=== PATIENT | female | born 1945 | race Caucasian/White ===

== ENCOUNTER 2016-07-26 22:07 | Inpatient (IN) | payer MEDICARE, MEDICAID ==
[~2016-07-26] VITALS: Ht 160 cm; Wt 45.1 kg
[2016-07-26 22:14] VITALS: BP 136/80; TEMP 98.2; O2SAT 99
[2016-07-26 23:18] VITALS: BP_SYST 130; PULSE 84; RESP 14; TEMP 98.1; O2SAT 98
[2016-07-26 23:52] LABS: AUTOMATED NEUTROPHIL # 4.2 TH/MM3 (1.8-7.7); BASOPHIL # 0.1 TH/MM3 (0-0.2); BASOPHIL % 0.9 % (0.0-2.0); EOSINOPHIL # 0.2 TH/MM3 (0-0.4); EOSINOPHIL % 3.4 % (0.0-4.0); HEMATOCRIT 29.7 % (35.0-46.0); HEMO FLAGS DIFF FINAL; LYMPH % 23.5 % (9.0-44.0); LYMPHOCYTE # 1.6 TH/MM3 (1.0-4.8); MEAN CELL VOLUME 89.9 FL (80.0-100.0); MEAN CORPUSCULAR HEMOGLOBIN 31.2 PG (27.0-34.0); MEAN CORPUSCULAR HGB CONC 34.7 % (32.0-36.0); MONO % 11.3 % (0.0-8.0); NEUT % 60.9 % (16.0-70.0); PLATELET COUNT 244 TH/MM3 (150-450); RED CELL DISTRIBUTION WIDTH 14.1 % (11.6-17.2)
--- NOTE | 2016-07-26 23:55 | RADRPT ---
EXAM DATE/TIME: 07/26/2016 23:45 [place] COMPARISON: No previous studies available for comparison. INDICATIONS : Altered mental status. RADIATION DOSE: 34.73 CTDIvol (mGy) MEDICAL HISTORY : None SURGICAL HISTORY : None. ENCOUNTER: Initial ACUITY: 1 day PAIN SCALE: Non-responsive LOCATION: cranial TECHNIQUE: Multiple contiguous axial images were obtained of the head. Using automated exposure control and adj ustment of the mA and/or kV according to patient size, radiation dose was kept as low as reasonably a chievable to obtain optimal diagnostic quality images. FINDINGS: CEREBRUM: The ventricles and cortical sulci are widened. No evidence of midline shift, mass lesion, hemorrhage or acute infarction. No extra-axial fluid collections are seen. POSTERIOR FOSSA: The cerebellum and brainstem are intact. The 4th ventricle is midline. The cerebellopontine angle i s unremarkable. EXTRACRANIAL: The visualized portion of the orbits is intact. SKULL: The calvaria is intact. No evidence of skull fracture. CONCLUSION: 1. No acute intracranial abnormality. 2. Atrophy. Roddy Huerta MD on July 26, 2016 at 23:53 Board Certified Radiologist. This report was verified electronically.
[2016-07-27 00:25] LABS: ANION GAP 7 MEQ/L (5-15); AST (GOT) 7 U/L (15-37); BICARBONATE 31.6 MEQ/L (21.0-32.0); BLOOD UREA NITROGEN 20 MG/DL (7-18); CHLORIDE 97 MEQ/L (98-107); GLOMERULAR FILTRATION RATE 107 ML/MIN (>89); POTASSIUM 3.7 MEQ/L (3.5-5.1); SODIUM (NA) 136 MEQ/L (136-145)
[2016-07-27 00:28] LABS: ALKALINE PHOSPHATASE 91 U/L (45-117); ALT (GPT) 14 U/L (10-53); TOTAL BILIRUBIN ADULT 0.2 MG/DL (0.2-1.0)
--- NOTE | 2016-07-27 00:34 | PD ---
HPI Chief Complaint: Psychiatric Symptoms Time Seen by Provider: 23:22 Travel History International Travel<30 days: No Contact w/Intl Traveler<30days: No Traveled to known affect area: No History of Present Illness HPI 71-year-old female was sent from rehabilitation for increasing agitation, confusion and hallucinations. She was Becerra acted by the physician at the rehabilitation center. As per the Becerra act paper work the physician said she was unfit for the current rehabilitation facility. Patient does have an ankle bracelet on. She has been hallucinating since she's been here and delusional. Speech is gibberish and does not make sense. Vital signs are otherwise stable. PFSH Past Medical History Narrative Medical List of her past medical history is reviewed from the nursing note. Medical History: Unable to Obtain Past Surgical History Surgical History: Unable to Obtain Social History Alcohol Use: No Tobacco Use: No Substance Use: No Allergies-Medications (Allergen,Severity, Reaction): Coded Allergies: No Known Allergies (Unverified , 07/26/16) Comments List of her allergies reviewed. Reported Meds & Prescriptions Reported Meds & Active Scripts Active Reported Haloperidol 5 Mg Tab 5 Mg PO TID Prevnar 13 Inj (Pneumoccal 13-Valent Conj Vacc) 0.5 Ml Inj 0.5 Ml IM .ONCE Olanzapine 5 Mg Tab 5 Mg PO TID Acetaminophen 325 Mg Tab 650 Mg PO Q4H PRN Metformin (Metformin HCl) 500 Mg Tab 500 Mg PO DAILY With a meal Aspirin 81 Mg Chew 81 Mg CHEW EVERY OTHER DAY Valproic Acid 250 Mg Cap 500 Mg PO TID Thiamine (Thiamine HCl) 100 Mg Tab 100 Mg PO DAILY A Thru Z Select Vitamin W/Minerals (Multiple Vitamins W/ Minerals) 1 Tab 1 Tab PO DAILY Folate (Folic Acid) 1 Mg Tab 1 Mg PO DAILY Glucagon Emergency Inj Kit (Glucagon (Rdna) Inj Kit) 1 Mg Kit 1 Mg IM ONCE PRN Milk of Magnesia Liq (Magnesium Hydroxide) 400 Mg/5 Ml Susp 30 Ml PO DAILY PRN Maalox Advanced Maximum Strength Liq (Sihqlmop-Xismafdis-Kwnrxssyvrk Liq) 400- 400-40 Mg/5 Ml Susp 30 Ml PO Q4HR PRN Take between meals or as directed. Shake well. Maximum 60 ml/24 hrs. Senna-Plus (Sennosides-Docusate Sodium) 8.6-50 Mg Tab 2 Tab PO HS Docusate Sodium 100 Mg Cap 100 Mg PO HS PRN Bismatrol Liq (Bismuth Subsalicylate) 262 Mg/15 Ml Susp 15 Ml PO Q4HR PRN Do not exceed 8 doses (240 mL or 16 tbsp) in 24 hours. Memantine 10 Mg Tab 10 Mg PO BID Hydroxyzine Pamoate 50 Mg Cap 50 Mg PO HS Benadryl Allergy Children Liq (Diphenhydramine HCl) 12.5 Mg/5 Ml Liq 12.5 Mg PO TID PRN Diphenhydramine (Diphenhydramine HCl) 25 Mg Cap 50 Mg PO Q12H PRN Losartan-Hydrochlorothiazide 50-12.5 Mg Tab 1 Tab PO DAILY Narrative Medication List of her medications were reviewed from the paperwork that came from rehabilitation. Review of Systems Except as stated in HPI: all other systems reviewed are Neg Physical Exam Narrative GENERAL: Awake, disheveled SKIN: Warm and dry. Seborrhea HEAD: Atraumatic. Normocephalic. EYES: Pupils equal and round. No scleral icterus. No injection or drainage. ENT: No nasal bleeding or discharge. Mucous membranes pink and moist. NECK: Trachea midline. No JVD. CARDIOVASCULAR: Regular rate and rhythm. No murmur appreciated. RESPIRATORY: No accessory muscle use. Clear to auscultation. Breath sounds equal bilaterally. GASTROINTESTINAL: Abdomen soft, non-tender, nondistended. Hepatic and splenic margins not palpable. MUSCULOSKELETAL: No obvious deformities. No clubbing. No cyanosis. No edema. NEUROLOGICAL: Awake and confused, delusional. No obvious cranial nerve deficits. Motor grossly within normal limits. Patient is not making sense when she is speaking. PSYCHIATRIC: Appropriate mood and affect; insight and judgment normal. Data Data Last Documented VS Vital Signs Date Time Temp Pulse Resp B/P Pulse Ox O2 Delivery O2 Flow Rate FiO2 07/27/16 06:00 69 18 125/67 97 07/26/16 23:18 98.1 Orders Complete Blood Count With Diff (07/26/16 23:22) Comprehensive Metabolic Panel (07/26/16 23:22) Urinalysis - C+S If Indicated (07/26/16 23:22) Drug Screen, Random Urine (07/26/16 23:22) Psych Screen (07/26/16 23:22) Ct Brain W/O Iv Contrast(Rout) (07/26/16 ) Valproic Acid (Depakene) (07/26/16 23:38) Haloperidol Inj (Haldol Inj) (07/27/16 03:00) Diet Diabetic (07/27/16 Breakfast) Admit Order (Ed Use Only) (07/27/16 ) Labs Laboratory Tests Test 07/26/16 07/27/16 23:38 02:20 White Blood Count 7.0 TH/MM3 Red Blood Count 3.30 MIL/MM3 Hemoglobin 10.3 GM/DL Hematocrit 29.7 % Mean Corpuscular Volume 89.9 FL Mean Corpuscular Hemoglobin 31.2 PG Mean Corpuscular Hemoglobin 34.7 % Concent Red Cell Distribution Width 14.1 % Platelet Count 244 TH/MM3 Mean Platelet Volume 7.8 FL Neutrophils (%) (Auto) 60.9 % Lymphocytes (%) (Auto) 23.5 % Monocytes (%) (Auto) 11.3 % Eosinophils (%) (Auto) 3.4 % Basophils (%) (Auto) 0.9 % Neutrophils # (Auto) 4.2 TH/MM3 Lymphocytes # (Auto) 1.6 TH/MM3 Monocytes # (Auto) 0.8 TH/MM3 Eosinophils # (Auto) 0.2 TH/MM3 Basophils # (Auto) 0.1 TH/MM3 CBC Comment DIFF FINAL Differential Comment Sodium Level 136 MEQ/L Potassium Level 3.7 MEQ/L Chloride Level 97 MEQ/L Carbon Dioxide Level 31.6 MEQ/L Anion Gap 7 MEQ/L Blood Urea Nitrogen 20 MG/DL Creatinine 0.56 MG/DL Estimat Glomerular Filtration 107 ML/MIN Rate Random Glucose 108 MG/DL Calcium Level 9.0 MG/DL Total Bilirubin 0.2 MG/DL Aspartate Amino Transf 7 U/L (AST/SGOT) Alanine Aminotransferase 14 U/L (ALT/SGPT) Alkaline Phosphatase 91 U/L Total Protein 6.9 GM/DL Albumin 3.1 GM/DL Valproic Acid (Depakene) Level 45 MCG/ML Urine Color YELLOW Urine Turbidity CLEAR Urine pH 7.0 Urine Specific [place] 1.017 Urine Protein NEG mg/dL Urine Glucose (UA) NEG mg/dL Urine Ketones NEG mg/dL Urine Occult Blood NEG Urine Nitrite NEG Urine Bilirubin NEG Urine Urobilinogen LESS THAN 2.0 MG/DL Urine Leukocyte Esterase NEG Urine RBC 1 /hpf Urine WBC 3 /hpf Urine Mucus FEW /lpf Microscopic Urinalysis Comment CULT NOT INDICATED Urine Opiates Screen NEG Urine Barbiturates Screen NEG Urine Amphetamines Screen NEG Urine Benzodiazepines Screen NEG Urine Cocaine Screen NEG Urine Cannabinoids Screen NEG MDM Medical Decision Making Medical Screen Exam Complete: Yes Emergency Medical Condition: Yes Medical Record Reviewed: Yes Differential Diagnosis Dementia, CVA, psychosis Narrative Course 12:33 AM patient is medically cleared at this point based on the CAT scan and the blood test results. She would require psych screen. Procedures EKG Prior to Arrival: No Diagnosis Primary Impression: Delusional disorder Additional Impressions: Visual hallucinations Psychosis Qualified Code: F29 - Psychosis, unspecified psychosis type Bladimir Fall MD Jul 27, 2016 00:33
[2016-07-27 02:39] LABS: BLOOD, URINE NEG (NEG); COMMENT (UR) CULT NOT INDICATED; CULTURE IF INDICATED CULT NOT INDICATED; GLUCOSE,URINE NEG (NEG); KETONE, URINE NEG (NEG); MUCUS URINE FEW /lpf (OCC); NITRITE,URINE NEG (NEG); URINE COLOR YELLOW (YELLW/STRAW)
[2016-07-27 02:43] LABS: AMPHETAMINE, URINE NEG (NEG); BARBITURATES, URINE NEG (NEG); COCAINE, URINE NEG (NEG)
[2016-07-27] MEDS ORDERED: HALOPERIDOL LACTATE 5 MG/ML AMP IM ONE (03:00)
[2016-07-27] MEDS ORDERED: SENN1TAB PO (04:33)
[2016-07-27] MEDS ORDERED: NOVOLOGP2 SQ (04:33)
[2016-07-27] MEDS ORDERED: HYDR50CA PO (04:33)
[2016-07-27] MEDS ORDERED: MAALSUS18 PO (04:33)
[2016-07-27] MEDS ORDERED: DOCU100C PO (04:33)
[2016-07-27] MEDS ORDERED: MILKSUS PO (04:33)
[2016-07-27] MEDS ORDERED: HALO5TAB PO (04:33)
[2016-07-27] MEDS ORDERED: VALP250C PO (04:33)
[2016-07-27] MEDS ORDERED: OLAN5TAB PO (04:33)
[2016-07-27] MEDS ORDERED: BENA12.5 PO (04:33)
[2016-07-27] MEDS ORDERED: LOSA50TA2 PO (04:33)
[2016-07-27] MEDS ORDERED: FOLI1TAB4 PO (04:33)
[2016-07-27] MEDS ORDERED: A THTAB2 PO (04:33)
[2016-07-27] MEDS ORDERED: ACET325T PO (04:33)
[2016-07-27] MEDS ORDERED: BISMS PO (04:33)
[2016-07-27] MEDS ORDERED: THIA100T PO (04:33)
[2016-07-27] MEDS ORDERED: METF500T PO (04:33)
[2016-07-27] MEDS ORDERED: PNEU13P IM (04:33)
[2016-07-27] MEDS ORDERED: MEMA1TAB2 PO (04:33)
[2016-07-27] MEDS ORDERED: GLUC1KIT IM (04:33)
[2016-07-27] MEDS ORDERED: DIPH25CA PO (04:33)
[2016-07-27] MEDS ORDERED: ASPI81CH CHEW (04:33)
[2016-07-27 05:00] VITALS: RESP 20
[2016-07-27 06:00] VITALS: BP 125/67; PULSE 69; RESP 18; O2SAT 97
[2016-07-27] MEDS ORDERED: GLUCAGON 1 MG/ML VIAL OTHER PRN (08:15)
[2016-07-27] MEDS ORDERED: ALUMINUM/MAGNESIUM/SIMETH 30 ML CUP PO PRN (08:15)
[2016-07-27] MEDS ORDERED: MAGNESIUM HYDROXIDE SUSP 30 ML CUP PO PRN (08:15)
[2016-07-27] MEDS ORDERED: DEXTROSE 50% IN WATER 50 ML VIAL(D50) IV PUSH PRN (08:15)
[2016-07-27] MEDS ORDERED: BENZTROPINE MESYLATE 2 MG/2 ML VIAL IM PRN (08:15)
[2016-07-27] MEDS ORDERED: BENZTROPINE MESYLATE 1 MG TAB PO PRN (08:15)
--- NOTE | 2016-07-27 08:53 | MH ---
cc: ZHANG LARA MD DATE OF ADMISSION 07/26/2016 ADMITTING DIAGNOSIS 1. Dementia with behavioral disturbance 2. History of alcohol use disorder per records GAF on admission is 20 presently DATE OF 1945 CHIEF COMPLAINT Admitted under Becerra Act for aggression. HISTORY OF PRESENT ILLNESS Ms. Waggoner is a 71 year-old female with a documented history of alcoholism and dementia who presents in transfer from [facility] under a Becerra Act alleging that the patient continues to decompensate and is increasingly aggressive and physically assaultive towards staff. Reviewing the electronic medical record, it appears this is the patient's first visit from [facility]. The patient seen and examined. The case discussed with nurse in the psychiatric emergency room. History is largely obtained from documentation accompanying the patient from her facility, as well as from collateral obtained by the nursing staff as the patient is quite confused and minimally cooperative with examination. The patient herself resists repositioning and is fairly irritable. She will not follow simple or complex commands. She is oriented to person only. She keeps her eyes closed for much of the evaluation. Reviewing the documentation from her facility, I note a history and physical examination from 03/30 from [facility] where the patient was apparently hospitalized under an ex parte from [facility]. Collateral obtained from nursing staff and patient's family indicates that the patient has a history of alcoholism and was admitted briefly to a crisis unit in [place] in February of this year where she fell and suffered a traumatic brain injury. She was subsequently hospitalized, apparently at [facility], where she continued to have episodes of behavioral disturbance. She was subsequently transferred to [facility] where she was hospitalized for two to three months before being discharged to [facility]. The patient's behavior has reportedly been unmanageable at [facility] and they are unable to accept her back per nursing staff. PAST PSYCHIATRIC HISTORY, FAMILY, CHEMICAL DEPENDENCY AND SOCIAL HISTORY Unobtainable from the patient as she is uncooperative and likely cognitively impaired. I do note that this history was obtained, to some degree, during her admission at [facility]. The patient is reported to have a history of depression and dementia. She was previously treated with Ativan, Zoloft and Haldol as needed. The patient is reported to have a history of alcohol abuse. PAST MEDICAL HISTORY Per documentation from patient's facility, the patient has a history of: 1. Essential hypertension 2. Diabetes mellitus 3. Constipation 4. Unspecified gastritis 5. Unspecified pain 6. Heartburn 7. Pruritus 8. Psychiatric diagnoses of manic episode, undifferentiated somatoform disorder, anxiety disorder and alcohol abuse. REVIEW OF SYSTEMS Unable to obtain from patient because of her current mental state. MEDICATIONS The medication list from facility reviewed. Psychotropics include: 1. Zyprexa 2. Hydroxyzine 3. Memantine 4. Haldol as needed PHYSICAL EXAM A physical examination was completed in the emergency room by the ER staff and the patient was medically cleared. On my examination today, the patient appears to be in no acute physical distress. She has some mild cogwheeling in the arm, but otherwise no abnormal motor movements are noted. She is minimally cooperative with examination. Labs and vital signs reviewed. I note, mild normocytic anemia on patient's CBC with a hemoglobin of 10.3. CMP is remarkable for decreased albumin at 3.1. Urinalysis is bland. Toxicology is negative and Valproic level is somewhat low at 45. MENTAL STATUS EXAM The patient is in hospital gown. She is somewhat disheveled. She appears to be dosing, but can be aroused with loud verbal or physical stimuli. She is alert only to person. Limited mental status testing as the patient is fairly uncooperative with examination. Motoric abnormalities as noted above. Speech is minimal, but is within normal limits for rate, tone and volume. Language and fund of knowledge are difficult to assess given limited sample. Mood, thought process, and thought content are likewise difficult to assess for the same reason. Affect is restricted and dysphoric. The patient is unreliable to contract for safety in her present state and I fear her insight and judgment are poor. ASSESSMENT AND PLAN 1. Dementia with behavior disturbance (F02.81), likely secondary to a history of alcoholism (F10.20) and traumatic brain injury (Z87.820). This is a 71 year-old female with psychiatric history as detailed above who presents under a Becerra Act from her psychologist at her facility alleging aggression and agitation there. The patient apparently has been struggling since she suffered a traumatic brain injury over the summer. She also has a history of alcoholism. The patient's facility is reportedly unable to manage her in her present state. The patient requires psychiatric admission at this time for safety, observation and stabilization. I will admit the patient to the inpatient psychiatric unit. Initiate a petition for involuntary psychiatric hospitalization. I will consult for a second. I will request a health care surrogate and guardian advocate. I will consult a hospitalist for management of patient's chronic medical issues and in the meantime resume her medications except for her insulin the dose of which is inappropriately documented in her medication reconciliation record from facility. I will instead place her on a diabetic diet with sliding scale until the patient can be evaluated by the hospitalist and we can clarify her insulin dosing. I will continue her Zyprexa, Memantine and hydroxyzine. I will continue her Valproic, although we might consider titrating this medication. I will provide her with Ativan as needed for agitation. PT consult and fall precautions. Counseling to see the patient. Disposition planning. Estimated length of stay is 10-13 days. Zhang GUSMAN /8:18 AM /8:32 AM MTDEvin
[2016-07-27] MEDS: MEMANTINE HCL 10 MG TAB PO SCH ×2 (09:00→20:37)
[2016-07-27] MEDS: OLANZapine 5 MG TAB PO SCH ×3 (09:00→17:38)
[2016-07-27] MEDS: metFORMIN HCL 500 MG TAB PO SCH (09:00)
[2016-07-27] MEDS: MULTIVITAMINS/MINERALS THERAPEUTIC TAB PO SCH (09:00)
[2016-07-27] MEDS: HYDROCHLOROTHIAZIDE 12.5 MG CAP PO SCH (09:00)
[2016-07-27] MEDS: THIAMINE HCL 100 MG TAB PO SCH (09:00)
[2016-07-27] MEDS: LOSARTAN 50 MG TAB PO SCH (09:00)
[2016-07-27] MEDS: VALPROIC ACID 250 MG CAP PO SCH ×3 (09:00→17:38)
[2016-07-27] MEDS: FOLIC ACID 1 MG TAB PO SCH (09:00)
[2016-07-27] MEDS: ASPIRIN 81 MG CHEW TAB CHEW SCH (09:00)
[2016-07-27] MEDS: NICOTINE 21 MG/24 HR PATCH T-DERMAL SCH (09:00)
[2016-07-27 10:52] VITALS: BP 110/53; PULSE 76
[2016-07-27] MEDS: INSULIN ASPART SUPPLEMENTAL SCALE SQ SCH ×3 (11:00→20:51)
[2016-07-27 12:00] VITALS: BP 137/79; PULSE 80; RESP 16; TEMP 97.6; O2SAT 98
[2016-07-27] MEDS: LORazepam 0.5 MG TAB PO PRN ×2 (12:00→23:37)
--- NOTE | 2016-07-27 12:18 | PD.CONS ---
Provisional Diagnosis Admission Date Jul 27, 2016 at 08:09 History of Present Illness Service Psychiatry Consult Requested By Primary Care Physician Unknown HPI Patient is a 71-year-old white female comes the ED under Becerra act, was seen screened in the initial H&P dictated by Dr. major. Dr. White dictation reviewed and agreed with. Patient seen on unit in dayroom with floor staff, she is a calm pleasant diffusely disorganized confused in all [address] major signed first opinion petition supporting Becerra act. I agree. Patient meets criteria for involuntary psychiatric hospitalization under the Becerra act. Thus I'll cosign second opinion petition supporting Becerra act Review of Systems Other Difficult to ascertain due to patient's cognitive disability Past Family Social History Coded Allergies: No Known Allergies (Unverified , 07/26/16) Reported Medications Haloperidol 5 Mg Tab5 Mg PO TID Ref 0 07/27/16 Pneumococcal 13-Valent Vaccine Inj (Prevnar 13 Inj)0.5 Ml Inj0.5 Ml IM .ONCE # 1 VIAL Ref 0 07/27/16 Olanzapine 5 Mg Tab5 Mg PO TID #60 TAB Ref 0 07/27/16 Acetaminophen 325 Mg [id number] Mg PO Q4H PRN (PAIN) 07/27/16 Metformin 500 Mg Tus048 Mg PO DAILY #30 TAB Ref 0 With a meal 07/27/16 Aspirin 81 Mg Chew81 Mg CHEW EVERY OTHER DAY Ref 0 07/27/16 Valproic Acid 250 Mg Mfu911 Mg PO TID #90 CAP Ref 0 07/27/16 Thiamine 100 Mg [id number] Mg PO DAILY Ref 0 07/27/16 Multiple Vitamins W/ Minerals (A Thru Z Select Vitamin W/Minerals)1 Tab1 Tab PO DAILY Ref 0 07/27/16 Folic Acid (Folate)1 Mg Tab1 Mg PO DAILY Ref 0 07/27/16 Glucagon (Rdna) Inj Kit (Glucagon Emergency Inj Kit)1 Mg Kit1 Mg IM ONCE PRN ( Blood Sugar Management) #1 KIT Ref 0 07/27/16 Magnesium Hydroxide Liq (Milk of Magnesia Liq)400 Mg/5 Ml Susp30 Ml PO DAILY PRN (INDIGESTION OR UPSET STOMACH) #1 BOTTLE Ref 0 07/27/16 Aeufrabw-Dajqnnoxs-Lapdcxpgeey Liq (Maalox Advanced Maximum Strength Liq)400-400 -40 Mg/5 Ml Susp30 Ml PO Q4HR PRN (INDIGESTION) Ref 0 Take between meals or as directed. Shake well. Maximum 60 ml/24 hrs. 07/27/16 Sennosides-Docusate Sodium (Senna-Plus)8.6-50 Mg Tab2 Tab PO HS Ref 0 07/27/16 Docusate Sodium 100 Mg [id number] Mg PO HS PRN (CONSTIPATION) #60 CAP Ref 0 07/27/16 Bismuth Subsalicylate Liq (Bismatrol Liq)262 Mg/15 Ml Susp15 Ml PO Q4HR PRN ( INDIGESTION OR UPSET STOMACH) #1 BOTTLE Ref 0 Do not exceed 8 doses (240 mL or 16 tbsp) in 24 hours. 07/27/16 Memantine 10 Mg Tab10 Mg PO BID Ref 0 07/27/16 Hydroxyzine Pamoate 50 Mg Cap50 Mg PO HS Ref 0 07/27/16 Diphenhydramine Liq (Benadryl Allergy Children Liq)12.5 Mg/5 Ml Liq12.5 Mg PO TID PRN (ALLERGIES) Ref 0 07/27/16 Diphenhydramine 25 Mg Cap50 Mg PO Q12H PRN (ITCHING) Ref 0 07/27/16 Losartan-Hydrochlorothiazide 50-12.5 Mg Tab1 Tab PO DAILY #30 TAB Ref 0 07/27/16 Discontinued Reported Medications Insulin Aspart Inj (Novolog Inj)1,000 Unit/10 Ml Yait001 Units SQ QID #10 ML Ref 0 07/27/16 Current Medications Medications (Trade) Dose Ordered Sig/Ksenia Route Start Time Stop Time Status Last Admin (Folate) 1 mg DAILY PO 07/27/16 09:00 (Vistaril) 50 mg HS PO 07/27/16 21:00 (Namenda) 10 mg BID PO 07/27/16 09:00 (Glucophage) 500 mg DAILY PO 07/27/16 09:00 (Theragran M Tab) 1 tab DAILY PO 07/27/16 09:00 (ZyPREXA) 5 mg TID PO 07/27/16 09:00 (Rupa-Colace) 2 tab HS PO 07/27/16 21:00 (Vitamin B1) 100 mg DAILY PO 07/27/16 09:00 (Depakene) 500 mg TID PO 07/27/16 09:00 (Cozaar) 50 mg DAILY PO 07/27/16 09:00 (Ativan) 0.5 mg Q12H PRN PO 07/27/16 08:15 (Ativan Inj) 0.5 mg Q12H PRN IM 07/27/16 08:15 (Benadryl) 50 mg HS PRN PO 07/27/16 08:15 (Tylenol) 650 mg Q4H PRN PO 07/27/16 08:15 (Milk Of Magnesia Liq) 30 ml DAILY PRN PO 07/27/16 08:15 (Mag-Al Plus Susp Liq) 30 ml Q6H PRN PO 07/27/16 08:15 (Habitrol 21 Mg Patch.24 Hr) 1 patch DAILY T-DERMAL 07/27/16 09:00 (Cogentin) 1 mg Q12H PRN PO 07/27/16 08:15 (Cogentin Inj) 1 mg Q12H PRN IM 07/27/16 08:15 (D50w (Vial) Inj) 25 ml UNSCH PRN IV PUSH 07/27/16 08:15 (Glucagon Inj) 1 mg UNSCH PRN OTHER 07/27/16 08:15 Miscellaneous Information 1 DAILY TD 07/28/16 09:00 (Microzide) 12.5 mg DAILY PO 07/27/16 09:00 Physical Exam Vital Signs Vital Signs Date Time Temp Pulse Resp B/P Pulse Ox O2 Delivery O2 Flow Rate FiO2 07/27/16 10:52 76 110/53 Room Air 07/27/16 06:00 18 97 07/26/16 23:18 98.1 Mental Status Examination Alert diffusely disorganized and confused white female appears stated age sitting calmly in dayroom she is calm pleasant with me Appearance Somewhat disheveled Speech: Hesitant, Stuttering, Circumstantial, Tangential Orientation: Person (vaguely) Memory: Impaired (describe) Thought Process: Linear Thought Content: Other (markedly disorganized) Language [place] Fund of Knowledge Poor Hallucination Type: None Attention and Concentration: Other (poor) Suicidal Ideation: No Previous Suicide Attempts: No Homicidal Ideation: No Previous Homicide Attempts: No Insight: Poor Judgement: Poor Affect: Other (decreased range and intensity) Mood: Other (restricted) Motor Activity: Normal gait Assessment & Plan Problem List: (1) UNSPECIFIED DEMENTIA WITH BEHAVIORAL DISTURBANCE ICD Code: F03.91 Assessment & Plan Estimated LOS: days patient demented confused disorganized, present time. Patient does meet criteria for involuntary psychiatric hospitalization the first opinion has been done by I have done second opinion supporting petition. Patient does meet criteria for involuntary psychiatric hospitalization. has also requested health care surrogate and guardian advocate I agree with that also. We will attempt to call patient's see edilberto at my treatment team on 07/30 Discharge Planning To be determined Request HC Surrog/Guard Advoc?: Yes Roddy Henson MD Jul 27, 2016 12:18
--- NOTE | 2016-07-27 13:15 | PD.CONS ---
[facility] Requested By Dr. Cortez Reason for Consult Medical management of condition Primary Care Physician Unknown Diagnoses: History of Present Illness This is a 71-year-old female patient with past medical history which includes traumatic brain injury status post fall February, EtOH abuse, hypertension, diabetes mellitus, gastritis. Patient is currently alert and oriented to person only therefore information gathered from patient as well as prior charting. Patient is currently in inpatient psychiatric center with been consulted for assistance with medical management of condition. Patient reports feeling well offers no complaints at this time. Patient denies chest pain shortness of breath nausea vomiting diarrhea constipation fevers or chills. Review of Systems ROS Limitations: Poor Historian Other All systems reviewed and negative unreliable due to patient's mental status Past Family Social History Allergies: Coded Allergies: No Known Allergies (Unverified , 07/26/16) Past Medical History traumatic brain injury status post fall February, EtOH abuse, hypertension, diabetes mellitus, gastritis Past Surgical History Patient answers yes that she has had prior surgeries but is unable to tell us what prior surgeries information unreliable due to patient's mental status Reported Medications Haloperidol 5 Mg Tab 5 Mg PO TID Prevnar 13 Inj (Pneumoccal 13-Valent Conj Vacc) 0.5 Ml Inj 0.5 Ml IM .ONCE Olanzapine 5 Mg Tab 5 Mg PO TID Acetaminophen 325 Mg Tab 650 Mg PO Q4H PRN Metformin (Metformin HCl) 500 Mg Tab 500 Mg PO DAILY With a meal Aspirin 81 Mg Chew 81 Mg CHEW EVERY OTHER DAY Valproic Acid 250 Mg Cap 500 Mg PO TID Thiamine (Thiamine HCl) 100 Mg Tab 100 Mg PO DAILY A Thru Z Select Vitamin W/Minerals (Multiple Vitamins W/ Minerals) 1 Tab 1 Tab PO DAILY Folate (Folic Acid) 1 Mg Tab 1 Mg PO DAILY Glucagon Emergency Inj Kit (Glucagon (Rdna) Inj Kit) 1 Mg Kit 1 Mg IM ONCE PRN Milk of Magnesia Liq (Magnesium Hydroxide) 400 Mg/5 Ml Susp 30 Ml PO DAILY PRN Maalox Advanced Maximum Strength Liq (Lwiqpont-Nniltjudh-Vtspafndkwn Liq) 400- 400-40 Mg/5 Ml Susp 30 Ml PO Q4HR PRN Take between meals or as directed. Shake well. Maximum 60 ml/24 hrs. Senna-Plus (Sennosides-Docusate Sodium) 8.6-50 Mg Tab 2 Tab PO HS Docusate Sodium 100 Mg Cap 100 Mg PO HS PRN Bismatrol Liq (Bismuth Subsalicylate) 262 Mg/15 Ml Susp 15 Ml PO Q4HR PRN Do not exceed 8 doses (240 mL or 16 tbsp) in 24 hours. Memantine 10 Mg Tab 10 Mg PO BID Hydroxyzine Pamoate 50 Mg Cap 50 Mg PO HS Benadryl Allergy Children Liq (Diphenhydramine HCl) 12.5 Mg/5 Ml Liq 12.5 Mg PO TID PRN Diphenhydramine (Diphenhydramine HCl) 25 Mg Cap 50 Mg PO Q12H PRN Losartan-Hydrochlorothiazide 50-12.5 Mg Tab 1 Tab PO DAILY Active Ordered Medications Current Medications Medications (Trade) Dose Ordered Sig/Ksenia Route Start Time Stop Time Status Last Admin (Folate) 1 mg DAILY PO 07/27/16 09:00 07/27/16 09:00 (Vistaril) 50 mg HS PO 07/27/16 21:00 (Namenda) 10 mg BID PO 07/27/16 09:00 07/27/16 09:00 (Glucophage) 500 mg DAILY PO 07/27/16 09:00 07/27/16 09:00 (Theragran M Tab) 1 tab DAILY PO 07/27/16 09:00 (ZyPREXA) 5 mg TID PO 07/27/16 09:00 07/27/16 09:00 (Rupa-Colace) 2 tab HS PO 07/27/16 21:00 (Vitamin B1) 100 mg DAILY PO 07/27/16 09:00 (Depakene) 500 mg TID PO 07/27/16 09:00 (Cozaar) 50 mg DAILY PO 07/27/16 09:00 07/27/16 09:00 (Ativan) 0.5 mg Q12H PRN PO 07/27/16 08:15 07/27/16 12:00 (Ativan Inj) 0.5 mg Q12H PRN IM 07/27/16 08:15 (Benadryl) 50 mg HS PRN PO 07/27/16 08:15 (Tylenol) 650 mg Q4H PRN PO 07/27/16 08:15 (Milk Of Magnesia Liq) 30 ml DAILY PRN PO 12/2/16 08:15 (Mag-Al Plus Susp Liq) 30 ml Q6H PRN PO 07/27/16 08:15 (Habitrol 21 Mg Patch.24 Hr) 1 patch DAILY T-DERMAL 07/27/16 09:00 (Cogentin) 1 mg Q12H PRN PO 07/27/16 08:15 (Cogentin Inj) 1 mg Q12H PRN IM 07/27/16 08:15 (D50w (Vial) Inj) 25 ml UNSCH PRN IV PUSH 07/27/16 08:15 (Glucagon Inj) 1 mg UNSCH PRN OTHER 07/27/16 08:15 Miscellaneous Information 1 DAILY TD 07/28/16 09:00 (Microzide) 12.5 mg DAILY PO 07/27/16 09:00 07/27/16 09:00 Family History asked regarding family history patient is unable to provide information due to mental status Social History Patient denies tobacco use EtOH use or illicit drug use information unreliable due to patient's mental status Physical Exam Vital Signs Vital Signs Date Time Temp Pulse Resp B/P Pulse Ox O2 Delivery O2 Flow Rate FiO2 07/27/16 12:00 97.6 80 16 137/79 98 07/27/16 10:52 76 110/53 Room Air 07/27/16 06:00 69 18 125/67 97 07/27/16 05:00 20 07/26/16 23:23 86 14 07/26/16 23:18 98.1 84 14 130/ 98 Physical Exam GENERAL: This is a 71-year-old female patient appears older than stated age confused and alert and oriented to person only well-nourished, well-developed patient, in no apparent distress. HEAD: Atraumatic. Normocephalic. No temporal or scalp tenderness. EYES: Extraocular motions intact. No scleral icterus. No injection or drainage. ENT: Nose without bleeding, purulent drainage or septal hematoma. Throat without erythema, tonsillar hypertrophy or exudate. Uvula midline. Airway patent. NECK: Trachea midline. No JVD or lymphadenopathy. Supple, nontender, no meningeal signs. CARDIOVASCULAR: Regular rate and rhythm without murmurs, gallops, or rubs. RESPIRATORY: Clear to auscultation. Breath sounds equal bilaterally. No wheezes , rales, or rhonchi. GASTROINTESTINAL: Abdomen soft, non-tender, nondistended. No hepato-splenomegaly , or palpable masses. No guarding. MUSCULOSKELETAL: Extremities without clubbing, cyanosis, or edema. No joint tenderness, effusion, or edema noted. No calf tenderness. Negative Homans sign bilaterally. NEUROLOGICAL: Awake and alert. Alert and oriented to person only Motor and sensory grossly within normal limits. 4-5 out of 5 muscle strength in all muscle groups. Normal speech. Laboratory Laboratory Tests Test 07/26/16 07/27/16 23:38 02:20 White Blood Count 7.0 Red Blood Count 3.30 Hemoglobin 10.3 Hematocrit 29.7 Mean Corpuscular Volume 89.9 Mean Corpuscular Hemoglobin 31.2 Mean Corpuscular Hemoglobin 34.7 Concent Red Cell Distribution Width 14.1 Platelet Count 244 Mean Platelet Volume 7.8 Neutrophils (%) (Auto) 60.9 Lymphocytes (%) (Auto) 23.5 Monocytes (%) (Auto) 11.3 Eosinophils (%) (Auto) 3.4 Basophils (%) (Auto) 0.9 Neutrophils # (Auto) 4.2 Lymphocytes # (Auto) 1.6 Monocytes # (Auto) 0.8 Eosinophils # (Auto) 0.2 Basophils # (Auto) 0.1 CBC Comment DIFF FINAL Differential Comment Sodium Level 136 Potassium Level 3.7 Chloride Level 97 Carbon Dioxide Level 31.6 Anion Gap 7 Blood Urea Nitrogen 20 Creatinine 0.56 Estimat Glomerular Filtration 107 Rate Random Glucose 108 Calcium Level 9.0 Total Bilirubin 0.2 Aspartate Amino Transf 7 (AST/SGOT) Alanine Aminotransferase 14 (ALT/SGPT) Alkaline Phosphatase 91 Total Protein 6.9 Albumin 3.1 Valproic Acid (Depakene) Level 45 Urine Color YELLOW Urine Turbidity CLEAR Urine pH 7.0 Urine Specific Bud 1.017 Urine Protein NEG Urine Glucose (UA) NEG Urine Ketones NEG Urine Occult Blood NEG Urine Nitrite NEG Urine Bilirubin NEG Urine Urobilinogen LESS THAN 2.0 Urine Leukocyte Esterase NEG Urine RBC 1 Urine WBC 3 Urine Mucus FEW Microscopic Urinalysis Comment CULT NOT INDICATED Urine Opiates Screen NEG Urine Barbiturates Screen NEG Urine Amphetamines Screen NEG Urine Benzodiazepines Screen NEG Urine Cocaine Screen NEG Urine Cannabinoids Screen NEG Result Diagram: 07/26/16 2338 07/26/16 2338 Imaging Last Impressions Head CT 07/26/16 0000 Signed Impressions: Service Date/Time: July 23:45 - CONCLUSION: 1. No acute intracranial abnormality. 2. Atrophy. Roddy Huerta MD Assessment and Plan Assessment and Plan Is an 89-year-old female patient alert to person only currently [facility] we've been consulted for assistance with medical management of condition. 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 Dementia with behavior disturbance-management per primary team Hypertension - continue Cozaar 50 mg daily and hydrochlorothiazide daily - continue to monitor and adjust as needed Diabetes mellitus - Continue metformin 500 mg daily - Accu-Cheks before meals at bedtime with Sliding scale insulin coverage - Diabetic diet DVT prophylaxis patient is ambulatory Thank you for the consultation and for allowing us to participate in the care of this patient Written by Magaly Cannon, acting as scribe for Dr. Gutiérrez on 07/27/16 at 13 :14. The documentation accurately reflects the work performed [id number] by me on 07/27/16 at 13:14. Magaly Cannon Jul 27, 2016 13:15 Misha Gutiérrez DO Jul 27, 2016 23:26
[2016-07-27] MEDS: LORazepam 2 MG/ML VIAL IM PRN (15:45)
[2016-07-27 18:00] VITALS: BP 136/64; PULSE 92; RESP 16; TEMP 98.5; O2SAT 95
[2016-07-27] MEDS: DOCUSATE SODIUM 50 MG/SENNA 8.6 MG TAB PO SCH (20:37)
[2016-07-28] MEDS: diphenhydrAMINE HCL 50 MG CAP PO PRN (01:52)
[2016-07-28 05:46] VITALS: BP 128/72; PULSE 80; RESP 16; TEMP 98.7; O2SAT 97
[2016-07-28] MEDS: INSULIN ASPART SUPPLEMENTAL SCALE SQ SCH (06:06)
--- NOTE | 2016-07-28 07:50 | HHI.PR ---
Blank section for building Patient appears medically stable. Will DC accuchecks and SSI coverage. Will sign off if patient's condition changes or if further assistance is needed please reconsult. (Magaly Cannon) Magaly Cannon Jul 28, 2016 07:50 Misha Gutiérrez DO Jul 29, 2016 00:02
[2016-07-28 08:02] LABS: ANION GAP 8 MEQ/L (5-15); BLOOD UREA NITROGEN 11 MG/DL (7-18); CHLORIDE 97 MEQ/L (98-107); GLOMERULAR FILTRATION RATE 138 ML/MIN (>89); POTASSIUM 3.5 MEQ/L (3.5-5.1); SODIUM (NA) 134 MEQ/L (136-145)
[2016-07-28 08:04] LABS: HDL CHOLESTEROL 63.6 MG/DL (40.0-60.0); LDL CHOLESTEROL 146 MG/DL (0-99)
[2016-07-28] MEDS: THIAMINE HCL 100 MG TAB PO SCH (08:13)
[2016-07-28] MEDS: LOSARTAN 50 MG TAB PO SCH (08:13)
[2016-07-28] MEDS: MULTIVITAMINS/MINERALS THERAPEUTIC TAB PO SCH (08:14)
[2016-07-28] MEDS: MEMANTINE HCL 10 MG TAB PO SCH ×2 (08:14→21:54)
[2016-07-28] MEDS: FOLIC ACID 1 MG TAB PO SCH (08:14)
[2016-07-28] MEDS: HYDROCHLOROTHIAZIDE 12.5 MG CAP PO SCH (08:14)
[2016-07-28] MEDS: metFORMIN HCL 500 MG TAB PO SCH (08:14)
[2016-07-28] MEDS: OLANZapine 5 MG TAB PO SCH ×3 (08:14→18:00)
[2016-07-28] MEDS: VALPROIC ACID 250 MG CAP PO SCH ×3 (08:14→18:00)
[2016-07-28] MEDS: REMOVE OLD NICODERM (NICOTINE) PATCH TD SCH (08:15)
[2016-07-28] MEDS: NICOTINE 21 MG/24 HR PATCH T-DERMAL SCH (08:15)
[2016-07-28 12:56] LABS: HEMOGLOBIN A1a 0.7 %; HEMOGLOBIN A1b 1.4 %; HEMOGLOBIN LA1C 1.8 %; HEMOGLOBIN P3 3.5 %
--- NOTE | 2016-07-28 15:18 | HHI.PYPN ---
Subjective Remarks Pt seen and discussed with staff. Pt has been agitated with care and verbally aggressive. She is compliant with mediations without obvious side effects. No SI /HI Review of Systems Psychiatric: COMPLAINS OF: Confusion, Agitation Objective Alert: Yes [place]: Person Mood: Other (irritable) Affect: Restricted (irritable) Memory Intact: Comment (poor) Hallucinations: Other (does not appear to be responding to internal stimuli) Delusions: No Delusion Type: Other (none) Suicidal: Ideation (none) Homicidal: Ideation (none) Insight/Judgement poor Labs Test 07/28/16 06:47 Sodium Level 134 MEQ/L Potassium Level 3.5 MEQ/L Chloride Level 97 MEQ/L Carbon Dioxide Level 29.0 MEQ/L Anion Gap 8 MEQ/L Blood Urea Nitrogen 11 MG/DL Creatinine 0.45 MG/DL Estimat Glomerular Filtration 138 ML/MIN Rate Random Glucose 91 MG/DL Hemoglobin A1c 5.2 % Calcium Level 9.5 MG/DL Triglycerides Level 84 MG/DL Cholesterol Level 226 MG/DL LDL Cholesterol 146 MG/DL HDL Cholesterol 63.6 MG/DL Cholesterol/HDL Ratio 3.55 RATIO Vitals/IOs Vital Signs Date Time Temp Pulse Resp B/P Pulse Ox O2 Delivery O2 Flow Rate FiO2 07/28/16 05:46 98.7 80 16 128/72 97 07/27/16 10:52 Room Air Intake and Output 07/27/16 07/27/16 07/28/16 08:00 16:00 00:00 Intake Total 480 ml 720 ml Balance 480 ml 720 ml Assessment & Plan Problem List: (1) UNSPECIFIED DEMENTIA WITH BEHAVIORAL DISTURBANCE ICD Code: F03.91 Assessment & Plan Continue current tx plan. Estimated LOS: days Request HC Surrog/Guard Advoc?: Yes Yadira Martino MD Jul 28, 2016 15:18
[2016-07-28 20:00] VITALS: BP 129/81; PULSE 78; RESP 16; TEMP 98.3; O2SAT 99
[2016-07-28] MEDS: DOCUSATE SODIUM 50 MG/SENNA 8.6 MG TAB PO SCH (21:54)
[2016-07-29 06:00] VITALS: BP_SYST 115; BP_SYST 132; BP_DIAS 52; BP_DIAS 73; PULSE 68; PULSE 89; RESP 15; TEMP 97.1; TEMP 98.2; O2SAT 97; O2SAT 99
[2016-07-29] MEDS: MULTIVITAMINS/MINERALS THERAPEUTIC TAB PO SCH (09:00)
[2016-07-29] MEDS: REMOVE OLD NICODERM (NICOTINE) PATCH TD SCH (09:00)
[2016-07-29] MEDS: NICOTINE 21 MG/24 HR PATCH T-DERMAL SCH (09:00)
[2016-07-29] MEDS: FOLIC ACID 1 MG TAB PO SCH (09:59)
[2016-07-29] MEDS: LOSARTAN 50 MG TAB PO SCH (10:00)
[2016-07-29] MEDS: metFORMIN HCL 500 MG TAB PO SCH (10:00)
[2016-07-29] MEDS: HYDROCHLOROTHIAZIDE 12.5 MG CAP PO SCH (10:00)
[2016-07-29] MEDS: MEMANTINE HCL 10 MG TAB PO SCH ×2 (10:00→20:20)
[2016-07-29] MEDS: ASPIRIN 81 MG CHEW TAB CHEW SCH (10:00)
[2016-07-29] MEDS: VALPROIC ACID 250 MG CAP PO SCH ×3 (10:02→17:43)
[2016-07-29] MEDS: THIAMINE HCL 100 MG TAB PO SCH (10:03)
[2016-07-29] MEDS: OLANZapine 5 MG TAB PO SCH ×3 (10:03→17:43)
--- NOTE | 2016-07-29 11:46 | HHI.PYPN ---
Subjective Remarks Pt seen and discussed with staff. Staff report that pt had improved sleep last night and has been more cooperative with care. She took medications without incident. No SI/HI Review of Systems Psychiatric: COMPLAINS OF: Confusion, Agitation Objective Alert: Yes [place]: Person Mood: Calm Affect: Restricted Memory Intact: Comment (poor) Hallucinations: Other (does not appear to be responding to internal stimuli) Delusions: No Delusion Type: Other (none) Suicidal: Ideation (none) Homicidal: Ideation (none) Insight/Judgement poor Vitals/IOs Vital Signs Date Time Temp Pulse Resp B/P Pulse Ox O2 Delivery O2 Flow Rate FiO2 07/29/16 06:00 97.1 89 15 132/73 97 07/27/16 10:52 Room Air Intake and Output 07/28/16 07/28/16 07/28/16 07:59 15:59 23:59 Intake Total 600 ml Balance 600 ml Assessment & Plan Problem List: (1) UNSPECIFIED DEMENTIA WITH BEHAVIORAL DISTURBANCE ICD Code: F03.91 Assessment & Plan Continue current tx plan. Estimated LOS: days Request HC Surrog/Guard Advoc?: Yes Yadira Martino MD Jul 29, 2016 11:46
[2016-07-29] MEDS: LORazepam 0.5 MG TAB PO PRN (16:13)
[2016-07-29 20:18] VITALS: BP 138/78; PULSE 96; RESP 18; O2SAT 99
[2016-07-29] MEDS: diphenhydrAMINE HCL 50 MG CAP PO PRN (20:20)
[2016-07-29] MEDS: DOCUSATE SODIUM 50 MG/SENNA 8.6 MG TAB PO SCH (20:20)
[2016-07-30 05:17] VITALS: BP 141/65; PULSE 84; RESP 18; TEMP 97; O2SAT 97
[2016-07-30] MEDS: NICOTINE 21 MG/24 HR PATCH T-DERMAL SCH (09:00)
[2016-07-30] MEDS: LOSARTAN 50 MG TAB PO SCH (09:00)
[2016-07-30] MEDS: REMOVE OLD NICODERM (NICOTINE) PATCH TD SCH (09:00)
[2016-07-30] MEDS: THIAMINE HCL 100 MG TAB PO SCH (09:59)
[2016-07-30] MEDS: metFORMIN HCL 500 MG TAB PO SCH (10:00)
[2016-07-30] MEDS: HYDROCHLOROTHIAZIDE 12.5 MG CAP PO SCH (10:00)
[2016-07-30] MEDS: DOCUSATE SODIUM 50 MG/SENNA 8.6 MG TAB PO SCH (10:00)
[2016-07-30] MEDS: MULTIVITAMINS/MINERALS THERAPEUTIC TAB PO SCH (10:01)
[2016-07-30] MEDS: VALPROIC ACID 250 MG CAP PO SCH ×2 (10:01→13:00)
[2016-07-30] MEDS: OLANZapine 5 MG TAB PO SCH ×3 (10:01→17:30)
[2016-07-30] MEDS: MEMANTINE HCL 10 MG TAB PO SCH ×2 (10:01→20:50)
[2016-07-30] MEDS: FOLIC ACID 1 MG TAB PO SCH (10:02)
--- NOTE | 2016-07-30 13:34 | HHI.PYPN ---
Subjective Remarks Patient discussed with treatment team and patient's . He gave further history of patient's chronic alcohol abuse and subsequent recent traumatic brain injury. Patient continues quite confused though able to be redirected and is compliant with medications. Patient is difficult blood level on 07/26 was 45 on total daily dose of 1500 mg Depakote. Will adjust Depakote dose to 500 mg a.m. 1250 mg at bedtime check Depakote level in 3 days reluctance have neurology consult related to the combination of long time alcohol abuse and try to brain injury Review of Systems Other No significant change since 07/27 Objective Alert: Yes [place]: Person Mood: Calm Affect: Restricted Memory Intact: Comment (poor) Hallucinations: Other (does not appear to be responding to internal stimuli) Delusions: No Delusion Type: Other (none) Suicidal: Ideation (none) Homicidal: Ideation (none) Insight/Judgement Very poor Vitals/IOs Vital Signs Date Time Temp Pulse Resp B/P Pulse Ox O2 Delivery O2 Flow Rate FiO2 07/30/16 05:17 97.0 84 18 141/65 97 07/27/16 10:52 Room Air Intake and Output 07/29/16 07/29/16 07/29/16 07:59 15:59 23:59 Intake Total 720 ml 600 ml Balance 720 ml 600 ml Assessment & Plan Problem List: (1) UNSPECIFIED DEMENTIA WITH BEHAVIORAL DISTURBANCE ICD Code: F03.91 Assessment & Plan Estimated LOS: days she continues confused and demented, though compliant medications, able to be redirected. See medication changes above and also referral/consultation to neurology Discharge Planning To be determined Request HC Surrog/Guard Advoc?: Yes Roddy Henson MD Jul 30, 2016 13:34
[2016-07-30] MEDS: LORazepam 2 MG/ML VIAL IM PRN (18:08)
[2016-07-30 19:17] VITALS: BP 135/76; PULSE 80; RESP 18; TEMP 97.6
[2016-07-30] MEDS: DIVALPROEX SODIUM E.R. 250 MG TAB PO SCH (20:50)
[2016-07-31 05:55] VITALS: BP 163/69; PULSE 85; RESP 18; TEMP 97.4; O2SAT 100
[2016-07-31] MEDS: REMOVE OLD NICODERM (NICOTINE) PATCH TD SCH (09:00)
[2016-07-31] MEDS: NICOTINE 21 MG/24 HR PATCH T-DERMAL SCH (09:00)
[2016-07-31] MEDS: MULTIVITAMINS/MINERALS THERAPEUTIC TAB PO SCH (09:00)
[2016-07-31] MEDS: OLANZapine 5 MG TAB PO SCH (09:00)
--- NOTE | 2016-07-31 09:35 | HHI.PYPN ---
Subjective Remarks Patient seen in day room with nurse Myriam, chart review, appears patient show some increased irritability towards late afternoon early evening yesterday did throw some medication at staff. This morning patient calm less likely confused will change olanzapine from 5 mg 3 times a day to 10 mg noon and 6 PM Review of Systems Other No change since 07/27 Objective Alert: Yes [place]: Person Mood: Calm Affect: Restricted Memory Intact: Comment (poor) Hallucinations: Other (does not appear to be responding to internal stimuli) Delusions: No Delusion Type: Other (none) Suicidal: Ideation (none) Homicidal: Ideation (none) Insight/Judgement Poor Vitals/IOs Vital Signs Date Time Temp Pulse Resp B/P Pulse Ox O2 Delivery O2 Flow Rate FiO2 07/31/16 05:55 97.4 85 18 163/69 100 07/27/16 10:52 Room Air Intake and Output 07/30/16 07/30/16 07/30/16 07:59 15:59 23:59 Intake Total 240 ml 480 ml 120 ml Balance 240 ml 480 ml 120 ml Assessment & Plan Problem List: (1) UNSPECIFIED DEMENTIA WITH BEHAVIORAL DISTURBANCE ICD Code: F03.91 Assessment & Plan Estimated LOS: days patient continues demented and confused, with some "sundowning" behaviors noted will adjust olanzapine accordingly Discharge Planning To be determined Request HC Surrog/Guard Advoc?: Yes Roddy Henson MD Jul 31, 2016 09:35
--- NOTE | 2016-07-31 09:58 | MB ---
cc: MASOUD BONNER M.D. DATE OF CONSULTATION: 07/31/2016 HISTORY OF PRESENT ILLNESS The patient is a 71-year-old seen in neurological consultation. She was admitted on 07/27/2016 with a history of behavioral problems at the nursing facility and history of dementia. The available data indicates that after she had a traumatic brain injury in February of this year she developed worsening of behavior and no longer could be managed at the nursing facility. She has a history of alcoholism. IMAGING A CT brain was negative for acute process. LABORATORY CBC shows WBC 7.0, hemoglobin 10.3, platelets 244. Sodium 134, potassium 3.5. Essentially normal electrolytes. LDL 146. NEUROLOGICAL EXAMINATION The neurologic exam showed the patient to be asleep, agitated and combative when I awoke her. She started with some foul language as she was upset and apparently she did not sleep well at night. She seems to move all four extremities. The nursing staff reports that she has been walking and her speech is sometimes salad-like, but she is conversant. She has been combative here in the hospital. Reflexes were diminished throughout, plantar response probably flexor. I briefly looked at the pupils which appeared to be about the same size. ASSESSMENT 1. Dementia with agitated and psychotic behavior. 2. Reported closed head injury in February 2016 with apparent aggravation or worsening of her encephalopathic state. PLAN/RECOMMENDATIONS For completeness I will see if we can run an MRI brain on her to be sure there is no other underlying abnormalities such as a small stroke, small subdural, etc. Will try to obtain an EEG. She is on Depakote for the behavior situation and she is on Zyprexa, vitamins, thiamine and memantine. There is a history of alcohol abuse, unclear as to the last alcohol ingestion. I will follow her with you. Thank you for asking us to assist in her care. Masoud Bonner MD OFC/BT /7:52 AM /9:47 AM
[2016-07-31] MEDS: THIAMINE HCL 100 MG TAB PO SCH (10:13)
[2016-07-31] MEDS: ASPIRIN 81 MG CHEW TAB CHEW SCH (10:13)
[2016-07-31] MEDS: FOLIC ACID 1 MG TAB PO SCH (10:13)
[2016-07-31] MEDS: metFORMIN HCL 500 MG TAB PO SCH (10:13)
[2016-07-31] MEDS: HYDROCHLOROTHIAZIDE 12.5 MG CAP PO SCH (10:13)
[2016-07-31] MEDS: DIVALPROEX SODIUM E.R. 500 MG TAB PO SCH (10:14)
[2016-07-31] MEDS: LOSARTAN 50 MG TAB PO SCH (10:14)
[2016-07-31] MEDS: MEMANTINE HCL 10 MG TAB PO SCH ×2 (10:14→20:30)
[2016-07-31] MEDS: OLANZapine 10 MG TAB PO SCH ×2 (13:32→18:35)
[2016-07-31] MEDS: LORazepam 0.5 MG TAB PO PRN (16:07)
[2016-07-31] MEDS: DIVALPROEX SODIUM E.R. 250 MG TAB PO SCH (20:30)
[2016-07-31] MEDS: DOCUSATE SODIUM 50 MG/SENNA 8.6 MG TAB PO SCH (20:30)
[2016-08-01 06:00] VITALS: BP 163/81; PULSE 89; RESP 18; TEMP 96.9; O2SAT 99
[2016-08-01] MEDS: HYDROCHLOROTHIAZIDE 12.5 MG CAP PO SCH (08:44)
[2016-08-01] MEDS: MULTIVITAMINS/MINERALS THERAPEUTIC TAB PO SCH (08:44)
[2016-08-01] MEDS: metFORMIN HCL 500 MG TAB PO SCH (08:44)
[2016-08-01] MEDS: FOLIC ACID 1 MG TAB PO SCH (08:44)
[2016-08-01] MEDS: REMOVE OLD NICODERM (NICOTINE) PATCH TD SCH (08:45)
[2016-08-01] MEDS: DIVALPROEX SODIUM E.R. 500 MG TAB PO SCH (08:45)
[2016-08-01] MEDS: MEMANTINE HCL 10 MG TAB PO SCH ×2 (08:45→21:19)
[2016-08-01] MEDS: THIAMINE HCL 100 MG TAB PO SCH (08:45)
[2016-08-01] MEDS: LOSARTAN 50 MG TAB PO SCH (08:45)
[2016-08-01] MEDS: NICOTINE 21 MG/24 HR PATCH T-DERMAL SCH (08:46)
--- NOTE | 2016-08-01 10:01 | HHI.PYPN ---
Subjective Remarks Patient seen in day room with floor staff continues confused disoriented, but no significant behavior problems at this time, compliant medications. Patient scheduled for [facility] tomorrow Review of Systems Other No change since 07/27 Objective Alert: Yes [place]: Person Mood: Calm Affect: Restricted Memory Intact: Comment (poor) Hallucinations: Other (does not appear to be responding to internal stimuli) Delusions: No Delusion Type: Other (none) Suicidal: Ideation (none) Homicidal: Ideation (none) Insight/Judgement Very poor Labs Test 07/31/16 10:30 Vitamin B12 Level 790 PG/ML Vitals/IOs Vital Signs Date Time Temp Pulse Resp B/P Pulse Ox O2 Delivery O2 Flow Rate FiO2 08/01/16 06:00 96.9 89 18 163/81 99 Intake and Output 07/31/16 07/31/16 08/01/16 08:00 16:00 00:00 Intake Total 100 ml 840 ml Balance 100 ml 840 ml Assessment & Plan Problem List: (1) UNSPECIFIED DEMENTIA WITH BEHAVIORAL DISTURBANCE ICD Code: F03.91 Assessment & Plan Estimated LOS: days patient is demented, though behavior has improved, compliant medications. Patient scheduled for [address] tomorrow Discharge Planning To be determined Request HC Surrog/Guard Advoc?: Yes Roddy Henson MD Aug 01, 2016 10:01
[2016-08-01 10:20] VITALS: BP 140/68; PULSE 88; RESP 16; TEMP 98.9; O2SAT 100
[2016-08-01] MEDS: OLANZapine 10 MG TAB PO SCH ×2 (12:11→17:17)
--- NOTE | 2016-08-01 13:06 | RADRPT ---
EXAM DATE/TIME: 08/01/2016 12:50 [facility] COMPARISON: No previous studies available for comparison. INDICATIONS : Right shoulder pain. MEDICAL HISTORY : None. SURGICAL HISTORY : None. ENCOUNTER: Initial ACUITY: 2 days PAIN SCORE: 3/10 LOCATION: Right shoulder. FINDINGS: Two view examination of the right shoulder demonstrates no evidence of fracture or dislocation. The glenohumeral and acromioclavicular joints are maintained. Bony mineralization is normal. CONCLUSION: Unremarkable limited examination of the right shoulder. Jigar Treviño MD on August 01, 2016 at 13:04 Board Certified Radiologist. This report was verified electronically.
--- NOTE | 2016-08-01 13:08 | RADRPT ---
EXAM DATE/TIME: 08/01/2016 12:50 [facility] COMPARISON: No previous studies available for comparison. INDICATIONS : Right hip pain. MEDICAL HISTORY : None. SURGICAL HISTORY : None. ENCOUNTER: Initial ACUITY: 2 days PAIN SCORE: 6/10 LOCATION: Right hip. FINDINGS: There are mild degenerative changes of the hip joint without evidence of fracture or dislocation. 2 c m corticated bone density is noted off the greater trochanter consistent with bursal calcification. CONCLUSION: Mild degenerative changes of the hip joint. Bursal calcification about the greater trochanter Jigar Treviño MD on August 01, 2016 at 13:05 Board Certified Radiologist. This report was verified electronically.
--- NOTE | 2016-08-01 13:22 | RADRPT ---
EXAM DATE/TIME: 08/01/2016 12:52 [facility] COMPARISON: No previous studies available for comparison. INDICATIONS : Right knee pain. MEDICAL HISTORY : None. SURGICAL HISTORY : None. ENCOUNTER: Initial ACUITY: 2 days PAIN SCORE: 4/10 LOCATION: Right knee. FINDINGS: 2 views of the right knee reveal diffuse osteopenia. Joint space narrowing with osteophyte production is seen involving all 3 compartments. No fracture or dislocation observed. No joint effusion. Soft t issues are unremarkable. CONCLUSION: 1. No fracture or dislocation. 2. Advanced tricompartmental osteoarthritis. 3. Osteopenia. Alejandro Felder Jr., MD on August 01, 2016 at 13:18 Board Certified Radiologist. This report was verified electronically.
--- NOTE | 2016-08-01 13:53 | RADRPT ---
EXAM DATE/TIME: 08/01/2016 13:03 [facility] COMPARISON: No previous studies available for comparison. INDICATIONS : Altered mental status. MEDICAL HISTORY : None. SURGICAL HISTORY : None. ENCOUNTER: Subsequent ACUITY: 4-6 days PAIN SCORE: 0/10 LOCATION: head. TECHNIQUE: Multiplanar, multisequence MRI of the brain was performed without contrast. FINDINGS: CEREBRUM: The ventricles are normal for age. No evidence of midline shift, mass lesion, hemorrhage or acute in farction. No extraaxial fluid collections are seen. The pituitary gland and suprasellar cistern are normal in configuration. WHITE MATTER: Scattered foci of high T2 signal abnormality involving the periventricular white matter of both cereb ral hemispheres. POSTERIOR FOSSA: The cerebellum and brainstem are intact. The 4th ventricle is midline. The cerebellopontine angle is unremarkable. The cerebellar tonsils are normal in position. DIFFUSION IMAGING: No focal areas of restricted diffusion are seen. No evidence of acute infarction. EXTRACRANIAL: The visualized portions of the orbits and paranasal sinuses are unremarkable. CONCLUSION: 1. No acute intracranial abnormality. 2. Chronic small vessel ischemic change. Alejandro Felder Jr., MD on August 01, 2016 at 13:38 Board Certified Radiologist. This report was verified electronically.
[2016-08-01 14:30] VITALS: BP 147/79; PULSE 84; RESP 18; TEMP 97.6; O2SAT 99
[2016-08-01 18:02] VITALS: BP 118/69; PULSE 100; RESP 17
[2016-08-01] MEDS: DIVALPROEX SODIUM E.R. 250 MG TAB PO SCH (21:18)
[2016-08-01] MEDS: DOCUSATE SODIUM 50 MG/SENNA 8.6 MG TAB PO SCH (21:19)
[2016-08-01 22:00] VITALS: BP 122/55; PULSE 97; RESP 20; TEMP 97.9; O2SAT 98
[2016-08-02 02:05] VITALS: BP 122/56; PULSE 84; RESP 18; O2SAT 100
[2016-08-02 06:40] VITALS: BP 144/81; PULSE 83; RESP 18; TEMP 98.2; O2SAT 100
[2016-08-02] MEDS: DIVALPROEX SODIUM E.R. 500 MG TAB PO SCH (08:22)
[2016-08-02] MEDS: LOSARTAN 50 MG TAB PO SCH (08:22)
[2016-08-02] MEDS: FOLIC ACID 1 MG TAB PO SCH (08:22)
[2016-08-02] MEDS: THIAMINE HCL 100 MG TAB PO SCH (08:22)
[2016-08-02] MEDS: HYDROCHLOROTHIAZIDE 12.5 MG CAP PO SCH (08:22)
[2016-08-02] MEDS: MEMANTINE HCL 10 MG TAB PO SCH ×2 (08:22→22:30)
[2016-08-02] MEDS: metFORMIN HCL 500 MG TAB PO SCH (08:22)
[2016-08-02] MEDS: NICOTINE 21 MG/24 HR PATCH T-DERMAL SCH (08:23)
[2016-08-02] MEDS: REMOVE OLD NICODERM (NICOTINE) PATCH TD SCH (08:23)
[2016-08-02] MEDS: ASPIRIN 81 MG CHEW TAB CHEW SCH (08:23)
[2016-08-02] MEDS: MULTIVITAMINS/MINERALS THERAPEUTIC TAB PO SCH (08:23)
--- NOTE | 2016-08-02 09:16 | HHI.PYPN ---
Subjective Remarks Patient seen on unit with floor staff, chart reviewed, patient continues quite confused and disoriented. Compliant medications. Patient scheduled for [address] later today. For now continue treatment Review of Systems Other No change since 07/27 Objective Alert: Yes [place]: Person Mood: Calm Affect: Restricted Memory Intact: Comment (poor) Hallucinations: Other (does not appear to be responding to internal stimuli) Delusions: No Delusion Type: Other (none) Suicidal: Ideation (none) Homicidal: Ideation (none) Insight/Judgement Very poor Labs Test 08/02/16 05:41 Valproic Acid (Depakene) Level 122 MCG/ML Vitals/IOs Vital Signs Date Time Temp Pulse Resp B/P Pulse Ox O2 Delivery O2 Flow Rate FiO2 08/02/16 06:40 98.2 83 18 144/81 100 Intake and Output 08/01/16 08/01/16 08/01/16 07:59 15:59 23:59 Intake Total 720 ml 480 ml Balance 720 ml 480 ml Assessment & Plan Problem List: (1) UNSPECIFIED DEMENTIA WITH BEHAVIORAL DISTURBANCE ICD Code: F03.91 Assessment & Plan Estimated LOS: days patient continues demented and confused scheduled for [address] [facility] today. At this time patient would decompensate at a lower level of care or less restrictive setting Discharge Planning To be determined Request HC Surrog/Guard Advoc?: Yes Roddy Henson MD Aug 02, 2016 09:16
[2016-08-02] MEDS: OLANZapine 10 MG TAB PO SCH ×2 (12:21→17:05)
[2016-08-02] MEDS: LORazepam 2 MG/ML VIAL IM PRN (13:57)
[2016-08-02 18:00] VITALS: BP 141/68; PULSE 80; RESP 17; TEMP 97.9; O2SAT 95
[2016-08-02] MEDS: DIVALPROEX SODIUM E.R. 250 MG TAB PO SCH (22:30)
[2016-08-02] MEDS: DOCUSATE SODIUM 50 MG/SENNA 8.6 MG TAB PO SCH (22:30)
[2016-08-03 06:14] VITALS: BP 144/77; PULSE 82; RESP 18; TEMP 96.2; O2SAT 100
[2016-08-03] MEDS: MEMANTINE HCL 10 MG TAB PO SCH ×2 (08:36→20:46)
[2016-08-03] MEDS: metFORMIN HCL 500 MG TAB PO SCH (08:36)
[2016-08-03] MEDS: FOLIC ACID 1 MG TAB PO SCH (08:37)
[2016-08-03] MEDS: HYDROCHLOROTHIAZIDE 12.5 MG CAP PO SCH (08:37)
[2016-08-03] MEDS: DIVALPROEX SODIUM E.R. 500 MG TAB PO SCH (08:37)
[2016-08-03] MEDS: MULTIVITAMINS/MINERALS THERAPEUTIC TAB PO SCH (08:37)
[2016-08-03] MEDS: LOSARTAN 50 MG TAB PO SCH (08:37)
[2016-08-03] MEDS: REMOVE OLD NICODERM (NICOTINE) PATCH TD SCH (08:39)
[2016-08-03] MEDS: NICOTINE 21 MG/24 HR PATCH T-DERMAL SCH (08:39)
[2016-08-03] MEDS: THIAMINE HCL 100 MG TAB PO SCH (09:48)
--- NOTE | 2016-08-03 12:41 | HHI.PYPN ---
Subjective Remarks Patient seen in day room with nurse Bryanna, patient continues confused disoriented needing significant assistance with ADLs., Staff notes patient having fairly difficult time swallowing the Depakote tablets. Will change to Depakene liquid, however Depakote blood level drawn on 08/02 is 122 will decrease at bedtime Depakene to 1000 mg check blood level on 08/06 Review of Systems Other No change since 07/27 Objective Alert: Yes [place]: Person Mood: Calm Affect: Restricted Memory Intact: Comment (poor) Hallucinations: Other (does not appear to be responding to internal stimuli) Delusions: No Delusion Type: Other (none) Suicidal: Ideation (none) Homicidal: Ideation (none) Insight/Judgement Very poor Vitals/IOs Vital Signs Date Time Temp Pulse Resp B/P Pulse Ox O2 Delivery O2 Flow Rate FiO2 08/03/16 06:14 96.2 82 18 144/77 100 Intake and Output 08/02/16 08/02/16 08/02/16 07:59 15:59 23:59 Intake Total 0 ml 360 ml Balance 0 ml 360 ml Assessment & Plan Problem List: (1) UNSPECIFIED DEMENTIA WITH BEHAVIORAL DISTURBANCE ICD Code: F03.91 Assessment & Plan Estimated LOS: days patient continues confused demented, though somewhat calmer. She medication adjustments above if history and close observation is required to manage complications that may attend the use of psychotropic medications Discharge Planning To be determined Request HC Surrog/Guard Advoc?: Yes Roddy Henson MD Aug 03, 2016 12:40
[2016-08-03] MEDS: OLANZapine 10 MG TAB PO SCH ×2 (12:43→17:56)
[2016-08-03] MEDS: LORazepam 2 MG/ML VIAL IM PRN (13:35)
[2016-08-03 18:00] VITALS: BP 154/70; PULSE 95; RESP 18; TEMP 97.3; O2SAT 97
[2016-08-03] MEDS: VALPROIC ACID SYRUP 250 MG/5 ML UDC PO SCH (20:46)
[2016-08-03] MEDS: DOCUSATE SODIUM 50 MG/SENNA 8.6 MG TAB PO SCH (20:47)
[2016-08-03] MEDS ORDERED: VALPROIC ACID SYRUP 250 MG/5 ML UDC PO SCH (21:00)
[2016-08-04] MEDS: THIAMINE HCL 100 MG TAB PO SCH (08:54)
[2016-08-04] MEDS: LOSARTAN 50 MG TAB PO SCH (08:54)
[2016-08-04] MEDS: MEMANTINE HCL 10 MG TAB PO SCH ×2 (08:54→21:39)
[2016-08-04] MEDS: metFORMIN HCL 500 MG TAB PO SCH (08:54)
[2016-08-04] MEDS: VALPROIC ACID SYRUP 250 MG/5 ML UDC PO SCH ×2 (08:55→21:00)
[2016-08-04] MEDS: ASPIRIN 81 MG CHEW TAB CHEW SCH (08:55)
[2016-08-04] MEDS: MULTIVITAMINS/MINERALS THERAPEUTIC TAB PO SCH (08:55)
[2016-08-04] MEDS: HYDROCHLOROTHIAZIDE 12.5 MG CAP PO SCH (08:55)
[2016-08-04] MEDS: FOLIC ACID 1 MG TAB PO SCH (08:55)
[2016-08-04] MEDS: REMOVE OLD NICODERM (NICOTINE) PATCH TD SCH (09:00)
[2016-08-04] MEDS: NICOTINE 21 MG/24 HR PATCH T-DERMAL SCH (09:00)
[2016-08-04] MEDS: OLANZapine 10 MG TAB PO SCH ×2 (12:00→18:06)
--- NOTE | 2016-08-04 14:50 | HHI.PYPN ---
Subjective Remarks Pt seen and discussed with staff. Staff report that pt gets agitated with care but otherwise has been calm. Compliant with medications. Pt slept well last night Objective Alert: Yes [place]: Person Mood: Calm Affect: Restricted Memory Intact: Comment (impaired) Hallucinations: Other (does not appear to be responding to internal stimuli) Delusions: No Delusion Type: Other (none) Suicidal: Ideation (none) Homicidal: Ideation (none) Insight/Judgement poor Vitals/IOs Vital Signs Date Time Temp Pulse Resp B/P Pulse Ox O2 Delivery O2 Flow Rate FiO2 08/03/16 18:00 97.3 95 18 154/70 97 Intake and Output 08/03/16 08/03/16 08/04/16 08:00 16:00 00:00 Intake Total 480 ml 360 ml Balance 480 ml 360 ml Assessment & Plan Problem List: (1) UNSPECIFIED DEMENTIA WITH BEHAVIORAL DISTURBANCE ICD Code: F03.91 Assessment & Plan Continue current tx plan. Estimated LOS: days Request HC Surrog/Guard Advoc?: Yes Yadira Martino MD Aug 04, 2016 14:50
[2016-08-04 19:47] VITALS: BP 126/62; PULSE 104; RESP 16; TEMP 97.9; O2SAT 100
[2016-08-04] MEDS: DOCUSATE SODIUM 50 MG/SENNA 8.6 MG TAB PO SCH (21:39)
[2016-08-05 06:26] VITALS: BP 135/81; PULSE 94; RESP 18; TEMP 97.2; O2SAT 96
[2016-08-05] MEDS: FOLIC ACID 1 MG TAB PO SCH (08:25)
[2016-08-05] MEDS: THIAMINE HCL 100 MG TAB PO SCH (08:25)
[2016-08-05] MEDS: MEMANTINE HCL 10 MG TAB PO SCH ×2 (08:25→20:43)
[2016-08-05] MEDS: LOSARTAN 50 MG TAB PO SCH (08:25)
[2016-08-05] MEDS: metFORMIN HCL 500 MG TAB PO SCH (08:25)
[2016-08-05] MEDS: MULTIVITAMINS/MINERALS THERAPEUTIC TAB PO SCH (08:26)
[2016-08-05] MEDS: HYDROCHLOROTHIAZIDE 12.5 MG CAP PO SCH (08:26)
[2016-08-05] MEDS: VALPROIC ACID SYRUP 250 MG/5 ML UDC PO SCH ×2 (08:36→20:42)
[2016-08-05] MEDS: NICOTINE 21 MG/24 HR PATCH T-DERMAL SCH (08:36)
[2016-08-05] MEDS: REMOVE OLD NICODERM (NICOTINE) PATCH TD SCH (09:00)
[2016-08-05] MEDS: OLANZapine 10 MG TAB PO SCH ×2 (11:47→17:41)
--- NOTE | 2016-08-05 17:43 | HHI.PYPN ---
Subjective Remarks Pt seen and discussed with staff. She was agitated and aggressive during hygiene care today. Compliant with medications. Appetite improved. Pt slept well last night. Objective Alert: Yes [place]: Person Mood: Calm Affect: Restricted Memory Intact: Comment (impaired) Hallucinations: Other (does not appear to be responding to internal stimuli) Delusions: No Delusion Type: Other (none) Suicidal: Ideation (none) Homicidal: Ideation (none) Insight/Judgement poor Vitals/IOs Vital Signs Date Time Temp Pulse Resp B/P Pulse Ox O2 Delivery O2 Flow Rate FiO2 08/05/16 06:26 97.2 94 18 135/81 96 Intake and Output 08/04/16 08/04/16 08/04/16 07:59 15:59 23:59 Intake Total 0 ml 1680 ml 480 ml Balance 0 ml 1680 ml 480 ml Assessment & Plan Problem List: (1) UNSPECIFIED DEMENTIA WITH BEHAVIORAL DISTURBANCE ICD Code: F03.91 Assessment & Plan continue current tx plan. Estimated LOS: days Request HC Surrog/Guard Advoc?: Yes Yadira Martino MD Aug 05, 2016 17:43
[2016-08-05 19:09] VITALS: BP 149/67; PULSE 97; RESP 18; TEMP 98.5; O2SAT 98
[2016-08-05] MEDS: DOCUSATE SODIUM 50 MG/SENNA 8.6 MG TAB PO SCH (20:42)
[2016-08-05] MEDS: LORazepam 2 MG/ML VIAL IM PRN (22:00)
[2016-08-06 05:41] VITALS: BP 139/67; PULSE 86; RESP 16; TEMP 98.2; O2SAT 97
[2016-08-06] MEDS: REMOVE OLD NICODERM (NICOTINE) PATCH TD SCH (09:00)
[2016-08-06] MEDS: NICOTINE 21 MG/24 HR PATCH T-DERMAL SCH (09:00)
[2016-08-06] MEDS: MULTIVITAMINS/MINERALS THERAPEUTIC TAB PO SCH (09:00)
[2016-08-06] MEDS: HYDROCHLOROTHIAZIDE 12.5 MG CAP PO SCH (09:06)
[2016-08-06] MEDS: metFORMIN HCL 500 MG TAB PO SCH (09:06)
[2016-08-06] MEDS: FOLIC ACID 1 MG TAB PO SCH (09:06)
[2016-08-06] MEDS: THIAMINE HCL 100 MG TAB PO SCH (09:06)
[2016-08-06] MEDS: ASPIRIN 81 MG CHEW TAB CHEW SCH (09:06)
[2016-08-06] MEDS: LOSARTAN 50 MG TAB PO SCH (09:06)
[2016-08-06] MEDS: VALPROIC ACID SYRUP 250 MG/5 ML UDC PO SCH ×2 (09:07→20:53)
[2016-08-06] MEDS: MEMANTINE HCL 10 MG TAB PO SCH ×2 (09:07→20:53)
[2016-08-06] MEDS: OLANZapine 10 MG TAB PO SCH (11:46)
--- NOTE | 2016-08-06 12:34 | HHI.PYPN ---
Subjective Remarks Patient's medication treatment behaviors and placement issues discussed with treatment team and patient's . Patient overall no significant behavioral problems however there is still some sundowning behaviors that are occurring more frequently towards evening, will increase the 6 PM Zyprexa to 15 mg., Depakote level on 08/06 is 77 Review of Systems Other No change since 07/27 Objective Alert: Yes [place]: Person Mood: Calm Affect: Restricted Memory Intact: Comment (impaired) Hallucinations: Other (does not appear to be responding to internal stimuli) Delusions: No Delusion Type: Other (none) Suicidal: Ideation (none) Homicidal: Ideation (none) Insight/Judgement Very poor Labs Test 08/06/16 06:21 Valproic Acid (Depakene) Level 77 MCG/ML Vitals/IOs Vital Signs Date Time Temp Pulse Resp B/P Pulse Ox O2 Delivery O2 Flow Rate FiO2 08/06/16 05:41 98.2 86 16 139/67 97 Intake and Output 08/05/16 08/05/16 08/05/16 07:59 15:59 23:59 Intake Total 240 ml 240 ml 720 ml Output Total 1 ml Balance 239 ml 240 ml 720 ml Assessment & Plan Problem List: (1) UNSPECIFIED DEMENTIA WITH BEHAVIORAL DISTURBANCE ICD Code: F03.91 Assessment & Plan Estimated LOS: days patient continues demented confused, at times somewhat labile see medication changes above. At this time the patient with severely decompensate placed and a lower level of Discharge Planning To be determined Request HC Surrog/Guard Advoc?: Yes Roddy Henson MD Aug 06, 2016 12:34
[2016-08-06] MEDS: LORazepam 2 MG/ML VIAL IM PRN (17:01)
[2016-08-06] MEDS: DOCUSATE SODIUM 50 MG/SENNA 8.6 MG TAB PO SCH (20:53)
[2016-08-07 05:56] VITALS: BP 138/68; PULSE 80; RESP 16; TEMP 97.8; O2SAT 99
[2016-08-07] MEDS: REMOVE OLD NICODERM (NICOTINE) PATCH TD SCH (09:00)
[2016-08-07] MEDS: NICOTINE 21 MG/24 HR PATCH T-DERMAL SCH (09:00)
[2016-08-07] MEDS: metFORMIN HCL 500 MG TAB PO SCH (09:37)
[2016-08-07] MEDS: LOSARTAN 50 MG TAB PO SCH (09:37)
[2016-08-07] MEDS: THIAMINE HCL 100 MG TAB PO SCH (09:37)
[2016-08-07] MEDS: MEMANTINE HCL 10 MG TAB PO SCH ×2 (09:37→20:43)
[2016-08-07] MEDS: FOLIC ACID 1 MG TAB PO SCH (09:37)
[2016-08-07] MEDS: HYDROCHLOROTHIAZIDE 12.5 MG CAP PO SCH (09:38)
[2016-08-07] MEDS: VALPROIC ACID SYRUP 250 MG/5 ML UDC PO SCH ×2 (09:38→20:42)
[2016-08-07] MEDS: MULTIVITAMINS/MINERALS THERAPEUTIC TAB PO SCH (09:38)
--- NOTE | 2016-08-07 09:56 | HHI.PYPN ---
Subjective Remarks Patient seen in day room with nurse Luz, patient continues diffusely confused though pleasant with me, compliant medications, now continue treatment Review of Systems Other No change since 07/27 Objective Alert: Yes [place]: Person Mood: Calm Affect: Restricted Memory Intact: Comment (impaired) Hallucinations: Other (does not appear to be responding to internal stimuli) Delusions: No Delusion Type: Other (none) Suicidal: Ideation (none) Homicidal: Ideation (none) Insight/Judgement Poor Vitals/IOs Vital Signs Date Time Temp Pulse Resp B/P Pulse Ox O2 Delivery O2 Flow Rate FiO2 08/07/16 05:56 97.8 80 16 138/68 99 Intake and Output 08/06/16 08/06/16 08/07/16 08:00 16:00 00:00 Intake Total 0 ml 240 ml 960 ml Balance 0 ml 240 ml 960 ml Assessment & Plan Problem List: (1) UNSPECIFIED DEMENTIA WITH BEHAVIORAL DISTURBANCE ICD Code: F03.91 Assessment & Plan Estimated LOS: days patient continues demented and confused, but no significant behavioral problems. Compliant medications for now continue treatment Justification for Cont. Inpt. Patient would severely decompensat at lower level of care or a less restrictive setting Discharge Planning To be determined Request HC Surrog/Guard Advoc?: Yes Roddy Henson MD Aug 07, 2016 09:56
[2016-08-07] MEDS: OLANZapine 10 MG TAB PO SCH (12:00)
[2016-08-07 20:09] VITALS: BP 133/74; PULSE 100; RESP 18; TEMP 97.5; O2SAT 95
[2016-08-07] MEDS: DOCUSATE SODIUM 50 MG/SENNA 8.6 MG TAB PO SCH (20:43)
[2016-08-08] MEDS: REMOVE OLD NICODERM (NICOTINE) PATCH TD SCH (09:00)
[2016-08-08] MEDS: NICOTINE 21 MG/24 HR PATCH T-DERMAL SCH (09:00)
[2016-08-08] MEDS: MEMANTINE HCL 10 MG TAB PO SCH ×2 (09:12→20:37)
[2016-08-08] MEDS: LOSARTAN 50 MG TAB PO SCH (09:12)
[2016-08-08] MEDS: MULTIVITAMINS/MINERALS THERAPEUTIC TAB PO SCH (09:12)
[2016-08-08] MEDS: metFORMIN HCL 500 MG TAB PO SCH (09:12)
[2016-08-08] MEDS: HYDROCHLOROTHIAZIDE 12.5 MG CAP PO SCH (09:12)
[2016-08-08] MEDS: FOLIC ACID 1 MG TAB PO SCH (09:12)
[2016-08-08] MEDS: THIAMINE HCL 100 MG TAB PO SCH (09:12)
[2016-08-08] MEDS: ASPIRIN 81 MG CHEW TAB CHEW SCH (09:13)
[2016-08-08] MEDS: VALPROIC ACID SYRUP 250 MG/5 ML UDC PO SCH ×2 (09:13→20:37)
--- NOTE | 2016-08-08 10:41 | HHI.PYPN ---
Subjective Remarks Patient seen in day room with nurse Myriam and family practice resident arun, chart reviewed, patient continues confused demented, needing significant interventions and assistance. Compliant medications. For now continue treatment Review of Systems Other No change since 07/27 Objective Alert: Yes [place]: Person Mood: Calm Affect: Restricted Memory Intact: Comment (impaired) Hallucinations: Other (does not appear to be responding to internal stimuli) Delusions: No Delusion Type: Other (none) Suicidal: Ideation (none) Homicidal: Ideation (none) Insight/Judgement Very poor Vitals/IOs Vital Signs Date Time Temp Pulse Resp B/P Pulse Ox O2 Delivery O2 Flow Rate FiO2 08/07/16 20:09 97.5 100 18 133/74 95 Intake and Output 08/07/16 08/07/16 08/08/16 08:00 16:00 00:00 Intake Total 240 ml 600 ml Output Total 3 ml Balance 240 ml 597 ml Assessment & Plan Problem List: (1) UNSPECIFIED DEMENTIA WITH BEHAVIORAL DISTURBANCE ICD Code: F03.91 Assessment & Plan Estimated LOS: days patient continues demented confused needing significant interventions Justification for Cont. Inpt. At this time the patient was severely decompensated a lower level of care her less restrictive setting Discharge Planning To be determined Request HC Surrog/Guard Advoc?: Yes Roddy Henson MD Aug 08, 2016 10:41
[2016-08-08] MEDS: OLANZapine 10 MG TAB PO SCH (11:45)
[2016-08-08 19:13] VITALS: BP 117/54; PULSE 100; RESP 16; TEMP 98.4
[2016-08-08] MEDS: DOCUSATE SODIUM 50 MG/SENNA 8.6 MG TAB PO SCH (20:37)
[2016-08-09] MEDS: LORazepam 2 MG/ML VIAL IM PRN (01:29)
[2016-08-09 05:47] VITALS: BP 110/62; PULSE 90; RESP 17; TEMP 97.5; O2SAT 99
--- NOTE | 2016-08-09 08:31 | HHI.PYPN ---
Subjective Remarks Patient seen in dayroom with floor staff, patient compliant medications, still shows some irritability when assisted with ADLs, but this morning it is calm quiet with me. Though continues diffusely confused For now continue treatment Review of Systems Other No change since 07/27 Objective Alert: Yes [place]: Person Mood: Calm Affect: Restricted Memory Intact: Comment (impaired) Hallucinations: Other (does not appear to be responding to internal stimuli) Delusions: No Delusion Type: Other (none) Suicidal: Ideation (none) Homicidal: Ideation (none) Insight/Judgement Very poor Vitals/IOs Vital Signs Date Time Temp Pulse Resp B/P Pulse Ox O2 Delivery O2 Flow Rate FiO2 08/09/16 05:47 97.5 90 17 110/62 99 Intake and Output 08/08/16 08/08/16 08/08/16 07:59 15:59 23:59 Intake Total 600 ml 360 ml Balance 600 ml 360 ml Assessment & Plan Problem List: (1) UNSPECIFIED DEMENTIA WITH BEHAVIORAL DISTURBANCE ICD Code: F03.91 Assessment & Plan Estimated LOS: days patient continues demented and confused, at times they some interventions especially with ADLs Justification for Cont. Inpt. At this time the patient was severely decompensate her lower level of care or less restrictive setting Discharge Planning To be determined Request HC Surrog/Guard Advoc?: Yes Roddy Henson MD Aug 09, 2016 08:31
[2016-08-09] MEDS: MEMANTINE HCL 10 MG TAB PO SCH ×2 (08:54→20:39)
[2016-08-09] MEDS: metFORMIN HCL 500 MG TAB PO SCH (08:54)
[2016-08-09] MEDS: FOLIC ACID 1 MG TAB PO SCH (08:55)
[2016-08-09] MEDS: THIAMINE HCL 100 MG TAB PO SCH (08:55)
[2016-08-09] MEDS: VALPROIC ACID SYRUP 250 MG/5 ML UDC PO SCH ×2 (08:56→20:39)
[2016-08-09] MEDS: MULTIVITAMINS/MINERALS THERAPEUTIC TAB PO SCH (08:56)
[2016-08-09] MEDS: LOSARTAN 50 MG TAB PO SCH (08:57)
[2016-08-09] MEDS: HYDROCHLOROTHIAZIDE 12.5 MG CAP PO SCH (08:57)
[2016-08-09] MEDS: REMOVE OLD NICODERM (NICOTINE) PATCH TD SCH (09:00)
[2016-08-09] MEDS: NICOTINE 21 MG/24 HR PATCH T-DERMAL SCH (09:00)
[2016-08-09] MEDS: OLANZapine 10 MG TAB PO SCH (12:54)
[2016-08-09] MEDS: DOCUSATE SODIUM 50 MG/SENNA 8.6 MG TAB PO SCH (20:39)
[2016-08-10 04:55] VITALS: BP 186/88; PULSE 94; RESP 18; TEMP 98.1; O2SAT 100
--- NOTE | 2016-08-10 08:54 | HHI.PYPN ---
Subjective Remarks Patient seen in day room with nurse Luz, patient calm confused drowsy, compliant medications, staff states some continued difficulty with interventions more towards evening Review of Systems Other no change since 07/27 Objective Alert: Yes [place]: Person Mood: Calm Affect: Restricted Memory Intact: Comment (impaired) Hallucinations: Other (does not appear to be responding to internal stimuli) Delusions: No Delusion Type: Other (none) Suicidal: Ideation (none) Homicidal: Ideation (none) Insight/Judgement Very poor Vitals/IOs Vital Signs Date Time Temp Pulse Resp B/P Pulse Ox O2 Delivery O2 Flow Rate FiO2 08/10/16 04:55 98.1 94 18 186/88 100 Intake and Output 08/09/16 08/09/16 08/10/16 08:00 16:00 00:00 Intake Total 0 ml 480 ml 360 ml Balance 0 ml 480 ml 360 ml Assessment & Plan Problem List: (1) UNSPECIFIED DEMENTIA WITH BEHAVIORAL DISTURBANCE ICD Code: F03.91 Assessment & Plan Estimated LOS: days patient continues demented and confused, quite at the present time, compliant medications Justification for Cont. Inpt. At this time the patient will decompensate severely at a lower level of care or less restrictive setting Discharge Planning To be determined Request HC Surrog/Guard Advoc?: Yes Roddy Henson MD Aug 10, 2016 08:54
[2016-08-10] MEDS: metFORMIN HCL 500 MG TAB PO SCH (09:00)
[2016-08-10] MEDS: THIAMINE HCL 100 MG TAB PO SCH (09:00)
[2016-08-10] MEDS: MEMANTINE HCL 10 MG TAB PO SCH ×2 (09:00→21:00)
[2016-08-10] MEDS: MULTIVITAMINS/MINERALS THERAPEUTIC TAB PO SCH (09:00)
[2016-08-10] MEDS: VALPROIC ACID SYRUP 250 MG/5 ML UDC PO SCH ×2 (09:00→21:00)
[2016-08-10] MEDS: NICOTINE 21 MG/24 HR PATCH T-DERMAL SCH (09:00)
[2016-08-10] MEDS: ASPIRIN 81 MG CHEW TAB CHEW SCH (09:00)
[2016-08-10] MEDS: REMOVE OLD NICODERM (NICOTINE) PATCH TD SCH (09:00)
[2016-08-10] MEDS: FOLIC ACID 1 MG TAB PO SCH (09:00)
[2016-08-10] MEDS: LOSARTAN 50 MG TAB PO SCH (09:12)
[2016-08-10] MEDS: HYDROCHLOROTHIAZIDE 12.5 MG CAP PO SCH (09:12)
[2016-08-10] MEDS: OLANZapine 10 MG TAB PO SCH (12:13)
[2016-08-10 19:08] VITALS: BP 121/65; PULSE 69; RESP 17; TEMP 98.3; O2SAT 98
[2016-08-10] MEDS: DOCUSATE SODIUM 50 MG/SENNA 8.6 MG TAB PO SCH (21:00)
[2016-08-11 06:16] VITALS: BP 152/59; PULSE 93; RESP 16; TEMP 98.3; O2SAT 100
[2016-08-11] MEDS: REMOVE OLD NICODERM (NICOTINE) PATCH TD SCH (09:00)
[2016-08-11] MEDS: NICOTINE 21 MG/24 HR PATCH T-DERMAL SCH (09:00)
[2016-08-11] MEDS: LOSARTAN 50 MG TAB PO SCH (10:03)
[2016-08-11] MEDS: THIAMINE HCL 100 MG TAB PO SCH (10:03)
[2016-08-11] MEDS: VALPROIC ACID SYRUP 250 MG/5 ML UDC PO SCH ×2 (10:03→20:10)
[2016-08-11] MEDS: metFORMIN HCL 500 MG TAB PO SCH (10:03)
[2016-08-11] MEDS: FOLIC ACID 1 MG TAB PO SCH (10:03)
[2016-08-11] MEDS: MEMANTINE HCL 10 MG TAB PO SCH ×2 (10:04→20:16)
[2016-08-11] MEDS: HYDROCHLOROTHIAZIDE 12.5 MG CAP PO SCH (10:04)
[2016-08-11] MEDS: MULTIVITAMINS/MINERALS THERAPEUTIC TAB PO SCH (10:04)
--- NOTE | 2016-08-11 12:15 | HHI.PYPN ---
Subjective Remarks Patient was seen and case discussed with nursing. Patient is confused and disorganized. Alert and oriented 1. Poor eye contact. Unable to answer questions appropriately. Compliant with medications and behaving well on the unit Objective Alert: Yes [place]: Person Mood: Calm Affect: Restricted Memory Intact: Comment (impaired) Hallucinations: Other (does not appear to be responding to internal stimuli) Delusions: No Delusion Type: Other (none) Suicidal: Ideation (none) Homicidal: Ideation (none) Insight/Judgement Poor Vitals/IOs Vital Signs Date Time Temp Pulse Resp B/P Pulse Ox O2 Delivery O2 Flow Rate FiO2 08/11/16 06:16 98.3 93 16 152/59 100 Intake and Output 08/10/16 08/10/16 08/10/16 07:59 15:59 23:59 Intake Total 0 ml 1080 ml 720 ml Balance 0 ml 1080 ml 720 ml Assessment & Plan Problem List: (1) UNSPECIFIED DEMENTIA WITH BEHAVIORAL DISTURBANCE ICD Code: F03.91 Assessment & Plan Continue current treatment plan Justification for Cont. Inpt. A she will decompensate in a less restrictive setting Request HC Surrog/Guard Advoc?: Yes Jarod Gibbons DO Aug 11, 2016 12:15
[2016-08-11] MEDS: OLANZapine 10 MG TAB PO SCH (12:19)
[2016-08-11 18:00] VITALS: BP 146/72; PULSE 110; RESP 16; TEMP 98.5; O2SAT 97
[2016-08-11] MEDS: DOCUSATE SODIUM 50 MG/SENNA 8.6 MG TAB PO SCH (20:17)
[2016-08-12] MEDS: LORazepam 0.5 MG TAB PO PRN (03:37)
[2016-08-12 06:00] VITALS: BP 142/64; PULSE 91; RESP 18; TEMP 97.1; O2SAT 98
[2016-08-12] MEDS: NICOTINE 21 MG/24 HR PATCH T-DERMAL SCH (09:00)
[2016-08-12] MEDS: REMOVE OLD NICODERM (NICOTINE) PATCH TD SCH (09:00)
[2016-08-12] MEDS: THIAMINE HCL 100 MG TAB PO SCH (09:26)
[2016-08-12] MEDS: VALPROIC ACID SYRUP 250 MG/5 ML UDC PO SCH ×2 (09:26→20:25)
[2016-08-12] MEDS: ASPIRIN 81 MG CHEW TAB CHEW SCH (09:26)
[2016-08-12] MEDS: MULTIVITAMINS/MINERALS THERAPEUTIC TAB PO SCH (09:26)
[2016-08-12] MEDS: FOLIC ACID 1 MG TAB PO SCH (09:27)
[2016-08-12] MEDS: HYDROCHLOROTHIAZIDE 12.5 MG CAP PO SCH (09:27)
[2016-08-12] MEDS: LOSARTAN 50 MG TAB PO SCH (09:27)
[2016-08-12] MEDS: metFORMIN HCL 500 MG TAB PO SCH (09:27)
[2016-08-12] MEDS: MEMANTINE HCL 10 MG TAB PO SCH ×2 (09:27→20:25)
[2016-08-12] MEDS: OLANZapine 10 MG TAB PO SCH (12:00)
--- NOTE | 2016-08-12 12:08 | HHI.PYPN ---
Subjective Remarks Patient was seen and case discussed with nursing. Per nursing patient received 2 hours of sleep. Today she is alert and oriented 1. Poor eye contact. Not answering questions appropriately. She is distractible throughout the interview. Compliant with medications Objective Alert: Yes [place]: Person Mood: Calm Affect: Restricted Memory Intact: Comment (impaired) Hallucinations: Other (does not appear to be responding to internal stimuli) Delusions: No Delusion Type: Other (none) Suicidal: Ideation (none) Homicidal: Ideation (none) Insight/Judgement Poor Vitals/IOs Vital Signs Date Time Temp Pulse Resp B/P Pulse Ox O2 Delivery O2 Flow Rate FiO2 08/12/16 06:00 97.1 91 18 142/64 98 Intake and Output 08/11/16 08/11/16 08/12/16 08:00 16:00 00:00 Intake Total 0 ml 840 ml 300 ml Balance 0 ml 840 ml 300 ml Assessment & Plan Problem List: (1) UNSPECIFIED DEMENTIA WITH BEHAVIORAL DISTURBANCE ICD Code: F03.91 Assessment & Plan Continue current treatment plan Justification for Cont. Inpt. Patient would decompensate in a less restrictive setting Request HC Surrog/Guard Advoc?: Yes Jarod Gibbons DO Aug 12, 2016 12:08
[2016-08-12 17:44] VITALS: BP 123/73; PULSE 71; RESP 17; TEMP 98.2; O2SAT 96
[2016-08-12] MEDS: DOCUSATE SODIUM 50 MG/SENNA 8.6 MG TAB PO SCH (20:25)
[2016-08-12] MEDS: diphenhydrAMINE HCL 50 MG CAP PO PRN (20:25)
[2016-08-13] MEDS: REMOVE OLD NICODERM (NICOTINE) PATCH TD SCH (09:00)
[2016-08-13] MEDS: NICOTINE 21 MG/24 HR PATCH T-DERMAL SCH (09:00)
[2016-08-13] MEDS: HYDROCHLOROTHIAZIDE 12.5 MG CAP PO SCH (10:24)
[2016-08-13] MEDS: VALPROIC ACID SYRUP 250 MG/5 ML UDC PO SCH ×2 (10:24→21:19)
[2016-08-13] MEDS: MULTIVITAMINS/MINERALS THERAPEUTIC TAB PO SCH (10:25)
[2016-08-13] MEDS: LOSARTAN 50 MG TAB PO SCH (10:25)
[2016-08-13] MEDS: MEMANTINE HCL 10 MG TAB PO SCH ×2 (10:25→21:19)
[2016-08-13] MEDS: THIAMINE HCL 100 MG TAB PO SCH (10:26)
[2016-08-13] MEDS: metFORMIN HCL 500 MG TAB PO SCH (10:26)
[2016-08-13] MEDS: FOLIC ACID 1 MG TAB PO SCH (10:26)
--- NOTE | 2016-08-13 11:25 | HHI.PYPN ---
Subjective Remarks Patient discussed with treatment team and patient's , patient seen on unit, continues confused disoriented at times somewhat labile but overall or cooperative. Compliant meds. For now continue treatment Review of Systems Other No Changes since 07/27 Objective Alert: Yes [place]: Person Mood: Calm Affect: Restricted Memory Intact: Comment (impaired) Hallucinations: Other (does not appear to be responding to internal stimuli) Delusions: No Delusion Type: Other (none) Suicidal: Ideation (none) Homicidal: Ideation (none) Insight/Judgement Poor Vitals/IOs Vital Signs Date Time Temp Pulse Resp B/P Pulse Ox O2 Delivery O2 Flow Rate FiO2 08/12/16 17:44 98.2 71 17 123/73 96 Intake and Output 08/12/16 08/12/16 08/13/16 08:00 16:00 00:00 Intake Total 600 ml Balance 600 ml Assessment & Plan Problem List: (1) UNSPECIFIED DEMENTIA WITH BEHAVIORAL DISTURBANCE ICD Code: F03.91 Assessment & Plan Estimated LOS: days patient continues confused demented though behaviors are somewhat improved. Compliant medications Justification for Cont. Inpt. At this time the patient would significantly decompensated a lower level of care Discharge Planning To be determined Request HC Surrog/Guard Advoc?: Yes Roddy Henson MD Aug 13, 2016 11:25
[2016-08-13] MEDS: OLANZapine 10 MG TAB PO SCH (13:09)
[2016-08-13] MEDS: DOCUSATE SODIUM 50 MG/SENNA 8.6 MG TAB PO SCH (21:19)
[2016-08-14 06:12] VITALS: BP 99/55; PULSE 115; RESP 17; O2SAT 97
[2016-08-14] MEDS: REMOVE OLD NICODERM (NICOTINE) PATCH TD SCH (09:00)
[2016-08-14] MEDS: NICOTINE 21 MG/24 HR PATCH T-DERMAL SCH (09:00)
--- NOTE | 2016-08-14 10:48 | HHI.PYPN ---
Subjective Remarks Patient seen in day room with nurse Myriam, chart review, patient somewhat drowsy this a.m. arousable to irritable continues markedly confused disoriented. Continues to need significant assistance with ADLs, at times patient resistance to it Review of Systems Other No change since 07/27 Objective Alert: Yes [place]: Person Mood: Calm Affect: Restricted Memory Intact: Comment (impaired) Hallucinations: Other (does not appear to be responding to internal stimuli) Delusions: No Delusion Type: Other (none) Suicidal: Ideation (none) Homicidal: Ideation (none) Insight/Judgement Very poor Vitals/IOs Vital Signs Date Time Temp Pulse Resp B/P Pulse Ox O2 Delivery O2 Flow Rate FiO2 08/14/16 06:12 115 17 99/55 97 08/12/16 17:44 98.2 Intake and Output 08/13/16 08/13/16 08/13/16 07:59 15:59 23:59 Intake Total 0 ml 1320 ml 1800 ml Balance 0 ml 1320 ml 1800 ml Assessment & Plan Problem List: (1) UNSPECIFIED DEMENTIA WITH BEHAVIORAL DISTURBANCE ICD Code: F03.91 Assessment & Plan Estimated LOS: days patient continues confused and demented, continues irritable needing significant intervention by staff. Patient overall compliant medications Justification for Cont. Inpt. At this time patient would decompensate if at a lower level of care Discharge Planning To be determined Request HC Surrog/Guard Advoc?: Yes Roddy Henson MD Aug 14, 2016 10:48
[2016-08-14 11:39] VITALS: BP 160/70; PULSE 100
[2016-08-14] MEDS: VALPROIC ACID SYRUP 250 MG/5 ML UDC PO SCH ×2 (12:08→21:25)
[2016-08-14] MEDS: ASPIRIN 81 MG CHEW TAB CHEW SCH (12:08)
[2016-08-14] MEDS: FOLIC ACID 1 MG TAB PO SCH (12:08)
[2016-08-14] MEDS: metFORMIN HCL 500 MG TAB PO SCH (12:09)
[2016-08-14] MEDS: MEMANTINE HCL 10 MG TAB PO SCH ×2 (12:09→21:25)
[2016-08-14] MEDS: LOSARTAN 50 MG TAB PO SCH (12:09)
[2016-08-14] MEDS: MULTIVITAMINS/MINERALS THERAPEUTIC TAB PO SCH (12:09)
[2016-08-14] MEDS: HYDROCHLOROTHIAZIDE 12.5 MG CAP PO SCH (12:09)
[2016-08-14] MEDS: THIAMINE HCL 100 MG TAB PO SCH (12:09)
[2016-08-14] MEDS: OLANZapine 10 MG TAB PO SCH (12:14)
[2016-08-14] MEDS: DOCUSATE SODIUM 50 MG/SENNA 8.6 MG TAB PO SCH (21:25)
[2016-08-15 06:01] VITALS: BP 146/73; PULSE 93; RESP 18; O2SAT 96
[2016-08-15] MEDS: LOSARTAN 50 MG TAB PO SCH (08:39)
[2016-08-15] MEDS: THIAMINE HCL 100 MG TAB PO SCH (08:39)
[2016-08-15] MEDS: MULTIVITAMINS/MINERALS THERAPEUTIC TAB PO SCH (08:39)
[2016-08-15] MEDS: metFORMIN HCL 500 MG TAB PO SCH (08:39)
[2016-08-15] MEDS: MEMANTINE HCL 10 MG TAB PO SCH ×2 (08:39→21:04)
[2016-08-15] MEDS: HYDROCHLOROTHIAZIDE 12.5 MG CAP PO SCH (08:39)
[2016-08-15] MEDS: NICOTINE 21 MG/24 HR PATCH T-DERMAL SCH (08:40)
[2016-08-15] MEDS: VALPROIC ACID SYRUP 250 MG/5 ML UDC PO SCH ×2 (08:40→21:06)
[2016-08-15] MEDS: FOLIC ACID 1 MG TAB PO SCH (08:40)
[2016-08-15] MEDS: REMOVE OLD NICODERM (NICOTINE) PATCH TD SCH (08:41)
[2016-08-15] MEDS: OLANZapine 10 MG TAB PO SCH (12:00)
--- NOTE | 2016-08-15 13:04 | HHI.PYPN ---
Subjective Remarks Patient seen in dayroom with floor staff, chart reviewed, patient continues diffusely confused disoriented though somewhat calmer at this time. There was behaviors that occur more towards evening. Compliant medications. For now continue treatment Review of Systems Other Anxious since 07/27 Objective Alert: Yes [place]: Person Mood: Calm Affect: Restricted Memory Intact: Comment (impaired) Hallucinations: Other (does not appear to be responding to internal stimuli) Delusions: No Delusion Type: Other (none) Suicidal: Ideation (none) Homicidal: Ideation (none) Insight/Judgement Very poor Vitals/IOs Vital Signs Date Time Temp Pulse Resp B/P Pulse Ox O2 Delivery O2 Flow Rate FiO2 08/15/16 06:01 93 18 146/73 96 08/12/16 17:44 98.2 Intake and Output 08/14/16 08/14/16 08/14/16 07:59 15:59 23:59 Intake Total 0 ml 960 ml 240 ml Balance 0 ml 960 ml 240 ml Assessment & Plan Problem List: (1) UNSPECIFIED DEMENTIA WITH BEHAVIORAL DISTURBANCE ICD Code: F03.91 Assessment & Plan Patient continues confused and demented though behaviors are somewhat calmer at this time Justification for Cont. Inpt. At this time the patient would severely decompensate at a lower level of care Discharge Planning To be determined Request HC Surrog/Guard Advoc?: Yes Roddy Henson MD Aug 15, 2016 13:04
[2016-08-15 18:00] VITALS: BP 128/58; PULSE 100; RESP 18; TEMP 98.4; O2SAT 99
[2016-08-15] MEDS: DOCUSATE SODIUM 50 MG/SENNA 8.6 MG TAB PO SCH (21:05)
[2016-08-16 06:00] VITALS: BP 146/77; PULSE 95; RESP 16; TEMP 97.6; O2SAT 95
[2016-08-16] MEDS: REMOVE OLD NICODERM (NICOTINE) PATCH TD SCH (09:00)
[2016-08-16] MEDS: HYDROCHLOROTHIAZIDE 12.5 MG CAP PO SCH (09:00)
[2016-08-16] MEDS: NICOTINE 21 MG/24 HR PATCH T-DERMAL SCH (09:22)
[2016-08-16] MEDS: MEMANTINE HCL 10 MG TAB PO SCH ×2 (09:24→20:13)
[2016-08-16] MEDS: ASPIRIN 81 MG CHEW TAB CHEW SCH (09:24)
[2016-08-16] MEDS: LOSARTAN 50 MG TAB PO SCH (09:24)
[2016-08-16] MEDS: THIAMINE HCL 100 MG TAB PO SCH (09:24)
[2016-08-16] MEDS: MULTIVITAMINS/MINERALS THERAPEUTIC TAB PO SCH (09:25)
[2016-08-16] MEDS: metFORMIN HCL 500 MG TAB PO SCH (09:25)
[2016-08-16] MEDS: FOLIC ACID 1 MG TAB PO SCH (09:25)
[2016-08-16] MEDS: VALPROIC ACID SYRUP 250 MG/5 ML UDC PO SCH ×2 (09:26→20:13)
[2016-08-16] MEDS: OLANZapine 10 MG TAB PO SCH (12:34)
[2016-08-16 18:21] VITALS: BP 128/71; PULSE 90; RESP 18; TEMP 98.6; O2SAT 99
[2016-08-16] MEDS: DOCUSATE SODIUM 50 MG/SENNA 8.6 MG TAB PO SCH (20:13)
[2016-08-17] MEDS: LORazepam 2 MG/ML VIAL IM PRN (02:42)
[2016-08-17 05:48] VITALS: BP 121/63; PULSE 100; RESP 17; TEMP 97.9; O2SAT 97
[2016-08-17] MEDS: NICOTINE 21 MG/24 HR PATCH T-DERMAL SCH (09:00)
[2016-08-17] MEDS: REMOVE OLD NICODERM (NICOTINE) PATCH TD SCH (09:00)
[2016-08-17] MEDS: FOLIC ACID 1 MG TAB PO SCH (10:10)
[2016-08-17] MEDS: MULTIVITAMINS/MINERALS THERAPEUTIC TAB PO SCH (10:11)
[2016-08-17] MEDS: VALPROIC ACID SYRUP 250 MG/5 ML UDC PO SCH ×2 (10:11→21:07)
[2016-08-17] MEDS: metFORMIN HCL 500 MG TAB PO SCH (10:11)
[2016-08-17] MEDS: THIAMINE HCL 100 MG TAB PO SCH (10:11)
[2016-08-17] MEDS: LOSARTAN 50 MG TAB PO SCH (10:11)
[2016-08-17] MEDS: HYDROCHLOROTHIAZIDE 12.5 MG CAP PO SCH (10:11)
[2016-08-17] MEDS: MEMANTINE HCL 10 MG TAB PO SCH ×2 (10:11→21:07)
[2016-08-17] MEDS: OLANZapine 10 MG TAB PO SCH (12:00)
--- NOTE | 2016-08-17 13:05 | HHI.PYPN ---
Subjective Remarks Patient seen in day room with nurse Senia, chart review, patient sitting in Patti chair napping somewhat arousable to diffusely confused. Otherwise no significant behavioral problems. Compliant medications. For now continue medication patient continues no significant interaction with patients or staff Review of Systems Other No change since 07/27 Objective Alert: Yes [place]: Person Mood: Calm Affect: Restricted Memory Intact: Comment (impaired) Hallucinations: Other (does not appear to be responding to internal stimuli) Delusions: No Delusion Type: Other (none) Suicidal: Ideation (none) Homicidal: Ideation (none) Insight/Judgement Very Poor Vitals/IOs Vital Signs Date Time Temp Pulse Resp B/P Pulse Ox O2 Delivery O2 Flow Rate FiO2 08/17/16 05:48 97.9 100 17 121/63 97 Intake and Output 08/16/16 08/16/16 08/16/16 07:59 15:59 23:59 Intake Total 720 ml 1080 ml Balance 720 ml 1080 ml Assessment & Plan Problem List: (1) UNSPECIFIED DEMENTIA WITH BEHAVIORAL DISTURBANCE ICD Code: F03.91 Assessment & Plan Estimated LOS: days patient continues demented confused, knitting significant interventions and assistance by staff. There is some continue medication no change Justification for Cont. Inpt. Patient would severely decompensate and lower level of care Discharge Planning To be determined Request HC Surrog/Guard Advoc?: Yes Roddy Henson MD Aug 17, 2016 13:05
[2016-08-17 19:34] VITALS: BP 180/87; PULSE 112; RESP 16; TEMP 97.8; O2SAT 97
[2016-08-17] MEDS: DOCUSATE SODIUM 50 MG/SENNA 8.6 MG TAB PO SCH (21:07)
[2016-08-18 05:41] VITALS: BP 127/90; PULSE 99; RESP 16; TEMP 98.4; O2SAT 95
[2016-08-18] MEDS: MULTIVITAMINS/MINERALS THERAPEUTIC TAB PO SCH (08:30)
[2016-08-18] MEDS: THIAMINE HCL 100 MG TAB PO SCH (08:30)
[2016-08-18] MEDS: FOLIC ACID 1 MG TAB PO SCH (08:30)
[2016-08-18] MEDS: metFORMIN HCL 500 MG TAB PO SCH (08:30)
[2016-08-18] MEDS: MEMANTINE HCL 10 MG TAB PO SCH ×2 (08:30→21:09)
[2016-08-18] MEDS: LOSARTAN 50 MG TAB PO SCH (08:31)
[2016-08-18] MEDS: ASPIRIN 81 MG CHEW TAB CHEW SCH (08:31)
[2016-08-18] MEDS: HYDROCHLOROTHIAZIDE 12.5 MG CAP PO SCH (08:31)
[2016-08-18] MEDS: VALPROIC ACID SYRUP 250 MG/5 ML UDC PO SCH ×2 (09:00→21:09)
[2016-08-18] MEDS: REMOVE OLD NICODERM (NICOTINE) PATCH TD SCH (09:00)
[2016-08-18] MEDS: NICOTINE 21 MG/24 HR PATCH T-DERMAL SCH (09:00)
[2016-08-18] MEDS: OLANZapine 10 MG TAB PO SCH (12:52)
--- NOTE | 2016-08-18 16:36 | HHI.PYPN ---
Subjective Remarks Patient seen in dayroom with floor staff, chart review, patient continues markedly confused and disoriented no behavior problems at the present time, compliant medications Review of Systems Other No somatic complaints today Objective Alert: Yes [place]: Person Mood: Calm Affect: Restricted Memory Intact: Comment (impaired) Hallucinations: Other (does not appear to be responding to internal stimuli) Delusions: No Delusion Type: Other (none) Suicidal: Ideation (none) Homicidal: Ideation (none) Insight/Judgement Very poor Vitals/IOs Vital Signs Date Time Temp Pulse Resp B/P Pulse Ox O2 Delivery O2 Flow Rate FiO2 08/18/16 05:41 98.4 99 16 127/90 95 Intake and Output 08/17/16 08/17/16 08/17/16 07:59 15:59 23:59 Intake Total 0 ml 360 ml 840 ml Balance 0 ml 360 ml 840 ml Assessment & Plan Problem List: (1) UNSPECIFIED DEMENTIA WITH BEHAVIORAL DISTURBANCE ICD Code: F03.91 Assessment & Plan Estimated LOS: days patient continues demented confused, compliant medications. For now continue medication Justification for Cont. Inpt. At this time patient will decompensate at a lower level of care Discharge Planning To be determined Request HC Surrog/Guard Advoc?: Yes Roddy Henson MD Aug 18, 2016 16:36
[2016-08-18 19:43] VITALS: BP 117/57; PULSE 96; RESP 16; TEMP 96.4; O2SAT 96
[2016-08-18] MEDS: DOCUSATE SODIUM 50 MG/SENNA 8.6 MG TAB PO SCH (21:09)
[2016-08-19] MEDS: diphenhydrAMINE HCL 50 MG CAP PO PRN (01:25)
[2016-08-19] MEDS: NICOTINE 21 MG/24 HR PATCH T-DERMAL SCH (09:00)
[2016-08-19] MEDS: REMOVE OLD NICODERM (NICOTINE) PATCH TD SCH (09:00)
[2016-08-19] MEDS: FOLIC ACID 1 MG TAB PO SCH (10:53)
[2016-08-19] MEDS: VALPROIC ACID SYRUP 250 MG/5 ML UDC PO SCH ×2 (10:53→22:02)
[2016-08-19] MEDS: MULTIVITAMINS/MINERALS THERAPEUTIC TAB PO SCH (10:53)
[2016-08-19] MEDS: THIAMINE HCL 100 MG TAB PO SCH (10:54)
[2016-08-19] MEDS: metFORMIN HCL 500 MG TAB PO SCH (10:54)
[2016-08-19] MEDS: MEMANTINE HCL 10 MG TAB PO SCH ×2 (10:54→21:00)
[2016-08-19] MEDS: HYDROCHLOROTHIAZIDE 12.5 MG CAP PO SCH (10:55)
[2016-08-19] MEDS: LOSARTAN 50 MG TAB PO SCH (10:56)
[2016-08-19] MEDS: OLANZapine 10 MG TAB PO SCH (12:00)
--- NOTE | 2016-08-19 12:56 | HHI.PYPN ---
Subjective Remarks Patient was seen and case discussed with nursing. Patient remains confused and disorganized. Compliant with medications. Poor insight into admission Objective Alert: Yes [place]: Person Mood: Calm Affect: Restricted Memory Intact: Comment (impaired) Hallucinations: Other (does not appear to be responding to internal stimuli) Delusions: No Delusion Type: Other (none) Suicidal: Ideation (none) Homicidal: Ideation (none) Insight/Judgement Poor Vitals/IOs Vital Signs Date Time Temp Pulse Resp B/P Pulse Ox O2 Delivery O2 Flow Rate FiO2 08/18/16 19:43 96.4 96 16 117/57 96 Intake and Output 08/18/16 08/18/16 08/19/16 08:00 16:00 00:00 Intake Total 120 ml 240 ml 600 ml Output Total 2 ml Balance 118 ml 240 ml 600 ml Assessment & Plan Problem List: (1) UNSPECIFIED DEMENTIA WITH BEHAVIORAL DISTURBANCE ICD Code: F03.91 Assessment & Plan Continue current treatment plan Justification for Cont. Inpt. Patient will decompensate in a less restrictive setting Request HC Surrog/Guard Advoc?: Yes Jarod Gibbons DO Aug 19, 2016 12:56
[2016-08-19 19:17] VITALS: BP 163/100; PULSE 83; RESP 16; TEMP 97.2; O2SAT 99
[2016-08-19] MEDS: DOCUSATE SODIUM 50 MG/SENNA 8.6 MG TAB PO SCH (21:00)
[2016-08-20 06:13] VITALS: BP 130/71; PULSE 103; RESP 17; TEMP 97.3; O2SAT 94
[2016-08-20] MEDS: NICOTINE 21 MG/24 HR PATCH T-DERMAL SCH (09:00)
[2016-08-20] MEDS: REMOVE OLD NICODERM (NICOTINE) PATCH TD SCH (09:00)
[2016-08-20] MEDS: THIAMINE HCL 100 MG TAB PO SCH (10:53)
[2016-08-20] MEDS: HYDROCHLOROTHIAZIDE 12.5 MG CAP PO SCH (10:53)
[2016-08-20] MEDS: VALPROIC ACID SYRUP 250 MG/5 ML UDC PO SCH ×2 (10:53→20:42)
[2016-08-20] MEDS: FOLIC ACID 1 MG TAB PO SCH (10:53)
[2016-08-20] MEDS: LOSARTAN 50 MG TAB PO SCH (10:54)
[2016-08-20] MEDS: ASPIRIN 81 MG CHEW TAB CHEW SCH (10:55)
[2016-08-20] MEDS: MULTIVITAMINS/MINERALS THERAPEUTIC TAB PO SCH (10:55)
[2016-08-20] MEDS: MEMANTINE HCL 10 MG TAB PO SCH ×2 (10:55→20:42)
[2016-08-20] MEDS: metFORMIN HCL 500 MG TAB PO SCH (10:56)
[2016-08-20] MEDS: OLANZapine 10 MG TAB PO SCH (12:22)
--- NOTE | 2016-08-20 15:08 | HHI.PYPN ---
Subjective Remarks Patient discussed with treatment team and patient's , chart reviewed. Patient continues with confusion and dementia, though behaviors have quieted somewhat, patient compliant medications. 's will talking about relocating to be towards his daughters home in [place] Review of Systems Other No somatic complaints today Objective Alert: Yes [place]: Person Mood: Calm Affect: Restricted Memory Intact: Comment (impaired) Hallucinations: Other (does not appear to be responding to internal stimuli) Delusions: No Delusion Type: Other (none) Suicidal: Ideation (none) Homicidal: Ideation (none) Insight/Judgement Very poor Vitals/IOs Vital Signs Date Time Temp Pulse Resp B/P Pulse Ox O2 Delivery O2 Flow Rate FiO2 08/20/16 06:13 97.3 103 17 130/71 94 Intake and Output 08/19/16 08/19/16 08/20/16 08:00 16:00 00:00 Intake Total 120 ml 720 ml Balance 120 ml 720 ml Assessment & Plan Problem List: (1) UNSPECIFIED DEMENTIA WITH BEHAVIORAL DISTURBANCE ICD Code: F03.91 Assessment & Plan Estimated LOS: days patient continues demented confused, but behaviors of problems somewhat. Now continue treatment no change Justification for Cont. Inpt. At this time patient would severely decompensated place a lower level of care Discharge Planning To be determined Request HC Surrog/Guard Advoc?: Yes Roddy Henson MD Aug 20, 2016 15:08
[2016-08-20 19:49] VITALS: BP 171/78; PULSE 100; RESP 17; TEMP 97.8; O2SAT 97
[2016-08-20] MEDS: DOCUSATE SODIUM 50 MG/SENNA 8.6 MG TAB PO SCH (20:42)
[2016-08-20] MEDS: LORazepam 0.5 MG TAB PO PRN (22:11)
[2016-08-21 04:23] VITALS: BP 143/84; PULSE 106; RESP 18; TEMP 98.1; O2SAT 97
--- NOTE | 2016-08-21 08:26 | HHI.PYPN ---
Subjective Remarks Patient seen in day room, patient alert though continues diffusely confused and disoriented, no behavior problems at this time. Patient states she did remember visiting with her yesterday. Patient compliant medication. For now continue treatment Review of Systems Other No somatic complaints today Objective Alert: Yes [place]: Person Mood: Calm Affect: Restricted Memory Intact: Comment (impaired) Hallucinations: Other (does not appear to be responding to internal stimuli) Delusions: No Delusion Type: Other (none) Suicidal: Ideation (none) Homicidal: Ideation (none) Insight/Judgement Very poor Vitals/IOs Vital Signs Date Time Temp Pulse Resp B/P Pulse Ox O2 Delivery O2 Flow Rate FiO2 08/21/16 04:23 98.1 106 18 143/84 97 Intake and Output 08/20/16 08/20/16 08/21/16 08:00 16:00 00:00 Intake Total 120 ml 480 ml Balance 120 ml 480 ml Assessment & Plan Problem List: (1) UNSPECIFIED DEMENTIA WITH BEHAVIORAL DISTURBANCE ICD Code: F03.91 Assessment & Plan Estimated LOS: days patient continues to mentate confused though at this time calmer and redirectable Justification for Cont. Inpt. At this time patient would decompensate placed in the lower level of care Discharge Planning To be determined Request HC Surrog/Guard Advoc?: Yes Roddy Henson MD Aug 21, 2016 08:26
[2016-08-21] MEDS: REMOVE OLD NICODERM (NICOTINE) PATCH TD SCH (09:00)
[2016-08-21] MEDS: NICOTINE 21 MG/24 HR PATCH T-DERMAL SCH (09:00)
[2016-08-21] MEDS: LOSARTAN 50 MG TAB PO SCH (09:49)
[2016-08-21] MEDS: FOLIC ACID 1 MG TAB PO SCH (09:50)
[2016-08-21] MEDS: VALPROIC ACID SYRUP 250 MG/5 ML UDC PO SCH ×2 (09:50→20:52)
[2016-08-21] MEDS: THIAMINE HCL 100 MG TAB PO SCH (09:50)
[2016-08-21] MEDS: metFORMIN HCL 500 MG TAB PO SCH (09:50)
[2016-08-21] MEDS: HYDROCHLOROTHIAZIDE 12.5 MG CAP PO SCH (09:50)
[2016-08-21] MEDS: MEMANTINE HCL 10 MG TAB PO SCH ×2 (09:50→20:52)
[2016-08-21] MEDS: MULTIVITAMINS/MINERALS THERAPEUTIC TAB PO SCH (09:50)
[2016-08-21] MEDS: OLANZapine 10 MG TAB PO SCH (11:50)
[2016-08-21 20:11] VITALS: BP 107/53; PULSE 99; RESP 17; O2SAT 95
[2016-08-21] MEDS: DOCUSATE SODIUM 50 MG/SENNA 8.6 MG TAB PO SCH (20:52)
[2016-08-22 06:26] VITALS: BP 102/58; PULSE 95; RESP 18; TEMP 98.6; O2SAT 95
--- NOTE | 2016-08-22 08:50 | HHI.PYPN ---
Subjective Remarks Patient seen in day room with nurse Myriam, chart review, patient continues markedly confused and disorganized, no significant behavioral problems except when attempting to help her with her ADLs care. Compliant medications. For now continue treatment Review of Systems Other Somatic complaints today Objective Alert: Yes [place]: Person Mood: Calm Affect: Restricted Memory Intact: Comment (impaired) Hallucinations: Other (does not appear to be responding to internal stimuli) Delusions: No Delusion Type: Other (none) Suicidal: Ideation (none) Homicidal: Ideation (none) Insight/Judgement Very poor Vitals/IOs Vital Signs Date Time Temp Pulse Resp B/P Pulse Ox O2 Delivery O2 Flow Rate FiO2 08/22/16 06:26 98.6 95 18 102/58 95 Intake and Output 08/21/16 08/21/16 08/22/16 08:00 16:00 00:00 Intake Total 120 ml 840 ml 840 ml Balance 120 ml 840 ml 840 ml Assessment & Plan Problem List: (1) UNSPECIFIED DEMENTIA WITH BEHAVIORAL DISTURBANCE ICD Code: F03.91 Assessment & Plan Estimated LOS: days patient continues demented and confused, no behavior problems limited to attempts by staff to help with ADLs and care Justification for Cont. Inpt. At this time patient would severely decompensated a lower level of care Discharge Planning To be determined Request HC Surrog/Guard Advoc?: Yes Roddy Henson MD Aug 22, 2016 08:50
[2016-08-22] MEDS: NICOTINE 21 MG/24 HR PATCH T-DERMAL SCH (09:00)
[2016-08-22] MEDS: REMOVE OLD NICODERM (NICOTINE) PATCH TD SCH (09:00)
[2016-08-22 09:54] VITALS: BP 155/74; PULSE 110
[2016-08-22] MEDS: HYDROCHLOROTHIAZIDE 12.5 MG CAP PO SCH (09:55)
[2016-08-22] MEDS: VALPROIC ACID SYRUP 250 MG/5 ML UDC PO SCH ×2 (09:55→22:06)
[2016-08-22] MEDS: FOLIC ACID 1 MG TAB PO SCH (09:56)
[2016-08-22] MEDS: ASPIRIN 81 MG CHEW TAB CHEW SCH (09:56)
[2016-08-22] MEDS: LOSARTAN 50 MG TAB PO SCH (09:56)
[2016-08-22] MEDS: MULTIVITAMINS/MINERALS THERAPEUTIC TAB PO SCH (09:57)
[2016-08-22] MEDS: metFORMIN HCL 500 MG TAB PO SCH (09:57)
[2016-08-22] MEDS: MEMANTINE HCL 10 MG TAB PO SCH ×2 (09:57→22:06)
[2016-08-22] MEDS: THIAMINE HCL 100 MG TAB PO SCH (09:58)
[2016-08-22] MEDS: OLANZapine 10 MG TAB PO SCH (13:22)
[2016-08-22 19:45] VITALS: BP 111/56; PULSE 94; RESP 16; TEMP 98.1; O2SAT 98
[2016-08-22] MEDS: DOCUSATE SODIUM 50 MG/SENNA 8.6 MG TAB PO SCH (22:06)
[2016-08-23 06:00] VITALS: BP 124/73; PULSE 97; RESP 18; TEMP 97.5; O2SAT 100
--- NOTE | 2016-08-23 08:45 | HHI.PYPN ---
Subjective Remarks Patient seen in dayroom the floor staff, patient continues markedly confused disoriented, but no behavior problems at this time. Patient compliant medications. For now continue treatment Review of Systems Other No somatic complaints today Objective Alert: Yes [place]: Person Mood: Calm Affect: Restricted Memory Intact: Comment (impaired) Hallucinations: Other (does not appear to be responding to internal stimuli) Delusions: No Delusion Type: Other (none) Suicidal: Ideation (none) Homicidal: Ideation (none) Insight/Judgement Very poor Vitals/IOs Vital Signs Date Time Temp Pulse Resp B/P Pulse Ox O2 Delivery O2 Flow Rate FiO2 08/23/16 06:00 97.5 97 18 124/73 100 Intake and Output 08/22/16 08/22/16 08/23/16 08:00 16:00 00:00 Intake Total 0 ml 960 ml 480 ml Balance 0 ml 960 ml 480 ml Assessment & Plan Problem List: (1) UNSPECIFIED DEMENTIA WITH BEHAVIORAL DISTURBANCE ICD Code: F03.91 Assessment & Plan Estimated LOS: days she continues demented confused, no significant problems at this time. Justification for Cont. Inpt. At this time patient would decompensated placed a lower level of care Discharge Planning To be determined Request HC Surrog/Guard Advoc?: Yes Roddy Henson MD Aug 23, 2016 08:44
[2016-08-23] MEDS: REMOVE OLD NICODERM (NICOTINE) PATCH TD SCH (09:00)
[2016-08-23] MEDS: NICOTINE 21 MG/24 HR PATCH T-DERMAL SCH (09:00)
[2016-08-23] MEDS: VALPROIC ACID SYRUP 250 MG/5 ML UDC PO SCH ×2 (10:09→20:23)
[2016-08-23] MEDS: metFORMIN HCL 500 MG TAB PO SCH (10:09)
[2016-08-23] MEDS: MULTIVITAMINS/MINERALS THERAPEUTIC TAB PO SCH (10:09)
[2016-08-23] MEDS: FOLIC ACID 1 MG TAB PO SCH (10:09)
[2016-08-23] MEDS: LOSARTAN 50 MG TAB PO SCH (10:09)
[2016-08-23] MEDS: HYDROCHLOROTHIAZIDE 12.5 MG CAP PO SCH (10:09)
[2016-08-23] MEDS: MEMANTINE HCL 10 MG TAB PO SCH ×2 (10:10→20:23)
[2016-08-23] MEDS: THIAMINE HCL 100 MG TAB PO SCH (10:10)
[2016-08-23] MEDS: OLANZapine 10 MG TAB PO SCH (12:59)
[2016-08-23] MEDS: DOCUSATE SODIUM 50 MG/SENNA 8.6 MG TAB PO SCH (20:23)
[2016-08-23 20:39] VITALS: BP 145/79; PULSE 96; RESP 18; TEMP 97.6; O2SAT 100
[2016-08-24] MEDS: NICOTINE 21 MG/24 HR PATCH T-DERMAL SCH (09:00)
[2016-08-24] MEDS: REMOVE OLD NICODERM (NICOTINE) PATCH TD SCH (09:00)
[2016-08-24] MEDS: metFORMIN HCL 500 MG TAB PO SCH (09:17)
[2016-08-24] MEDS: FOLIC ACID 1 MG TAB PO SCH (09:17)
[2016-08-24] MEDS: LOSARTAN 50 MG TAB PO SCH (09:17)
[2016-08-24] MEDS: HYDROCHLOROTHIAZIDE 12.5 MG CAP PO SCH (09:17)
[2016-08-24] MEDS: MEMANTINE HCL 10 MG TAB PO SCH ×2 (09:17→20:32)
[2016-08-24] MEDS: MULTIVITAMINS/MINERALS THERAPEUTIC TAB PO SCH (09:18)
[2016-08-24] MEDS: ASPIRIN 81 MG CHEW TAB CHEW SCH (09:18)
[2016-08-24] MEDS: THIAMINE HCL 100 MG TAB PO SCH (09:18)
[2016-08-24] MEDS: VALPROIC ACID SYRUP 250 MG/5 ML UDC PO SCH ×2 (09:18→20:32)
[2016-08-24] MEDS: OLANZapine 10 MG TAB PO SCH (12:28)
--- NOTE | 2016-08-24 13:34 | HHI.PYPN ---
Subjective Remarks Patient seen in day room with floor staff, she continues confused demented but no significant behavioral problems at this time. Staff notes that the only time she becomes somewhat obstreperous is when they attempt to assist her with hygiene and ADLs otherwise she has no behavioral problems. Patient compliant medications. Now continue treatment Review of Systems Other No somatic complaints today Objective Alert: Yes [place]: Person Mood: Calm Affect: Restricted Memory Intact: Comment (impaired) Hallucinations: Other (does not appear to be responding to internal stimuli) Delusions: No Delusion Type: Other (none) Suicidal: Ideation (none) Homicidal: Ideation (none) Insight/Judgement Very poor Vitals/IOs Vital Signs Date Time Temp Pulse Resp B/P Pulse Ox O2 Delivery O2 Flow Rate FiO2 08/23/16 20:39 97.6 96 18 145/79 100 Intake and Output 08/23/16 08/23/16 08/24/16 08:00 16:00 00:00 Intake Total 120 ml 480 ml 240 ml Balance 120 ml 480 ml 240 ml Assessment & Plan Problem List: (1) UNSPECIFIED DEMENTIA WITH BEHAVIORAL DISTURBANCE ICD Code: F03.91 Assessment & Plan Estimated LOS: days patient continues demented confused though behaviors she is really limited to assistance with daily care Justification for Cont. Inpt. At this time patient would significantly deteriorative place to the lower level of care Discharge Planning To be determined Request HC Surrog/Guard Advoc?: Yes Roddy Henson MD Aug 24, 2016 13:34
[2016-08-24 19:33] VITALS: BP 128/73; PULSE 100; RESP 17; TEMP 98.2; O2SAT 100
[2016-08-24] MEDS: DOCUSATE SODIUM 50 MG/SENNA 8.6 MG TAB PO SCH (20:32)
[2016-08-25 06:01] VITALS: BP 165/87; PULSE 100; RESP 18; TEMP 97.9; O2SAT 99
[2016-08-25] MEDS: NICOTINE 21 MG/24 HR PATCH T-DERMAL SCH (09:00)
[2016-08-25] MEDS: THIAMINE HCL 100 MG TAB PO SCH (09:00)
[2016-08-25] MEDS: HYDROCHLOROTHIAZIDE 12.5 MG CAP PO SCH (09:00)
[2016-08-25] MEDS: LOSARTAN 50 MG TAB PO SCH (09:00)
[2016-08-25] MEDS: MEMANTINE HCL 10 MG TAB PO SCH ×2 (09:00→20:54)
[2016-08-25] MEDS: REMOVE OLD NICODERM (NICOTINE) PATCH TD SCH (09:00)
[2016-08-25] MEDS: VALPROIC ACID SYRUP 250 MG/5 ML UDC PO SCH ×2 (09:00→20:53)
[2016-08-25] MEDS: MULTIVITAMINS/MINERALS THERAPEUTIC TAB PO SCH (09:00)
[2016-08-25] MEDS: FOLIC ACID 1 MG TAB PO SCH (09:00)
[2016-08-25] MEDS: metFORMIN HCL 500 MG TAB PO SCH (09:00)
--- NOTE | 2016-08-25 09:50 | HHI.PYPN ---
Subjective Remarks Patient seen and examined with nursing staff. Chart reviewed. Case discussed with nursing staff who reports patient has isolated episodes of combativeness but otherwise is in fairly good behavioral control. On my examination today, the patient is dozing in the day room. She is easily awakened and mumbles a few words before lapsing off back and asleep. No evidence side effects from medications. No other issues noted. Review of Systems ROS Limitations: Poor Historian Other No physical complaints reported. Objective Alert: Yes [place]: Person Mood: Calm (presently calm) Affect: Flat Memory Intact: Comment (not formally assessed but I suspect impaired) Hallucinations: Other (none) Delusions: No Delusion Type: Other (limited sample but no evident delusions) Suicidal: Ideation (none) Homicidal: Ideation (none) Insight/Judgement Poor Remarks No motoric abnormalities noted Labs Labs reviewed. No recent labs Vitals/IOs Vital Signs Date Time Temp Pulse Resp B/P Pulse Ox O2 Delivery O2 Flow Rate FiO2 08/25/16 06:01 97.9 100 18 165/87 99 Intake and Output 08/24/16 08/24/16 08/25/16 08:00 16:00 00:00 Intake Total 0 ml 720 ml 440 ml Output Total 250 ml Balance -250 ml 720 ml 440 ml Assessment & Plan Problem List: (1) UNSPECIFIED DEMENTIA WITH BEHAVIORAL DISTURBANCE ICD Code: F03.91 Assessment & Plan Continue current medications as ordered. Continue other care as ordered. Justification for Cont. Inpt. Risk for decompensation Discharge Planning Per Dr. Henson Request HC Surrog/Guard Advoc?: Yes Zhang Cortez MD Aug 25, 2016 09:50
[2016-08-25] MEDS: OLANZapine 10 MG TAB PO SCH (12:00)
[2016-08-25 19:06] VITALS: BP 116/72; PULSE 106; RESP 18; TEMP 99.3; O2SAT 96
[2016-08-25] MEDS: DOCUSATE SODIUM 50 MG/SENNA 8.6 MG TAB PO SCH (20:53)
[2016-08-26 05:17] VITALS: BP 130/77; PULSE 97; RESP 16; TEMP 97.6; O2SAT 100
[2016-08-26 05:20] VITALS: BP 130/77; PULSE 97; RESP 16; TEMP 97.6; O2SAT 100
[2016-08-26] MEDS: ASPIRIN 81 MG CHEW TAB CHEW SCH (09:00)
[2016-08-26] MEDS: HYDROCHLOROTHIAZIDE 12.5 MG CAP PO SCH (09:00)
[2016-08-26] MEDS: MEMANTINE HCL 10 MG TAB PO SCH ×2 (09:00→20:53)
[2016-08-26] MEDS: metFORMIN HCL 500 MG TAB PO SCH (09:00)
[2016-08-26] MEDS: MULTIVITAMINS/MINERALS THERAPEUTIC TAB PO SCH (09:00)
[2016-08-26] MEDS: VALPROIC ACID SYRUP 250 MG/5 ML UDC PO SCH ×2 (09:00→20:53)
[2016-08-26] MEDS: NICOTINE 21 MG/24 HR PATCH T-DERMAL SCH (09:00)
[2016-08-26] MEDS: THIAMINE HCL 100 MG TAB PO SCH (09:00)
[2016-08-26] MEDS: REMOVE OLD NICODERM (NICOTINE) PATCH TD SCH (09:00)
[2016-08-26] MEDS: FOLIC ACID 1 MG TAB PO SCH (09:00)
[2016-08-26] MEDS: LOSARTAN 50 MG TAB PO SCH (09:00)
--- NOTE | 2016-08-26 10:43 | HHI.PYPN ---
Subjective Remarks Patient seen and examined with nursing staff. Chart reviewed. Case discussed with nursing staff. No behavioral issues to note. On my examination today, patient is dozing in the day room. She has no particular complaints and in particular denies pain complaints. No evidence side effects from medications. No other issues noted. Review of Systems ROS Limitations: Poor Historian Other No particular complaints today Objective Alert: Yes [place]: Person Mood: Calm Affect: Flat Memory Intact: Comment (not formally assessed) Hallucinations: Other (no AVH) Delusions: No Delusion Type: Other (no dc delusions) Suicidal: Ideation (no SI voiced) Homicidal: Ideation (no HI voiced) Insight/Judgement Poor Remarks No motoric abnormalities noted Labs Labs reviewed. No new labs. Vitals/IOs Vital Signs Date Time Temp Pulse Resp B/P Pulse Ox O2 Delivery O2 Flow Rate FiO2 08/26/16 05:20 97.6 97 16 130/77 100 Intake and Output 08/25/16 08/25/16 08/26/16 08:00 16:00 00:00 Intake Total 240 ml 720 ml 1460 ml Balance 240 ml 720 ml 1460 ml Assessment & Plan Problem List: (1) UNSPECIFIED DEMENTIA WITH BEHAVIORAL DISTURBANCE ICD Code: F03.91 Assessment & Plan Mental status unchanged today. Patient calm and in good behavioral control. Continue current medications include care as ordered. Justification for Cont. Inpt. Risk for decompensation Discharge Planning Per Dr. Henson Request HC Surrog/Guard Advoc?: Yes Zhang Cortez MD Aug 26, 2016 10:43
[2016-08-26] MEDS: OLANZapine 10 MG TAB PO SCH (12:00)
[2016-08-26] MEDS: LORazepam 0.5 MG TAB PO PRN (13:35)
[2016-08-26 18:00] VITALS: BP 113/57; PULSE 115; RESP 16; TEMP 97.4; O2SAT 94
[2016-08-26] MEDS: DOCUSATE SODIUM 50 MG/SENNA 8.6 MG TAB PO SCH (20:53)
[2016-08-27] MEDS: LORazepam 0.5 MG TAB PO PRN (05:50)
[2016-08-27 06:00] VITALS: BP 136/66; PULSE 103; RESP 16; TEMP 98.3; O2SAT 99
[2016-08-27] MEDS: LOSARTAN 50 MG TAB PO SCH (09:00)
[2016-08-27] MEDS: NICOTINE 21 MG/24 HR PATCH T-DERMAL SCH (09:00)
[2016-08-27] MEDS: MULTIVITAMINS/MINERALS THERAPEUTIC TAB PO SCH (09:00)
[2016-08-27] MEDS: MEMANTINE HCL 10 MG TAB PO SCH ×2 (09:00→21:09)
[2016-08-27] MEDS: VALPROIC ACID SYRUP 250 MG/5 ML UDC PO SCH ×2 (09:00→21:09)
[2016-08-27] MEDS: REMOVE OLD NICODERM (NICOTINE) PATCH TD SCH (09:00)
[2016-08-27] MEDS: HYDROCHLOROTHIAZIDE 12.5 MG CAP PO SCH (09:00)
[2016-08-27] MEDS: metFORMIN HCL 500 MG TAB PO SCH (09:00)
[2016-08-27] MEDS: FOLIC ACID 1 MG TAB PO SCH (09:00)
[2016-08-27] MEDS: THIAMINE HCL 100 MG TAB PO SCH (09:00)
[2016-08-27] MEDS: OLANZapine 10 MG TAB PO SCH (11:58)
--- NOTE | 2016-08-27 13:17 | HHI.PYPN ---
Subjective Remarks Patient discussed with treatment team and patient's , she continues confused disoriented demented, though behaviors have softened. Patient still shows some recognition and responses when her visits. We continue to work on placement issues with . Patient compliant medications. For now continue treatment Review of Systems Except as stated in HPI: all other systems reviewed are Neg Objective Alert: Yes [place]: Person Mood: Calm Affect: Flat Memory Intact: Comment (not formally assessed) Hallucinations: Other (no AVH) Delusions: No Delusion Type: Other (no dc delusions) Suicidal: Ideation (no SI voiced) Homicidal: Ideation (no HI voiced) Insight/Judgement Very poor Vitals/IOs Vital Signs Date Time Temp Pulse Resp B/P Pulse Ox O2 Delivery O2 Flow Rate FiO2 08/27/16 06:00 98.3 103 16 136/66 99 Intake and Output 08/26/16 08/26/16 08/26/16 07:59 15:59 23:59 Intake Total 360 ml 720 ml 840 ml Balance 360 ml 720 ml 840 ml Assessment & Plan Problem List: (1) UNSPECIFIED DEMENTIA WITH BEHAVIORAL DISTURBANCE ICD Code: F03.91 Assessment & Plan Estimated LOS: days patient continues demented at times somewhat irritable but overall controllable, compliant medications Justification for Cont. Inpt. At this time patient was significantly decompensated placed in a lower level of care Discharge Planning To be determined Request HC Surrog/Guard Advoc?: Yes Roddy Henson MD Aug 27, 2016 13:17
[2016-08-27 19:27] VITALS: BP 123/61; PULSE 103; RESP 18; TEMP 97.7
[2016-08-27] MEDS: DOCUSATE SODIUM 50 MG/SENNA 8.6 MG TAB PO SCH (21:09)
[2016-08-28 05:26] VITALS: BP 145/70; PULSE 113; RESP 17; TEMP 97.1; O2SAT 95
[2016-08-28] MEDS: THIAMINE HCL 100 MG TAB PO SCH (09:00)
[2016-08-28] MEDS: REMOVE OLD NICODERM (NICOTINE) PATCH TD SCH (09:00)
[2016-08-28] MEDS: VALPROIC ACID SYRUP 250 MG/5 ML UDC PO SCH ×2 (09:00→20:20)
[2016-08-28] MEDS: ASPIRIN 81 MG CHEW TAB CHEW SCH (09:00)
[2016-08-28] MEDS: FOLIC ACID 1 MG TAB PO SCH (09:00)
[2016-08-28] MEDS: metFORMIN HCL 500 MG TAB PO SCH (09:00)
[2016-08-28] MEDS: NICOTINE 21 MG/24 HR PATCH T-DERMAL SCH (09:00)
[2016-08-28] MEDS: HYDROCHLOROTHIAZIDE 12.5 MG CAP PO SCH (09:00)
[2016-08-28] MEDS: LOSARTAN 50 MG TAB PO SCH (09:00)
[2016-08-28] MEDS: MULTIVITAMINS/MINERALS THERAPEUTIC TAB PO SCH (09:00)
[2016-08-28] MEDS: MEMANTINE HCL 10 MG TAB PO SCH ×2 (09:00→20:20)
--- NOTE | 2016-08-28 09:46 | HHI.PYPN ---
Subjective Remarks Patient seen in dayroom with floor staff, chart review, patient calm this morning we will continues diffusely confused and disorganized. Needing redirection but the intensity has softened Review of Systems Except as stated in HPI: all other systems reviewed are Neg Objective Alert: Yes [place]: Person Mood: Calm Affect: Flat Memory Intact: Comment (not formally assessed) Hallucinations: Other (no AVH) Delusions: No Delusion Type: Other (no dc delusions) Suicidal: Ideation (no SI voiced) Homicidal: Ideation (no HI voiced) Insight/Judgement Very poor Vitals/IOs Vital Signs Date Time Temp Pulse Resp B/P Pulse Ox O2 Delivery O2 Flow Rate FiO2 08/28/16 05:26 97.1 113 17 145/70 95 Intake and Output 08/27/16 08/27/16 08/28/16 08:00 16:00 00:00 Intake Total 360 ml 600 ml Balance 360 ml 600 ml Assessment & Plan Problem List: (1) UNSPECIFIED DEMENTIA WITH BEHAVIORAL DISTURBANCE ICD Code: F03.91 Assessment & Plan Estimated LOS: days patient continues confused and demented, though is more directable, compliant medications for now continue treatment Justification for Cont. Inpt. At this time patient would severely decompensate place to the lower level of care Discharge Planning To be determined Request HC Surrog/Guard Advoc?: Yes Roddy Henson MD Aug 28, 2016 09:46
[2016-08-28] MEDS: OLANZapine 10 MG TAB PO SCH (12:00)
[2016-08-28] MEDS: LORazepam 0.5 MG TAB PO PRN (17:30)
[2016-08-28 18:39] VITALS: BP 128/63; PULSE 100; RESP 16; TEMP 98.1; O2SAT 92
[2016-08-28] MEDS: DOCUSATE SODIUM 50 MG/SENNA 8.6 MG TAB PO SCH (20:20)
[2016-08-29 05:11] VITALS: BP 103/68; PULSE 85; RESP 19
[2016-08-29] MEDS: NICOTINE 21 MG/24 HR PATCH T-DERMAL SCH (09:00)
[2016-08-29] MEDS: LOSARTAN 50 MG TAB PO SCH (09:00)
[2016-08-29] MEDS: metFORMIN HCL 500 MG TAB PO SCH (09:00)
[2016-08-29] MEDS: REMOVE OLD NICODERM (NICOTINE) PATCH TD SCH (09:00)
[2016-08-29] MEDS: THIAMINE HCL 100 MG TAB PO SCH (09:37)
[2016-08-29] MEDS: FOLIC ACID 1 MG TAB PO SCH (09:37)
[2016-08-29] MEDS: MULTIVITAMINS/MINERALS THERAPEUTIC TAB PO SCH (09:37)
[2016-08-29] MEDS: VALPROIC ACID SYRUP 250 MG/5 ML UDC PO SCH ×2 (09:37→20:09)
[2016-08-29] MEDS: HYDROCHLOROTHIAZIDE 12.5 MG CAP PO SCH (09:37)
[2016-08-29] MEDS: MEMANTINE HCL 10 MG TAB PO SCH ×2 (09:38→20:10)
--- NOTE | 2016-08-29 11:22 | HHI.PYPN ---
Subjective Remarks Patient seen in day room with nurse Castro and patient's , patient drowsy today but arousable continues diffusely confused and disoriented. The no significant behavioral problems. Patient compliant medications. states is continuing to work with the problems related to insurability. For now continue treatment Review of Systems Except as stated in HPI: all other systems reviewed are Neg Objective Alert: Yes [place]: Person Mood: Calm Affect: Flat Memory Intact: Comment (not formally assessed) Hallucinations: Other (no AVH) Delusions: No Delusion Type: Other (no dc delusions) Suicidal: Ideation (no SI voiced) Homicidal: Ideation (no HI voiced) Insight/Judgement Very poor Vitals/IOs Vital Signs Date Time Temp Pulse Resp B/P Pulse Ox O2 Delivery O2 Flow Rate FiO2 08/29/16 05:11 85 19 103/68 08/28/16 18:39 98.1 92 Intake and Output 08/28/16 08/28/16 08/28/16 07:59 15:59 23:59 Intake Total 240 ml 360 ml 240 ml Balance 240 ml 360 ml 240 ml Assessment & Plan Problem List: (1) UNSPECIFIED DEMENTIA WITH BEHAVIORAL DISTURBANCE ICD Code: F03.91 Assessment & Plan Estimated LOS: days patient continues confused demented though behaviors and somewhat. Compliant medications. Justification for Cont. Inpt. At this time the patient would severely decompensated if placed on a lower level of care Discharge Planning To be determined Request HC Surrog/Guard Advoc?: Yes Roddy Henson MD Aug 29, 2016 11:22
[2016-08-29] MEDS: OLANZapine 10 MG TAB PO SCH (12:30)
[2016-08-29] MEDS: LORazepam 0.5 MG TAB PO PRN (17:11)
[2016-08-29 18:00] VITALS: BP 125/85; PULSE 115; RESP 17; TEMP 98.2; O2SAT 96
[2016-08-29] MEDS: DOCUSATE SODIUM 50 MG/SENNA 8.6 MG TAB PO SCH (20:09)
[2016-08-30 05:50] VITALS: BP 129/62; PULSE 92; RESP 18; TEMP 97.8; O2SAT 99
[2016-08-30 05:52] VITALS: BP 108/65; PULSE 78; RESP 16; TEMP 98.3; O2SAT 96
[2016-08-30 06:22] VITALS: BP 129/61; PULSE 92; RESP 16; TEMP 97.8; O2SAT 99
[2016-08-30] MEDS: metFORMIN HCL 500 MG TAB PO SCH (09:00)
[2016-08-30] MEDS: REMOVE OLD NICODERM (NICOTINE) PATCH TD SCH (09:00)
[2016-08-30] MEDS: THIAMINE HCL 100 MG TAB PO SCH (09:00)
[2016-08-30] MEDS: NICOTINE 21 MG/24 HR PATCH T-DERMAL SCH (09:00)
[2016-08-30] MEDS: MEMANTINE HCL 10 MG TAB PO SCH ×2 (09:33→21:14)
[2016-08-30] MEDS: VALPROIC ACID SYRUP 250 MG/5 ML UDC PO SCH ×2 (09:33→21:14)
[2016-08-30] MEDS: LOSARTAN 50 MG TAB PO SCH (09:33)
[2016-08-30] MEDS: ASPIRIN 81 MG CHEW TAB CHEW SCH (09:33)
[2016-08-30] MEDS: FOLIC ACID 1 MG TAB PO SCH (09:33)
[2016-08-30] MEDS: MULTIVITAMINS/MINERALS THERAPEUTIC TAB PO SCH (09:33)
[2016-08-30] MEDS: HYDROCHLOROTHIAZIDE 12.5 MG CAP PO SCH (09:33)
--- NOTE | 2016-08-30 10:49 | HHI.PYPN ---
Subjective Remarks Patient seen in the day room with nurse Castro, chart review, patient somewhat drowsy though arousable to irritable continues confused and disoriented. Compliant medications. For now continue treatment Review of Systems Except as stated in HPI: all other systems reviewed are Neg Objective Alert: Yes [place]: Person Mood: Calm Affect: Flat Memory Intact: Comment (not formally assessed) Hallucinations: Other (no AVH) Delusions: No Delusion Type: Other (no dc delusions) Suicidal: Ideation (no SI voiced) Homicidal: Ideation (no HI voiced) Insight/Judgement Poor Vitals/IOs Vital Signs Date Time Temp Pulse Resp B/P Pulse Ox O2 Delivery O2 Flow Rate FiO2 08/30/16 06:22 97.8 92 16 129/61 99 Intake and Output 08/29/16 08/29/16 08/29/16 07:59 15:59 23:59 Intake Total 840 ml 480 ml Balance 840 ml 480 ml Assessment & Plan Problem List: (1) UNSPECIFIED DEMENTIA WITH BEHAVIORAL DISTURBANCE ICD Code: F03.91 Assessment & Plan Estimated LOS: days patient continues severely demented and confused, compliant medications, showing some increased irritability lability when being assisted with hygiene and ADLs Justification for Cont. Inpt. At this time patient would severely decompensate if placed in a lower level of care Discharge Planning To be determined Request HC Surrog/Guard Advoc?: Yes Roddy Henson MD Aug 30, 2016 10:49
[2016-08-30] MEDS: OLANZapine 10 MG TAB PO SCH (12:28)
[2016-08-30 18:29] VITALS: BP 110/55; PULSE 100; RESP 18; TEMP 97.8; O2SAT 97
[2016-08-30] MEDS: DOCUSATE SODIUM 50 MG/SENNA 8.6 MG TAB PO SCH (21:14)
[2016-08-31 05:14] VITALS: BP 136/62; PULSE 88; RESP 16; TEMP 97.8; O2SAT 98
[2016-08-31] MEDS: HYDROCHLOROTHIAZIDE 12.5 MG CAP PO SCH (08:40)
[2016-08-31] MEDS: VALPROIC ACID SYRUP 250 MG/5 ML UDC PO SCH ×3 (08:40→21:00)
[2016-08-31] MEDS: FOLIC ACID 1 MG TAB PO SCH (08:40)
[2016-08-31] MEDS: THIAMINE HCL 100 MG TAB PO SCH (08:40)
[2016-08-31] MEDS: metFORMIN HCL 500 MG TAB PO SCH (08:40)
[2016-08-31] MEDS: LOSARTAN 50 MG TAB PO SCH (08:40)
[2016-08-31] MEDS: NICOTINE 21 MG/24 HR PATCH T-DERMAL SCH (08:40)
[2016-08-31] MEDS: MULTIVITAMINS/MINERALS THERAPEUTIC TAB PO SCH (08:40)
[2016-08-31] MEDS: MEMANTINE HCL 10 MG TAB PO SCH ×3 (08:40→21:00)
[2016-08-31] MEDS: REMOVE OLD NICODERM (NICOTINE) PATCH TD SCH (08:41)
--- NOTE | 2016-08-31 11:31 | HHI.PYPN ---
Subjective Remarks Patient seen in day room with her , patient more alert reactive did recognize me as her doctor, continues markedly confused and disoriented was unable to identify the #5 on a playing card in front of her. Compliant medications. For now continue treatment Review of Systems Except as stated in HPI: all other systems reviewed are Neg Objective Alert: Yes [place]: Person Mood: Calm Affect: Flat Memory Intact: Comment (not formally assessed) Hallucinations: Other (no AVH) Delusions: No Delusion Type: Other (no dc delusions) Suicidal: Ideation (no SI voiced) Homicidal: Ideation (no HI voiced) Insight/Judgement Very poor Vitals/IOs Vital Signs Date Time Temp Pulse Resp B/P Pulse Ox O2 Delivery O2 Flow Rate FiO2 08/31/16 05:14 97.8 88 16 136/62 98 Intake and Output 08/30/16 08/30/16 08/31/16 08:00 16:00 00:00 Intake Total 1200 ml 880 ml Balance 1200 ml 880 ml Assessment & Plan Problem List: (1) UNSPECIFIED DEMENTIA WITH BEHAVIORAL DISTURBANCE ICD Code: F03.91 Assessment & Plan Estimated LOS: days patient continues demented and confused, no behavior problems are not an issue except when being assisted with ADLs and hygiene Justification for Cont. Inpt. At this time patient was significantly decompensated placed at a lower level of care Discharge Planning To be determined Request HC Surrog/Guard Advoc?: Yes Roddy Henson MD Aug 31, 2016 11:31
[2016-08-31] MEDS: OLANZapine 10 MG TAB PO SCH (13:37)
[2016-08-31 20:00] VITALS: BP 96/68; PULSE 100; RESP 18; TEMP 98.3
[2016-08-31] MEDS: DOCUSATE SODIUM 50 MG/SENNA 8.6 MG TAB PO SCH ×2 (20:44→21:00)
[2016-08-31] MEDS: LORazepam 2 MG/ML VIAL IM PRN (21:04)
[2016-09-01 06:28] VITALS: BP 140/68; PULSE 103; RESP 18; TEMP 98.1; O2SAT 95
[2016-09-01] MEDS: HYDROCHLOROTHIAZIDE 12.5 MG CAP PO SCH (08:29)
[2016-09-01] MEDS: VALPROIC ACID SYRUP 250 MG/5 ML UDC PO SCH ×2 (08:29→21:01)
[2016-09-01] MEDS: metFORMIN HCL 500 MG TAB PO SCH (08:30)
[2016-09-01] MEDS: THIAMINE HCL 100 MG TAB PO SCH (08:30)
[2016-09-01] MEDS: LOSARTAN 50 MG TAB PO SCH (08:30)
[2016-09-01] MEDS: ASPIRIN 81 MG CHEW TAB CHEW SCH (08:30)
[2016-09-01] MEDS: MEMANTINE HCL 10 MG TAB PO SCH ×2 (08:30→21:01)
[2016-09-01] MEDS: FOLIC ACID 1 MG TAB PO SCH (08:30)
[2016-09-01] MEDS: MULTIVITAMINS/MINERALS THERAPEUTIC TAB PO SCH (08:38)
[2016-09-01] MEDS: NICOTINE 21 MG/24 HR PATCH T-DERMAL SCH (08:38)
[2016-09-01] MEDS: REMOVE OLD NICODERM (NICOTINE) PATCH TD SCH (08:38)
[2016-09-01] MEDS: OLANZapine 10 MG TAB PO SCH (11:57)
--- NOTE | 2016-09-01 17:25 | HHI.PYPN ---
Subjective Remarks Pt seen and discussed with staff. She remains confused and is combative at times during care. She refused medications last night, but took them today. Speech is rambling and nonsensical, but she is not agitated. No SI/HI Review of Systems Psychiatric: COMPLAINS OF: Confusion Objective Alert: Yes [place]: Person Mood: Calm Affect: Flat Memory Intact: Comment (not formally assessed) Hallucinations: Other (no AVH) Delusions: No Delusion Type: Other (no dc delusions) Suicidal: Ideation (no SI voiced) Homicidal: Ideation (no HI voiced) Insight/Judgement poor Vitals/IOs Vital Signs Date Time Temp Pulse Resp B/P Pulse Ox O2 Delivery O2 Flow Rate FiO2 09/01/16 06:28 98.1 103 18 140/68 95 Intake and Output 08/31/16 08/31/16 09/01/16 08:00 16:00 00:00 Intake Total 480 ml 720 ml 360 ml Balance 480 ml 720 ml 360 ml Assessment & Plan Problem List: (1) UNSPECIFIED DEMENTIA WITH BEHAVIORAL DISTURBANCE ICD Code: F03.91 Assessment & Plan Continue current tx plan. Estimated LOS: days Justification for Cont. Inpt. pt decompensated and inappropriate for lower level of care Request HC Surrog/Guard Advoc?: Yes Yadira Martino MD Sep 01, 2016 17:25
[2016-09-01 19:22] VITALS: BP 124/74; PULSE 98; RESP 18; TEMP 98.1; O2SAT 97
[2016-09-01] MEDS: DOCUSATE SODIUM 50 MG/SENNA 8.6 MG TAB PO SCH (21:02)
[2016-09-02 05:26] VITALS: BP 133/68; PULSE 88; RESP 20; TEMP 97.6; O2SAT 98
[2016-09-02] MEDS: LOSARTAN 50 MG TAB PO SCH (08:25)
[2016-09-02] MEDS: VALPROIC ACID SYRUP 250 MG/5 ML UDC PO SCH ×2 (08:25→19:51)
[2016-09-02] MEDS: metFORMIN HCL 500 MG TAB PO SCH (08:25)
[2016-09-02] MEDS: HYDROCHLOROTHIAZIDE 12.5 MG CAP PO SCH (08:26)
[2016-09-02] MEDS: MULTIVITAMINS/MINERALS THERAPEUTIC TAB PO SCH (08:26)
[2016-09-02] MEDS: NICOTINE 21 MG/24 HR PATCH T-DERMAL SCH (08:26)
[2016-09-02] MEDS: FOLIC ACID 1 MG TAB PO SCH (08:26)
[2016-09-02] MEDS: THIAMINE HCL 100 MG TAB PO SCH (08:26)
[2016-09-02] MEDS: REMOVE OLD NICODERM (NICOTINE) PATCH TD SCH (08:26)
[2016-09-02] MEDS: MEMANTINE HCL 10 MG TAB PO SCH ×2 (08:26→19:52)
--- NOTE | 2016-09-02 11:49 | HHI.PYPN ---
Subjective Remarks Pt seen and discussed with staff. Pt slept well last night and has been compliant with medications. She is agitated during care but otherwise has been calm today. Visited with family without incident. No SI/HI. Objective Alert: Yes [place]: Person Mood: Calm Affect: Flat Memory Intact: Comment (not formally assessed) Hallucinations: Other (no AVH) Delusions: No Delusion Type: Other (no dc delusions) Suicidal: Ideation (no SI voiced) Homicidal: Ideation (no HI voiced) Insight/Judgement poor Vitals/IOs Vital Signs Date Time Temp Pulse Resp B/P Pulse Ox O2 Delivery O2 Flow Rate FiO2 09/02/16 05:26 97.6 88 20 133/68 98 Intake and Output 09/01/16 09/01/16 09/02/16 08:00 16:00 00:00 Intake Total 0 ml 240 ml Balance 0 ml 240 ml Assessment & Plan Problem List: (1) UNSPECIFIED DEMENTIA WITH BEHAVIORAL DISTURBANCE ICD Code: F03.91 Assessment & Plan Continue current tx plan.Estimated LOS: days Justification for Cont. Inpt. risk of decompensating Request HC Surrog/Guard Advoc?: Yes Yadira Martino MD Sep 02, 2016 11:49
[2016-09-02] MEDS: OLANZapine 10 MG TAB PO SCH (12:56)
[2016-09-02 18:23] VITALS: BP 111/65; PULSE 97; RESP 18; TEMP 98.7; O2SAT 99
[2016-09-02] MEDS: DOCUSATE SODIUM 50 MG/SENNA 8.6 MG TAB PO SCH (19:52)
[2016-09-03 06:32] VITALS: BP 137/62; PULSE 103; RESP 18; TEMP 98.1; O2SAT 99
[2016-09-03] MEDS: LOSARTAN 50 MG TAB PO SCH (08:58)
[2016-09-03] MEDS: MEMANTINE HCL 10 MG TAB PO SCH ×2 (08:58→20:58)
[2016-09-03] MEDS: FOLIC ACID 1 MG TAB PO SCH (08:58)
[2016-09-03] MEDS: VALPROIC ACID SYRUP 250 MG/5 ML UDC PO SCH ×2 (08:59→20:58)
[2016-09-03] MEDS: MULTIVITAMINS/MINERALS THERAPEUTIC TAB PO SCH (08:59)
[2016-09-03] MEDS: metFORMIN HCL 500 MG TAB PO SCH (08:59)
[2016-09-03] MEDS: ASPIRIN 81 MG CHEW TAB CHEW SCH (08:59)
[2016-09-03] MEDS: NICOTINE 21 MG/24 HR PATCH T-DERMAL SCH (08:59)
[2016-09-03] MEDS: REMOVE OLD NICODERM (NICOTINE) PATCH TD SCH (08:59)
[2016-09-03] MEDS: HYDROCHLOROTHIAZIDE 12.5 MG CAP PO SCH (08:59)
[2016-09-03] MEDS: THIAMINE HCL 100 MG TAB PO SCH (08:59)
[2016-09-03] MEDS: OLANZapine 10 MG TAB PO SCH (12:00)
--- NOTE | 2016-09-03 13:03 | HHI.PYPN ---
Subjective Remarks Patient discussed with treatment team and patient's , continues to work diligently looking at various placement options. Patient continues markedly confused disoriented at times labile and difficult to manage related to hygiene and personal care. For now continue treatment no change Review of Systems Except as stated in HPI: all other systems reviewed are Neg Objective Alert: Yes [place]: Person Mood: Calm Affect: Flat Memory Intact: Comment (not formally assessed) Hallucinations: Other (no AVH) Delusions: No Delusion Type: Other (no dc delusions) Suicidal: Ideation (no SI voiced) Homicidal: Ideation (no HI voiced) Insight/Judgement Very poor Vitals/IOs Vital Signs Date Time Temp Pulse Resp B/P Pulse Ox O2 Delivery O2 Flow Rate FiO2 09/03/16 06:32 98.1 103 18 137/62 99 Intake and Output 09/02/16 09/02/16 09/03/16 08:00 16:00 00:00 Intake Total 0 ml 480 ml Balance 0 ml 480 ml Assessment & Plan Problem List: (1) UNSPECIFIED DEMENTIA WITH BEHAVIORAL DISTURBANCE ICD Code: F03.91 Assessment & Plan Estimated LOS: days patient continues demented at times somewhat irritable but overall no behavioral problems except during personal care and hygiene Justification for Cont. Inpt. At this time patient would decompensate if placed a lower level of care Discharge Planning To be determined Request HC Surrog/Guard Advoc?: Yes Roddy Henson MD Sep 03, 2016 13:03
[2016-09-03 18:31] VITALS: BP 132/64; PULSE 88; RESP 18; TEMP 98.2; O2SAT 96
[2016-09-03] MEDS: DOCUSATE SODIUM 50 MG/SENNA 8.6 MG TAB PO SCH (20:58)
[2016-09-03] MEDS: diphenhydrAMINE HCL 50 MG CAP PO PRN (20:59)
[2016-09-03] MEDS: LORazepam 0.5 MG TAB PO PRN (21:00)
[2016-09-04 05:24] VITALS: BP 111/58; PULSE 91; RESP 18; O2SAT 97
--- NOTE | 2016-09-04 08:26 | HHI.PYPN ---
Subjective Remarks Patient seen in day room with nurse Briseyda, chart review, patient overall calm cooperative, continues markedly confused. Behavior issues seem to occur only when patient being invaded for ADLs her hygiene. We'll check Depakote level in a.m. Patient overall compliant medication Review of Systems Except as stated in HPI: all other systems reviewed are Neg Objective Alert: Yes [place]: Person Mood: Calm Affect: Flat Memory Intact: Comment (not formally assessed) Hallucinations: Other (no AVH) Delusions: No Delusion Type: Other (no dc delusions) Suicidal: Ideation (no SI voiced) Homicidal: Ideation (no HI voiced) Insight/Judgement Very poor Vitals/IOs Vital Signs Date Time Temp Pulse Resp B/P Pulse Ox O2 Delivery O2 Flow Rate FiO2 09/04/16 05:24 91 18 111/58 97 09/03/16 18:31 98.2 Intake and Output 09/03/16 09/03/16 09/04/16 08:00 16:00 00:00 Intake Total 240 ml 120 ml Balance 240 ml 120 ml Assessment & Plan Problem List: (1) UNSPECIFIED DEMENTIA WITH BEHAVIORAL DISTURBANCE ICD Code: F03.91 Assessment & Plan Estimated LOS: days patient continues confused demented, poor behaviors seemingly localized around patient care and hygiene interventions. We'll check Depakote level in a.m. Justification for Cont. Inpt. [place] patient with severely decompensated if placed in a lower level of care Discharge Planning To be determined Request HC Surrog/Guard Advoc?: Yes Roddy Henson MD Sep 04, 2016 08:26
[2016-09-04] MEDS: FOLIC ACID 1 MG TAB PO SCH (09:00)
[2016-09-04] MEDS: VALPROIC ACID SYRUP 250 MG/5 ML UDC PO SCH ×2 (09:00→20:37)
[2016-09-04] MEDS: MULTIVITAMINS/MINERALS THERAPEUTIC TAB PO SCH (09:00)
[2016-09-04] MEDS: metFORMIN HCL 500 MG TAB PO SCH (09:00)
[2016-09-04] MEDS: NICOTINE 21 MG/24 HR PATCH T-DERMAL SCH (09:00)
[2016-09-04] MEDS: LOSARTAN 50 MG TAB PO SCH (09:00)
[2016-09-04] MEDS: REMOVE OLD NICODERM (NICOTINE) PATCH TD SCH (09:00)
[2016-09-04] MEDS: MEMANTINE HCL 10 MG TAB PO SCH ×2 (09:00→20:38)
[2016-09-04] MEDS: HYDROCHLOROTHIAZIDE 12.5 MG CAP PO SCH (09:00)
[2016-09-04] MEDS: THIAMINE HCL 100 MG TAB PO SCH (09:00)
[2016-09-04] MEDS: OLANZapine 10 MG TAB PO SCH (12:00)
[2016-09-04 19:38] VITALS: RESP 18
[2016-09-04] MEDS: diphenhydrAMINE HCL 50 MG CAP PO PRN (20:37)
[2016-09-04] MEDS: DOCUSATE SODIUM 50 MG/SENNA 8.6 MG TAB PO SCH (20:37)
[2016-09-04] MEDS: LORazepam 0.5 MG TAB PO PRN (20:40)
[2016-09-05 05:22] VITALS: BP 128/50; PULSE 100; RESP 18; O2SAT 96
[2016-09-05] MEDS: NICOTINE 21 MG/24 HR PATCH T-DERMAL SCH (08:32)
[2016-09-05] MEDS: MULTIVITAMINS/MINERALS THERAPEUTIC TAB PO SCH (08:32)
[2016-09-05] MEDS: metFORMIN HCL 500 MG TAB PO SCH (08:32)
[2016-09-05] MEDS: MEMANTINE HCL 10 MG TAB PO SCH ×2 (08:32→20:21)
[2016-09-05] MEDS: LOSARTAN 50 MG TAB PO SCH (08:32)
[2016-09-05] MEDS: HYDROCHLOROTHIAZIDE 12.5 MG CAP PO SCH (08:32)
[2016-09-05] MEDS: VALPROIC ACID SYRUP 250 MG/5 ML UDC PO SCH ×2 (08:32→20:22)
[2016-09-05] MEDS: ASPIRIN 81 MG CHEW TAB CHEW SCH (08:32)
[2016-09-05] MEDS: THIAMINE HCL 100 MG TAB PO SCH (08:32)
[2016-09-05] MEDS: FOLIC ACID 1 MG TAB PO SCH (08:32)
[2016-09-05] MEDS: REMOVE OLD NICODERM (NICOTINE) PATCH TD SCH (08:33)
--- NOTE | 2016-09-05 08:34 | HHI.PYPN ---
Subjective Remarks Patient seen in day room nurse Reagan, chart review, patient continue some behavior issues related to ADLs and hygiene. Depakote level drawn this a.m. of 71. Will change evening Zyprexa from 15-20 mg and give it at 8 p.m. instead of 6 PM patient continues confused disoriented Review of Systems Except as stated in HPI: all other systems reviewed are Neg Objective Alert: Yes [place]: Person Mood: Calm Affect: Flat Memory Intact: Comment (not formally assessed) Hallucinations: Other (no AVH) Delusions: No Delusion Type: Other (no dc delusions) Suicidal: Ideation (no SI voiced) Homicidal: Ideation (no HI voiced) Insight/Judgement Very poor Labs Test 09/05/16 06:02 Valproic Acid (Depakene) Level 71 MCG/ML Vitals/IOs Vital Signs Date Time Temp Pulse Resp B/P Pulse Ox O2 Delivery O2 Flow Rate FiO2 09/05/16 05:22 100 18 128/50 96 09/03/16 18:31 98.2 Intake and Output 09/04/16 09/04/16 09/05/16 08:00 16:00 00:00 Intake Total 720 ml Balance 720 ml Assessment & Plan Problem List: (1) UNSPECIFIED DEMENTIA WITH BEHAVIORAL DISTURBANCE ICD Code: F03.91 Assessment & Plan Estimated LOS: days she continues confused and demented with behaviors related to ADLs and hygiene. Please see medication adjustments about Justification for Cont. Inpt. At this time patient was significantly decompensated placed in the lower level of care Discharge Planning To be determined Request HC Surrog/Guard Advoc?: Yes Roddy Henson MD Sep 05, 2016 08:34
[2016-09-05] MEDS: OLANZapine 10 MG TAB PO SCH ×2 (12:00→20:21)
[2016-09-05] MEDS: LORazepam 2 MG/ML VIAL IM PRN (16:20)
[2016-09-05 19:24] VITALS: BP 140/58; PULSE 100; RESP 18; TEMP 97.7; O2SAT 99
[2016-09-05] MEDS: DOCUSATE SODIUM 50 MG/SENNA 8.6 MG TAB PO SCH (20:21)
[2016-09-06 06:54] VITALS: BP 118/68; PULSE 104; RESP 16; TEMP 98; O2SAT 100
[2016-09-06] MEDS: REMOVE OLD NICODERM (NICOTINE) PATCH TD SCH (09:00)
[2016-09-06] MEDS: NICOTINE 21 MG/24 HR PATCH T-DERMAL SCH (09:00)
[2016-09-06] MEDS: HYDROCHLOROTHIAZIDE 12.5 MG CAP PO SCH (09:13)
[2016-09-06] MEDS: MEMANTINE HCL 10 MG TAB PO SCH ×2 (09:13→20:23)
[2016-09-06] MEDS: MULTIVITAMINS/MINERALS THERAPEUTIC TAB PO SCH (09:13)
[2016-09-06] MEDS: THIAMINE HCL 100 MG TAB PO SCH (09:13)
[2016-09-06] MEDS: FOLIC ACID 1 MG TAB PO SCH (09:13)
[2016-09-06] MEDS: LOSARTAN 50 MG TAB PO SCH (09:13)
[2016-09-06] MEDS: VALPROIC ACID SYRUP 250 MG/5 ML UDC PO SCH ×2 (09:14→20:23)
[2016-09-06] MEDS: metFORMIN HCL 500 MG TAB PO SCH (09:14)
--- NOTE | 2016-09-06 11:34 | HHI.PYPN ---
Subjective Remarks Patient seen in day room with nurse Reagan, chart review, patient was noted prior to being in the day room was being helped at toileting by floor staff patient markedly agitated screaming yelling I and swearing. Once patient dressed and placed back in Patti chair she calmed quickly patient compliant medications for now continue treatment no change Review of Systems Except as stated in HPI: all other systems reviewed are Neg Objective Alert: Yes [place]: Person Mood: Calm Affect: Flat Memory Intact: Comment (not formally assessed) Hallucinations: Other (no AVH) Delusions: No Delusion Type: Other (no dc delusions) Suicidal: Ideation (no SI voiced) Homicidal: Ideation (no HI voiced) Insight/Judgement Very poor Vitals/IOs Vital Signs Date Time Temp Pulse Resp B/P Pulse Ox O2 Delivery O2 Flow Rate FiO2 09/06/16 06:54 98.0 104 16 118/68 100 Intake and Output 09/05/16 09/05/16 09/06/16 08:00 16:00 00:00 Intake Total 840 ml 720 ml Balance 840 ml 720 ml Assessment & Plan Problem List: (1) UNSPECIFIED DEMENTIA WITH BEHAVIORAL DISTURBANCE ICD Code: F03.91 Assessment & Plan Estimated LOS: days patient continues confused demented at times significant behavior issues related to hygiene and patient Justification for Cont. Inpt. At this time patient would significantly decompensate if placed a lower level of care Discharge Planning To be determined Request HC Surrog/Guard Advoc?: Yes Roddy Henson MD Sep 06, 2016 11:34
[2016-09-06] MEDS: OLANZapine 10 MG TAB PO SCH ×2 (12:06→20:00)
[2016-09-06 19:21] VITALS: BP 117/66; PULSE 103; RESP 19; TEMP 98; O2SAT 97
[2016-09-06] MEDS: DOCUSATE SODIUM 50 MG/SENNA 8.6 MG TAB PO SCH (20:24)
[2016-09-07 06:00] VITALS: BP 129/60; PULSE 107; RESP 16; O2SAT 96
[2016-09-07] MEDS: REMOVE OLD NICODERM (NICOTINE) PATCH TD SCH (09:00)
[2016-09-07] MEDS: NICOTINE 21 MG/24 HR PATCH T-DERMAL SCH (09:00)
[2016-09-07] MEDS: FOLIC ACID 1 MG TAB PO SCH (09:23)
[2016-09-07] MEDS: MULTIVITAMINS/MINERALS THERAPEUTIC TAB PO SCH (09:23)
[2016-09-07] MEDS: ASPIRIN 81 MG CHEW TAB CHEW SCH (09:23)
[2016-09-07] MEDS: THIAMINE HCL 100 MG TAB PO SCH (09:23)
[2016-09-07] MEDS: HYDROCHLOROTHIAZIDE 12.5 MG CAP PO SCH (09:23)
[2016-09-07] MEDS: metFORMIN HCL 500 MG TAB PO SCH (09:23)
[2016-09-07] MEDS: LOSARTAN 50 MG TAB PO SCH (09:24)
[2016-09-07] MEDS: MEMANTINE HCL 10 MG TAB PO SCH ×2 (09:24→20:12)
[2016-09-07] MEDS: VALPROIC ACID SYRUP 250 MG/5 ML UDC PO SCH ×2 (09:24→20:12)
--- NOTE | 2016-09-07 10:38 | HHI.PYPN ---
Subjective Remarks Patient seen in day room with nurse Hilaria and medical student sonya. Patient somewhat calmer this a.m. continues markedly confused and disoriented. Compliant medications. For now counselors continue to work on placement issues Review of Systems Except as stated in HPI: all other systems reviewed are Neg Objective Alert: Yes [place]: Person Mood: Calm Affect: Flat Memory Intact: Comment (not formally assessed) Hallucinations: Other (no AVH) Delusions: No Delusion Type: Other (no dc delusions) Suicidal: Ideation (no SI voiced) Homicidal: Ideation (no HI voiced) Insight/Judgement Very poor Vitals/IOs Vital Signs Date Time Temp Pulse Resp B/P Pulse Ox O2 Delivery O2 Flow Rate FiO2 09/07/16 06:00 107 16 129/60 96 09/06/16 19:21 98.0 Intake and Output 09/06/16 09/06/16 09/07/16 08:00 16:00 00:00 Intake Total 240 ml 720 ml Balance 240 ml 720 ml Assessment & Plan Problem List: (1) UNSPECIFIED DEMENTIA WITH BEHAVIORAL DISTURBANCE ICD Code: F03.91 Assessment & Plan Estimated LOS: days patient continues demented confused though calm at this time Justification for Cont. Inpt. At this time patient would seriously decompensate if placed in a lower level of care Discharge Planning To be determined Request HC Surrog/Guard Advoc?: Yes Roddy Henson MD Sep 07, 2016 10:38
[2016-09-07] MEDS: OLANZapine 10 MG TAB PO SCH ×2 (12:54→20:12)
[2016-09-07 19:25] VITALS: BP 140/62; PULSE 107; RESP 18; TEMP 97.9; O2SAT 96
[2016-09-07] MEDS: DOCUSATE SODIUM 50 MG/SENNA 8.6 MG TAB PO SCH (20:12)
[2016-09-08 06:04] VITALS: BP 108/64; PULSE 94; RESP 16; TEMP 98.8; O2SAT 100
[2016-09-08] MEDS: REMOVE OLD NICODERM (NICOTINE) PATCH TD SCH (09:00)
[2016-09-08] MEDS: NICOTINE 21 MG/24 HR PATCH T-DERMAL SCH (09:00)
[2016-09-08] MEDS: LOSARTAN 50 MG TAB PO SCH (09:00)
[2016-09-08] MEDS: HYDROCHLOROTHIAZIDE 12.5 MG CAP PO SCH (09:00)
[2016-09-08] MEDS: FOLIC ACID 1 MG TAB PO SCH (09:43)
[2016-09-08] MEDS: VALPROIC ACID SYRUP 250 MG/5 ML UDC PO SCH ×2 (09:43→19:56)
[2016-09-08] MEDS: THIAMINE HCL 100 MG TAB PO SCH (09:44)
[2016-09-08] MEDS: MULTIVITAMINS/MINERALS THERAPEUTIC TAB PO SCH (09:44)
[2016-09-08] MEDS: MEMANTINE HCL 10 MG TAB PO SCH ×2 (09:44→19:58)
[2016-09-08] MEDS: metFORMIN HCL 500 MG TAB PO SCH (09:44)
--- NOTE | 2016-09-08 11:53 | HHI.PYPN ---
Subjective Remarks Patient was seen and case discussed with nursing. Patient has been compliant with her medications. She is disheveled looking down her desk. Poor eye contact. Alert and oriented 1. Behaving well on the unit Objective Alert: Yes [place]: Person Mood: Calm Affect: Flat Memory Intact: Comment (not formally assessed) Hallucinations: Other (no AVH) Delusions: No Delusion Type: Other (no dc delusions) Suicidal: Ideation (no SI voiced) Homicidal: Ideation (no HI voiced) Insight/Judgement Poor Vitals/IOs Vital Signs Date Time Temp Pulse Resp B/P Pulse Ox O2 Delivery O2 Flow Rate FiO2 09/08/16 06:04 98.8 94 16 108/64 100 Intake and Output 09/07/16 09/07/16 09/08/16 08:00 16:00 00:00 Intake Total 600 ml 600 ml Balance 600 ml 600 ml Assessment & Plan Problem List: (1) UNSPECIFIED DEMENTIA WITH BEHAVIORAL DISTURBANCE ICD Code: F03.91 Assessment & Plan Continue current treatment plan Justification for Cont. Inpt. Patient will decompensate in a less restrictive setting Request HC Surrog/Guard Advoc?: Yes Jarod Gibbons DO Sep 08, 2016 11:53
[2016-09-08] MEDS: OLANZapine 10 MG TAB PO SCH ×2 (12:40→19:59)
[2016-09-08 18:00] VITALS: BP 133/60; PULSE 101; RESP 16; TEMP 98.2; O2SAT 98
[2016-09-08] MEDS: DOCUSATE SODIUM 50 MG/SENNA 8.6 MG TAB PO SCH (19:58)
[2016-09-09 05:42] VITALS: BP 134/65; PULSE 104; RESP 16; TEMP 97.6; O2SAT 96
[2016-09-09] MEDS: MULTIVITAMINS/MINERALS THERAPEUTIC TAB PO SCH (08:29)
[2016-09-09] MEDS: metFORMIN HCL 500 MG TAB PO SCH (08:29)
[2016-09-09] MEDS: HYDROCHLOROTHIAZIDE 12.5 MG CAP PO SCH (08:29)
[2016-09-09] MEDS: MEMANTINE HCL 10 MG TAB PO SCH ×2 (08:29→20:07)
[2016-09-09] MEDS: ASPIRIN 81 MG CHEW TAB CHEW SCH (08:29)
[2016-09-09] MEDS: FOLIC ACID 1 MG TAB PO SCH (08:29)
[2016-09-09] MEDS: THIAMINE HCL 100 MG TAB PO SCH (08:29)
[2016-09-09] MEDS: LOSARTAN 50 MG TAB PO SCH (08:29)
[2016-09-09] MEDS: REMOVE OLD NICODERM (NICOTINE) PATCH TD SCH (08:30)
[2016-09-09] MEDS: NICOTINE 21 MG/24 HR PATCH T-DERMAL SCH (08:30)
[2016-09-09] MEDS: VALPROIC ACID SYRUP 250 MG/5 ML UDC PO SCH ×2 (08:30→20:07)
--- NOTE | 2016-09-09 11:56 | HHI.PYPN ---
Subjective Remarks Patient was seen and case discussed with nursing. Patient remains confused and disorganized. Alert and oriented 0. Medications are being crushed per nursing. Behaving well on the unit Objective Alert: Yes [place]: Person Mood: Calm Affect: Flat Memory Intact: Comment (not formally assessed) Hallucinations: Other (no AVH) Delusions: No Delusion Type: Other (no dc delusions) Suicidal: Ideation (no SI voiced) Homicidal: Ideation (no HI voiced) Insight/Judgement Poor Vitals/IOs Vital Signs Date Time Temp Pulse Resp B/P Pulse Ox O2 Delivery O2 Flow Rate FiO2 09/09/16 05:42 97.6 104 16 134/65 96 Intake and Output 09/08/16 09/08/16 09/09/16 08:00 16:00 00:00 Intake Total 0 ml 600 ml Balance 0 ml 600 ml Assessment & Plan Problem List: (1) UNSPECIFIED DEMENTIA WITH BEHAVIORAL DISTURBANCE ICD Code: F03.91 Assessment & Plan Continue current treatment plan Justification for Cont. Inpt. Patient will decompensate in a less restrictive setting Request HC Surrog/Guard Advoc?: Yes Jarod Gibbons DO Sep 09, 2016 11:56
[2016-09-09] MEDS: OLANZapine 10 MG TAB PO SCH ×2 (13:07→20:08)
[2016-09-09 18:00] VITALS: BP 123/65; PULSE 109; RESP 16; O2SAT 96
[2016-09-09] MEDS: LORazepam 0.5 MG TAB PO PRN (20:07)
[2016-09-09] MEDS: diphenhydrAMINE HCL 50 MG CAP PO PRN (20:08)
[2016-09-09] MEDS: DOCUSATE SODIUM 50 MG/SENNA 8.6 MG TAB PO SCH (20:08)
[2016-09-10 05:34] VITALS: BP 121/57; PULSE 95; RESP 16; TEMP 98; O2SAT 96
[2016-09-10] MEDS: HYDROCHLOROTHIAZIDE 12.5 MG CAP PO SCH (08:19)
[2016-09-10] MEDS: metFORMIN HCL 500 MG TAB PO SCH (08:19)
[2016-09-10] MEDS: FOLIC ACID 1 MG TAB PO SCH (08:19)
[2016-09-10] MEDS: LOSARTAN 50 MG TAB PO SCH (08:19)
[2016-09-10] MEDS: MEMANTINE HCL 10 MG TAB PO SCH ×2 (08:19→20:25)
[2016-09-10] MEDS: REMOVE OLD NICODERM (NICOTINE) PATCH TD SCH (08:20)
[2016-09-10] MEDS: NICOTINE 21 MG/24 HR PATCH T-DERMAL SCH (08:20)
[2016-09-10] MEDS: MULTIVITAMINS/MINERALS THERAPEUTIC TAB PO SCH (08:20)
[2016-09-10] MEDS: THIAMINE HCL 100 MG TAB PO SCH (08:20)
[2016-09-10] MEDS: VALPROIC ACID SYRUP 250 MG/5 ML UDC PO SCH ×2 (08:27→20:24)
[2016-09-10] MEDS: OLANZapine 10 MG TAB PO SCH ×2 (12:29→20:25)
--- NOTE | 2016-09-10 14:51 | HHI.PYPN ---
Subjective Remarks Patient discussed with treatment team and patient's , chart review, patient seen on unit. Patient continues vaguely confused needing redirection. Her behaviors to decompensate when there is attempts at hygiene and ADLs and toileting. Review of Systems Except as stated in HPI: all other systems reviewed are Neg Objective Alert: Yes [place]: Person Mood: Calm Affect: Flat Memory Intact: Comment (not formally assessed) Hallucinations: Other (no AVH) Delusions: No Delusion Type: Other (no dc delusions) Suicidal: Ideation (no SI voiced) Homicidal: Ideation (no HI voiced) Insight/Judgement Very poor Vitals/IOs Vital Signs Date Time Temp Pulse Resp B/P Pulse Ox O2 Delivery O2 Flow Rate FiO2 09/10/16 05:34 98.0 95 16 121/57 96 Intake and Output 09/09/16 09/09/16 09/10/16 08:00 16:00 00:00 Intake Total 0 ml 1920 ml 480 ml Balance 0 ml 1920 ml 480 ml Assessment & Plan Problem List: (1) UNSPECIFIED DEMENTIA WITH BEHAVIORAL DISTURBANCE ICD Code: F03.91 Assessment & Plan Estimated LOS: days patient continues confused disoriented though no significant changes in behavior Justification for Cont. Inpt. At this time patient would significantly decompensated if placed in the lower level of care Discharge Planning To be determined Request HC Surrog/Guard Advoc?: Yes Roddy Henson MD Sep 10, 2016 14:50
[2016-09-10 18:23] VITALS: BP 118/66; PULSE 104; RESP 16; TEMP 98.4; O2SAT 96
[2016-09-10] MEDS: DOCUSATE SODIUM 50 MG/SENNA 8.6 MG TAB PO SCH (20:25)
[2016-09-11 06:36] VITALS: BP 129/61; PULSE 85; RESP 16; TEMP 97.7; O2SAT 100
[2016-09-11] MEDS: VALPROIC ACID SYRUP 250 MG/5 ML UDC PO SCH ×2 (08:29→20:41)
[2016-09-11] MEDS: metFORMIN HCL 500 MG TAB PO SCH (08:29)
[2016-09-11] MEDS: LOSARTAN 50 MG TAB PO SCH (08:29)
[2016-09-11] MEDS: HYDROCHLOROTHIAZIDE 12.5 MG CAP PO SCH (08:31)
[2016-09-11] MEDS: MEMANTINE HCL 10 MG TAB PO SCH ×2 (08:31→20:41)
[2016-09-11] MEDS: MULTIVITAMINS/MINERALS THERAPEUTIC TAB PO SCH (08:31)
[2016-09-11] MEDS: THIAMINE HCL 100 MG TAB PO SCH (08:31)
[2016-09-11] MEDS: ASPIRIN 81 MG CHEW TAB CHEW SCH (08:31)
[2016-09-11] MEDS: FOLIC ACID 1 MG TAB PO SCH (08:31)
[2016-09-11] MEDS: NICOTINE 21 MG/24 HR PATCH T-DERMAL SCH (08:31)
[2016-09-11] MEDS: REMOVE OLD NICODERM (NICOTINE) PATCH TD SCH (08:32)
[2016-09-11] MEDS: OLANZapine 10 MG TAB PO SCH ×2 (13:14→20:42)
--- NOTE | 2016-09-11 15:51 | HHI.PYPN ---
Subjective Remarks Patient seen in day room with nurse Reagan and medical student Asia. Patient continues somewhat labile when approached for hygiene or visceral contact. That appear she did allow the staff to walk her today which is something new. Patient compliant medication. For now continue treatment Review of Systems Except as stated in HPI: all other systems reviewed are Neg Objective Alert: Yes [place]: Person Mood: Calm Affect: Flat Memory Intact: Comment (not formally assessed) Hallucinations: Other (no AVH) Delusions: No Delusion Type: Other (no dc delusions) Suicidal: Ideation (no SI voiced) Homicidal: Ideation (no HI voiced) Insight/Judgement Poor Vitals/IOs Vital Signs Date Time Temp Pulse Resp B/P Pulse Ox O2 Delivery O2 Flow Rate FiO2 09/11/16 06:36 97.7 85 16 129/61 100 Intake and Output 09/10/16 09/10/16 09/11/16 08:00 16:00 00:00 Intake Total 0 ml 840 ml 600 ml Balance 0 ml 840 ml 600 ml Assessment & Plan Problem List: (1) UNSPECIFIED DEMENTIA WITH BEHAVIORAL DISTURBANCE ICD Code: F03.91 Assessment & Plan Estimated LOS: days patient continues demented confused at times somewhat labile and irritable. For now continue treatment Justification for Cont. Inpt. At the present time the patient would significantly decompensate if placed in a lower level of care Discharge Planning To be determined Request HC Surrog/Guard Advoc?: Yes Roddy Henson MD Sep 11, 2016 15:51
[2016-09-11] MEDS: DOCUSATE SODIUM 50 MG/SENNA 8.6 MG TAB PO SCH (20:41)
[2016-09-12 05:57] VITALS: BP 143/63; PULSE 87; RESP 16
[2016-09-12] MEDS: REMOVE OLD NICODERM (NICOTINE) PATCH TD SCH (09:00)
[2016-09-12] MEDS: NICOTINE 21 MG/24 HR PATCH T-DERMAL SCH (09:00)
[2016-09-12] MEDS: MEMANTINE HCL 10 MG TAB PO SCH ×2 (09:53→20:33)
[2016-09-12] MEDS: THIAMINE HCL 100 MG TAB PO SCH (09:53)
[2016-09-12] MEDS: VALPROIC ACID SYRUP 250 MG/5 ML UDC PO SCH ×2 (09:53→20:34)
[2016-09-12] MEDS: HYDROCHLOROTHIAZIDE 12.5 MG CAP PO SCH (09:53)
[2016-09-12] MEDS: MULTIVITAMINS/MINERALS THERAPEUTIC TAB PO SCH (09:54)
[2016-09-12] MEDS: FOLIC ACID 1 MG TAB PO SCH (09:54)
[2016-09-12] MEDS: LOSARTAN 50 MG TAB PO SCH (09:54)
[2016-09-12] MEDS: metFORMIN HCL 500 MG TAB PO SCH (09:54)
--- NOTE | 2016-09-12 10:01 | HHI.PYPN ---
Subjective Remarks Patient seen in day room with nurse Jessika, chart reviewed, patient continues diffusely confused, there is increased irritability and lability when staff attempts to help with ADLs hygiene meals. Otherwise patient compliant medications and no behavioral problem Review of Systems Except as stated in HPI: all other systems reviewed are Neg Objective Alert: Yes [place]: Person Mood: Calm Affect: Flat Memory Intact: Comment (not formally assessed) Hallucinations: Other (no AVH) Delusions: No Delusion Type: Other (no dc delusions) Suicidal: Ideation (no SI voiced) Homicidal: Ideation (no HI voiced) Insight/Judgement Poor Vitals/IOs Vital Signs Date Time Temp Pulse Resp B/P Pulse Ox O2 Delivery O2 Flow Rate FiO2 09/12/16 05:57 87 16 143/63 09/11/16 06:36 97.7 100 Intake and Output 09/11/16 09/11/16 09/12/16 08:00 16:00 00:00 Intake Total 1200 ml 600 ml Balance 1200 ml 600 ml Assessment & Plan Problem List: (1) UNSPECIFIED DEMENTIA WITH BEHAVIORAL DISTURBANCE ICD Code: F03.91 Assessment & Plan Estimated LOS: days patient continues demented confused at times with behavioral issues. Justification for Cont. Inpt. At this time patient was significantly decompensate if placed in a lower level of care Discharge Planning To be determined Request HC Surrog/Guard Advoc?: Yes Roddy Henson MD Sep 12, 2016 10:01
[2016-09-12] MEDS: OLANZapine 10 MG TAB PO SCH ×2 (12:00→20:33)
[2016-09-12 18:52] VITALS: BP 117/69; PULSE 101; RESP 18; TEMP 97.5; O2SAT 98
[2016-09-12] MEDS: DOCUSATE SODIUM 50 MG/SENNA 8.6 MG TAB PO SCH (20:33)
[2016-09-13 06:22] VITALS: BP 143/70; PULSE 93; RESP 18; TEMP 97.8; O2SAT 99
--- NOTE | 2016-09-13 08:32 | HHI.PYPN ---
Subjective Remarks Patient seen in day room with nurse, chart review, patient continues to be increasingly irritable when being assisted with ADLs and toileting, however she is becoming somewhat more cooperative with PT and assistance in ambulation. Compliant medications. Counselors are continuing to work with placement issues Review of Systems Except as stated in HPI: all other systems reviewed are Neg Objective Alert: Yes [place]: Person Mood: Calm Affect: Flat Memory Intact: Comment (not formally assessed) Hallucinations: Other (no AVH) Delusions: No Delusion Type: Other (no dc delusions) Suicidal: Ideation (no SI voiced) Homicidal: Ideation (no HI voiced) Insight/Judgement Very poor Vitals/IOs Vital Signs Date Time Temp Pulse Resp B/P Pulse Ox O2 Delivery O2 Flow Rate FiO2 09/13/16 06:22 97.8 93 18 143/70 99 Intake and Output 09/12/16 09/12/16 09/13/16 08:00 16:00 00:00 Intake Total 720 ml 600 ml 2040 ml Balance 720 ml 600 ml 2040 ml Assessment & Plan Problem List: (1) UNSPECIFIED DEMENTIA WITH BEHAVIORAL DISTURBANCE ICD Code: F03.91 Assessment & Plan Estimated LOS: days patient continues demented irritable increased resistance to assistance with ADLs toileting. But increasingly cooperative with PT. Justification for Cont. Inpt. At this time the patient would significantly decompensate if placed in a lower level of care Discharge Planning To be determined Request HC Surrog/Guard Advoc?: Yes Roddy Henson MD Sep 13, 2016 08:32
[2016-09-13] MEDS: VALPROIC ACID SYRUP 250 MG/5 ML UDC PO SCH ×2 (09:00→19:51)
[2016-09-13] MEDS: ASPIRIN 81 MG CHEW TAB CHEW SCH (09:00)
[2016-09-13] MEDS: REMOVE OLD NICODERM (NICOTINE) PATCH TD SCH (09:00)
[2016-09-13] MEDS: metFORMIN HCL 500 MG TAB PO SCH (09:00)
[2016-09-13] MEDS: MULTIVITAMINS/MINERALS THERAPEUTIC TAB PO SCH (09:00)
[2016-09-13] MEDS: FOLIC ACID 1 MG TAB PO SCH (09:00)
[2016-09-13] MEDS: MEMANTINE HCL 10 MG TAB PO SCH ×2 (09:00→19:52)
[2016-09-13] MEDS: THIAMINE HCL 100 MG TAB PO SCH (09:00)
[2016-09-13] MEDS: HYDROCHLOROTHIAZIDE 12.5 MG CAP PO SCH (09:00)
[2016-09-13] MEDS: NICOTINE 21 MG/24 HR PATCH T-DERMAL SCH (09:00)
[2016-09-13] MEDS: LOSARTAN 50 MG TAB PO SCH (09:00)
[2016-09-13] MEDS: OLANZapine 10 MG TAB PO SCH ×2 (12:18→19:52)
[2016-09-13 18:45] VITALS: BP 97/61; PULSE 101; RESP 15
[2016-09-13 19:13] VITALS: BP 97/67; PULSE 101; RESP 15
[2016-09-13] MEDS: DOCUSATE SODIUM 50 MG/SENNA 8.6 MG TAB PO SCH (19:52)
--- NOTE | 2016-09-14 08:40 | HHI.PYPN ---
Subjective Remarks Patient seen in day room with nurse Sheryl. Chart review. Patient calm with me though continues markedly confused and disorganized, with no significant eye contact. When asked if she enjoys her visits with her she did not respond to the question. Compliant medications. For now continue treatment Review of Systems Except as stated in HPI: all other systems reviewed are Neg Objective Alert: Yes [place]: Person Mood: Calm Affect: Flat Memory Intact: Comment (not formally assessed) Hallucinations: Other (no AVH) Delusions: No Delusion Type: Other (no dc delusions) Suicidal: Ideation (no SI voiced) Homicidal: Ideation (no HI voiced) Insight/Judgement Very poor Vitals/IOs Vital Signs Date Time Temp Pulse Resp B/P Pulse Ox O2 Delivery O2 Flow Rate FiO2 09/13/16 19:13 101 15 97/67 09/13/16 06:22 97.8 99 Intake and Output 09/13/16 09/13/16 09/14/16 08:00 16:00 00:00 Intake Total 480 ml 240 ml Output Total 1 ml 2 ml Balance -1 ml 480 ml 238 ml Assessment & Plan Problem List: (1) UNSPECIFIED DEMENTIA WITH BEHAVIORAL DISTURBANCE ICD Code: F03.91 Assessment & Plan Estimated LOS: days patient continues confused demented, continues with some behavioral issues related to hygiene ADL care with assistance by staff. It appears patient is somewhat more cooperative with PT with walking. Will allow to assist with that when he comes in around lunchtime Justification for Cont. Inpt. At this time patient would significantly decompensate if placed in the lower level of care Discharge Planning To be determined Request HC Surrog/Guard Advoc?: Yes Roddy Henson MD Sep 14, 2016 08:40
[2016-09-14] MEDS: LOSARTAN 50 MG TAB PO SCH (09:00)
[2016-09-14] MEDS: NICOTINE 21 MG/24 HR PATCH T-DERMAL SCH (09:00)
[2016-09-14] MEDS: MULTIVITAMINS/MINERALS THERAPEUTIC TAB PO SCH (09:00)
[2016-09-14] MEDS: metFORMIN HCL 500 MG TAB PO SCH (09:00)
[2016-09-14] MEDS: REMOVE OLD NICODERM (NICOTINE) PATCH TD SCH (09:00)
[2016-09-14] MEDS: VALPROIC ACID SYRUP 250 MG/5 ML UDC PO SCH ×3 (09:00→21:22)
[2016-09-14] MEDS: MEMANTINE HCL 10 MG TAB PO SCH ×3 (09:00→21:21)
[2016-09-14] MEDS: FOLIC ACID 1 MG TAB PO SCH (09:00)
[2016-09-14] MEDS: THIAMINE HCL 100 MG TAB PO SCH (09:00)
[2016-09-14] MEDS: HYDROCHLOROTHIAZIDE 12.5 MG CAP PO SCH (09:00)
[2016-09-14] MEDS: OLANZapine 10 MG TAB PO SCH ×3 (12:00→21:21)
[2016-09-14 18:00] VITALS: BP 123/60; PULSE 107
[2016-09-14] MEDS: DOCUSATE SODIUM 50 MG/SENNA 8.6 MG TAB PO SCH ×2 (21:00→21:21)
[2016-09-15 05:25] VITALS: BP 143/67; PULSE 100; RESP 16; O2SAT 90
[2016-09-15] MEDS: HYDROCHLOROTHIAZIDE 12.5 MG CAP PO SCH (08:12)
[2016-09-15] MEDS: MULTIVITAMINS/MINERALS THERAPEUTIC TAB PO SCH (08:12)
[2016-09-15] MEDS: FOLIC ACID 1 MG TAB PO SCH (08:12)
[2016-09-15] MEDS: VALPROIC ACID SYRUP 250 MG/5 ML UDC PO SCH ×2 (08:13→20:37)
[2016-09-15] MEDS: NICOTINE 21 MG/24 HR PATCH T-DERMAL SCH (08:13)
[2016-09-15] MEDS: MEMANTINE HCL 10 MG TAB PO SCH ×2 (08:13→20:37)
[2016-09-15] MEDS: metFORMIN HCL 500 MG TAB PO SCH (08:13)
[2016-09-15] MEDS: LOSARTAN 50 MG TAB PO SCH (08:13)
[2016-09-15] MEDS: THIAMINE HCL 100 MG TAB PO SCH (08:13)
[2016-09-15] MEDS: ASPIRIN 81 MG CHEW TAB CHEW SCH (08:13)
[2016-09-15] MEDS: REMOVE OLD NICODERM (NICOTINE) PATCH TD SCH (08:13)
[2016-09-15] MEDS: OLANZapine 10 MG TAB PO SCH ×2 (12:16→20:37)
--- NOTE | 2016-09-15 14:19 | HHI.PYPN ---
Subjective Remarks Pt seen and discussed with staff. Pt has been agitated during care but otherwise has been pleasant and in better behavioral control today. She has been awake and in dayroom for most of day. She remains confused and is fixated on ripping paper into shreds. "I'm not putting this back together." Compliant with medications Objective Alert: Yes [place]: Person Mood: Calm Affect: Flat Memory Intact: Comment (severe impairment) Hallucinations: Other (no AVH) Delusions: No Delusion Type: Other (no dc delusions) Suicidal: Ideation (no SI voiced) Homicidal: Ideation (no HI voiced) Insight/Judgement poor Vitals/IOs Vital Signs Date Time Temp Pulse Resp B/P Pulse Ox O2 Delivery O2 Flow Rate FiO2 09/15/16 05:25 100 16 143/67 90 09/13/16 06:22 97.8 Intake and Output 09/14/16 09/14/16 09/15/16 08:00 16:00 00:00 Intake Total 480 ml 1680 ml 360 ml Balance 480 ml 1680 ml 360 ml Assessment & Plan Problem List: (1) UNSPECIFIED DEMENTIA WITH BEHAVIORAL DISTURBANCE ICD Code: F03.91 Assessment & Plan Continue current tx plan. Estimated LOS: days Justification for Cont. Inpt. decompensation at lower level of care Request HC Surrog/Guard Advoc?: Yes Yadira Martino MD Sep 15, 2016 14:19
[2016-09-15] MEDS: DOCUSATE SODIUM 50 MG/SENNA 8.6 MG TAB PO SCH (20:37)
[2016-09-15] MEDS: diphenhydrAMINE HCL 50 MG CAP PO PRN (21:42)
[2016-09-16 05:30] VITALS: BP 125/58; PULSE 86; RESP 18; TEMP 98.3; O2SAT 96
[2016-09-16] MEDS: VALPROIC ACID SYRUP 250 MG/5 ML UDC PO SCH ×2 (08:06→20:19)
[2016-09-16] MEDS: FOLIC ACID 1 MG TAB PO SCH (08:07)
[2016-09-16] MEDS: THIAMINE HCL 100 MG TAB PO SCH (08:07)
[2016-09-16] MEDS: LOSARTAN 50 MG TAB PO SCH (08:07)
[2016-09-16] MEDS: HYDROCHLOROTHIAZIDE 12.5 MG CAP PO SCH (08:07)
[2016-09-16] MEDS: metFORMIN HCL 500 MG TAB PO SCH (08:07)
[2016-09-16] MEDS: MULTIVITAMINS/MINERALS THERAPEUTIC TAB PO SCH (08:07)
[2016-09-16] MEDS: NICOTINE 21 MG/24 HR PATCH T-DERMAL SCH (08:07)
[2016-09-16] MEDS: REMOVE OLD NICODERM (NICOTINE) PATCH TD SCH (08:08)
[2016-09-16] MEDS: MEMANTINE HCL 10 MG TAB PO SCH ×2 (08:08→20:19)
[2016-09-16] MEDS: OLANZapine 10 MG TAB PO SCH ×2 (11:53→20:18)
--- NOTE | 2016-09-16 14:33 | HHI.PYPN ---
Subjective Remarks Pt seen and discussed with staff. Pt slept well last night and aside from outburst related to hygiene care, has not been aggressive. Compliant with medications. Pt reports that she is "happy, happy". Objective Alert: Yes [place]: Person Mood: Calm Affect: Flat Memory Intact: Comment (severe impairment) Hallucinations: Other (no AVH) Delusions: No Delusion Type: Other (no dc delusions) Suicidal: Ideation (no SI voiced) Homicidal: Ideation (no HI voiced) Insight/Judgement poor Vitals/IOs Vital Signs Date Time Temp Pulse Resp B/P Pulse Ox O2 Delivery O2 Flow Rate FiO2 09/16/16 05:30 98.3 86 18 125/58 96 Intake and Output 09/15/16 09/15/16 09/16/16 08:00 16:00 00:00 Intake Total 240 ml 600 ml 360 ml Output Total 0 ml Balance 240 ml 600 ml 360 ml Assessment & Plan Problem List: (1) UNSPECIFIED DEMENTIA WITH BEHAVIORAL DISTURBANCE ICD Code: F03.91 Assessment & Plan Continue current tx plan. Estimated LOS: days Justification for Cont. Inpt. risk of decompensations Request HC Surrog/Guard Advoc?: Yes Yadira Martino MD Sep 16, 2016 14:33
[2016-09-16 19:52] VITALS: BP 117/56; PULSE 90; RESP 19; TEMP 98; O2SAT 96
[2016-09-16] MEDS: DOCUSATE SODIUM 50 MG/SENNA 8.6 MG TAB PO SCH (20:19)
[2016-09-16] MEDS: diphenhydrAMINE HCL 50 MG CAP PO PRN (20:19)
[2016-09-17 05:08] VITALS: BP 110/57; PULSE 90; RESP 18; TEMP 98.2; O2SAT 98
[2016-09-17] MEDS: REMOVE OLD NICODERM (NICOTINE) PATCH TD SCH (09:00)
[2016-09-17] MEDS: HYDROCHLOROTHIAZIDE 12.5 MG CAP PO SCH (09:00)
[2016-09-17] MEDS: NICOTINE 21 MG/24 HR PATCH T-DERMAL SCH (09:00)
[2016-09-17] MEDS: LOSARTAN 50 MG TAB PO SCH (09:00)
[2016-09-17] MEDS: metFORMIN HCL 500 MG TAB PO SCH (09:07)
[2016-09-17] MEDS: ASPIRIN 81 MG CHEW TAB CHEW SCH (09:07)
[2016-09-17] MEDS: VALPROIC ACID SYRUP 250 MG/5 ML UDC PO SCH ×2 (09:07→20:25)
[2016-09-17] MEDS: THIAMINE HCL 100 MG TAB PO SCH (09:07)
[2016-09-17] MEDS: MULTIVITAMINS/MINERALS THERAPEUTIC TAB PO SCH (09:07)
[2016-09-17] MEDS: FOLIC ACID 1 MG TAB PO SCH (09:07)
[2016-09-17] MEDS: MEMANTINE HCL 10 MG TAB PO SCH ×2 (09:07→20:26)
[2016-09-17] MEDS: OLANZapine 10 MG TAB PO SCH ×2 (12:16→20:25)
--- NOTE | 2016-09-17 13:42 | HHI.PYPN ---
Subjective Remarks Patient discussed with treatment team and patient's , chart review, patient continues with significant behavioral issues who mainly related to ADLs and hygiene she continues to allow PT to walker the morning. Compliant medications. Continue to work with placement issues. For now continue treatment Review of Systems Except as stated in HPI: all other systems reviewed are Neg Objective Alert: Yes [place]: Person Mood: Calm Affect: Flat Memory Intact: Comment (severe impairment) Hallucinations: Other (no AVH) Delusions: No Delusion Type: Other (no dc delusions) Suicidal: Ideation (no SI voiced) Homicidal: Ideation (no HI voiced) Insight/Judgement Poor Vitals/IOs Vital Signs Date Time Temp Pulse Resp B/P Pulse Ox O2 Delivery O2 Flow Rate FiO2 09/17/16 05:08 98.2 90 18 110/57 98 Intake and Output 09/16/16 09/16/16 09/17/16 08:00 16:00 00:00 Intake Total 0 ml 640 ml 600 ml Output Total 0 ml Balance 0 ml 640 ml 600 ml Assessment & Plan Problem List: (1) UNSPECIFIED DEMENTIA WITH BEHAVIORAL DISTURBANCE ICD Code: F03.91 Assessment & Plan Estimated LOS: days patient continues demented with behavioral disorders as mentioned above, compliant medications. For now continue treatment Justification for Cont. Inpt. At this time there is a significant risk of decompensation if the patient is discharged to a lower level of care Discharge Planning To be determined Request HC Surrog/Guard Advoc?: Yes Roddy Henson MD Sep 17, 2016 13:42
[2016-09-17] MEDS: diphenhydrAMINE HCL 50 MG CAP PO PRN (20:26)
[2016-09-17] MEDS: DOCUSATE SODIUM 50 MG/SENNA 8.6 MG TAB PO SCH (20:26)
[2016-09-18 04:56] VITALS: BP 134/63; PULSE 84; RESP 16; TEMP 97.9; O2SAT 97
[2016-09-18] MEDS: LOSARTAN 50 MG TAB PO SCH (08:44)
[2016-09-18] MEDS: VALPROIC ACID SYRUP 250 MG/5 ML UDC PO SCH ×2 (08:44→20:44)
[2016-09-18] MEDS: MULTIVITAMINS/MINERALS THERAPEUTIC TAB PO SCH (08:45)
[2016-09-18] MEDS: FOLIC ACID 1 MG TAB PO SCH (08:45)
[2016-09-18] MEDS: THIAMINE HCL 100 MG TAB PO SCH (08:45)
[2016-09-18] MEDS: HYDROCHLOROTHIAZIDE 12.5 MG CAP PO SCH (08:45)
[2016-09-18] MEDS: metFORMIN HCL 500 MG TAB PO SCH (08:45)
[2016-09-18] MEDS: MEMANTINE HCL 10 MG TAB PO SCH ×2 (08:45→20:45)
[2016-09-18] MEDS: NICOTINE 21 MG/24 HR PATCH T-DERMAL SCH (09:00)
[2016-09-18] MEDS: REMOVE OLD NICODERM (NICOTINE) PATCH TD SCH (09:00)
[2016-09-18] MEDS: OLANZapine 10 MG TAB PO SCH ×2 (12:25→20:44)
--- NOTE | 2016-09-18 13:11 | HHI.PYPN ---
Subjective Remarks Patient seen in dayroom with floor staff, somewhat calm despite playing with some cards. Patient continues diffusely confused at times somewhat irritable especially when being assisted with hygiene and ADLs. Compliant medications Review of Systems Except as stated in HPI: all other systems reviewed are Neg Objective Alert: Yes [place]: Person Mood: Calm Affect: Flat Memory Intact: Comment (severe impairment) Hallucinations: Other (no AVH) Delusions: No Delusion Type: Other (no dc delusions) Suicidal: Ideation (no SI voiced) Homicidal: Ideation (no HI voiced) Insight/Judgement Very poor Vitals/IOs Vital Signs Date Time Temp Pulse Resp B/P Pulse Ox O2 Delivery O2 Flow Rate FiO2 09/18/16 04:56 97.9 84 16 134/63 97 Intake and Output 09/17/16 09/17/16 09/18/16 08:00 16:00 00:00 Intake Total 0 ml 1560 ml Balance 0 ml 1560 ml Assessment & Plan Problem List: (1) UNSPECIFIED DEMENTIA WITH BEHAVIORAL DISTURBANCE ICD Code: F03.91 Assessment & Plan Estimated LOS: days patient continues severely demented, no significant changes in behavior, compliant medications Justification for Cont. Inpt. At this time patient was really decompensate if placed in a lower level of care Discharge Planning To be determined Request HC Surrog/Guard Advoc?: Yes Roddy Henson MD Sep 18, 2016 13:11
[2016-09-18 19:58] VITALS: BP 127/65; PULSE 93; RESP 15; O2SAT 98
[2016-09-18] MEDS: DOCUSATE SODIUM 50 MG/SENNA 8.6 MG TAB PO SCH (20:45)
[2016-09-18] MEDS: diphenhydrAMINE HCL 50 MG CAP PO PRN (20:45)
[2016-09-19 06:01] VITALS: BP 125/80; PULSE 104; RESP 16; O2SAT 97
[2016-09-19] MEDS: REMOVE OLD NICODERM (NICOTINE) PATCH TD SCH (09:00)
[2016-09-19] MEDS: NICOTINE 21 MG/24 HR PATCH T-DERMAL SCH (09:00)
[2016-09-19] MEDS: MULTIVITAMINS/MINERALS THERAPEUTIC TAB PO SCH (09:04)
[2016-09-19] MEDS: HYDROCHLOROTHIAZIDE 12.5 MG CAP PO SCH (09:04)
[2016-09-19] MEDS: FOLIC ACID 1 MG TAB PO SCH (09:05)
[2016-09-19] MEDS: THIAMINE HCL 100 MG TAB PO SCH (09:05)
[2016-09-19] MEDS: LOSARTAN 50 MG TAB PO SCH (09:05)
[2016-09-19] MEDS: ASPIRIN 81 MG CHEW TAB CHEW SCH (09:05)
[2016-09-19] MEDS: MEMANTINE HCL 10 MG TAB PO SCH ×2 (09:05→20:59)
[2016-09-19] MEDS: metFORMIN HCL 500 MG TAB PO SCH (09:05)
[2016-09-19] MEDS: VALPROIC ACID SYRUP 250 MG/5 ML UDC PO SCH ×2 (09:06→20:58)
--- NOTE | 2016-09-19 09:47 | HHI.PYPN ---
Subjective Remarks Patient seen in her room with floor staff, chart review, patient compliant with medications. Patient sitting on her walker at times appears to be somewhat responding to internal stimuli though she denies with me. She continues somewhat irritable and short tempered though overall not as loud as she was yesterday Review of Systems Except as stated in HPI: all other systems reviewed are Neg Objective Alert: Yes [place]: Person Mood: Calm Affect: Flat Memory Intact: Comment (severe impairment) Hallucinations: Other (no AVH) Delusions: No Delusion Type: Other (no dc delusions) Suicidal: Ideation (no SI voiced) Homicidal: Ideation (no HI voiced) Insight/Judgement Very poor Vitals/IOs Vital Signs Date Time Temp Pulse Resp B/P Pulse Ox O2 Delivery O2 Flow Rate FiO2 09/19/16 06:01 104 16 125/80 97 09/18/16 04:56 97.9 Intake and Output 09/18/16 09/18/16 09/19/16 08:00 16:00 00:00 Intake Total 0 ml 480 ml 480 ml Balance 0 ml 480 ml 480 ml Assessment & Plan Problem List: (1) UNSPECIFIED DEMENTIA WITH BEHAVIORAL DISTURBANCE ICD Code: F03.91 Assessment & Plan Estimated LOS: days patient continues confused demented somewhat labile slightly softer today, compliant medications Justification for Cont. Inpt. At this time the patient would significantly decompensate if placed in a lower level of care Discharge Planning To be determined Request HC Surrog/Guard Advoc?: Yes Roddy Henson MD Sep 19, 2016 09:47
[2016-09-19] MEDS: LORazepam 0.5 MG TAB PO PRN (09:52)
--- NOTE | 2016-09-19 11:41 | HHI.PYPN ---
Subjective Remarks Patient seen in day room with nurse Bryanna, chart review, there is no significant change in patient's behavior, she remains fairly calm until staff as needed to assist her with ADLs toileting her food when she becomes more irritable. Her confusion disorientation persist. Compliant medications Review of Systems Except as stated in HPI: all other systems reviewed are Neg Objective Alert: Yes [place]: Person Mood: Calm Affect: Flat Memory Intact: Comment (severe impairment) Hallucinations: Other (no AVH) Delusions: No Delusion Type: Other (no dc delusions) Suicidal: Ideation (no SI voiced) Homicidal: Ideation (no HI voiced) Insight/Judgement Very poor Vitals/IOs Vital Signs Date Time Temp Pulse Resp B/P Pulse Ox O2 Delivery O2 Flow Rate FiO2 09/19/16 06:01 104 16 125/80 97 09/18/16 04:56 97.9 Intake and Output 09/18/16 09/18/16 09/19/16 08:00 16:00 00:00 Intake Total 0 ml 480 ml 480 ml Balance 0 ml 480 ml 480 ml Assessment & Plan Problem List: (1) UNSPECIFIED DEMENTIA WITH BEHAVIORAL DISTURBANCE ICD Code: F03.91 Assessment & Plan Estimated LOS: days patient continues demented, with episodes of irritability when they approach for assistance with ADLs and hygiene Justification for Cont. Inpt. At this time patient would significantly decompensate then placed in the lower level of care Discharge Planning To be determined Request HC Surrog/Guard Advoc?: Yes Roddy Henson MD Sep 19, 2016 11:41
[2016-09-19] MEDS: OLANZapine 10 MG TAB PO SCH ×2 (11:47→20:59)
[2016-09-19] MEDS: DOCUSATE SODIUM 50 MG/SENNA 8.6 MG TAB PO SCH (20:59)
[2016-09-19 22:22] VITALS: BP 130/63; PULSE 95; RESP 16; TEMP 97.7; O2SAT 98
[2016-09-20 06:34] VITALS: BP 120/63; PULSE 69; RESP 16; TEMP 97.9; O2SAT 96
--- NOTE | 2016-09-20 08:29 | HHI.PYPN ---
Subjective Remarks Patient seen in day room with nurse Reagan, patient eating breakfast with her fingers, does respond to me very briefly with no eye contact will introduce myself. Becomes somewhat more irritable as I speak with her. This is similar to behaviors that have been chronic with her with staff interventions and assistance. Compliant medications. Will change Zyprexa to 8 AM an increased dose to 15 mg Review of Systems Except as stated in HPI: all other systems reviewed are Neg Objective Alert: Yes [place]: Person Mood: Calm Affect: Flat Memory Intact: Comment (severe impairment) Hallucinations: Other (no AVH) Delusions: No Delusion Type: Other (no dc delusions) Suicidal: Ideation (no SI voiced) Homicidal: Ideation (no HI voiced) Insight/Judgement Very poor Vitals/IOs Vital Signs Date Time Temp Pulse Resp B/P Pulse Ox O2 Delivery O2 Flow Rate FiO2 09/20/16 06:34 97.9 69 16 120/63 96 Intake and Output 09/19/16 09/19/16 09/20/16 08:00 16:00 00:00 Intake Total 240 ml Balance 240 ml Assessment & Plan Problem List: (1) UNSPECIFIED DEMENTIA WITH BEHAVIORAL DISTURBANCE ICD Code: F03.91 Assessment & Plan Estimated LOS: days patient continues confused disoriented at times labile 1 being assisted with ADLs hygiene see medication change above Justification for Cont. Inpt. At this time patient would significantly decompensated with placed in a lower level of care Discharge Planning To be determined Request HC Surrog/Guard Advoc?: Yes Roddy Henson MD Sep 20, 2016 08:29
[2016-09-20] MEDS: VALPROIC ACID SYRUP 250 MG/5 ML UDC PO SCH ×2 (08:46→20:27)
[2016-09-20] MEDS: LOSARTAN 50 MG TAB PO SCH (08:47)
[2016-09-20] MEDS: MEMANTINE HCL 10 MG TAB PO SCH ×2 (08:47→20:27)
[2016-09-20] MEDS: HYDROCHLOROTHIAZIDE 12.5 MG CAP PO SCH (08:47)
[2016-09-20] MEDS: FOLIC ACID 1 MG TAB PO SCH (08:47)
[2016-09-20] MEDS: THIAMINE HCL 100 MG TAB PO SCH (08:47)
[2016-09-20] MEDS: metFORMIN HCL 500 MG TAB PO SCH (08:47)
[2016-09-20] MEDS: REMOVE OLD NICODERM (NICOTINE) PATCH TD SCH (08:48)
[2016-09-20] MEDS: NICOTINE 21 MG/24 HR PATCH T-DERMAL SCH (08:48)
[2016-09-20] MEDS: MULTIVITAMINS/MINERALS THERAPEUTIC TAB PO SCH (08:49)
[2016-09-20 20:00] VITALS: BP 102/64; PULSE 10; RESP 16; TEMP 98.5; O2SAT 99
[2016-09-20] MEDS: DOCUSATE SODIUM 50 MG/SENNA 8.6 MG TAB PO SCH (20:27)
[2016-09-20] MEDS: OLANZapine 10 MG TAB PO SCH (20:27)
[2016-09-21 06:32] VITALS: BP 166/74; PULSE 107; RESP 18; TEMP 98; O2SAT 99
[2016-09-21] MEDS: ASPIRIN 81 MG CHEW TAB CHEW SCH (09:00)
[2016-09-21] MEDS: NICOTINE 21 MG/24 HR PATCH T-DERMAL SCH (09:00)
[2016-09-21] MEDS: metFORMIN HCL 500 MG TAB PO SCH (09:00)
[2016-09-21] MEDS: HYDROCHLOROTHIAZIDE 12.5 MG CAP PO SCH (09:00)
[2016-09-21] MEDS: REMOVE OLD NICODERM (NICOTINE) PATCH TD SCH (09:00)
[2016-09-21] MEDS: VALPROIC ACID SYRUP 250 MG/5 ML UDC PO SCH ×2 (09:39→20:43)
[2016-09-21] MEDS: MEMANTINE HCL 10 MG TAB PO SCH ×2 (09:40→20:44)
[2016-09-21] MEDS: THIAMINE HCL 100 MG TAB PO SCH (09:40)
[2016-09-21] MEDS: LOSARTAN 50 MG TAB PO SCH ×2 (09:40→09:53)
[2016-09-21] MEDS: MULTIVITAMINS/MINERALS THERAPEUTIC TAB PO SCH (09:40)
[2016-09-21] MEDS: FOLIC ACID 1 MG TAB PO SCH (09:40)
--- NOTE | 2016-09-21 11:34 | HHI.PYPN ---
Subjective Remarks Patient seen in day room in Patti chair, with floor staff. Chart reviewed. Patient most of the behavioral changes continues to show increased irritability screaming and yelling when staff attempts to assist her with ADLs or hygiene. Patient compliant medication. For now continue treatment Review of Systems Except as stated in HPI: all other systems reviewed are Neg Objective Alert: Yes [place]: Person Mood: Calm Affect: Flat Memory Intact: Comment (severe impairment) Hallucinations: Other (no AVH) Delusions: No Delusion Type: Other (no dc delusions) Suicidal: Ideation (no SI voiced) Homicidal: Ideation (no HI voiced) Insight/Judgement Very poor Vitals/IOs Vital Signs Date Time Temp Pulse Resp B/P Pulse Ox O2 Delivery O2 Flow Rate FiO2 09/21/16 06:32 98.0 107 18 166/74 99 Intake and Output 09/20/16 09/20/16 09/21/16 08:00 16:00 00:00 Intake Total 840 ml 360 ml Balance 840 ml 360 ml Assessment & Plan Problem List: (1) UNSPECIFIED DEMENTIA WITH BEHAVIORAL DISTURBANCE ICD Code: F03.91 Assessment & Plan Estimated LOS: days patient continues confused and demented, no behavioral changes, compliant medications Justification for Cont. Inpt. At this time the patient would decompensate if placed in the lower level of care Discharge Planning To be determined Request HC Surrog/Guard Advoc?: Yes Roddy Henson MD Sep 21, 2016 11:34
[2016-09-21 19:02] VITALS: BP 106/81; PULSE 113; RESP 18; TEMP 98.4; O2SAT 94
[2016-09-21] MEDS: OLANZapine 10 MG TAB PO SCH (20:44)
[2016-09-21] MEDS: DOCUSATE SODIUM 50 MG/SENNA 8.6 MG TAB PO SCH (21:00)
[2016-09-22 05:38] VITALS: BP 113/39; PULSE 82; RESP 16; TEMP 97.8; O2SAT 98
[2016-09-22 08:46] VITALS: BP 100/56; PULSE 87; RESP 17
[2016-09-22] MEDS: HYDROCHLOROTHIAZIDE 12.5 MG CAP PO SCH (09:00)
[2016-09-22] MEDS: MEMANTINE HCL 10 MG TAB PO SCH ×2 (09:00→20:09)
[2016-09-22] MEDS: MULTIVITAMINS/MINERALS THERAPEUTIC TAB PO SCH (09:00)
[2016-09-22] MEDS: REMOVE OLD NICODERM (NICOTINE) PATCH TD SCH (09:00)
[2016-09-22] MEDS: VALPROIC ACID SYRUP 250 MG/5 ML UDC PO SCH ×2 (09:00→20:08)
[2016-09-22] MEDS: FOLIC ACID 1 MG TAB PO SCH (09:00)
[2016-09-22] MEDS: NICOTINE 21 MG/24 HR PATCH T-DERMAL SCH (09:00)
[2016-09-22] MEDS: metFORMIN HCL 500 MG TAB PO SCH (09:00)
[2016-09-22] MEDS: THIAMINE HCL 100 MG TAB PO SCH (09:00)
--- NOTE | 2016-09-22 12:35 | HHI.PYPN ---
Subjective Remarks Patient was seen and case discussed with nursing. Per nursing patient was drowsy this morning and some of her medications were held. Patient is is able to be aroused but she is not cooperative with interview, poor eye contact, disheveled. Objective Alert: Yes [place]: Person Mood: Calm Affect: Flat Memory Intact: Comment (severe impairment) Hallucinations: Other (no AVH) Delusions: No Delusion Type: Other (no dc delusions) Suicidal: Ideation (no SI voiced) Homicidal: Ideation (no HI voiced) Insight/Judgement Poor Vitals/IOs Vital Signs Date Time Temp Pulse Resp B/P Pulse Ox O2 Delivery O2 Flow Rate FiO2 09/22/16 08:46 87 17 100/56 09/22/16 05:38 97.8 98 Intake and Output 09/21/16 09/21/16 09/22/16 08:00 16:00 00:00 Intake Total 360 ml 480 ml Balance 360 ml 480 ml Assessment & Plan Problem List: (1) UNSPECIFIED DEMENTIA WITH BEHAVIORAL DISTURBANCE ICD Code: F03.91 Assessment & Plan Nursing advised to hold psychiatric medication the patient remains sedated. Continue current treatment: Justification for Cont. Inpt. Patient will decompensate outside of an inpatient setting Request HC Surrog/Guard Advoc?: Yes Jarod Gibbons DO Sep 22, 2016 12:35
[2016-09-22 20:00] VITALS: BP 128/60; PULSE 100; RESP 16; TEMP 97.8; O2SAT 98
[2016-09-22] MEDS: OLANZapine 10 MG TAB PO SCH (20:09)
[2016-09-22] MEDS: DOCUSATE SODIUM 50 MG/SENNA 8.6 MG TAB PO SCH (20:09)
[2016-09-23 08:20] VITALS: BP 124/57; PULSE 98; RESP 18
[2016-09-23] MEDS: REMOVE OLD NICODERM (NICOTINE) PATCH TD SCH (09:00)
[2016-09-23] MEDS: metFORMIN HCL 500 MG TAB PO SCH (09:00)
[2016-09-23] MEDS: VALPROIC ACID SYRUP 250 MG/5 ML UDC PO SCH ×2 (09:00→20:23)
[2016-09-23] MEDS: FOLIC ACID 1 MG TAB PO SCH (09:00)
[2016-09-23] MEDS: MEMANTINE HCL 10 MG TAB PO SCH ×2 (09:00→20:22)
[2016-09-23] MEDS: ASPIRIN 81 MG CHEW TAB CHEW SCH (09:00)
[2016-09-23] MEDS: LOSARTAN 50 MG TAB PO SCH (09:00)
[2016-09-23] MEDS: NICOTINE 21 MG/24 HR PATCH T-DERMAL SCH (09:00)
[2016-09-23] MEDS: THIAMINE HCL 100 MG TAB PO SCH (09:00)
[2016-09-23] MEDS: HYDROCHLOROTHIAZIDE 12.5 MG CAP PO SCH (09:00)
[2016-09-23] MEDS: MULTIVITAMINS/MINERALS THERAPEUTIC TAB PO SCH (09:00)
--- NOTE | 2016-09-23 12:23 | HHI.PYPN ---
Subjective Remarks Patient was seen and case discussed with nursing. Per nursing patient is again drowsy this morning. Her medications were held. She was seen awake and alert eating lunch for this interview. Alert and oriented 1. Responding to internal stimuli, yelling at times. Objective Alert: Yes [place]: Person Mood: Calm Affect: Flat Memory Intact: Comment (severe impairment) Hallucinations: Other (no AVH) Delusions: No Delusion Type: Other (no dc delusions) Suicidal: Ideation (no SI voiced) Homicidal: Ideation (no HI voiced) Insight/Judgement Poor Vitals/IOs Vital Signs Date Time Temp Pulse Resp B/P Pulse Ox O2 Delivery O2 Flow Rate FiO2 09/23/16 08:20 98 18 124/57 09/22/16 20:00 97.8 98 Intake and Output 09/22/16 09/22/16 09/23/16 08:00 16:00 00:00 Intake Total 600 ml Balance 600 ml Assessment & Plan Problem List: (1) UNSPECIFIED DEMENTIA WITH BEHAVIORAL DISTURBANCE ICD Code: F03.91 Assessment & Plan Consider nighttime medication adjustments given patient's sedation in the mornings Justification for Cont. Inpt. Patient will decompensate outside of a less restrictive setting Request HC Surrog/Guard Advoc?: Yes Jarod Gibbons DO Sep 23, 2016 12:23
[2016-09-23 19:40] VITALS: BP 100/65; PULSE 103; RESP 18; TEMP 97.6; O2SAT 97
[2016-09-23] MEDS: OLANZapine 10 MG TAB PO SCH (20:22)
[2016-09-23] MEDS: DOCUSATE SODIUM 50 MG/SENNA 8.6 MG TAB PO SCH (20:23)
[2016-09-24] MEDS: diphenhydrAMINE HCL 50 MG CAP PO PRN (02:15)
[2016-09-24 05:25] VITALS: BP 171/79; PULSE 105; RESP 18; TEMP 98.9; O2SAT 96
[2016-09-24] MEDS: VALPROIC ACID SYRUP 250 MG/5 ML UDC PO SCH ×2 (08:34→20:49)
[2016-09-24] MEDS: MULTIVITAMINS/MINERALS THERAPEUTIC TAB PO SCH (08:34)
[2016-09-24] MEDS: LOSARTAN 50 MG TAB PO SCH (08:34)
[2016-09-24] MEDS: MEMANTINE HCL 10 MG TAB PO SCH ×2 (08:34→20:50)
[2016-09-24] MEDS: THIAMINE HCL 100 MG TAB PO SCH (08:34)
[2016-09-24] MEDS: metFORMIN HCL 500 MG TAB PO SCH (08:34)
[2016-09-24] MEDS: REMOVE OLD NICODERM (NICOTINE) PATCH TD SCH (08:35)
[2016-09-24] MEDS: FOLIC ACID 1 MG TAB PO SCH (08:35)
[2016-09-24] MEDS: NICOTINE 21 MG/24 HR PATCH T-DERMAL SCH (08:35)
[2016-09-24] MEDS: HYDROCHLOROTHIAZIDE 12.5 MG CAP PO SCH (08:35)
--- NOTE | 2016-09-24 16:42 | HHI.PYPN ---
Subjective Remarks Patient discussed with treatment team and patient's , chart reviewed, patient seen on unit. There is no ischemic change and patient's behavior continues markedly confused and disoriented with increased irritability lability screaming yelling and resistance to treatment 1 approach for ADLs or hygiene Review of Systems Except as stated in HPI: all other systems reviewed are Neg Objective Alert: Yes [place]: Person Mood: Calm Affect: Flat Memory Intact: Comment (severe impairment) Hallucinations: Other (no AVH) Delusions: No Delusion Type: Other (no dc delusions) Suicidal: Ideation (no SI voiced) Homicidal: Ideation (no HI voiced) Insight/Judgement Very poor Vitals/IOs Vital Signs Date Time Temp Pulse Resp B/P Pulse Ox O2 Delivery O2 Flow Rate FiO2 09/24/16 05:25 98.9 105 18 171/79 96 Intake and Output 09/23/16 09/23/16 09/24/16 08:00 16:00 00:00 Intake Total 360 ml 360 ml Balance 360 ml 360 ml Assessment & Plan Problem List: (1) UNSPECIFIED DEMENTIA WITH BEHAVIORAL DISTURBANCE ICD Code: F03.91 Assessment & Plan Estimated LOS: days patient continues confused disoriented, with behavioral episodes as mentioned above Justification for Cont. Inpt. At this time patient would significantly decompensated placed in a lower level of care Discharge Planning To be determined Request HC Surrog/Guard Advoc?: Yes Roddy Henson MD Sep 24, 2016 16:42
[2016-09-24 19:35] VITALS: BP 96/51; PULSE 99; RESP 18; O2SAT 99
[2016-09-24] MEDS: DOCUSATE SODIUM 50 MG/SENNA 8.6 MG TAB PO SCH (20:48)
[2016-09-24] MEDS: OLANZapine 10 MG TAB PO SCH (20:50)
[2016-09-25 05:22] VITALS: BP 130/74; PULSE 96; RESP 16; TEMP 98.4; O2SAT 93
[2016-09-25 05:26] VITALS: BP 117/56; PULSE 104; RESP 15; TEMP 98.1; O2SAT 96
[2016-09-25 07:42] LABS: AUTOMATED NEUTROPHIL # 5.8 TH/MM3 (1.8-7.7); BASOPHIL % 0.3 % (0.0-2.0); EOSINOPHIL # 0.1 TH/MM3 (0-0.4); EOSINOPHIL % 1.4 % (0.0-4.0); HEMATOCRIT 32.6 % (35.0-46.0); HEMO FLAGS DIFF FINAL; LYMPH % 21.2 % (9.0-44.0); LYMPHOCYTE # 1.9 TH/MM3 (1.0-4.8); MEAN CELL VOLUME 89.9 FL (80.0-100.0); MEAN CORPUSCULAR HEMOGLOBIN 30.6 PG (27.0-34.0); MONO % 10.8 % (0.0-8.0); NEUT % 66.3 % (16.0-70.0); PLATELET COUNT 277 TH/MM3 (150-450); RED BLOOD COUNT 3.63 MIL/MM3 (4.00-5.30); WHITE BLOOD COUNT 8.8 TH/MM3 (4.0-11.0)
[2016-09-25 08:02] LABS: ALT (GPT) 14 U/L (10-53); ANION GAP 7 MEQ/L (5-15); AST (GOT) 9 U/L (15-37); BICARBONATE 30.4 MEQ/L (21.0-32.0); BLOOD UREA NITROGEN 19 MG/DL (7-18); CHLORIDE 102 MEQ/L (98-107); GLOMERULAR FILTRATION RATE 90 ML/MIN (>89); POTASSIUM 3.6 MEQ/L (3.5-5.1); SODIUM (NA) 139 MEQ/L (136-145)
[2016-09-25 08:04] LABS: ALKALINE PHOSPHATASE 78 U/L (45-117); TOTAL BILIRUBIN ADULT 0.4 MG/DL (0.2-1.0)
[2016-09-25] MEDS: metFORMIN HCL 500 MG TAB PO SCH (08:49)
[2016-09-25] MEDS: VALPROIC ACID SYRUP 250 MG/5 ML UDC PO SCH ×2 (08:50→21:00)
[2016-09-25] MEDS: THIAMINE HCL 100 MG TAB PO SCH (08:50)
[2016-09-25] MEDS: FOLIC ACID 1 MG TAB PO SCH (08:50)
[2016-09-25] MEDS: ASPIRIN 81 MG CHEW TAB CHEW SCH (08:50)
[2016-09-25] MEDS: MEMANTINE HCL 10 MG TAB PO SCH ×2 (08:50→21:00)
[2016-09-25] MEDS: MULTIVITAMINS/MINERALS THERAPEUTIC TAB PO SCH (08:50)
[2016-09-25] MEDS: LOSARTAN 50 MG TAB PO SCH (08:50)
[2016-09-25] MEDS: HYDROCHLOROTHIAZIDE 12.5 MG CAP PO SCH (08:50)
--- NOTE | 2016-09-25 11:23 | HHI.PYPN ---
Subjective Remarks Patient seen in day room with nurse Sheryl, patient mixed compliance with medication. Patient somewhat drowsy this a.m. Though staff continues to state she would comes loud intrusive angry profane with any attempts at intervention for ADLs toileting hygiene, otherwise patient calm diffusely confused Review of Systems Except as stated in HPI: all other systems reviewed are Neg Objective Alert: Yes [place]: Person Mood: Calm Affect: Flat Memory Intact: Comment (severe impairment) Hallucinations: Other (no AVH) Delusions: No Delusion Type: Other (no dc delusions) Suicidal: Ideation (no SI voiced) Homicidal: Ideation (no HI voiced) Insight/Judgement Very poor Labs Test 09/25/16 06:51 White Blood Count 8.8 TH/MM3 Red Blood Count 3.63 MIL/MM3 Hemoglobin 11.1 GM/DL Hematocrit 32.6 % Mean Corpuscular Volume 89.9 FL Mean Corpuscular Hemoglobin 30.6 PG Mean Corpuscular Hemoglobin 34.0 % Concent Red Cell Distribution Width 13.0 % Platelet Count 277 TH/MM3 Mean Platelet Volume 7.1 FL Neutrophils (%) (Auto) 66.3 % Lymphocytes (%) (Auto) 21.2 % Monocytes (%) (Auto) 10.8 % Eosinophils (%) (Auto) 1.4 % Basophils (%) (Auto) 0.3 % Neutrophils # (Auto) 5.8 TH/MM3 Lymphocytes # (Auto) 1.9 TH/MM3 Monocytes # (Auto) 1.0 TH/MM3 Eosinophils # (Auto) 0.1 TH/MM3 Basophils # (Auto) 0.0 TH/MM3 CBC Comment DIFF FINAL Differential Comment Sodium Level 139 MEQ/L Potassium Level 3.6 MEQ/L Chloride Level 102 MEQ/L Carbon Dioxide Level 30.4 MEQ/L Anion Gap 7 MEQ/L Blood Urea Nitrogen 19 MG/DL Creatinine 0.65 MG/DL Estimat Glomerular Filtration 90 ML/MIN Rate Random Glucose 106 MG/DL Calcium Level 9.4 MG/DL Total Bilirubin 0.4 MG/DL Aspartate Amino Transf 9 U/L (AST/SGOT) Alanine Aminotransferase 14 U/L (ALT/SGPT) Alkaline Phosphatase 78 U/L Total Protein 7.1 GM/DL Albumin 2.6 GM/DL Valproic Acid (Depakene) Level 75 MCG/ML Vitals/IOs Vital Signs Date Time Temp Pulse Resp B/P Pulse Ox O2 Delivery O2 Flow Rate FiO2 09/25/16 05:26 98.1 104 15 117/56 96 Intake and Output 09/24/16 09/24/16 09/25/16 08:00 16:00 00:00 Intake Total 120 ml 1000 ml 340 ml Balance 120 ml 1000 ml 340 ml Assessment & Plan Problem List: (1) UNSPECIFIED DEMENTIA WITH BEHAVIORAL DISTURBANCE ICD Code: F03.91 Assessment & Plan Estimated LOS: days patient continues demented confused at times labile when being assisted with various purposes, continues mixed compliance medication Justification for Cont. Inpt. At this time patient would significantly decompensate if placed in a lower level of care Discharge Planning To be determined Request HC Surrog/Guard Advoc?: Yes Roddy Henson MD Sep 25, 2016 11:23
[2016-09-25 19:00] VITALS: BP 98/58; PULSE 101; RESP 15; TEMP 98.1; O2SAT 98
[2016-09-25] MEDS: OLANZapine 10 MG TAB PO SCH (20:00)
[2016-09-25] MEDS: diphenhydrAMINE HCL 50 MG CAP PO PRN (21:00)
[2016-09-25] MEDS: DOCUSATE SODIUM 50 MG/SENNA 8.6 MG TAB PO SCH (21:00)
[2016-09-25] MEDS: ACETAMINOPHEN 325 MG TAB PO PRN (21:00)
[2016-09-26 06:14] VITALS: BP 135/56; PULSE 96; RESP 16; O2SAT 98
[2016-09-26] MEDS: MULTIVITAMINS/MINERALS THERAPEUTIC TAB PO SCH (09:00)
[2016-09-26] MEDS: VALPROIC ACID SYRUP 250 MG/5 ML UDC PO SCH ×2 (09:03→20:58)
[2016-09-26] MEDS: metFORMIN HCL 500 MG TAB PO SCH (09:03)
[2016-09-26] MEDS: THIAMINE HCL 100 MG TAB PO SCH (09:03)
[2016-09-26] MEDS: HYDROCHLOROTHIAZIDE 12.5 MG CAP PO SCH (09:03)
[2016-09-26] MEDS: LOSARTAN 50 MG TAB PO SCH (09:03)
[2016-09-26] MEDS: FOLIC ACID 1 MG TAB PO SCH (09:04)
[2016-09-26] MEDS: MEMANTINE HCL 10 MG TAB PO SCH ×2 (09:04→20:58)
[2016-09-26] MEDS ORDERED: LORazepam 0.5 MG TAB PO PRN (14:00)
--- NOTE | 2016-09-26 14:09 | HHI.PYPN ---
Subjective Remarks Patient seen in day room with nurse Senia, chart review. It appears patient's behavioral issues occur essentially only when being toileting hygiene are ADLs. Will offer patient 0.5 mg Ativan orally about 20 minutes prior to anticipated hygiene, toileting, ADLs to see if this will diminish the severe anxiety screaming and yelling profanity that has been associated with these interventions Review of Systems Except as stated in HPI: all other systems reviewed are Neg Objective Alert: Yes [place]: Person Mood: Calm Affect: Flat Memory Intact: Comment (severe impairment) Hallucinations: Other (no AVH) Delusions: No Delusion Type: Other (no dc delusions) Suicidal: Ideation (no SI voiced) Homicidal: Ideation (no HI voiced) Insight/Judgement Very poor Vitals/IOs Vital Signs Date Time Temp Pulse Resp B/P Pulse Ox O2 Delivery O2 Flow Rate FiO2 09/26/16 06:14 96 16 135/56 98 09/25/16 19:00 98.1 Intake and Output 09/25/16 09/25/16 09/26/16 08:00 16:00 00:00 Intake Total 0 ml 480 ml Balance 0 ml 480 ml Assessment & Plan Problem List: (1) UNSPECIFIED DEMENTIA WITH BEHAVIORAL DISTURBANCE ICD Code: F03.91 Assessment & Plan Estimated LOS: days patient remains confused demented with episodic behavioral outbreaks police and medication adjustment above Justification for Cont. Inpt. At this time patient was significantly decompensated placed at a lower level of care Discharge Planning Be determined Request HC Surrog/Guard Advoc?: Yes Roddy Henson MD Sep 26, 2016 14:09
[2016-09-26 19:07] VITALS: BP 134/64; PULSE 110; RESP 16; TEMP 98.9; O2SAT 98
[2016-09-26] MEDS: OLANZapine 10 MG TAB PO SCH (20:00)
[2016-09-26] MEDS: DOCUSATE SODIUM 50 MG/SENNA 8.6 MG TAB PO SCH (20:58)
[2016-09-27 05:31] VITALS: BP 132/63; PULSE 90; RESP 18; TEMP 97.8
[2016-09-27] MEDS: MULTIVITAMINS/MINERALS THERAPEUTIC TAB PO SCH (09:00)
[2016-09-27] MEDS: MEMANTINE HCL 10 MG TAB PO SCH ×2 (09:00→21:00)
[2016-09-27] MEDS: LOSARTAN 50 MG TAB PO SCH (09:00)
[2016-09-27] MEDS: ASPIRIN 81 MG CHEW TAB CHEW SCH (09:00)
[2016-09-27] MEDS: THIAMINE HCL 100 MG TAB PO SCH (09:00)
[2016-09-27] MEDS: VALPROIC ACID SYRUP 250 MG/5 ML UDC PO SCH ×2 (09:00→21:00)
[2016-09-27] MEDS: FOLIC ACID 1 MG TAB PO SCH (09:00)
[2016-09-27] MEDS: metFORMIN HCL 500 MG TAB PO SCH (09:00)
[2016-09-27] MEDS: HYDROCHLOROTHIAZIDE 12.5 MG CAP PO SCH (09:00)
--- NOTE | 2016-09-27 10:46 | HHI.PYPN ---
Subjective Remarks Patient seen in activities room sitting in Patti chair with nurse Marybeth, chart reviewed. Patient calm at this time no behavioral problems. Continues diffusely confused.. Compliant medications. For now continue treatment Review of Systems Except as stated in HPI: all other systems reviewed are Neg Objective Alert: Yes [place]: Person Mood: Calm Affect: Flat Memory Intact: Comment (severe impairment) Hallucinations: Other (no AVH) Delusions: No Delusion Type: Other (no dc delusions) Suicidal: Ideation (no SI voiced) Homicidal: Ideation (no HI voiced) Insight/Judgement Very poor Vitals/IOs Vital Signs Date Time Temp Pulse Resp B/P Pulse Ox O2 Delivery O2 Flow Rate FiO2 09/27/16 05:31 97.8 90 18 132/63 09/26/16 19:07 98 Intake and Output 09/26/16 09/26/16 09/27/16 08:00 16:00 00:00 Intake Total 120 ml 960 ml Balance 120 ml 960 ml Assessment & Plan Problem List: (1) UNSPECIFIED DEMENTIA WITH BEHAVIORAL DISTURBANCE ICD Code: F03.91 Assessment & Plan Estimated LOS: days patient continues markedly confused disoriented, quite at the present time, compliant medications, continues to observe to evaluate the use of small dose Ativan prior to staff contact with patient for hygiene ADLs toileting Justification for Cont. Inpt. At this time patient would significantly decompensated if placed in a lower level of care Discharge Planning To be determined Request HC Surrog/Guard Advoc?: Yes Roddy Henson MD Sep 27, 2016 10:46
[2016-09-27] MEDS: LORazepam 0.5 MG TAB PO PRN (10:51)
[2016-09-27] MEDS ORDERED: LORazepam 2 MG/ML VIAL IM PRN (11:15)
[2016-09-27 18:35] VITALS: BP 114/56; PULSE 99; RESP 16; O2SAT 93
[2016-09-27] MEDS: OLANZapine 10 MG TAB PO SCH (20:00)
[2016-09-27] MEDS: DOCUSATE SODIUM 50 MG/SENNA 8.6 MG TAB PO SCH (21:00)
[2016-09-28 06:03] VITALS: BP 141/78; PULSE 109; RESP 16; O2SAT 95
[2016-09-28] MEDS: LOSARTAN 50 MG TAB PO SCH ×2 (09:00→13:37)
[2016-09-28] MEDS: MEMANTINE HCL 10 MG TAB PO SCH ×2 (09:00→20:32)
[2016-09-28] MEDS: MULTIVITAMINS/MINERALS THERAPEUTIC TAB PO SCH (09:00)
[2016-09-28] MEDS: VALPROIC ACID SYRUP 250 MG/5 ML UDC PO SCH ×2 (09:00→20:31)
[2016-09-28] MEDS: THIAMINE HCL 100 MG TAB PO SCH (09:00)
[2016-09-28] MEDS: metFORMIN HCL 500 MG TAB PO SCH (09:00)
[2016-09-28] MEDS: FOLIC ACID 1 MG TAB PO SCH (09:00)
[2016-09-28] MEDS: HYDROCHLOROTHIAZIDE 12.5 MG CAP PO SCH ×2 (09:00→13:37)
--- NOTE | 2016-09-28 11:50 | HHI.PYPN ---
Subjective Remarks Patient seen in day room, eating lunch, with . Patient showing good response and activity to the assistance of her . She showing is quite confused disoriented though her lability is softened with his presents. Patient compliant medication. For now continue treatment Review of Systems Except as stated in HPI: all other systems reviewed are Neg Objective Alert: Yes [place]: Person Mood: Calm Affect: Flat Memory Intact: Comment (severe impairment) Hallucinations: Other (no AVH) Delusions: No Delusion Type: Other (no dc delusions) Suicidal: Ideation (no SI voiced) Homicidal: Ideation (no HI voiced) Insight/Judgement Very poor Vitals/IOs Vital Signs Date Time Temp Pulse Resp B/P Pulse Ox O2 Delivery O2 Flow Rate FiO2 09/28/16 06:03 109 16 141/78 95 09/27/16 05:31 97.8 Intake and Output 09/27/16 09/27/16 09/28/16 08:00 16:00 00:00 Intake Total 600 ml Balance 600 ml Assessment & Plan Problem List: (1) UNSPECIFIED DEMENTIA WITH BEHAVIORAL DISTURBANCE ICD Code: F03.91 Assessment & Plan Estimated LOS: days patient continues demented with the behavioral issues related to staff involvement with toileting ADLs etc. Justification for Cont. Inpt. At this time patient would decompensate if placed in lower level of care Discharge Planning To be determined Request HC Surrog/Guard Advoc?: Yes Roddy Henson MD Sep 28, 2016 11:50
[2016-09-28 13:36] VITALS: BP 145/71; PULSE 105; RESP 19
[2016-09-28 19:25] VITALS: BP 114/81; PULSE 104; RESP 16; TEMP 98.5; O2SAT 96
[2016-09-28] MEDS: OLANZapine 10 MG TAB PO SCH (20:00)
[2016-09-28] MEDS: DOCUSATE SODIUM 50 MG/SENNA 8.6 MG TAB PO SCH (20:32)
[2016-09-29 05:52] VITALS: BP 134/80; PULSE 97; RESP 19; TEMP 97.2; O2SAT 97
[2016-09-29] MEDS: MEMANTINE HCL 10 MG TAB PO SCH ×2 (08:25→20:13)
[2016-09-29] MEDS: metFORMIN HCL 500 MG TAB PO SCH (08:25)
[2016-09-29] MEDS: THIAMINE HCL 100 MG TAB PO SCH (08:25)
[2016-09-29] MEDS: VALPROIC ACID SYRUP 250 MG/5 ML UDC PO SCH ×2 (08:26→20:13)
[2016-09-29] MEDS: MULTIVITAMINS/MINERALS THERAPEUTIC TAB PO SCH (08:26)
[2016-09-29] MEDS: ASPIRIN 81 MG CHEW TAB CHEW SCH (08:26)
[2016-09-29] MEDS: FOLIC ACID 1 MG TAB PO SCH (08:26)
--- NOTE | 2016-09-29 14:36 | HHI.PYPN ---
Subjective Remarks Pt seen and discussed with staff.She remains agitated with care, but has not been disruptive in milieu today. She has been napping most of day in dayroom. She states that she is having a good day today. Compliant with medications. Objective Alert: Yes [place]: Person Mood: Calm Affect: Flat Memory Intact: Comment (severe impairment) Hallucinations: Other (no AVH) Delusions: No Delusion Type: Other (no dc delusions) Suicidal: Ideation (no SI voiced) Homicidal: Ideation (no HI voiced) Insight/Judgement por Vitals/IOs Vital Signs Date Time Temp Pulse Resp B/P Pulse Ox O2 Delivery O2 Flow Rate FiO2 09/29/16 05:52 97.2 97 19 134/80 97 Intake and Output 09/28/16 09/28/16 09/29/16 08:00 16:00 00:00 Intake Total 2160 ml 720 ml Balance 2160 ml 720 ml Assessment & Plan Problem List: (1) UNSPECIFIED DEMENTIA WITH BEHAVIORAL DISTURBANCE ICD Code: F03.91 Assessment & Plan Continue current tx planEstimated LOS: days Justification for Cont. Inpt. impairments in self care Request HC Surrog/Guard Advoc?: Yes Yadira Martino MD Sep 29, 2016 14:36
[2016-09-29 19:00] VITALS: BP 135/70; PULSE 101; RESP 17; TEMP 97.8; O2SAT 97
[2016-09-29] MEDS: OLANZapine 10 MG TAB PO SCH (20:00)
[2016-09-29] MEDS: DOCUSATE SODIUM 50 MG/SENNA 8.6 MG TAB PO SCH (20:13)
[2016-09-30 05:03] VITALS: BP 155/70; PULSE 94; RESP 16; O2SAT 98
[2016-09-30] MEDS: VALPROIC ACID SYRUP 250 MG/5 ML UDC PO SCH ×3 (08:24→21:00)
[2016-09-30] MEDS: HYDROCHLOROTHIAZIDE 12.5 MG CAP PO SCH (08:25)
[2016-09-30] MEDS: THIAMINE HCL 100 MG TAB PO SCH (08:25)
[2016-09-30] MEDS: MEMANTINE HCL 10 MG TAB PO SCH ×3 (08:25→21:00)
[2016-09-30] MEDS: FOLIC ACID 1 MG TAB PO SCH (08:26)
[2016-09-30] MEDS: LOSARTAN 50 MG TAB PO SCH (08:26)
[2016-09-30] MEDS: metFORMIN HCL 500 MG TAB PO SCH (08:26)
[2016-09-30] MEDS: MULTIVITAMINS/MINERALS THERAPEUTIC TAB PO SCH (09:00)
--- NOTE | 2016-09-30 15:16 | HHI.PYPN ---
Subjective Remarks PT seen and discussed with staff. Pt has had no outbursts today. Some resistance during care but overall pt is in better behavioral control. She had good visitation with family. Objective Alert: Yes [place]: Person Mood: Calm Affect: Flat Memory Intact: Comment (severe impairment) Hallucinations: Other (no AVH) Delusions: No Delusion Type: Other (no dc delusions) Suicidal: Ideation (no SI voiced) Homicidal: Ideation (no HI voiced) Insight/Judgement poor Vitals/IOs Vital Signs Date Time Temp Pulse Resp B/P Pulse Ox O2 Delivery O2 Flow Rate FiO2 09/30/16 05:03 94 16 155/70 98 09/29/16 19:00 97.8 Intake and Output 09/29/16 09/29/16 09/30/16 08:00 16:00 00:00 Intake Total 0 ml 720 ml 360 ml Balance 0 ml 720 ml 360 ml Assessment & Plan Problem List: (1) UNSPECIFIED DEMENTIA WITH BEHAVIORAL DISTURBANCE ICD Code: F03.91 Assessment & Plan Continue current tx plan. Estimated LOS: days Justification for Cont. Inpt. risk of decompensation impairments in self care Request HC Surrog/Guard Advoc?: Yes Yadira Martino MD Sep 30, 2016 15:16
[2016-09-30] MEDS: OLANZapine 10 MG TAB PO SCH ×2 (19:43→20:00)
[2016-09-30] MEDS: LORazepam 0.5 MG TAB PO PRN (19:43)
[2016-09-30] MEDS: DOCUSATE SODIUM 50 MG/SENNA 8.6 MG TAB PO SCH ×2 (19:43→21:00)
[2016-09-30] MEDS: diphenhydrAMINE HCL 50 MG CAP PO PRN (19:48)
[2016-09-30] MEDS: LORazepam 2 MG/ML VIAL IM PRN (20:16)
[2016-10-01 05:07] VITALS: BP 112/52; PULSE 88; RESP 18; TEMP 98.1; O2SAT 97
[2016-10-01] MEDS: HYDROCHLOROTHIAZIDE 12.5 MG CAP PO SCH (08:30)
[2016-10-01] MEDS: VALPROIC ACID SYRUP 250 MG/5 ML UDC PO SCH ×2 (08:30→20:44)
[2016-10-01] MEDS: FOLIC ACID 1 MG TAB PO SCH (08:31)
[2016-10-01] MEDS: MEMANTINE HCL 10 MG TAB PO SCH ×2 (08:31→20:44)
[2016-10-01] MEDS: metFORMIN HCL 500 MG TAB PO SCH (08:31)
[2016-10-01] MEDS: THIAMINE HCL 100 MG TAB PO SCH (08:31)
[2016-10-01] MEDS: LOSARTAN 50 MG TAB PO SCH (08:31)
[2016-10-01] MEDS: ASPIRIN 81 MG CHEW TAB CHEW SCH (08:31)
[2016-10-01] MEDS: MULTIVITAMINS/MINERALS THERAPEUTIC TAB PO SCH (08:31)
--- NOTE | 2016-10-01 15:19 | HHI.PYPN ---
Subjective Remarks Patient discussed with treatment team medical student Mary Jane and patient's . Chart reviewed. Patient continues to show increased irritability and anger when being approached by staff to assist with various toileting and or hygiene. Patient doesn't continues to cooperate with us with placement issues Review of Systems Except as stated in HPI: all other systems reviewed are Neg Objective Alert: Yes [place]: Person Mood: Calm Affect: Flat Memory Intact: Comment (severe impairment) Hallucinations: Other (no AVH) Delusions: No Delusion Type: Other (no dc delusions) Suicidal: Ideation (no SI voiced) Homicidal: Ideation (no HI voiced) Insight/Judgement Poor Vitals/IOs Vital Signs Date Time Temp Pulse Resp B/P Pulse Ox O2 Delivery O2 Flow Rate FiO2 10/01/16 05:07 98.1 88 18 112/52 97 Intake and Output 09/30/16 09/30/16 10/01/16 08:00 16:00 00:00 Intake Total 0 ml 720 ml 1200 ml Balance 0 ml 720 ml 1200 ml Assessment & Plan Problem List: (1) UNSPECIFIED DEMENTIA WITH BEHAVIORAL DISTURBANCE ICD Code: F03.91 Assessment & Plan Estimated LOS: days she continues confused demented, with intermittent behavioral issues Justification for Cont. Inpt. At this time patient will decompensate if placed in a lower level of care Discharge Planning To be determined Request HC Surrog/Guard Advoc?: Yes Roddy Henson MD Oct 01, 2016 15:18
[2016-10-01 18:10] VITALS: BP 111/59; PULSE 105; RESP 17; TEMP 98.7
[2016-10-01] MEDS: OLANZapine 10 MG TAB PO SCH (20:00)
[2016-10-01] MEDS: DOCUSATE SODIUM 50 MG/SENNA 8.6 MG TAB PO SCH (20:44)
[2016-10-02 06:03] VITALS: BP 126/58; PULSE 103; RESP 16; TEMP 98.7; O2SAT 99
[2016-10-02] MEDS: metFORMIN HCL 500 MG TAB PO SCH (08:25)
[2016-10-02] MEDS: VALPROIC ACID SYRUP 250 MG/5 ML UDC PO SCH ×2 (08:25→20:17)
[2016-10-02] MEDS: THIAMINE HCL 100 MG TAB PO SCH (08:25)
[2016-10-02] MEDS: HYDROCHLOROTHIAZIDE 12.5 MG CAP PO SCH (08:25)
[2016-10-02] MEDS: LOSARTAN 50 MG TAB PO SCH (08:25)
[2016-10-02] MEDS: FOLIC ACID 1 MG TAB PO SCH (08:26)
[2016-10-02] MEDS: MULTIVITAMINS/MINERALS THERAPEUTIC TAB PO SCH (08:26)
[2016-10-02] MEDS: MEMANTINE HCL 10 MG TAB PO SCH ×2 (08:26→20:17)
--- NOTE | 2016-10-02 12:38 | HHI.PYPN ---
Subjective Remarks Patient seen on unit with nurse Reagan and medical student Tanya, chart reviewed. Patient continues to have difficulty when moving approached for hygiene toileting things on disorder. Otherwise she is no behavioral problem her marked diffuse confusion and dementia persist. Patient compliant medications Review of Systems Except as stated in HPI: all other systems reviewed are Neg Objective Alert: Yes [place]: Person Mood: Calm Affect: Flat Memory Intact: Comment (severe impairment) Hallucinations: Other (no AVH) Delusions: No Delusion Type: Other (no dc delusions) Suicidal: Ideation (no SI voiced) Homicidal: Ideation (no HI voiced) Insight/Judgement Very poor Vitals/IOs Vital Signs Date Time Temp Pulse Resp B/P Pulse Ox O2 Delivery O2 Flow Rate FiO2 10/02/16 06:03 98.7 103 16 126/58 99 Intake and Output 10/01/16 10/01/16 10/02/16 08:00 16:00 00:00 Intake Total 1120 ml 720 ml Balance 1120 ml 720 ml Assessment & Plan Problem List: (1) UNSPECIFIED DEMENTIA WITH BEHAVIORAL DISTURBANCE ICD Code: F03.91 Assessment & Plan Estimated LOS: days patient continues confused demented, with episodes of poor behavior related to staff assistance of various ADLs, hygiene, toileting Justification for Cont. Inpt. At this time patient would significantly decompensate if placed in a lower level of care Discharge Planning To be determined Request HC Surrog/Guard Advoc?: Yes Roddy Henson MD Oct 02, 2016 12:38
[2016-10-02 19:22] VITALS: BP 131/62; PULSE 98; RESP 16; TEMP 98.4; O2SAT 98
[2016-10-02] MEDS: OLANZapine 10 MG TAB PO SCH (20:00)
[2016-10-02] MEDS: DOCUSATE SODIUM 50 MG/SENNA 8.6 MG TAB PO SCH (20:17)
[2016-10-03 05:37] VITALS: BP 158/69; PULSE 97; RESP 16; TEMP 88.5; O2SAT 96
[2016-10-03] MEDS: VALPROIC ACID SYRUP 250 MG/5 ML UDC PO SCH ×2 (08:10→20:01)
[2016-10-03] MEDS: metFORMIN HCL 500 MG TAB PO SCH (08:11)
[2016-10-03] MEDS: LOSARTAN 50 MG TAB PO SCH (08:11)
[2016-10-03] MEDS: MEMANTINE HCL 10 MG TAB PO SCH ×2 (08:11→20:01)
[2016-10-03] MEDS: HYDROCHLOROTHIAZIDE 12.5 MG CAP PO SCH (08:11)
[2016-10-03] MEDS: MULTIVITAMINS/MINERALS THERAPEUTIC TAB PO SCH (08:11)
[2016-10-03] MEDS: ASPIRIN 81 MG CHEW TAB CHEW SCH (08:12)
[2016-10-03] MEDS: THIAMINE HCL 100 MG TAB PO SCH (08:12)
[2016-10-03] MEDS: FOLIC ACID 1 MG TAB PO SCH (08:17)
--- NOTE | 2016-10-03 10:45 | HHI.PYPN ---
Subjective Remarks Patient seen in day room with nurse Reagan, patient calm napping at times. At other times planning the deck of cards. No behavior problems at this time. Though behaviors to become more out of control irritable and yelling l them there staff interventions with hygiene toileting etc. Compliant medications Review of Systems Except as stated in HPI: all other systems reviewed are Neg Objective Alert: Yes [place]: Person Mood: Calm Affect: Flat Memory Intact: Comment (severe impairment) Hallucinations: Other (no AVH) Delusions: No Delusion Type: Other (no dc delusions) Suicidal: Ideation (no SI voiced) Homicidal: Ideation (no HI voiced) Insight/Judgement Very poor Vitals/IOs Vital Signs Date Time Temp Pulse Resp B/P Pulse Ox O2 Delivery O2 Flow Rate FiO2 10/03/16 05:37 88.5 97 16 158/69 96 Intake and Output 10/02/16 10/02/16 10/03/16 08:00 16:00 00:00 Intake Total 0 ml 240 ml Balance 0 ml 240 ml Assessment & Plan Problem List: (1) UNSPECIFIED DEMENTIA WITH BEHAVIORAL DISTURBANCE ICD Code: F03.91 Assessment & Plan Estimated LOS: days patient continues demented with behavioral issues at time during staff interventions Justification for Cont. Inpt. At this time patient will decompensate if place to the lower level of care Discharge Planning To be determined Request HC Surrog/Guard Advoc?: Yes Roddy Henson MD Oct 03, 2016 10:45
[2016-10-03 17:59] VITALS: BP 100/53; PULSE 100; RESP 16; TEMP 97.6; O2SAT 96
[2016-10-03] MEDS: OLANZapine 10 MG TAB PO SCH (20:00)
[2016-10-03] MEDS: DOCUSATE SODIUM 50 MG/SENNA 8.6 MG TAB PO SCH (20:01)
[2016-10-04 06:09] VITALS: BP 141/62; PULSE 94; RESP 18; TEMP 97.6; O2SAT 95
[2016-10-04] MEDS: MEMANTINE HCL 10 MG TAB PO SCH ×2 (08:13→20:27)
[2016-10-04] MEDS: VALPROIC ACID SYRUP 250 MG/5 ML UDC PO SCH ×2 (08:13→20:27)
[2016-10-04] MEDS: FOLIC ACID 1 MG TAB PO SCH (08:13)
[2016-10-04] MEDS: metFORMIN HCL 500 MG TAB PO SCH (08:13)
[2016-10-04] MEDS: LOSARTAN 50 MG TAB PO SCH (08:14)
[2016-10-04] MEDS: THIAMINE HCL 100 MG TAB PO SCH (08:14)
[2016-10-04] MEDS: MULTIVITAMINS/MINERALS THERAPEUTIC TAB PO SCH (08:23)
[2016-10-04] MEDS: HYDROCHLOROTHIAZIDE 12.5 MG CAP PO SCH (08:23)
--- NOTE | 2016-10-04 14:30 | HHI.PYPN ---
Subjective Remarks Patient seen in day room with nurse Marcy and medical student Tanya, chart review, patient did cooperate fairly well with PT this morning, is now sitting in Patti chair calm somewhat drowsy and napping. There is still remains episodes she becomes more irritable when staff is involved with assisting her ADLs toileting hygiene Review of Systems Except as stated in HPI: all other systems reviewed are Neg Objective Alert: Yes [place]: Person Mood: Calm Affect: Flat Memory Intact: Comment (severe impairment) Hallucinations: Other (no AVH) Delusions: No Delusion Type: Other (no dc delusions) Suicidal: Ideation (no SI voiced) Homicidal: Ideation (no HI voiced) Insight/Judgement Poor Vitals/IOs Vital Signs Date Time Temp Pulse Resp B/P Pulse Ox O2 Delivery O2 Flow Rate FiO2 10/04/16 06:09 97.6 94 18 141/62 95 Intake and Output 10/03/16 10/03/16 10/04/16 08:00 16:00 00:00 Intake Total 0 ml 480 ml 240 ml Balance 0 ml 480 ml 240 ml Assessment & Plan Problem List: (1) UNSPECIFIED DEMENTIA WITH BEHAVIORAL DISTURBANCE ICD Code: F03.91 Assessment & Plan Estimated LOS: days patient continues dementia confused though at times somewhat cooperative with PT, compliant medication Justification for Cont. Inpt. At this time the patient would significantly decompensated if placed in a lower level of care Discharge Planning To be determined Request HC Surrog/Guard Advoc?: Yes Roddy Henson MD Oct 04, 2016 14:30
[2016-10-04 19:13] VITALS: BP 103/57; PULSE 98; RESP 18; TEMP 98.8
[2016-10-04] MEDS: OLANZapine 10 MG TAB PO SCH (20:00)
[2016-10-04] MEDS: DOCUSATE SODIUM 50 MG/SENNA 8.6 MG TAB PO SCH (20:27)
[2016-10-04] MEDS: LORazepam 0.5 MG TAB PO PRN (22:42)
[2016-10-05 05:00] VITALS: BP 110/56; PULSE 80; RESP 18; TEMP 97.4; O2SAT 97
[2016-10-05] MEDS: MULTIVITAMINS/MINERALS THERAPEUTIC TAB PO SCH (08:25)
[2016-10-05] MEDS: VALPROIC ACID SYRUP 250 MG/5 ML UDC PO SCH ×2 (08:25→20:37)
[2016-10-05] MEDS: MEMANTINE HCL 10 MG TAB PO SCH ×2 (08:25→20:37)
[2016-10-05] MEDS: LOSARTAN 50 MG TAB PO SCH (08:25)
[2016-10-05] MEDS: HYDROCHLOROTHIAZIDE 12.5 MG CAP PO SCH (08:26)
[2016-10-05] MEDS: FOLIC ACID 1 MG TAB PO SCH (08:52)
[2016-10-05] MEDS: ASPIRIN 81 MG CHEW TAB CHEW SCH (08:52)
[2016-10-05] MEDS: THIAMINE HCL 100 MG TAB PO SCH (08:52)
[2016-10-05] MEDS: metFORMIN HCL 500 MG TAB PO SCH (08:52)
--- NOTE | 2016-10-05 10:47 | HHI.PYPN ---
Subjective Remarks Patient seen in day room, sitting in Patti chair, with nurse Luz. Chart reviewed. Patient somewhat sedated at this time though easily arousable. Continue to show irritability when approached by staff to assist with hygiene and toileting etc., compliant medication Review of Systems Except as stated in HPI: all other systems reviewed are Neg Objective Alert: Yes [place]: Person Mood: Calm Affect: Flat Memory Intact: Comment (severe impairment) Hallucinations: Other (no AVH) Delusions: No Delusion Type: Other (no dc delusions) Suicidal: Ideation (no SI voiced) Homicidal: Ideation (no HI voiced) Insight/Judgement Very poor Vitals/IOs Vital Signs Date Time Temp Pulse Resp B/P Pulse Ox O2 Delivery O2 Flow Rate FiO2 10/05/16 05:00 97.4 80 18 110/56 97 Intake and Output 10/04/16 10/04/16 10/05/16 08:00 16:00 00:00 Intake Total 0 ml 480 ml 360 ml Balance 0 ml 480 ml 360 ml Assessment & Plan Problem List: (1) UNSPECIFIED DEMENTIA WITH BEHAVIORAL DISTURBANCE ICD Code: F03.91 Assessment & Plan Estimated LOS: days patient continues quite confused and demented, with continued intermittent behavioral issues related to contact with staff Justification for Cont. Inpt. At this time patient will decompensate if placed in the lower level of care Discharge Planning Be determined Request HC Surrog/Guard Advoc?: Yes Roddy Henson MD Oct 05, 2016 10:47
[2016-10-05 18:34] VITALS: BP 108/55; PULSE 94; RESP 16; TEMP 97.4; O2SAT 100
[2016-10-05] MEDS: OLANZapine 10 MG TAB PO SCH (20:00)
[2016-10-05] MEDS: DOCUSATE SODIUM 50 MG/SENNA 8.6 MG TAB PO SCH (21:00)
[2016-10-06 05:38] VITALS: BP 115/68; PULSE 105; RESP 18; TEMP 97.9; O2SAT 96
[2016-10-06] MEDS: THIAMINE HCL 100 MG TAB PO SCH (08:59)
[2016-10-06] MEDS: MULTIVITAMINS/MINERALS THERAPEUTIC TAB PO SCH (08:59)
[2016-10-06] MEDS: metFORMIN HCL 500 MG TAB PO SCH (08:59)
[2016-10-06] MEDS: MEMANTINE HCL 10 MG TAB PO SCH ×2 (08:59→20:00)
[2016-10-06] MEDS: HYDROCHLOROTHIAZIDE 12.5 MG CAP PO SCH (08:59)
[2016-10-06] MEDS: LOSARTAN 50 MG TAB PO SCH (09:00)
[2016-10-06] MEDS: FOLIC ACID 1 MG TAB PO SCH (09:00)
[2016-10-06] MEDS: VALPROIC ACID SYRUP 250 MG/5 ML UDC PO SCH ×2 (09:00→19:59)
--- NOTE | 2016-10-06 12:26 | HHI.PYPN ---
Subjective Remarks Patient was seen and case discussed with nursing. Patient is disheveled not cooperative with interview. Alert and oriented 1. Per nursing she is compliant with medications and sleeping well Objective Alert: Yes [place]: Person Mood: Calm Affect: Flat Memory Intact: Comment (severe impairment) Hallucinations: Other (no AVH) Delusions: No Delusion Type: Other (no dc delusions) Suicidal: Ideation (no SI voiced) Homicidal: Ideation (no HI voiced) Insight/Judgement Poor Vitals/IOs Vital Signs Date Time Temp Pulse Resp B/P Pulse Ox O2 Delivery O2 Flow Rate FiO2 10/06/16 05:38 97.9 105 18 115/68 96 Intake and Output 10/05/16 10/05/16 10/06/16 08:00 16:00 00:00 Intake Total 240 ml 920 ml Balance 240 ml 920 ml Assessment & Plan Problem List: (1) UNSPECIFIED DEMENTIA WITH BEHAVIORAL DISTURBANCE ICD Code: F03.91 Assessment & Plan Continue current treatment plan Justification for Cont. Inpt. Patient will decompensate in a less restrictive setting Request HC Surrog/Guard Advoc?: Yes Jarod Gibbons DO Oct 06, 2016 12:26
[2016-10-06] MEDS: DOCUSATE SODIUM 50 MG/SENNA 8.6 MG TAB PO SCH (20:00)
[2016-10-06] MEDS: LORazepam 0.5 MG TAB PO PRN (20:00)
[2016-10-06] MEDS: OLANZapine 10 MG TAB PO SCH (20:00)
[2016-10-06 20:05] VITALS: BP 153/86; PULSE 100; RESP 19; TEMP 97.2; O2SAT 100
[2016-10-07 05:47] VITALS: BP 158/89; PULSE 102; RESP 18; TEMP 97.5; O2SAT 99
[2016-10-07] MEDS: MULTIVITAMINS/MINERALS THERAPEUTIC TAB PO SCH (08:24)
[2016-10-07] MEDS: VALPROIC ACID SYRUP 250 MG/5 ML UDC PO SCH ×2 (08:24→20:00)
[2016-10-07] MEDS: LOSARTAN 50 MG TAB PO SCH (08:24)
[2016-10-07] MEDS: metFORMIN HCL 500 MG TAB PO SCH (08:24)
[2016-10-07] MEDS: MEMANTINE HCL 10 MG TAB PO SCH ×2 (08:24→20:01)
[2016-10-07] MEDS: HYDROCHLOROTHIAZIDE 12.5 MG CAP PO SCH (08:24)
[2016-10-07] MEDS: THIAMINE HCL 100 MG TAB PO SCH (08:24)
[2016-10-07] MEDS: FOLIC ACID 1 MG TAB PO SCH (08:24)
[2016-10-07 08:28] VITALS: BP 158/87; PULSE 102; RESP 18; TEMP 97.5; O2SAT 99
[2016-10-07] MEDS: ASPIRIN 81 MG CHEW TAB CHEW SCH (08:29)
--- NOTE | 2016-10-07 15:27 | HHI.PYPN ---
Subjective Remarks Patient was seen and case discussed with nursing. Patient has poor eye contact and is not cooperative with interview. Alert and oriented 0. Blood pressures have been elevated. Behaving well today with occasional outbursts. Compliant with medications Objective Alert: Yes [place]: Person Mood: Calm Affect: Flat Memory Intact: Comment (severe impairment) Hallucinations: Other (no AVH) Delusions: No Delusion Type: Other (no dc delusions) Suicidal: Ideation (no SI voiced) Homicidal: Ideation (no HI voiced) Insight/Judgement Poor Vitals/IOs Vital Signs Date Time Temp Pulse Resp B/P Pulse Ox O2 Delivery O2 Flow Rate FiO2 10/07/16 08:28 97.5 102 18 158/87 99 Intake and Output 10/06/16 10/06/16 10/07/16 08:00 16:00 00:00 Intake Total 240 ml 960 ml 360 ml Balance 240 ml 960 ml 360 ml Assessment & Plan Problem List: (1) UNSPECIFIED DEMENTIA WITH BEHAVIORAL DISTURBANCE ICD Code: F03.91 Assessment & Plan Continue current treatment plan Justification for Cont. Inpt. Patient will decompensate in a less restrictive setting Request HC Surrog/Guard Advoc?: Yes Jarod Gibbons DO Oct 07, 2016 15:27
--- NOTE | 2016-10-07 16:19 | HHI.PR ---
Subjective Remarks Follow-up for hypertension Patient very poor historian, not cooperative No note of headache, nausea or vomiting per staff. Patient is sleeping more often in the last few days. I heard patient coughing. Objective Vitals Vital Signs Date Time Temp Pulse Resp B/P Pulse Ox O2 Delivery O2 Flow Rate FiO2 10/07/16 08:28 97.5 102 18 158/87 99 10/07/16 05:47 97.5 102 18 158/89 99 10/06/16 20:05 97.2 100 19 153/86 100 I/O 10/06/16 10/06/16 10/06/16 10/07/16 10/07/16 10/07/16 07:00 15:00 23:00 07:00 15:00 23:00 Intake Total 240 ml 960 ml 360 ml 480 ml Balance 240 ml 960 ml 360 ml 480 ml Intake Oral 240 ml 960 ml 360 ml 480 ml # Voids 1 2 1 1 Objective Remarks Not in distress, uncooperative PERRL, Airway patent Supple neck Normal rate and regular rhythm, no murmurs gallops or rubs appreciated. Clear to auscultation and symmetric bilaterally, normal respiratory effort. Normal bowel sounds, soft, non-tender No rash of generalized distribution. Awake, not cooperative. Eating. A/P Assessment and Plan This an 89-year-old female patient alert to person only currently [facility] center we've been consulted for assistance with medical management of condition. 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 Dementia with behavior disturbance-management per primary team Hypertension , uncontrolled - continue Cozaar 50 mg daily, increase hydrochlorothiazide to 25 mg daily, will give another dose of 12.5 today. Increase losartan if no improvement. Check BMP tomorrow. Increased lethargy-check CBC, chest x-ray and urinalysis. Diabetes mellitus - Continue metformin 500 mg daily - Accu-Cheks before meals at bedtime with Sliding scale insulin coverage - Diabetic diet DVT prophylaxis patient is ambulatory Alejandro Hill MD Oct 07, 2016 16:19
[2016-10-07] MEDS ORDERED: HYDROCHLOROTHIAZIDE 12.5 MG CAP PO ONE (16:30)
[2016-10-07 18:23] VITALS: BP 115/53; PULSE 126; RESP 18; TEMP 99.3; O2SAT 98
[2016-10-07] MEDS: OLANZapine 10 MG TAB PO SCH (20:00)
[2016-10-07] MEDS: DOCUSATE SODIUM 50 MG/SENNA 8.6 MG TAB PO SCH (20:01)
[2016-10-08 05:48] VITALS: BP 139/80; PULSE 98; RESP 16; O2SAT 93
[2016-10-08] MEDS ORDERED: cloNIDine HCL 0.1 MG TAB PO PRN (07:45)
[2016-10-08] MEDS: THIAMINE HCL 100 MG TAB PO SCH (09:00)
[2016-10-08 09:05] LABS: AUTOMATED NEUTROPHIL # 9.9 TH/MM3 (1.8-7.7); BASOPHIL % 0.3 % (0.0-2.0); EOSINOPHIL # 0.1 TH/MM3 (0-0.4); EOSINOPHIL % 0.5 % (0.0-4.0); HEMATOCRIT 33.3 % (35.0-46.0); HEMO FLAGS DIFF FINAL; LYMPH % 15.2 % (9.0-44.0); MEAN CELL VOLUME 90.1 FL (80.0-100.0); MEAN CORPUSCULAR HEMOGLOBIN 30.3 PG (27.0-34.0); MEAN CORPUSCULAR HGB CONC 33.7 % (32.0-36.0); MONO % 7.4 % (0.0-8.0); NEUT % 76.6 % (16.0-70.0); PLATELET COUNT 286 TH/MM3 (150-450); RED BLOOD COUNT 3.69 MIL/MM3 (4.00-5.30); RED CELL DISTRIBUTION WIDTH 13.6 % (11.6-17.2); WHITE BLOOD COUNT 12.9 TH/MM3 (4.0-11.0)
[2016-10-08] MEDS: LOSARTAN 50 MG TAB PO SCH (09:29)
[2016-10-08] MEDS: metFORMIN HCL 500 MG TAB PO SCH (09:29)
[2016-10-08] MEDS: VALPROIC ACID SYRUP 250 MG/5 ML UDC PO SCH ×2 (09:29→20:03)
[2016-10-08] MEDS: MULTIVITAMINS/MINERALS THERAPEUTIC TAB PO SCH (09:30)
[2016-10-08] MEDS: FOLIC ACID 1 MG TAB PO SCH (09:30)
[2016-10-08] MEDS: HYDROCHLOROTHIAZIDE 12.5 MG CAP PO SCH (09:30)
[2016-10-08] MEDS: MEMANTINE HCL 10 MG TAB PO SCH ×2 (09:30→20:03)
[2016-10-08 09:39] LABS: BICARBONATE 31.9 MEQ/L (21.0-32.0); POTASSIUM 3.4 MEQ/L (3.5-5.1)
--- NOTE | 2016-10-08 12:20 | HHI.PR ---
Subjective Remarks Follow-up for hypertension Patient very poor historian, not cooperative. Patient sleeping in a Patti chair in inpatient psychiatric day room able to arouse to voice but drofts off back to sleep unable to provide any meaningful information. No note of headache, nausea or vomiting per staff. Patient is sleeping more often in the last few days Objective Vitals Vital Signs Date Time Temp Pulse Resp B/P Pulse Ox O2 Delivery O2 Flow Rate FiO2 10/08/16 05:48 98 16 139/80 93 10/07/16 18:23 99.3 126 18 115/53 98 I/O 10/07/16 10/07/16 10/07/16 10/08/16 10/08/16 10/08/16 07:00 15:00 23:00 07:00 15:00 23:00 Intake Total 480 ml 630 ml 240 ml Balance 480 ml 630 ml 240 ml Intake Oral 480 ml 630 ml 240 ml # Voids 1 1 3 1 Result Diagram: 10/08/1613 10/08/16 0815 Objective Remarks Drowsy PERRL, Airway patent Supple neck Normal rate and regular rhythm, no murmurs gallops or rubs appreciated. Clear to auscultation and symmetric bilaterally, normal respiratory effort. Normal bowel sounds, soft, non-tender No rash of generalized distribution. A/P Assessment and Plan This an 89-year-old female patient alert to person only [facility] we've been consulted for assistance with medical management of condition. 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 Dementia with behavior disturbance-management per primary team Hypertension improved - continue Cozaar 50 mg daily and hydrochlorothiazide to 25 mg daily, Hypokalemia 3.4 we'll give 20 mEq times one today Increased lethargy- Increased white count 12.9 Patient unable to provide a clean cut urine sample straight catheterization ordered, chest x-ray pending- discussed the need for both of these with nurse Valproic acid level 75, TSH 1.60 Diabetes mellitus - Continue metformin 500 mg daily - Accu-Cheks before meals at bedtime with Sliding scale insulin coverage - Diabetic diet DVT prophylaxis early ambulation Written by Magaly Cannon, acting as scribe for Dr. Garvin on 10/08/16 at 12:20. The documentation accurately reflects the work performed [id number] by me on at 16:38. Magaly Cannon Oct 08, 2016 12:20 Yuri Garvin MD Oct 08, 2016 16:38
[2016-10-08] MEDS ORDERED: POTASSIUM CHLORIDE 20 MEQ CONTROLLED RELEASE TAB PO ONE (12:30)
[2016-10-08] MEDS: LORazepam 2 MG/ML VIAL IM PRN (14:22)
[2016-10-08 15:09] LABS: BACTERIA, URINE OCC /hpf; BLOOD, URINE NEG (NEG); COMMENT (UR) CULTURE INDICATED; CULTURE IF INDICATED CULTURE INDICATED; GLUCOSE,URINE NEG (NEG); KETONE, URINE NEG (NEG); NITRITE,URINE NEG (NEG); URINE COLOR YELLOW (YELLW/STRAW)
--- NOTE | 2016-10-08 17:03 | HHI.PYPN ---
Subjective Remarks Patient discussed with treatment team patient's and medical student Tanya, chart review, seen on unit. Patient continues with irritability difficulty with behaviors when approached for toileting walking ADLs. Otherwise her disorientation dementia continue unchanged. Placement remains quite problematic Review of Systems Except as stated in HPI: all other systems reviewed are Neg Objective Alert: Yes [place]: Person Mood: Calm Affect: Flat Memory Intact: Comment (severe impairment) Hallucinations: Other (no AVH) Delusions: No Delusion Type: Other (no dc delusions) Suicidal: Ideation (no SI voiced) Homicidal: Ideation (no HI voiced) Insight/Judgement Very poor Labs Test 10/08/16 10/08/16 10/08/16 08:13 08:15 14:15 White Blood Count 12.9 TH/MM3 Red Blood Count 3.69 MIL/MM3 Hemoglobin 11.2 GM/DL Hematocrit 33.3 % Mean Corpuscular Volume 90.1 FL Mean Corpuscular Hemoglobin 30.3 PG Mean Corpuscular Hemoglobin 33.7 % Concent Red Cell Distribution Width 13.6 % Platelet Count 286 TH/MM3 Mean Platelet Volume 7.5 FL Neutrophils (%) (Auto) 76.6 % Lymphocytes (%) (Auto) 15.2 % Monocytes (%) (Auto) 7.4 % Eosinophils (%) (Auto) 0.5 % Basophils (%) (Auto) 0.3 % Neutrophils # (Auto) 9.9 TH/MM3 Lymphocytes # (Auto) 2.0 TH/MM3 Monocytes # (Auto) 1.0 TH/MM3 Eosinophils # (Auto) 0.1 TH/MM3 Basophils # (Auto) 0.0 TH/MM3 CBC Comment DIFF FINAL Differential Comment Sodium Level 142 MEQ/L Potassium Level 3.4 MEQ/L Chloride Level 105 MEQ/L Carbon Dioxide Level 31.9 MEQ/L Anion Gap 5 MEQ/L Blood Urea Nitrogen 27 MG/DL Creatinine 0.67 MG/DL Estimat Glomerular Filtration 87 ML/MIN Rate Random Glucose 110 MG/DL Calcium Level 9.5 MG/DL Thyroid Stimulating Hormone 1.600 uIU/ML 3rd Gen Valproic Acid (Depakene) Level 75 MCG/ML Urine Color YELLOW Urine Turbidity CLOUDY Urine pH 8.0 Urine Specific [place] 1.019 Urine Protein 30 mg/dL Urine Glucose (UA) NEG mg/dL Urine Ketones NEG mg/dL Urine Occult Blood NEG Urine Nitrite NEG Urine Bilirubin NEG Urine Urobilinogen LESS THAN 2.0 MG/DL Urine Leukocyte Esterase LARGE Urine RBC 4 /hpf Urine WBC 155 /hpf Urine Amorphous Sediment RARE Urine Bacteria OCC /hpf Microscopic Urinalysis Comment CULTURE INDICATED Date/Time Procedure Status Source Growth 10/08/16 14:15 Urine Culture Received Urine Clean Catch Pending Vitals/IOs Vital Signs Date Time Temp Pulse Resp B/P Pulse Ox O2 Delivery O2 Flow Rate FiO2 10/08/16 05:48 98 16 139/80 93 10/07/16 18:23 99.3 Intake and Output 10/07/16 10/07/16 10/08/16 08:00 16:00 00:00 Intake Total 480 ml 630 ml Balance 480 ml 630 ml Assessment & Plan Problem List: (1) UNSPECIFIED DEMENTIA WITH BEHAVIORAL DISTURBANCE ICD Code: F03.91 Assessment & Plan Estimated LOS: days patient remains confused demented with behavioral issues around contact related to care of this patient Justification for Cont. Inpt. This time patient will decompensate or placed in the lower level of care Discharge Planning To be determined Request HC Surrog/Guard Advoc?: Yes Roddy Henson MD Oct 08, 2016 17:03
[2016-10-08 18:00] VITALS: BP_SYST 113; BP_SYST 133; BP_DIAS 63; BP_DIAS 77; PULSE 85; PULSE 99; RESP 15; RESP 17; TEMP 98; O2SAT 93; O2SAT 94
[2016-10-08] MEDS: OLANZapine 10 MG TAB PO SCH (20:00)
[2016-10-08] MEDS: DOCUSATE SODIUM 50 MG/SENNA 8.6 MG TAB PO SCH (20:03)
[2016-10-08] MEDS: diphenhydrAMINE HCL 50 MG CAP PO PRN (20:13)
[2016-10-09 05:28] VITALS: BP 104/57; PULSE 100; RESP 18; O2SAT 96
[2016-10-09] MEDS: HYDROCHLOROTHIAZIDE 12.5 MG CAP PO SCH (08:33)
[2016-10-09] MEDS: metFORMIN HCL 500 MG TAB PO SCH (08:33)
[2016-10-09] MEDS: MULTIVITAMINS/MINERALS THERAPEUTIC TAB PO SCH (08:33)
[2016-10-09] MEDS: MEMANTINE HCL 10 MG TAB PO SCH ×2 (08:33→20:09)
[2016-10-09] MEDS: THIAMINE HCL 100 MG TAB PO SCH (08:34)
[2016-10-09] MEDS: ASPIRIN 81 MG CHEW TAB CHEW SCH (08:34)
[2016-10-09] MEDS: VALPROIC ACID SYRUP 250 MG/5 ML UDC PO SCH ×2 (08:35→20:09)
[2016-10-09] MEDS: FOLIC ACID 1 MG TAB PO SCH (09:00)
[2016-10-09] MEDS: LOSARTAN 50 MG TAB PO SCH (09:00)
--- NOTE | 2016-10-09 10:12 | HHI.PYPN ---
Subjective Remarks Patient seen in day room with nurse Marcy and medical student Tanya, chart review, patient's somewhat drowsy at this time though she did eat breakfast, is arousable to irritable. This is consistent with prior behaviors of confusion calmness alternating with irritability yelling screaming when staff porches her to assist her with various functions such as ADLs and hygiene , compliant medication Review of Systems Except as stated in HPI: all other systems reviewed are Neg Objective Alert: Yes [place]: Person Mood: Calm Affect: Flat Memory Intact: Comment (severe impairment) Hallucinations: Other (no AVH) Delusions: No Delusion Type: Other (no dc delusions) Suicidal: Ideation (no SI voiced) Homicidal: Ideation (no HI voiced) Insight/Judgement Very poor Labs Test 10/08/16 14:15 Urine Color YELLOW Urine Turbidity CLOUDY Urine pH 8.0 Urine Specific [place] 1.019 Urine Protein 30 mg/dL Urine Glucose (UA) NEG mg/dL Urine Ketones NEG mg/dL Urine Occult Blood NEG Urine Nitrite NEG Urine Bilirubin NEG Urine Urobilinogen LESS THAN 2.0 MG/DL Urine Leukocyte Esterase LARGE Urine RBC 4 /hpf Urine WBC 155 /hpf Urine Amorphous Sediment RARE Urine Bacteria OCC /hpf Microscopic Urinalysis Comment CULTURE INDICATED Date/Time Procedure Status Source Growth 10/08/16 14:15 Urine Culture Received Urine Clean Catch Pending Vitals/IOs Vital Signs Date Time Temp Pulse Resp B/P Pulse Ox O2 Delivery O2 Flow Rate FiO2 10/09/16 05:28 100 18 104/57 96 10/08/16 18:00 Intake and Output 10/08/16 10/08/16 10/09/16 08:00 16:00 00:00 Intake Total 240 ml 600 ml Balance 240 ml 600 ml Assessment & Plan Problem List: (1) UNSPECIFIED DEMENTIA WITH BEHAVIORAL DISTURBANCE ICD Code: F03.91 Assessment & Plan Estimated LOS: days patient continues demented confused with episodes of irritability related to contact with staff. Justification for Cont. Inpt. At this time patient will decompensate if place to the lower level of care Discharge Planning To be determined Request HC Surrog/Guard Advoc?: Yes Roddy Henson MD Oct 09, 2016 10:12
--- NOTE | 2016-10-09 10:54 | HHI.PR ---
Subjective Remarks Follow-up visit lethargy, UTI. Patient seen today. Continues to be drowsy/ lethargic. Irritable when awaken with stimulus. Denies pain/discomfort. Denies fever, chills, nausea, vomiting, diarrhea. Objective Vitals Vital Signs Date Time Temp Pulse Resp B/P Pulse Ox O2 Delivery O2 Flow Rate FiO2 10/09/16 05:28 100 18 104/57 96 10/08/16 18:00 99 15 113/77 94 I/O 10/08/16 10/08/16 10/08/16 10/09/16 10/09/16 10/09/16 07:00 15:00 23:00 07:00 15:00 23:00 Intake Total 240 ml 600 ml 120 ml Balance 240 ml 600 ml 120 ml Intake Oral 240 ml 600 ml 120 ml # Voids 1 2 3 Result Diagram: 10/08/16 0813 10/08/16 0815 Imaging Last Impressions Chest X-Ray 10/09/16 0000 Signed Impressions: Service Date/Time: Sunday, October 09, 2016 12:24 - CONCLUSION: 1. No acute cardiopulmonary findings. Vince Salcido MD Shoulder X-Ray 08/01/16 0000 Signed Impressions: Service Date/Time: Monday, August 01, 2016 12:50 - CONCLUSION: Unremarkable limited examination of the right shoulder. Jigar Treviño MD Knee X-Ray 08/01/16 0000 Signed Impressions: Service Date/Time: Monday, August 01, 2016 12:52 - CONCLUSION: 1. No fracture or dislocation. 2. Advanced tricompartmental osteoarthritis. 3. Osteopenia. Alejandro Felder Jr., MD Hip and Pelvis X-Ray 08/01/16 0000 Signed Impressions: Service Date/Time: Monday, August 01, 2016 12:50 - CONCLUSION: Mild degenerative changes of the hip joint. Bursal calcification about the greater trochanter Jigar Treviño MD Brain MRI 08/01/16 0000 Signed Impressions: Service Date/Time: Monday, August 01, 2016 13:03 - CONCLUSION: 1. No acute intracranial abnormality. 2. Chronic small vessel ischemic change. Alejandro Felder Jr., MD Head CT 07/26/16 0000 Signed Impressions: Service Date/Time: July 23:45 - CONCLUSION: 1. No acute intracranial abnormality. 2. Atrophy. Roddy Huerta MD Objective Remarks GENERAL: This is thin appearing, elderly patient, in no apparent distress. CARDIOVASCULAR: Regular rate and rhythm without murmurs, gallops, or rubs. RESPIRATORY: Clear to auscultation. Breath sounds equal bilaterally. No wheezes , rales, or rhonchi. GASTROINTESTINAL: Abdomen soft, non-tender, nondistended. Normal active bowel sounds MUSCULOSKELETAL: Extremities without clubbing, cyanosis, or edema. NEURO: Drowsy. Irritable. Does not follow commands. A/P Problem List: (1) UNSPECIFIED DEMENTIA WITH BEHAVIORAL DISTURBANCE ICD Code: F03.91 Status: Acute (2) Psychosis ICD Code: F29 Status: Acute (3) HTN (hypertension) ICD Code: I10 Status: Acute (4) UTI (urinary tract infection) ICD Code: N39.0 Status: Acute Assessment and Plan This an 89-year-old female patient alert to person only currently [facility] we've been consulted for assistance with medical management of condition. 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 Sepsis UTI - large leukoesterase. Leukocytosis noted WBC 12.9. HR 100. BUN increasing 27 - Pending cultures. - Cipro 250mg BID - Enc PO fluids Dementia with behavior disturbance-management per primary team Encephalopathy likely toxic and septic with history of dementia. She is on all multiple [employer] active drugs per psychiatry. Neurochecks. We'll continue to monitor Hypertension improved - continue Cozaar 50 mg daily and hydrochlorothiazide to 25 mg daily, Hypokalemia 3.4 we'll give 20 mEq times one today. Repeat BMP and magnesium in the morning Diabetes mellitus - Continue metformin 500 mg daily - Accu-Cheks before meals at bedtime with Sliding scale insulin coverage - Diabetic diet DVT prophylaxis early ambulation Discussed with patient, nursing Written by Faustino Roberson, acting as scribe for Dr. Garvin on 10/09/16 at 10: 26. The documentation accurately reflects the work performed [id number] by me on at 16:26. Problem Qualifiers (1) Psychosis: Qualified Code: F29 - Psychosis, unspecified psychosis type Faustino Maria Oct 09, 2016 10:54 Yuri Garvin MD Oct 09, 2016 16:26
--- NOTE | 2016-10-09 13:23 | RADRPT ---
EXAM DATE/TIME: 10/09/2016 12:24 [place] COMPARISON: KNEE RIGHT LTD (1 OR 2 VWS), August 01, 2016, 12:52. INDICATIONS : Cough. MEDICAL HISTORY : unobtainable SURGICAL HISTORY : unobtainable ENCOUNTER: Initial ACUITY: 3 days PAIN SCORE: 0/10 LOCATION: Bilateral chest FINDINGS: A single view of the chest demonstrates the lungs to be symmetrically aerated without evidence of mas s, infiltrate or effusion. The cardiomediastinal contours are unremarkable. Osseous structures are intact. CONCLUSION: 1. No acute cardiopulmonary findings. Vince Salcido MD on October 09, 2016 at 13:21 Board Certified Radiologist. This report was verified electronically.
[2016-10-09] MEDS ORDERED: CIPROFLOXACIN 250 MG TAB PO ONE (15:45)
[2016-10-09] MEDS: OLANZapine 10 MG TAB PO SCH (20:00)
[2016-10-09] MEDS: diphenhydrAMINE HCL 50 MG CAP PO PRN (20:09)
[2016-10-09] MEDS: DOCUSATE SODIUM 50 MG/SENNA 8.6 MG TAB PO SCH (20:09)
[2016-10-09] MEDS: CIPROFLOXACIN 250 MG TAB PO SCH (20:10)
[2016-10-09 20:23] VITALS: BP 146/63; PULSE 91; RESP 18; TEMP 97.7; O2SAT 100
[2016-10-10 05:30] VITALS: BP 150/90; PULSE 112; RESP 18; TEMP 98.2; O2SAT 96
[2016-10-10] MEDS: MEMANTINE HCL 10 MG TAB PO SCH ×2 (07:53→20:45)
[2016-10-10] MEDS: CIPROFLOXACIN 250 MG TAB PO SCH ×2 (07:53→20:45)
[2016-10-10] MEDS: THIAMINE HCL 100 MG TAB PO SCH (07:53)
[2016-10-10] MEDS: metFORMIN HCL 500 MG TAB PO SCH (07:53)
[2016-10-10] MEDS: VALPROIC ACID SYRUP 250 MG/5 ML UDC PO SCH ×2 (07:53→20:45)
[2016-10-10] MEDS: MULTIVITAMINS/MINERALS THERAPEUTIC TAB PO SCH (07:54)
[2016-10-10] MEDS: FOLIC ACID 1 MG TAB PO SCH (07:54)
[2016-10-10] MEDS: LOSARTAN 50 MG TAB PO SCH (07:54)
[2016-10-10] MEDS: HYDROCHLOROTHIAZIDE 12.5 MG CAP PO SCH (07:54)
[2016-10-10 08:49] LABS: AUTOMATED NEUTROPHIL # 2.5 TH/MM3 (1.8-7.7); BASOPHIL % 0.5 % (0.0-2.0); EOSINOPHIL # 0.1 TH/MM3 (0-0.4); EOSINOPHIL % 2.5 % (0.0-4.0); HEMATOCRIT 32.5 % (35.0-46.0); HEMO FLAGS DIFF FINAL; MEAN CELL VOLUME 92.5 FL (80.0-100.0); MEAN CORPUSCULAR HEMOGLOBIN 30.9 PG (27.0-34.0); MEAN CORPUSCULAR HGB CONC 33.4 % (32.0-36.0); MONO % 9.8 % (0.0-8.0); NEUT % 62.2 % (16.0-70.0); PLATELET COUNT 203 TH/MM3 (150-450); RED BLOOD COUNT 3.52 MIL/MM3 (4.00-5.30); RED CELL DISTRIBUTION WIDTH 12.9 % (11.6-17.2); WHITE BLOOD COUNT 3.9 TH/MM3 (4.0-11.0)
[2016-10-10 09:09] LABS: BICARBONATE 24.4 MEQ/L (21.0-32.0); POTASSIUM 4.3 MEQ/L (3.5-5.1)
[2016-10-10] MEDS: INSULIN ASPART SUPPLEMENTAL SCALE SQ SCH ×3 (11:28→20:33)
--- NOTE | 2016-10-10 14:10 | HHI.PYPN ---
Subjective Remarks Patient seen in day room, drowsy, though arousable irritable. Her chronic behaviors related to assistance with various activities remains. Compliant medications. Patient placement remains problematic Review of Systems Except as stated in HPI: all other systems reviewed are Neg Objective Alert: Yes [place]: Person Mood: Calm Affect: Flat Memory Intact: Comment (severe impairment) Hallucinations: Other (no AVH) Delusions: No Delusion Type: Other (no dc delusions) Suicidal: Ideation (no SI voiced) Homicidal: Ideation (no HI voiced) Insight/Judgement Very poor Labs Test 10/10/16 08:12 White Blood Count 3.9 TH/MM3 Red Blood Count 3.52 MIL/MM3 Hemoglobin 10.9 GM/DL Hematocrit 32.5 % Mean Corpuscular Volume 92.5 FL Mean Corpuscular Hemoglobin 30.9 PG Mean Corpuscular Hemoglobin 33.4 % Concent Red Cell Distribution Width 12.9 % Platelet Count 203 TH/MM3 Mean Platelet Volume 8.2 FL Neutrophils (%) (Auto) 62.2 % Lymphocytes (%) (Auto) 25.0 % Monocytes (%) (Auto) 9.8 % Eosinophils (%) (Auto) 2.5 % Basophils (%) (Auto) 0.5 % Neutrophils # (Auto) 2.5 TH/MM3 Lymphocytes # (Auto) 1.0 TH/MM3 Monocytes # (Auto) 0.4 TH/MM3 Eosinophils # (Auto) 0.1 TH/MM3 Basophils # (Auto) 0.0 TH/MM3 CBC Comment DIFF FINAL Differential Comment Sodium Level 140 MEQ/L Potassium Level 4.3 MEQ/L Chloride Level 107 MEQ/L Carbon Dioxide Level 24.4 MEQ/L Anion Gap 9 MEQ/L Blood Urea Nitrogen 29 MG/DL Creatinine 1.35 MG/DL Estimat Glomerular Filtration 39 ML/MIN Rate Random Glucose 136 MG/DL Calcium Level 9.1 MG/DL Magnesium Level 2.0 MG/DL Date/Time Procedure Status Source Growth 10/08/16 14:15 Urine Culture - Final Complete Urine Clean Catch Proteus Mirabilis Vitals/IOs Vital Signs Date Time Temp Pulse Resp B/P Pulse Ox O2 Delivery O2 Flow Rate FiO2 10/10/16 05:30 98.2 112 18 150/90 96 Intake and Output 10/09/16 10/09/16 10/10/16 08:00 16:00 00:00 Intake Total 720 ml 480 ml Balance 720 ml 480 ml Assessment & Plan Problem List: (1) UNSPECIFIED DEMENTIA WITH BEHAVIORAL DISTURBANCE ICD Code: F03.91 Assessment & Plan Estimated LOS: days patient remains confused and demented, with intermittent behavioral issues related to contact by staff. Placement remains problematic Justification for Cont. Inpt. At this time patient was significantly decompensated if placed in a lower level of care Discharge Planning To be determined Request HC Surrog/Guard Advoc?: Yes Roddy Henson MD Oct 10, 2016 14:10
--- NOTE | 2016-10-10 17:52 | HHI.PR ---
Subjective Remarks Follow-up hypertension. BP and heart rate elevated this morning secondary to agitation. She is awake today. Discussed with RN, improving oral intake. Objective Vitals Vital Signs Date Time Temp Pulse Resp B/P Pulse Ox O2 Delivery O2 Flow Rate FiO2 10/10/16 05:30 98.2 112 18 150/90 96 10/09/16 20:23 97.7 91 18 146/63 100 I/O 10/09/16 10/09/16 10/09/16 10/10/16 10/10/16 10/10/16 07:00 15:00 23:00 07:00 15:00 23:00 Intake Total 360 ml 840 ml 720 ml 720 ml Balance 360 ml 840 ml 720 ml 720 ml Intake Oral 360 ml 840 ml 720 ml 720 ml # Voids 3 3 6 # Bowel Movements 0 Result Diagram: 10/10/16 0812 10/10/16 0812 Imaging Last Impressions Chest X-Ray 10/09/16 0000 Signed Impressions: Service Date/Time: Sunday, October 09, 2016 12:24 - CONCLUSION: 1. No acute cardiopulmonary findings. Vince Salcido MD Shoulder X-Ray 08/01/16 0000 Signed Impressions: Service Date/Time: Monday, August 01, 2016 12:50 - CONCLUSION: Unremarkable limited examination of the right shoulder. Jigar Treviño MD Knee X-Ray 08/01/16 0000 Signed Impressions: Service Date/Time: Monday, August 01, 2016 12:52 - CONCLUSION: 1. No fracture or dislocation. 2. Advanced tricompartmental osteoarthritis. 3. Osteopenia. Alejandro Felder Jr., MD Hip and Pelvis X-Ray 08/01/16 0000 Signed Impressions: Service Date/Time: Monday, August 01, 2016 12:50 - CONCLUSION: Mild degenerative changes of the hip joint. Bursal calcification about the greater trochanter Jigar Treviño MD Brain MRI 08/01/16 0000 Signed Impressions: Service Date/Time: Monday, August 01, 2016 13:03 - CONCLUSION: 1. No acute intracranial abnormality. 2. Chronic small vessel ischemic change. Alejandro Felder Jr., MD Head CT 07/26/16 0000 Signed Impressions: Service Date/Time: July 23:45 - CONCLUSION: 1. No acute intracranial abnormality. 2. Atrophy. Roddy Huerta MD Objective Remarks GENERAL: This is thin appearing, elderly patient, in no apparent distress. CARDIOVASCULAR: Regular rate and rhythm without murmurs, gallops, or rubs. RESPIRATORY: Clear to auscultation. Breath sounds equal bilaterally. No wheezes , rales, or rhonchi. GASTROINTESTINAL: Abdomen soft, non-tender, nondistended. Normal active bowel sounds MUSCULOSKELETAL: Extremities without clubbing, cyanosis, or edema. NEURO: Awake. Irritable. Does not follow commands. Procedures none A/P Problem List: (1) UNSPECIFIED DEMENTIA WITH BEHAVIORAL DISTURBANCE ICD Code: F03.91 Status: Acute (2) Psychosis ICD Code: F29 Status: Acute (3) HTN (hypertension) ICD Code: I10 Status: Acute (4) UTI (urinary tract infection) ICD Code: N39.0 Status: Acute Assessment and Plan This an 89-year-old female patient alert to person only currently [facility] center we've been consulted for assistance with medical management of condition. 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 Sepsis UTI - large leukoesterase. Leukocytosis noted WBC 12.9. HR 100. - Pending cultures. - Cipro 250mg BID - Enc PO fluids Acute kidney injury secondary to infection and medications. Discontinue Hydrocort thiazide and metformin. Encourage oral intake. Repeat BMP and magnesium in the morning Dementia with behavior disturbance-management per primary team Encephalopathy likely toxic and septic with history of dementia. She is on all multiple [employer] active drugs per psychiatry. Neurochecks. We'll continue to monitor. She is more awake today. Hypertension - continue Cozaar 50 mg daily and discontinue hydrochlorothiazide to 25 mg daily, consider Norvasc Hypokalemia 3.4, replaced. Repeat BMP and magnesium in the morning Diabetes mellitus A1c 5.2 -Discontinue metformin 500 mg daily secondary to acute kidney injury - Accu-Cheks before meals at bedtime with Sliding scale insulin coverage - Diabetic diet DVT prophylaxis early ambulation Discussed with patient, nursing Problem Qualifiers (1) Psychosis: Qualified Code: F29 - Psychosis, unspecified psychosis type Yuri Garvin MD Oct 10, 2016 17:52
[2016-10-10 18:00] VITALS: BP 152/86; PULSE 107; RESP 16; TEMP 97.9; O2SAT 95
[2016-10-10] MEDS: OLANZapine 10 MG TAB PO SCH (20:00)
[2016-10-10] MEDS: DOCUSATE SODIUM 50 MG/SENNA 8.6 MG TAB PO SCH (20:45)
[2016-10-11 06:00] VITALS: BP 144/67; PULSE 93; RESP 16; TEMP 97.7; O2SAT 96
[2016-10-11] MEDS: INSULIN ASPART SUPPLEMENTAL SCALE SQ SCH ×4 (06:11→20:05)
[2016-10-11 08:20] LABS: AUTOMATED NEUTROPHIL # 5.5 TH/MM3 (1.8-7.7); BASOPHIL % 0.3 % (0.0-2.0); EOSINOPHIL # 0.2 TH/MM3 (0-0.4); EOSINOPHIL % 1.9 % (0.0-4.0); HEMATOCRIT 33.6 % (35.0-46.0); HEMO FLAGS DIFF FINAL; LYMPH % 22.6 % (9.0-44.0); LYMPHOCYTE # 1.8 TH/MM3 (1.0-4.8); MEAN CELL VOLUME 90.3 FL (80.0-100.0); MEAN CORPUSCULAR HEMOGLOBIN 31.7 PG (27.0-34.0); MEAN CORPUSCULAR HGB CONC 35.1 % (32.0-36.0); MONO % 7.7 % (0.0-8.0); NEUT % 67.5 % (16.0-70.0); PLATELET COUNT 271 TH/MM3 (150-450); RED BLOOD COUNT 3.72 MIL/MM3 (4.00-5.30); RED CELL DISTRIBUTION WIDTH 13.4 % (11.6-17.2); WHITE BLOOD COUNT 8.2 TH/MM3 (4.0-11.0)
[2016-10-11 08:36] LABS: BICARBONATE 30.2 MEQ/L (21.0-32.0); MAGNESIUM 1.8 MG/DL (1.5-2.5); POTASSIUM 3.7 MEQ/L (3.5-5.1)
[2016-10-11] MEDS: CEFUROXIME AXETIL 250 MG TAB PO SCH ×2 (09:00→20:32)
[2016-10-11] MEDS: FOLIC ACID 1 MG TAB PO SCH (09:47)
[2016-10-11] MEDS: LOSARTAN 50 MG TAB PO SCH (09:47)
[2016-10-11] MEDS: MULTIVITAMINS/MINERALS THERAPEUTIC TAB PO SCH (09:48)
[2016-10-11] MEDS: THIAMINE HCL 100 MG TAB PO SCH (09:48)
[2016-10-11] MEDS: VALPROIC ACID SYRUP 250 MG/5 ML UDC PO SCH ×2 (09:48→20:33)
[2016-10-11] MEDS: MEMANTINE HCL 10 MG TAB PO SCH ×2 (09:48→20:31)
[2016-10-11] MEDS: ASPIRIN 81 MG CHEW TAB CHEW SCH (09:48)
--- NOTE | 2016-10-11 13:57 | HHI.PYPN ---
Subjective Remarks Patient seen in dayroom with medical student Tanya, chart reviewed, patient drowsy at the present time though arousable to irritable and yelling. Compliant medications. Continues markedly confused and disoriented. Review of Systems Except as stated in HPI: all other systems reviewed are Neg Objective Alert: Yes [place]: Person Mood: Calm Affect: Flat Memory Intact: Comment (severe impairment) Hallucinations: Other (no AVH) Delusions: No Delusion Type: Other (no dc delusions) Suicidal: Ideation (no SI voiced) Homicidal: Ideation (no HI voiced) Insight/Judgement Very poor Labs Test 10/11/16 06:56 White Blood Count 8.2 TH/MM3 Red Blood Count 3.72 MIL/MM3 Hemoglobin 11.8 GM/DL Hematocrit 33.6 % Mean Corpuscular Volume 90.3 FL Mean Corpuscular Hemoglobin 31.7 PG Mean Corpuscular Hemoglobin 35.1 % Concent Red Cell Distribution Width 13.4 % Platelet Count 271 TH/MM3 Mean Platelet Volume 7.7 FL Neutrophils (%) (Auto) 67.5 % Lymphocytes (%) (Auto) 22.6 % Monocytes (%) (Auto) 7.7 % Eosinophils (%) (Auto) 1.9 % Basophils (%) (Auto) 0.3 % Neutrophils # (Auto) 5.5 TH/MM3 Lymphocytes # (Auto) 1.8 TH/MM3 Monocytes # (Auto) 0.6 TH/MM3 Eosinophils # (Auto) 0.2 TH/MM3 Basophils # (Auto) 0.0 TH/MM3 CBC Comment DIFF FINAL Differential Comment Sodium Level 140 MEQ/L Potassium Level 3.7 MEQ/L Chloride Level 102 MEQ/L Carbon Dioxide Level 30.2 MEQ/L Anion Gap 8 MEQ/L Blood Urea Nitrogen 25 MG/DL Creatinine 0.55 MG/DL Estimat Glomerular Filtration 110 ML/MIN Rate Random Glucose 84 MG/DL Calcium Level 10.0 MG/DL Magnesium Level 1.8 MG/DL Date/Time Procedure Status Source Growth 10/08/16 14:15 Urine Culture - Final Complete Urine Clean Catch Proteus Mirabilis Vitals/IOs Vital Signs Date Time Temp Pulse Resp B/P Pulse Ox O2 Delivery O2 Flow Rate FiO2 10/11/16 06:00 97.7 93 16 144/67 96 Intake and Output 10/10/16 10/10/16 10/11/16 08:00 16:00 00:00 Intake Total 1440 ml 720 ml Balance 1440 ml 720 ml Assessment & Plan Problem List: (1) UNSPECIFIED DEMENTIA WITH BEHAVIORAL DISTURBANCE ICD Code: F03.91 Assessment & Plan Estimated LOS: days patient continues severely demented and confused, with intermittent behavioral problems when approached by staff to help with ADLs toileting etc. Justification for Cont. Inpt. At this time patient would significantly decompensate if placed in a lower level of care Discharge Planning To be determined Request HC Surrog/Guard Advoc?: Yes Roddy Henson MD Oct 11, 2016 13:57
--- NOTE | 2016-10-11 15:20 | HHI.PR ---
Subjective Remarks Follow-up acute kidney injury. She is awake today. Seen with . Discussed with RN, patient tolerating by mouth. Objective Vitals Vital Signs Date Time Temp Pulse Resp B/P Pulse Ox O2 Delivery O2 Flow Rate FiO2 10/11/16 06:00 97.7 93 16 144/67 96 10/10/16 18:00 97.9 107 16 152/86 95 I/O 10/10/16 10/10/16 10/10/16 10/11/16 10/11/16 10/11/16 07:00 15:00 23:00 07:00 15:00 23:00 Intake Total 720 ml 720 ml 720 ml 1100 ml Balance 720 ml 720 ml 720 ml 1100 ml Intake Oral 720 ml 720 ml 720 ml 1100 ml # Voids 6 2 1 3 Result Diagram: 10/11/1665510/11/16 0656 Objective Remarks GENERAL: This is thin appearing, elderly patient, in no apparent distress. CARDIOVASCULAR: Regular rate and rhythm without murmurs, gallops, or rubs. RESPIRATORY: Clear to auscultation. Breath sounds equal bilaterally. No wheezes , rales, or rhonchi. GASTROINTESTINAL: Abdomen soft, non-tender, nondistended. Normal active bowel sounds MUSCULOSKELETAL: Extremities without clubbing, cyanosis, or edema. NEURO: Awake. Does not follow commands. Procedures none A/P Problem List: (1) UNSPECIFIED DEMENTIA WITH BEHAVIORAL DISTURBANCE ICD Code: F03.91 Status: Acute (2) Psychosis ICD Code: F29 Status: Acute (3) HTN (hypertension) ICD Code: I10 Status: Acute (4) UTI (urinary tract infection) ICD Code: N39.0 Status: Acute Assessment and Plan This an 89-year-old female patient alert to person only currently [facility] center we've been consulted for assistance with medical management of condition. 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 Sepsis UTI - large leukoesterase. Leukocytosis noted WBC 12.9. HR 100. -Proteus resistant to Cipro switch to Ceftin for 7 days - Enc PO fluids Acute kidney injury secondary to infection and medications. Discontinue Hydrocort thiazide and metformin. Encourage oral intake. Repeat BMP and magnesium improved. Avoid nephrotoxins Dementia with behavior disturbance-management per primary team Encephalopathy likely toxic and septic with history of dementia. She is on all multiple [employer] active drugs per psychiatry. Neurochecks. We'll continue to monitor. She is more awake today. Hypertension - continue Cozaar 50 mg daily and discontinue hydrochlorothiazide to 25 mg daily, consider Norvasc Hypokalemia 3.4, replaced. Diabetes mellitus A1c 5.2 -Discontinue metformin 500 mg daily secondary to acute kidney injury - Accu-Cheks before meals at bedtime with Sliding scale insulin coverage - Diabetic diet DVT prophylaxis early ambulation Discussed with patient, nursing Discharge Planning Patient stable will sign off Problem Qualifiers (1) Psychosis: Qualified Code: F29 - Psychosis, unspecified psychosis type Yuri Garvin MD Oct 11, 2016 15:20
[2016-10-11] MEDS: OLANZapine 10 MG TAB PO SCH (20:00)
[2016-10-11] MEDS: DOCUSATE SODIUM 50 MG/SENNA 8.6 MG TAB PO SCH (20:32)
[2016-10-12 05:52] VITALS: BP 142/81; PULSE 100; RESP 18; TEMP 97.8; O2SAT 96
[2016-10-12] MEDS: INSULIN ASPART SUPPLEMENTAL SCALE SQ SCH ×4 (06:22→21:00)
[2016-10-12] MEDS: MULTIVITAMINS/MINERALS THERAPEUTIC TAB PO SCH (10:06)
[2016-10-12] MEDS: THIAMINE HCL 100 MG TAB PO SCH (10:06)
[2016-10-12] MEDS: CEFUROXIME AXETIL 250 MG TAB PO SCH ×2 (10:06→20:17)
[2016-10-12] MEDS: FOLIC ACID 1 MG TAB PO SCH (10:06)
[2016-10-12] MEDS: LOSARTAN 50 MG TAB PO SCH (10:07)
[2016-10-12] MEDS: MEMANTINE HCL 10 MG TAB PO SCH ×2 (10:07→20:17)
[2016-10-12] MEDS: VALPROIC ACID SYRUP 250 MG/5 ML UDC PO SCH ×2 (10:08→20:17)
--- NOTE | 2016-10-12 13:31 | HHI.PYPN ---
Subjective Remarks Patient seen in day room with medical student Tanya, chart reviewed. Patient sitting in Patti chair awake mumbling to herself playing with some trivial pursuit chart. Patient essentially nonresponsive to our questioning. However when we attempt to intervene if to closure becomes irritable. Otherwise patient no behavioral problem. Patient continues to remain quite problematic Review of Systems Except as stated in HPI: all other systems reviewed are Neg Objective Alert: Yes [place]: Person Mood: Calm Affect: Flat Memory Intact: Comment (severe impairment) Hallucinations: Other (no AVH) Delusions: No Delusion Type: Other (no dc delusions) Suicidal: Ideation (no SI voiced) Homicidal: Ideation (no HI voiced) Insight/Judgement Very poor Labs Date/Time Procedure Status Source Growth 10/08/16 14:15 Urine Culture - Final Complete Urine Clean Catch Proteus Mirabilis Vitals/IOs Vital Signs Date Time Temp Pulse Resp B/P Pulse Ox O2 Delivery O2 Flow Rate FiO2 10/12/16 05:52 97.8 100 18 142/81 96 Intake and Output 10/11/16 10/11/16 10/12/16 08:00 16:00 00:00 Intake Total 1100 ml 600 ml Balance 1100 ml 600 ml Assessment & Plan Problem List: (1) Dementia of Alzheimer's type with behavioral disturbance ICD Code: G30.8 Assessment & Plan Estimated LOS: days patient continues demented with episodes of irritability when attempts were made to help with various activities during the day. Compliant medications. Justification for Cont. Inpt. At this time patient would severely decompensate if placed in the lower level of care Discharge Planning To be determined Request HC Surrog/Guard Advoc?: Yes Roddy Henson MD Oct 12, 2016 13:31
[2016-10-12 18:03] VITALS: BP 101/46; PULSE 104; RESP 16; O2SAT 97
[2016-10-12] MEDS: OLANZapine 10 MG TAB PO SCH (20:00)
[2016-10-12] MEDS: ACETAMINOPHEN 325 MG TAB PO PRN (20:17)
[2016-10-12] MEDS: DOCUSATE SODIUM 50 MG/SENNA 8.6 MG TAB PO SCH (20:17)
[2016-10-13 05:57] VITALS: BP 174/96; PULSE 105; RESP 16; TEMP 97.8; O2SAT 96
[2016-10-13] MEDS: INSULIN ASPART SUPPLEMENTAL SCALE SQ SCH ×4 (06:19→21:00)
[2016-10-13] MEDS: FOLIC ACID 1 MG TAB PO SCH (08:12)
[2016-10-13] MEDS: ASPIRIN 81 MG CHEW TAB CHEW SCH (08:12)
[2016-10-13] MEDS: MEMANTINE HCL 10 MG TAB PO SCH ×2 (08:12→21:51)
[2016-10-13] MEDS: MULTIVITAMINS/MINERALS THERAPEUTIC TAB PO SCH (08:12)
[2016-10-13] MEDS: LOSARTAN 50 MG TAB PO SCH (08:12)
[2016-10-13] MEDS: VALPROIC ACID SYRUP 250 MG/5 ML UDC PO SCH ×3 (08:12→21:50)
[2016-10-13] MEDS: CEFUROXIME AXETIL 250 MG TAB PO SCH ×2 (08:13→21:50)
[2016-10-13] MEDS: THIAMINE HCL 100 MG TAB PO SCH (08:13)
[2016-10-13] MEDS: LORazepam 0.5 MG TAB PO PRN (08:13)
[2016-10-13] MEDS: ACETAMINOPHEN 325 MG TAB PO PRN (08:14)
--- NOTE | 2016-10-13 17:19 | HHI.PYPN ---
Subjective Remarks Pt seen and discussed with staff. Pt has been cooperative with care. No agitation or aggression. Compliant with medications. Objective Alert: Yes [place]: Person Mood: Calm Affect: Flat Memory Intact: Comment (severe impairment) Hallucinations: Other (no AVH) Delusions: No Delusion Type: Other (no dc delusions) Suicidal: Ideation (no SI voiced) Homicidal: Ideation (no HI voiced) Insight/Judgement poor Vitals/IOs Vital Signs Date Time Temp Pulse Resp B/P Pulse Ox O2 Delivery O2 Flow Rate FiO2 10/13/16 05:57 97.8 105 16 174/96 96 Intake and Output 10/12/16 10/12/16 10/13/16 08:00 16:00 00:00 Intake Total 0 ml 1200 ml 360 ml Balance 0 ml 1200 ml 360 ml Assessment & Plan Problem List: (1) Dementia of Alzheimer's type with behavioral disturbance ICD Code: G30.8 Assessment & Plan Continue current tx plan. Estimated LOS: days Justification for Cont. Inpt. impairments in self care Request HC Surrog/Guard Advoc?: Yes Yadira Martino MD Oct 13, 2016 17:19
[2016-10-13 18:00] VITALS: BP 138/72; PULSE 111; RESP 16; O2SAT 98
[2016-10-13] MEDS: OLANZapine 10 MG TAB PO SCH (20:00)
[2016-10-13] MEDS: DOCUSATE SODIUM 50 MG/SENNA 8.6 MG TAB PO SCH (21:50)
[2016-10-14 05:07] VITALS: BP 105/62; PULSE 110; RESP 18; TEMP 98; O2SAT 95
[2016-10-14] MEDS: INSULIN ASPART SUPPLEMENTAL SCALE SQ SCH ×4 (06:07→20:28)
[2016-10-14] MEDS: CEFUROXIME AXETIL 250 MG TAB PO SCH ×2 (08:10→20:19)
[2016-10-14] MEDS: MULTIVITAMINS/MINERALS THERAPEUTIC TAB PO SCH (08:10)
[2016-10-14] MEDS: THIAMINE HCL 100 MG TAB PO SCH (08:10)
[2016-10-14] MEDS: VALPROIC ACID SYRUP 250 MG/5 ML UDC PO SCH ×2 (08:10→20:20)
[2016-10-14] MEDS: MEMANTINE HCL 10 MG TAB PO SCH ×2 (08:10→20:19)
[2016-10-14] MEDS: FOLIC ACID 1 MG TAB PO SCH (08:10)
[2016-10-14] MEDS: LOSARTAN 50 MG TAB PO SCH (08:10)
[2016-10-14] MEDS: ACETAMINOPHEN 325 MG TAB PO PRN (08:12)
[2016-10-14 15:12] VITALS: BP 105/92; PULSE 120; RESP 18; TEMP 98; O2SAT 95
--- NOTE | 2016-10-14 18:14 | HHI.PYPN ---
Subjective Remarks Pt seen and discussed with staff. Pt has been calm and cooperative with care today. No agitation or behavioral problems. Compliant with medications. Objective Alert: Yes [place]: Person Mood: Calm Affect: Flat Memory Intact: Comment (severe impairment) Hallucinations: Other (no AVH) Delusions: No Delusion Type: Other (no dc delusions) Suicidal: Ideation (no SI voiced) Homicidal: Ideation (no HI voiced) Insight/Judgement poor Vitals/IOs Vital Signs Date Time Temp Pulse Resp B/P Pulse Ox O2 Delivery O2 Flow Rate FiO2 10/14/16 15:12 98.0 120 18 105/92 95 Intake and Output 10/13/16 10/13/16 10/14/16 08:00 16:00 00:00 Intake Total 360 ml 360 ml 840 ml Balance 360 ml 360 ml 840 ml Assessment & Plan Problem List: (1) Dementia of Alzheimer's type with behavioral disturbance ICD Code: G30.8 Assessment & Plan Continue current tx plan. Estimated LOS: days Justification for Cont. Inpt. impairments in self care Request HC Surrog/Guard Advoc?: Yes Yadira Martino MD Oct 14, 2016 18:14
[2016-10-14] MEDS: OLANZapine 10 MG TAB PO SCH (20:00)
[2016-10-14] MEDS: DOCUSATE SODIUM 50 MG/SENNA 8.6 MG TAB PO SCH (20:20)
[2016-10-14 20:29] VITALS: BP 101/64; PULSE 92; RESP 20; TEMP 97.4; O2SAT 100
[2016-10-15 05:35] VITALS: BP 126/77; PULSE 84; RESP 16; TEMP 97.9; O2SAT 98
[2016-10-15] MEDS: INSULIN ASPART SUPPLEMENTAL SCALE SQ SCH ×4 (07:00→20:15)
[2016-10-15] MEDS: THIAMINE HCL 100 MG TAB PO SCH (09:00)
[2016-10-15] MEDS: ASPIRIN 81 MG CHEW TAB CHEW SCH (10:41)
[2016-10-15] MEDS: MULTIVITAMINS/MINERALS THERAPEUTIC TAB PO SCH (10:41)
[2016-10-15] MEDS: MEMANTINE HCL 10 MG TAB PO SCH ×2 (10:41→20:14)
[2016-10-15] MEDS: CEFUROXIME AXETIL 250 MG TAB PO SCH ×2 (10:41→20:14)
[2016-10-15] MEDS: LOSARTAN 50 MG TAB PO SCH (10:41)
[2016-10-15] MEDS: FOLIC ACID 1 MG TAB PO SCH (10:41)
[2016-10-15] MEDS: VALPROIC ACID SYRUP 250 MG/5 ML UDC PO SCH ×2 (10:42→20:14)
--- NOTE | 2016-10-15 12:42 | HHI.PYPN ---
Subjective Remarks Patient discussed with treatment team and patient's , and medical student Tanya, chart review, patient seen after on unit. No CVA change in patient's behavior still shows volatility irritability when being approached by staff for hygiene ADLs and assistance. Placement continues to remain quite problematic Review of Systems Except as stated in HPI: all other systems reviewed are Neg Objective Alert: Yes [place]: Person Mood: Calm Affect: Flat Memory Intact: Comment (severe impairment) Hallucinations: Other (no AVH) Delusions: No Delusion Type: Other (no dc delusions) Suicidal: Ideation (no SI voiced) Homicidal: Ideation (no HI voiced) Insight/Judgement Very poor Vitals/IOs Vital Signs Date Time Temp Pulse Resp B/P Pulse Ox O2 Delivery O2 Flow Rate FiO2 10/15/16 05:35 97.9 84 16 126/77 98 Intake and Output 10/14/16 10/14/16 10/15/16 08:00 16:00 00:00 Intake Total 0 ml 600 ml Balance 0 ml 600 ml Assessment & Plan Problem List: (1) Dementia of Alzheimer's type with behavioral disturbance ICD Code: G30.8 Assessment & Plan Estimated LOS: days patient continues demented confused with occasional behavioral issues. For now continue treatment. Placement remains problematic Justification for Cont. Inpt. At this time patient would decompensate if placed in a lower level of care Discharge Planning To be determined Request HC Surrog/Guard Advoc?: Yes Roddy Henson MD Oct 15, 2016 12:42
[2016-10-15 18:00] VITALS: BP 107/54; PULSE 97; RESP 16; O2SAT 95
[2016-10-15] MEDS: OLANZapine 10 MG TAB PO SCH (20:00)
[2016-10-15] MEDS: DOCUSATE SODIUM 50 MG/SENNA 8.6 MG TAB PO SCH (20:14)
[2016-10-16] MEDS: INSULIN ASPART SUPPLEMENTAL SCALE SQ SCH ×4 (06:08→20:13)
[2016-10-16] MEDS: MEMANTINE HCL 10 MG TAB PO SCH ×2 (08:28→20:13)
[2016-10-16] MEDS: THIAMINE HCL 100 MG TAB PO SCH (08:28)
[2016-10-16] MEDS: LOSARTAN 50 MG TAB PO SCH (08:28)
[2016-10-16] MEDS: FOLIC ACID 1 MG TAB PO SCH (08:28)
[2016-10-16] MEDS: MULTIVITAMINS/MINERALS THERAPEUTIC TAB PO SCH (08:28)
[2016-10-16] MEDS: CEFUROXIME AXETIL 250 MG TAB PO SCH ×2 (08:28→20:12)
[2016-10-16] MEDS: VALPROIC ACID SYRUP 250 MG/5 ML UDC PO SCH ×2 (08:29→20:12)
--- NOTE | 2016-10-16 10:11 | HHI.PYPN ---
Subjective Remarks Patient seen in day room with floor staff and medical student Tanya, chart review, patient continues with significant confusion, dementia with persistent anger outbursts yelling screaming and resistance when staff attempted to intervene with ADLs hygiene or other interventions. Otherwise patient compliant with medications. Placement remains problematic Review of Systems Except as stated in HPI: all other systems reviewed are Neg Objective Alert: Yes [place]: Person Mood: Calm Affect: Flat Memory Intact: Comment (severe impairment) Hallucinations: Other (no AVH) Delusions: No Delusion Type: Other (no dc delusions) Suicidal: Ideation (no SI voiced) Homicidal: Ideation (no HI voiced) Insight/Judgement Poor Vitals/IOs Vital Signs Date Time Temp Pulse Resp B/P Pulse Ox O2 Delivery O2 Flow Rate FiO2 10/15/16 18:00 97 16 107/54 95 10/15/16 05:35 97.9 Intake and Output 10/15/16 10/15/16 10/16/16 08:00 16:00 00:00 Intake Total 0 ml 840 ml 1110 ml Balance 0 ml 840 ml 1110 ml Assessment & Plan Problem List: (1) Dementia of Alzheimer's type with behavioral disturbance ICD Code: G30.8 Assessment & Plan Estimated LOS: days patient continues markedly demented, overall good behavior except with attempts made by staff to intervene with ADLs hygiene etc. Placement continues to remain problematic Justification for Cont. Inpt. This time patient will decompensate placed in the lower level of care Discharge Planning To be determined Request HC Surrog/Guard Advoc?: Yes Roddy Henson MD Oct 16, 2016 10:11
[2016-10-16] MEDS: OLANZapine 10 MG TAB PO SCH (20:00)
[2016-10-16] MEDS: DOCUSATE SODIUM 50 MG/SENNA 8.6 MG TAB PO SCH (20:11)
[2016-10-17 05:50] VITALS: BP 154/108; PULSE 104; RESP 17
[2016-10-17] MEDS: INSULIN ASPART SUPPLEMENTAL SCALE SQ SCH ×4 (06:51→20:38)
[2016-10-17] MEDS: THIAMINE HCL 100 MG TAB PO SCH (07:54)
[2016-10-17] MEDS: VALPROIC ACID SYRUP 250 MG/5 ML UDC PO SCH ×2 (07:54→20:35)
[2016-10-17] MEDS: MEMANTINE HCL 10 MG TAB PO SCH ×2 (07:55→20:35)
[2016-10-17] MEDS: ASPIRIN 81 MG CHEW TAB CHEW SCH (07:55)
[2016-10-17] MEDS: CEFUROXIME AXETIL 250 MG TAB PO SCH ×2 (07:55→20:34)
[2016-10-17] MEDS: MULTIVITAMINS/MINERALS THERAPEUTIC TAB PO SCH (07:55)
[2016-10-17] MEDS: FOLIC ACID 1 MG TAB PO SCH (07:56)
[2016-10-17] MEDS: LOSARTAN 50 MG TAB PO SCH (09:00)
--- NOTE | 2016-10-17 09:25 | HHI.PYPN ---
Subjective Remarks Patient seen in day room with nurse Marcy, chart review, patient continues with episodes of irritability and anger lability primarily associated with attempts at assistance with hygiene toileting etc. Otherwise patient continues markedly confused disoriented. Patient remains quite problematic Review of Systems Except as stated in HPI: all other systems reviewed are Neg Objective Alert: Yes [place]: Person Mood: Calm Affect: Flat Memory Intact: Comment (severe impairment) Hallucinations: Other (no AVH) Delusions: No Delusion Type: Other (no dc delusions) Suicidal: Ideation (no SI voiced) Homicidal: Ideation (no HI voiced) Insight/Judgement Very poor Vitals/IOs Vital Signs Date Time Temp Pulse Resp B/P Pulse Ox O2 Delivery O2 Flow Rate FiO2 10/17/16 05:50 104 17 154/108 10/15/16 18:00 95 10/15/16 05:35 97.9 Intake and Output 10/16/16 10/16/16 10/17/16 08:00 16:00 00:00 Intake Total 240 ml 360 ml 750 ml Balance 240 ml 360 ml 750 ml Assessment & Plan Problem List: (1) Dementia of Alzheimer's type with behavioral disturbance ICD Code: G30.8 Assessment & Plan Estimated LOS: days patient continues demented confused with episodes of irritability as mentioned above. Compliant medications. Placement remains quite problematic Justification for Cont. Inpt. At this time patient was decompensate if placed in a lower level of care Discharge Planning To be determined Request HC Surrog/Guard Advoc?: Yes Roddy Henson MD Oct 17, 2016 09:24
[2016-10-17 18:00] VITALS: BP 120/62; PULSE 97; RESP 18; TEMP 97.5; O2SAT 95
[2016-10-17] MEDS: OLANZapine 10 MG TAB PO SCH (20:00)
[2016-10-17] MEDS: DOCUSATE SODIUM 50 MG/SENNA 8.6 MG TAB PO SCH (20:34)
[2016-10-18 05:29] VITALS: BP 158/86; PULSE 102; RESP 18; TEMP 97.8; O2SAT 95
[2016-10-18] MEDS: INSULIN ASPART SUPPLEMENTAL SCALE SQ SCH ×2 (08:00→11:00)
[2016-10-18] MEDS: FOLIC ACID 1 MG TAB PO SCH (08:51)
[2016-10-18] MEDS: MEMANTINE HCL 10 MG TAB PO SCH ×2 (08:51→20:11)
[2016-10-18] MEDS: MULTIVITAMINS/MINERALS THERAPEUTIC TAB PO SCH (08:52)
[2016-10-18] MEDS: THIAMINE HCL 100 MG TAB PO SCH (08:52)
[2016-10-18] MEDS: LOSARTAN 50 MG TAB PO SCH (08:52)
[2016-10-18] MEDS: VALPROIC ACID SYRUP 250 MG/5 ML UDC PO SCH ×2 (08:53→20:12)
--- NOTE | 2016-10-18 09:03 | HHI.PYPN ---
Subjective Remarks Patient seen on unit with floor staff medical student Tanya, patient calm this morning we'll continue to show irritability when approached by staff for interventions related to hygiene coding their other issues. Compliant medications. This time placement continues to remain quite problematic Review of Systems Except as stated in HPI: all other systems reviewed are Neg Objective Alert: Yes [place]: Person Mood: Calm Affect: Flat Memory Intact: Comment (severe impairment) Hallucinations: Other (no AVH) Delusions: No Delusion Type: Other (no dc delusions) Suicidal: Ideation (no SI voiced) Homicidal: Ideation (no HI voiced) Insight/Judgement Very poor Vitals/IOs Vital Signs Date Time Temp Pulse Resp B/P Pulse Ox O2 Delivery O2 Flow Rate FiO2 10/18/16 05:29 97.8 102 18 158/86 95 Intake and Output 10/17/16 10/17/16 10/18/16 08:00 16:00 00:00 Intake Total 0 ml 1440 ml 600 ml Balance 0 ml 1440 ml 600 ml Assessment & Plan Problem List: (1) Dementia of Alzheimer's type with behavioral disturbance ICD Code: G30.8 Assessment & Plan Estimated LOS: days patient remains demented confused with episodes of inability related to interventions. Placement remains quite problematic Justification for Cont. Inpt. At this time patient will decompensate placed in the lower level of care Discharge Planning To be determined Request HC Surrog/Guard Advoc?: Yes Roddy Henson MD Oct 18, 2016 09:03
[2016-10-18 18:28] VITALS: BP 121/60; PULSE 97; RESP 16; O2SAT 100
[2016-10-18] MEDS: OLANZapine 10 MG TAB PO SCH (20:00)
[2016-10-18] MEDS: DOCUSATE SODIUM 50 MG/SENNA 8.6 MG TAB PO SCH (20:11)
[2016-10-19 05:53] VITALS: BP 144/82; PULSE 111; RESP 17; TEMP 98.3; O2SAT 96
[2016-10-19] MEDS: LOSARTAN 50 MG TAB PO SCH (09:15)
[2016-10-19] MEDS: VALPROIC ACID SYRUP 250 MG/5 ML UDC PO SCH ×2 (09:15→20:20)
[2016-10-19] MEDS: THIAMINE HCL 100 MG TAB PO SCH (09:15)
[2016-10-19] MEDS: FOLIC ACID 1 MG TAB PO SCH (09:15)
[2016-10-19] MEDS: MEMANTINE HCL 10 MG TAB PO SCH ×2 (09:15→20:20)
[2016-10-19] MEDS: MULTIVITAMINS/MINERALS THERAPEUTIC TAB PO SCH (09:15)
[2016-10-19] MEDS: ASPIRIN 81 MG CHEW TAB CHEW SCH (09:15)
--- NOTE | 2016-10-19 14:32 | HHI.PYPN ---
Subjective Remarks Patient was seen and case discussed with nursing. Patient remains largely not cooperative with exam. His compliant with her medications. Sleeping for most of the afternoon. Has not had any outbursts or labile mood. Objective Alert: Yes [place]: Person Mood: Calm Affect: Flat Memory Intact: Comment (severe impairment) Hallucinations: Other (no AVH) Delusions: No Delusion Type: Other (no dc delusions) Suicidal: Ideation (no SI voiced) Homicidal: Ideation (no HI voiced) Insight/Judgement Poor Vitals/IOs Vital Signs Date Time Temp Pulse Resp B/P Pulse Ox O2 Delivery O2 Flow Rate FiO2 10/19/16 05:53 98.3 111 17 144/82 96 Intake and Output 10/18/16 10/18/16 10/19/16 08:00 16:00 00:00 Intake Total 600 ml 720 ml Balance 600 ml 720 ml Assessment & Plan Problem List: (1) Dementia of Alzheimer's type with behavioral disturbance ICD Code: G30.8 Assessment & Plan Continue current treatment plan Justification for Cont. Inpt. Patient will decompensate in a less restrictive setting Request HC Surrog/Guard Advoc?: Yes Jarod Gibbons DO Oct 19, 2016 14:32
[2016-10-19 17:55] VITALS: PULSE 99; RESP 17; TEMP 98.5; O2SAT 97
[2016-10-19] MEDS: OLANZapine 10 MG TAB PO SCH (20:00)
[2016-10-19] MEDS: DOCUSATE SODIUM 50 MG/SENNA 8.6 MG TAB PO SCH (20:20)
[2016-10-20 06:37] VITALS: BP_SYST 165; PULSE 105; RESP 17; TEMP 97.9; O2SAT 96
[2016-10-20] MEDS: MEMANTINE HCL 10 MG TAB PO SCH ×2 (08:23→20:26)
[2016-10-20] MEDS: THIAMINE HCL 100 MG TAB PO SCH (08:23)
[2016-10-20] MEDS: VALPROIC ACID SYRUP 250 MG/5 ML UDC PO SCH ×2 (08:23→20:26)
[2016-10-20] MEDS: LOSARTAN 50 MG TAB PO SCH (08:23)
[2016-10-20] MEDS: MULTIVITAMINS/MINERALS THERAPEUTIC TAB PO SCH (08:23)
[2016-10-20] MEDS: FOLIC ACID 1 MG TAB PO SCH (08:23)
[2016-10-20 11:29] VITALS: BP 128/60; PULSE 108; RESP 18; TEMP 98.3; O2SAT 99
--- NOTE | 2016-10-20 11:42 | HHI.PYPN ---
Subjective Remarks Patient was seen and case discussed with nursing. Patient is awake but not cooperative with exam. Per nursing she is been behaving well. No outbursts or labile mood. Compliant with medications Objective Alert: Yes [place]: Person Mood: Calm Affect: Flat Memory Intact: Comment (severe impairment) Hallucinations: Other (no AVH) Delusions: No Delusion Type: Other (no dc delusions) Suicidal: Ideation (no SI voiced) Homicidal: Ideation (no HI voiced) Insight/Judgement Poor Vitals/IOs Vital Signs Date Time Temp Pulse Resp B/P Pulse Ox O2 Delivery O2 Flow Rate FiO2 10/20/16 11:29 98.3 108 18 128/60 99 Intake and Output 10/19/16 10/19/16 10/20/16 08:00 16:00 00:00 Intake Total 0 ml 960 ml 720 ml Balance 0 ml 960 ml 720 ml Assessment & Plan Problem List: (1) Dementia of Alzheimer's type with behavioral disturbance ICD Code: G30.8 Assessment & Plan Continue current treatment plan Justification for Cont. Inpt. Patient will decompensate in a less restrictive setting Request HC Surrog/Guard Advoc?: Yes Jarod Gibbons DO Oct 20, 2016 11:42
[2016-10-20 18:00] VITALS: BP 125/58; PULSE 119; RESP 17; TEMP 97.7; O2SAT 96
[2016-10-20] MEDS: OLANZapine 10 MG TAB PO SCH (20:00)
[2016-10-20] MEDS: DOCUSATE SODIUM 50 MG/SENNA 8.6 MG TAB PO SCH (20:26)
[2016-10-21 06:33] VITALS: BP 135/75; PULSE 96; RESP 16; O2SAT 95
[2016-10-21] MEDS: FOLIC ACID 1 MG TAB PO SCH (08:37)
[2016-10-21] MEDS: MEMANTINE HCL 10 MG TAB PO SCH ×2 (08:37→20:27)
[2016-10-21] MEDS: LOSARTAN 50 MG TAB PO SCH (08:37)
[2016-10-21] MEDS: MULTIVITAMINS/MINERALS THERAPEUTIC TAB PO SCH (08:37)
[2016-10-21] MEDS: THIAMINE HCL 100 MG TAB PO SCH (08:37)
[2016-10-21] MEDS: VALPROIC ACID SYRUP 250 MG/5 ML UDC PO SCH ×2 (08:38→20:27)
[2016-10-21] MEDS: ASPIRIN 81 MG CHEW TAB CHEW SCH (08:38)
--- NOTE | 2016-10-21 13:04 | HHI.PYPN ---
Subjective Remarks Patient was seen and case discussed with nursing. Patient remains not cooperative with exam. Alert and oriented 1. Poor eye contact. No outbursts. Compliant with medications Objective Alert: Yes [place]: Person Mood: Calm Affect: Flat Memory Intact: Comment (severe impairment) Hallucinations: Other (no AVH) Delusions: No Delusion Type: Other (no dc delusions) Suicidal: Ideation (no SI voiced) Homicidal: Ideation (no HI voiced) Insight/Judgement Poor Vitals/IOs Vital Signs Date Time Temp Pulse Resp B/P Pulse Ox O2 Delivery O2 Flow Rate FiO2 10/21/16 06:33 96 16 135/75 95 10/20/16 18:00 97.7 Intake and Output 10/20/16 10/20/16 10/21/16 08:00 16:00 00:00 Intake Total 0 ml 240 ml 480 ml Balance 0 ml 240 ml 480 ml Assessment & Plan Problem List: (1) Dementia of Alzheimer's type with behavioral disturbance ICD Code: G30.8 Assessment & Plan Continue current treatment plan Justification for Cont. Inpt. Patient will decompensate in a less restrictive setting Request HC Surrog/Guard Advoc?: Yes Jarod Gibbons DO Oct 21, 2016 13:04
[2016-10-21 16:27] VITALS: BP 135/80; PULSE 96; RESP 16; O2SAT 96
[2016-10-21] MEDS: OLANZapine 10 MG TAB PO SCH (20:26)
[2016-10-21] MEDS: DOCUSATE SODIUM 50 MG/SENNA 8.6 MG TAB PO SCH (20:27)
[2016-10-22 05:44] VITALS: BP 140/78; PULSE 115; RESP 18; O2SAT 94
[2016-10-22] MEDS: MULTIVITAMINS/MINERALS THERAPEUTIC TAB PO SCH (09:14)
[2016-10-22] MEDS: VALPROIC ACID SYRUP 250 MG/5 ML UDC PO SCH ×2 (09:14→20:14)
[2016-10-22] MEDS: THIAMINE HCL 100 MG TAB PO SCH (09:14)
[2016-10-22] MEDS: MEMANTINE HCL 10 MG TAB PO SCH ×2 (09:14→20:14)
[2016-10-22] MEDS: LOSARTAN 50 MG TAB PO SCH (09:14)
[2016-10-22] MEDS: FOLIC ACID 1 MG TAB PO SCH (09:14)
--- NOTE | 2016-10-22 15:42 | HHI.PYPN ---
Subjective Remarks Patient discussed with treatment team and patient's , and medical student Michelle, chart reviewed, patient seen on unit after. Patient continues markedly demented the no behavior problems except when processed for interventions related to hygiene personal-care thinks and disorder. Compliant medications. Review of Systems Except as stated in HPI: all other systems reviewed are Neg Objective Alert: Yes [place]: Person Mood: Calm Affect: Flat Memory Intact: Comment (severe impairment) Hallucinations: Other (no AVH) Delusions: No Delusion Type: Other (no dc delusions) Suicidal: Ideation (no SI voiced) Homicidal: Ideation (no HI voiced) Insight/Judgement Very poor Vitals/IOs Vital Signs Date Time Temp Pulse Resp B/P Pulse Ox O2 Delivery O2 Flow Rate FiO2 10/22/16 05:44 115 18 140/78 94 10/20/16 18:00 97.7 Intake and Output 10/21/16 10/21/16 10/22/16 08:00 16:00 00:00 Intake Total 600 ml Balance 600 ml Assessment & Plan Problem List: (1) Dementia of Alzheimer's type with behavioral disturbance ICD Code: G30.8 Assessment & Plan Estimated LOS: days patient continues demented confused, with occasional missed behaviors when approached for aid by staff Justification for Cont. Inpt. At this time patient will decompensate. Placed a lower level of care Discharge Planning To be determined Request HC Surrog/Guard Advoc?: Yes Roddy Henson MD Oct 22, 2016 15:42
[2016-10-22 19:04] VITALS: BP 147/103; PULSE 107; RESP 18; O2SAT 93
[2016-10-22] MEDS: DOCUSATE SODIUM 50 MG/SENNA 8.6 MG TAB PO SCH (20:14)
[2016-10-22] MEDS: OLANZapine 10 MG TAB PO SCH (20:15)
[2016-10-23 06:00] VITALS: BP 127/69; PULSE 92; RESP 16; TEMP 97.9; O2SAT 97
[2016-10-23] MEDS: MULTIVITAMINS/MINERALS THERAPEUTIC TAB PO SCH (09:26)
[2016-10-23] MEDS: THIAMINE HCL 100 MG TAB PO SCH (09:26)
[2016-10-23] MEDS: LOSARTAN 50 MG TAB PO SCH (09:26)
[2016-10-23] MEDS: VALPROIC ACID SYRUP 250 MG/5 ML UDC PO SCH ×2 (09:26→20:37)
[2016-10-23] MEDS: FOLIC ACID 1 MG TAB PO SCH (09:26)
[2016-10-23] MEDS: MEMANTINE HCL 10 MG TAB PO SCH ×2 (09:26→20:37)
[2016-10-23] MEDS: ASPIRIN 81 MG CHEW TAB CHEW SCH (09:26)
--- NOTE | 2016-10-23 13:24 | HHI.PYPN ---
Subjective Remarks Patient seen in dayroom with nurse Myriam and medical student Marielle, chart review, prior to my seeing patient on the unit those and episode of yelling and screaming when staff intervened to help her with some hygiene issues. The the present time she is sitting calmly dosing with her head down, though arousable to irritable issues compliant medications. For now continue treatment, placement remains problematic Review of Systems Except as stated in HPI: all other systems reviewed are Neg Objective Alert: Yes [place]: Person Mood: Calm Affect: Flat Memory Intact: Comment (severe impairment) Hallucinations: Other (no AVH) Delusions: No Delusion Type: Other (no dc delusions) Suicidal: Ideation (no SI voiced) Homicidal: Ideation (no HI voiced) Insight/Judgement Very poor Vitals/IOs Vital Signs Date Time Temp Pulse Resp B/P Pulse Ox O2 Delivery O2 Flow Rate FiO2 10/23/16 06:00 97.9 92 16 127/69 97 Intake and Output 10/22/16 10/22/16 10/23/16 08:00 16:00 00:00 Intake Total 960 ml Balance 960 ml Assessment & Plan Problem List: (1) Dementia of Alzheimer's type with behavioral disturbance ICD Code: G30.8 Assessment & Plan Estimated LOS: days patient continues to mentate, being calm most of the day with intermittent episodes of agitation associated with staff's need for interventions, ADLs, hygiene Justification for Cont. Inpt. At this time the patient would severely decompensate if placed in a lower level of care Discharge Planning To be determined Request HC Surrog/Guard Advoc?: Yes Roddy Henson MD Oct 23, 2016 13:23
[2016-10-23 18:00] VITALS: BP 136/54; PULSE 90; RESP 15; TEMP 98; O2SAT 98
[2016-10-23] MEDS: OLANZapine 10 MG TAB PO SCH (20:00)
[2016-10-23] MEDS: DOCUSATE SODIUM 50 MG/SENNA 8.6 MG TAB PO SCH (20:37)
[2016-10-24 06:14] VITALS: BP 141/66; PULSE 92; RESP 16; TEMP 97; O2SAT 100
[2016-10-24] MEDS: VALPROIC ACID SYRUP 250 MG/5 ML UDC PO SCH ×2 (07:54→20:36)
[2016-10-24] MEDS: MULTIVITAMINS/MINERALS THERAPEUTIC TAB PO SCH (07:54)
[2016-10-24] MEDS: LOSARTAN 50 MG TAB PO SCH (07:54)
[2016-10-24] MEDS: MEMANTINE HCL 10 MG TAB PO SCH ×2 (07:54→20:36)
[2016-10-24] MEDS: FOLIC ACID 1 MG TAB PO SCH (07:54)
[2016-10-24] MEDS: THIAMINE HCL 100 MG TAB PO SCH (07:55)
--- NOTE | 2016-10-24 13:34 | HHI.PYPN ---
Subjective Remarks Patient seen in dayroom the floor staff, patient calm quiet though when approached and touch to get her attention she becomes more labile and irritable. She continues to show these behaviors when staff intervenes for ADLs , hygiene etc. Compliant medications Review of Systems Except as stated in HPI: all other systems reviewed are Neg Objective Alert: Yes [place]: Person Mood: Calm Affect: Flat Memory Intact: Comment (severe impairment) Hallucinations: Other (no AVH) Delusions: No Delusion Type: Other (no dc delusions) Suicidal: Ideation (no SI voiced) Homicidal: Ideation (no HI voiced) Insight/Judgement Poor Vitals/IOs Vital Signs Date Time Temp Pulse Resp B/P Pulse Ox O2 Delivery O2 Flow Rate FiO2 10/24/16 06:14 97.0 92 16 141/66 100 Intake and Output 10/23/16 10/23/16 10/24/16 08:00 16:00 00:00 Intake Total 840 ml 0 ml Balance 840 ml 0 ml Assessment & Plan Problem List: (1) Dementia of Alzheimer's type with behavioral disturbance ICD Code: G30.8 Assessment & Plan Estimated LOS: days patient continues markedly demented and confused, with episodes of increased agitation when approached for care Justification for Cont. Inpt. At this time patient will decompensate if place to the lower level of care Discharge Planning To be determined Request HC Surrog/Guard Advoc?: Yes Roddy Henson MD Oct 24, 2016 13:34
[2016-10-24] MEDS: OLANZapine 10 MG TAB PO SCH (20:00)
[2016-10-24] MEDS: DOCUSATE SODIUM 50 MG/SENNA 8.6 MG TAB PO SCH (20:37)
[2016-10-24 22:43] VITALS: BP 135/64; PULSE 95; RESP 16; TEMP 96.6; O2SAT 94
[2016-10-25 06:00] VITALS: BP 155/70; PULSE 99; RESP 18; TEMP 98.8; O2SAT 96
[2016-10-25] MEDS: LOSARTAN 50 MG TAB PO SCH (09:24)
[2016-10-25] MEDS: MULTIVITAMINS/MINERALS THERAPEUTIC TAB PO SCH (09:24)
[2016-10-25] MEDS: MEMANTINE HCL 10 MG TAB PO SCH ×2 (09:24→20:18)
[2016-10-25] MEDS: FOLIC ACID 1 MG TAB PO SCH (09:24)
[2016-10-25] MEDS: THIAMINE HCL 100 MG TAB PO SCH (09:24)
[2016-10-25] MEDS: ASPIRIN 81 MG CHEW TAB CHEW SCH (09:24)
[2016-10-25] MEDS: VALPROIC ACID SYRUP 250 MG/5 ML UDC PO SCH ×2 (09:25→20:20)
--- NOTE | 2016-10-25 13:07 | HHI.PYPN ---
Subjective Remarks Patient seen in the max with floor staff, patient continues to show marked irritability shouting and resistance to care when approached by staff for hygiene, ADLs etc. otherwise patient will be reported when left alone to play with cars even for eating. Compliant medications. Review of Systems Except as stated in HPI: all other systems reviewed are Neg Objective Alert: Yes [place]: Person Mood: Calm Affect: Flat Memory Intact: Comment (severe impairment) Hallucinations: Other (no AVH) Delusions: No Delusion Type: Other (no dc delusions) Suicidal: Ideation (no SI voiced) Homicidal: Ideation (no HI voiced) Insight/Judgement very poor Vitals/IOs Vital Signs Date Time Temp Pulse Resp B/P Pulse Ox O2 Delivery O2 Flow Rate FiO2 10/25/16 06:00 98.8 99 18 155/70 96 Intake and Output 10/24/16 10/24/16 10/25/16 08:00 16:00 00:00 Intake Total 390 ml Balance 390 ml Assessment & Plan Problem List: (1) Dementia of Alzheimer's type with behavioral disturbance ICD Code: G30.8 Assessment & Plan Estimated LOS: 10 use severely demented and confused, her behaviors continue somewhat intermittent alternating with periods of calmness. Compliant medications. Placement remains problematic Justification for Cont. Inpt. at this time pt would decomopensate if placed in a lowerlevel of care Discharge Planning to be detemrned- Request HC Surrog/Guard Advoc?: Yes Problem Qualifiers (1) Dementia of Alzheimer's type with behavioral disturbance: Qualified Code: G30.8 - Alzheimer's disease of other onset with behavioral disturbance Roddy Henson MD Oct 25, 2016 13:07
[2016-10-25 17:57] VITALS: BP 125/58; PULSE 97; RESP 18; TEMP 97.2; O2SAT 96
[2016-10-25] MEDS: OLANZapine 10 MG TAB PO SCH (20:00)
[2016-10-25] MEDS: DOCUSATE SODIUM 50 MG/SENNA 8.6 MG TAB PO SCH (20:19)
[2016-10-26 06:20] VITALS: BP 160/82; RESP 17; TEMP 98.3
[2016-10-26] MEDS: MULTIVITAMINS/MINERALS THERAPEUTIC TAB PO SCH (09:00)
[2016-10-26] MEDS: MEMANTINE HCL 10 MG TAB PO SCH ×2 (09:00→20:40)
[2016-10-26] MEDS: THIAMINE HCL 100 MG TAB PO SCH (09:00)
[2016-10-26] MEDS: FOLIC ACID 1 MG TAB PO SCH (09:00)
[2016-10-26] MEDS: LOSARTAN 50 MG TAB PO SCH (09:00)
[2016-10-26] MEDS: VALPROIC ACID SYRUP 250 MG/5 ML UDC PO SCH ×2 (09:00→20:41)
--- NOTE | 2016-10-26 13:01 | HHI.PYPN ---
Subjective Remarks Patient seen in day room with nurse Crystal, chart review, patient continues overall calm markedly demented but no behavior problems unless intervention by staff care hygiene ADLs. Review of Systems Except as stated in HPI: all other systems reviewed are Neg Objective Alert: Yes [place]: Person Mood: Calm Affect: Flat Memory Intact: Comment (severe impairment) Hallucinations: Other (no AVH) Delusions: No Delusion Type: Other (no dc delusions) Suicidal: Ideation (no SI voiced) Homicidal: Ideation (no HI voiced) Insight/Judgement Very poor Vitals/IOs Vital Signs Date Time Temp Pulse Resp B/P Pulse Ox O2 Delivery O2 Flow Rate FiO2 10/26/16 06:20 98.3 17 160/82 10/25/16 17:57 97 96 Intake and Output 10/25/16 10/25/16 10/26/16 08:00 16:00 00:00 Intake Total 0 ml 960 ml 480 ml Balance 0 ml 960 ml 480 ml Assessment & Plan Problem List: (1) Dementia of Alzheimer's type with behavioral disturbance ICD Code: G30.8 Assessment & Plan Estimated LOS: days patient continues severely demented, with episodes of misbehavior when staff intervention is needed. Patient remains quite problematic Justification for Cont. Inpt. At this time patient would severely decompensate if placed in the lower level of care Discharge Planning To be determined Request HC Surrog/Guard Advoc?: Yes Problem Qualifiers (1) Dementia of Alzheimer's type with behavioral disturbance: Qualified Code: G30.8 - Alzheimer's disease of other onset with behavioral disturbance Roddy Henson MD Oct 26, 2016 13:01
[2016-10-26] MEDS: OLANZapine 10 MG TAB PO SCH (20:00)
[2016-10-26 20:04] VITALS: PULSE 91; RESP 17; TEMP 98.3; O2SAT 96
[2016-10-26] MEDS: DOCUSATE SODIUM 50 MG/SENNA 8.6 MG TAB PO SCH (20:40)
[2016-10-26] MEDS: ACETAMINOPHEN 325 MG TAB PO PRN (20:42)
[2016-10-27 06:22] VITALS: BP 126/81; PULSE 92; RESP 18; TEMP 98; O2SAT 100
[2016-10-27] MEDS: THIAMINE HCL 100 MG TAB PO SCH (09:45)
[2016-10-27] MEDS: MULTIVITAMINS/MINERALS THERAPEUTIC TAB PO SCH (09:45)
[2016-10-27] MEDS: FOLIC ACID 1 MG TAB PO SCH (09:45)
[2016-10-27] MEDS: ASPIRIN 81 MG CHEW TAB CHEW SCH (09:46)
[2016-10-27] MEDS: LOSARTAN 50 MG TAB PO SCH (09:46)
[2016-10-27] MEDS: MEMANTINE HCL 10 MG TAB PO SCH ×2 (09:46→20:38)
[2016-10-27] MEDS: VALPROIC ACID SYRUP 250 MG/5 ML UDC PO SCH ×2 (09:46→20:38)
[2016-10-27 18:00] VITALS: BP 121/68; PULSE 102; RESP 16; TEMP 98.2; O2SAT 95
--- NOTE | 2016-10-27 18:33 | HHI.PYPN ---
Subjective Remarks Pt seen and discussed with staff. She remains quiet and withdrawn. She gets agitated with during care activities. Pt is receiving PT. Compliant with medications. Objective Alert: Yes [place]: Person Mood: Calm Affect: Flat Memory Intact: Comment (severe impairment) Hallucinations: Other (no AVH) Delusions: No Delusion Type: Other (no dc delusions) Suicidal: Ideation (no SI voiced) Homicidal: Ideation (no HI voiced) Insight/Judgement poor Vitals/IOs Vital Signs Date Time Temp Pulse Resp B/P Pulse Ox O2 Delivery O2 Flow Rate FiO2 10/27/16 06:22 98.0 92 18 126/81 100 Intake and Output 10/26/16 10/26/16 10/27/16 08:00 16:00 00:00 Intake Total 0 ml 240 ml 0 ml Balance 0 ml 240 ml 0 ml Assessment & Plan Problem List: (1) Dementia of Alzheimer's type with behavioral disturbance ICD Code: G30.8 Assessment & Plan Continue current tx plan. Estimated LOS: days Justification for Cont. Inpt. impairments in self-care Request HC Surrog/Guard Advoc?: Yes Problem Qualifiers (1) Dementia of Alzheimer's type with behavioral disturbance: Qualified Code: G30.8 - Alzheimer's disease of other onset with behavioral disturbance Yadira Martino MD Oct 27, 2016 18:33
[2016-10-27] MEDS: OLANZapine 10 MG TAB PO SCH (20:00)
[2016-10-27] MEDS: ACETAMINOPHEN 325 MG TAB PO PRN (20:37)
[2016-10-27] MEDS: DOCUSATE SODIUM 50 MG/SENNA 8.6 MG TAB PO SCH (20:38)
[2016-10-28 05:32] VITALS: BP 111/56; PULSE 70; RESP 16; TEMP 97.9; O2SAT 96
[2016-10-28] MEDS: MULTIVITAMINS/MINERALS THERAPEUTIC TAB PO SCH (09:00)
[2016-10-28] MEDS: VALPROIC ACID SYRUP 250 MG/5 ML UDC PO SCH ×2 (09:00→20:49)
[2016-10-28] MEDS: MEMANTINE HCL 10 MG TAB PO SCH ×2 (09:00→20:50)
[2016-10-28] MEDS: LOSARTAN 50 MG TAB PO SCH (09:00)
[2016-10-28] MEDS: THIAMINE HCL 100 MG TAB PO SCH (09:00)
[2016-10-28] MEDS: FOLIC ACID 1 MG TAB PO SCH (09:00)
--- NOTE | 2016-10-28 11:49 | HHI.PYPN ---
Subjective Remarks Pt seen and discussed with staff.Pt has been calm and pleasant today. No agitation. Compliant with medications. . Objective Alert: Yes [place]: Person Mood: Calm Affect: Flat Memory Intact: Comment (severe impairment) Hallucinations: Other (no AVH) Delusions: No Delusion Type: Other (no dc delusions) Suicidal: Ideation (no SI voiced) Homicidal: Ideation (no HI voiced) Insight/Judgement poor Vitals/IOs Vital Signs Date Time Temp Pulse Resp B/P Pulse Ox O2 Delivery O2 Flow Rate FiO2 10/28/16 05:32 97.9 70 16 111/56 96 Intake and Output 10/27/16 10/27/16 10/28/16 08:00 16:00 00:00 Intake Total 240 ml 600 ml Balance 240 ml 600 ml Assessment & Plan Problem List: (1) Dementia of Alzheimer's type with behavioral disturbance ICD Code: G30.8 Assessment & Plan Continue current tx plan. Estimated LOS: days Justification for Cont. Inpt. high risk of decompensation Request HC Surrog/Guard Advoc?: Yes Problem Qualifiers (1) Dementia of Alzheimer's type with behavioral disturbance: Qualified Code: G30.8 - Alzheimer's disease of other onset with behavioral disturbance Yadira Martino MD Oct 28, 2016 11:49
[2016-10-28 18:00] VITALS: BP 136/81; PULSE 100; RESP 17; TEMP 98.1; O2SAT 96
[2016-10-28] MEDS: DOCUSATE SODIUM 50 MG/SENNA 8.6 MG TAB PO SCH (20:50)
[2016-10-28] MEDS: OLANZapine 10 MG TAB PO SCH (20:50)
[2016-10-29 04:50] VITALS: TEMP 97.1
[2016-10-29 06:14] VITALS: BP 152/86; PULSE 96; RESP 18; TEMP 97.3; O2SAT 96
[2016-10-29] MEDS: ASPIRIN 81 MG CHEW TAB CHEW SCH (09:19)
[2016-10-29] MEDS: VALPROIC ACID SYRUP 250 MG/5 ML UDC PO SCH ×2 (09:19→21:07)
[2016-10-29] MEDS: THIAMINE HCL 100 MG TAB PO SCH (09:19)
[2016-10-29] MEDS: LOSARTAN 50 MG TAB PO SCH (09:19)
[2016-10-29] MEDS: MULTIVITAMINS/MINERALS THERAPEUTIC TAB PO SCH (09:20)
[2016-10-29] MEDS: MEMANTINE HCL 10 MG TAB PO SCH ×2 (09:20→21:08)
[2016-10-29] MEDS: FOLIC ACID 1 MG TAB PO SCH (09:20)
--- NOTE | 2016-10-29 13:39 | HHI.PYPN ---
Subjective Remarks Patient discussed with treatment team and patient's . Chart review. Patient seen on unit. Patient continues to be labile irritable months and loud when being approached and assisted with various ADLs and hygiene. Otherwise patient calm diffusely confused at times playing with cards or small twice on her train Patti chair. Compliant medications Review of Systems Except as stated in HPI: all other systems reviewed are Neg Objective Alert: Yes [place]: Person Mood: Calm Affect: Flat Memory Intact: Comment (severe impairment) Hallucinations: Other (no AVH) Delusions: No Delusion Type: Other (no dc delusions) Suicidal: Ideation (no SI voiced) Homicidal: Ideation (no HI voiced) Insight/Judgement Very poor Vitals/IOs Vital Signs Date Time Temp Pulse Resp B/P Pulse Ox O2 Delivery O2 Flow Rate FiO2 10/29/16 06:14 97.3 96 18 152/86 96 Intake and Output 10/28/16 10/28/16 10/29/16 08:00 16:00 00:00 Intake Total 0 ml 240 ml 1440 ml Balance 0 ml 240 ml 1440 ml Assessment & Plan Problem List: (1) Dementia of Alzheimer's type with behavioral disturbance ICD Code: G30.8 Assessment & Plan Estimated LOS: days patient continues demented confused with episodes of dyscontrol related to assistance by staff Justification for Cont. Inpt. At this time patient will decompensate if placed in the lower level of care Discharge Planning To be determined Request HC Surrog/Guard Advoc?: Yes Problem Qualifiers (1) Dementia of Alzheimer's type with behavioral disturbance: Qualified Code: G30.8 - Alzheimer's disease of other onset with behavioral disturbance Roddy Henson MD Oct 29, 2016 13:39
[2016-10-29] MEDS: OLANZapine 10 MG TAB PO SCH (21:08)
[2016-10-29] MEDS: DOCUSATE SODIUM 50 MG/SENNA 8.6 MG TAB PO SCH (21:08)
[2016-10-30 06:00] VITALS: BP 152/67; PULSE 92; RESP 17; TEMP 97.9; O2SAT 95
[2016-10-30] MEDS: MULTIVITAMINS/MINERALS THERAPEUTIC TAB PO SCH (09:29)
[2016-10-30] MEDS: FOLIC ACID 1 MG TAB PO SCH (09:29)
[2016-10-30] MEDS: MEMANTINE HCL 10 MG TAB PO SCH ×2 (09:29→20:19)
[2016-10-30] MEDS: THIAMINE HCL 100 MG TAB PO SCH (09:29)
[2016-10-30] MEDS: VALPROIC ACID SYRUP 250 MG/5 ML UDC PO SCH ×2 (09:29→20:20)
[2016-10-30] MEDS: LOSARTAN 50 MG TAB PO SCH (09:56)
--- NOTE | 2016-10-30 15:23 | HHI.PYPN ---
Subjective Remarks Patient seen in day room with nurse Senia and medical student Marielle, patient continues to show episodes of [id number] behavior well-being approached for care by staff, otherwise she quiet calm with minimal interaction, compliant medication Review of Systems ROS Limitations: Clinical Condition, Altered Mental Status Except as stated in HPI: all other systems reviewed are Neg Objective Alert: Yes [place]: Person Mood: Agitated, Calm Affect: Labile, Flat Memory Intact: Comment (severe impairment) Hallucinations: Other (no AVH) Delusions: No Delusion Type: Other (no dc delusions) Suicidal: Ideation (no SI voiced) Homicidal: Ideation (no HI voiced) Insight/Judgement Very poor Vitals/IOs Vital Signs Date Time Temp Pulse Resp B/P Pulse Ox O2 Delivery O2 Flow Rate FiO2 10/30/16 06:00 97.9 92 17 152/67 95 Intake and Output 10/29/16 10/29/16 10/30/16 08:00 16:00 00:00 Intake Total 1200 ml 840 ml Balance 1200 ml 840 ml Assessment & Plan Problem List: (1) Dementia of Alzheimer's type with behavioral disturbance ICD Code: G30.8 Assessment & Plan Estimated LOS: days patient continues intermittently labile, demented and confused, compliant medications placement remains quite problematic Justification for Cont. Inpt. At this time patient will decompensate with placed a lower level of care Discharge Planning To be determined Request HC Surrog/Guard Advoc?: Yes Problem Qualifiers (1) Dementia of Alzheimer's type with behavioral disturbance: Qualified Code: G30.8 - Alzheimer's disease of other onset with behavioral disturbance Roddy Henson MD Oct 30, 2016 15:22
[2016-10-30 18:15] VITALS: BP 145/67; PULSE 83; RESP 17; TEMP 97.3
[2016-10-30] MEDS: OLANZapine 10 MG TAB PO SCH (20:19)
[2016-10-30] MEDS: DOCUSATE SODIUM 50 MG/SENNA 8.6 MG TAB PO SCH (20:19)
[2016-10-31 06:06] VITALS: BP 145/68; PULSE 94; RESP 18; TEMP 97.6; O2SAT 99
[2016-10-31 06:12] VITALS: BP 145/68; PULSE 94; RESP 18; TEMP 97.6; O2SAT 99
[2016-10-31] MEDS: FOLIC ACID 1 MG TAB PO SCH (08:47)
[2016-10-31] MEDS: THIAMINE HCL 100 MG TAB PO SCH (08:47)
[2016-10-31] MEDS: VALPROIC ACID SYRUP 250 MG/5 ML UDC PO SCH ×2 (08:48→22:19)
[2016-10-31] MEDS: MEMANTINE HCL 10 MG TAB PO SCH ×2 (08:48→22:19)
[2016-10-31] MEDS: MULTIVITAMINS/MINERALS THERAPEUTIC TAB PO SCH (08:48)
[2016-10-31] MEDS: ASPIRIN 81 MG CHEW TAB CHEW SCH (08:48)
[2016-10-31] MEDS: LOSARTAN 50 MG TAB PO SCH (08:50)
--- NOTE | 2016-10-31 11:04 | HHI.PYPN ---
Subjective Remarks Patient seen in day room with nurse Kyle, chart reviewed, patient continues somewhat slouched in the Patti chair making no eye contact, but mumbling basically word salad. Staff states patient was somewhat more cooperative with ADLs and hygiene last night. Though she refused PT this a.m. Review of Systems Except as stated in HPI: all other systems reviewed are Neg Objective Alert: Yes [place]: Person Mood: Agitated, Calm Affect: Labile, Flat Memory Intact: Comment (severe impairment) Hallucinations: Other (no AVH) Delusions: No Delusion Type: Other (no dc delusions) Suicidal: Ideation (no SI voiced) Homicidal: Ideation (no HI voiced) Insight/Judgement Very poor Vitals/IOs Vital Signs Date Time Temp Pulse Resp B/P Pulse Ox O2 Delivery O2 Flow Rate FiO2 10/31/16 06:12 97.6 94 18 145/68 99 Intake and Output 10/30/16 10/30/16 10/31/16 08:00 16:00 00:00 Intake Total 720 ml 600 ml Balance 720 ml 600 ml Assessment & Plan Problem List: (1) Dementia of Alzheimer's type with behavioral disturbance ICD Code: G30.8 Assessment & Plan Estimated LOS: days patient continues severely confused demented, no significant changes in her behavioral pattern related to attempts at hygiene and ADLs. Compliant medications. Placement remains quite problematic Justification for Cont. Inpt. At this time patient would decompensate placed in a lower level of care Discharge Planning To be determined Request HC Surrog/Guard Advoc?: Yes Problem Qualifiers (1) Dementia of Alzheimer's type with behavioral disturbance: Qualified Code: G30.8 - Alzheimer's disease of other onset with behavioral disturbance Roddy Henson MD Oct 31, 2016 11:04
[2016-10-31 19:32] VITALS: BP 108/100; PULSE 100; RESP 18; TEMP 99.7; O2SAT 98
[2016-10-31] MEDS: DOCUSATE SODIUM 50 MG/SENNA 8.6 MG TAB PO SCH (22:19)
[2016-10-31] MEDS: OLANZapine 10 MG TAB PO SCH (22:19)
[2016-10-31] MEDS: diphenhydrAMINE HCL 50 MG CAP PO PRN (22:20)
[2016-11-01 06:05] VITALS: BP 150/78; PULSE 96; RESP 18; TEMP 97.2; O2SAT 98
[2016-11-01] MEDS: FOLIC ACID 1 MG TAB PO SCH (09:15)
[2016-11-01] MEDS: MULTIVITAMINS/MINERALS THERAPEUTIC TAB PO SCH (09:15)
[2016-11-01] MEDS: LOSARTAN 50 MG TAB PO SCH (09:15)
[2016-11-01] MEDS: MEMANTINE HCL 10 MG TAB PO SCH ×2 (09:15→20:31)
[2016-11-01] MEDS: THIAMINE HCL 100 MG TAB PO SCH (09:15)
[2016-11-01] MEDS: VALPROIC ACID SYRUP 250 MG/5 ML UDC PO SCH ×2 (09:16→20:31)
--- NOTE | 2016-11-01 13:11 | HHI.PYPN ---
Subjective Remarks Patient seen in day room with nurse Reagan and medical student Marielle, chart reviewed. Patient somewhat calmer today playing with her cards for a while in the Patti chair, though 1 approached for assistance became more irritable. Though she did do fairly well with PT this morning Review of Systems Except as stated in HPI: all other systems reviewed are Neg Objective Alert: Yes [place]: Person Mood: Agitated, Calm Affect: Labile, Flat Memory Intact: Comment (severe impairment) Hallucinations: Other (no AVH) Delusions: No Delusion Type: Other (no dc delusions) Suicidal: Ideation (no SI voiced) Homicidal: Ideation (no HI voiced) Insight/Judgement Very poor Vitals/IOs Vital Signs Date Time Temp Pulse Resp B/P Pulse Ox O2 Delivery O2 Flow Rate FiO2 11/01/16 06:05 97.2 96 18 150/78 98 Intake and Output 10/31/16 10/31/16 11/01/16 08:00 16:00 00:00 Intake Total 120 ml 120 ml 480 ml Balance 120 ml 120 ml 480 ml Assessment & Plan Problem List: (1) Dementia of Alzheimer's type with behavioral disturbance ICD Code: G30.8 Assessment & Plan Estimated LOS: days patient continue severely demented confused, with lability of her mood related to interventions of staff, compliant medications, placement remains problematic Justification for Cont. Inpt. At this time patient will decompensate if placed a lower level of care Discharge Planning To be determined Request HC Surrog/Guard Advoc?: Yes Problem Qualifiers (1) Dementia of Alzheimer's type with behavioral disturbance: Qualified Code: G30.8 - Alzheimer's disease of other onset with behavioral disturbance Roddy Henson MD Nov 01, 2016 13:11
[2016-11-01 18:35] VITALS: BP 123/67; PULSE 101; RESP 18; TEMP 99.1; O2SAT 100
[2016-11-01] MEDS: OLANZapine 10 MG TAB PO SCH (20:00)
[2016-11-01] MEDS: DOCUSATE SODIUM 50 MG/SENNA 8.6 MG TAB PO SCH (20:31)
[2016-11-01] MEDS: ACETAMINOPHEN 325 MG TAB PO PRN (20:31)
[2016-11-02 06:32] VITALS: BP 155/73; PULSE 91; RESP 16; TEMP 98.4; O2SAT 97
--- NOTE | 2016-11-02 08:29 | HHI.PYPN ---
Subjective Remarks Patient seen in day room with nurse Reagan, patient continues quiet with no significant eye contact, though staff states she did eat breakfast. When touched to get her attention she said get away from me loud irritable voices. This is similar to her behaviors whenever she is approached for hygiene ADLs or other activities by staff compliant medication Review of Systems Except as stated in HPI: all other systems reviewed are Neg Objective Alert: Yes [place]: Person Mood: Agitated, Calm Affect: Labile, Flat Memory Intact: Comment (severe impairment) Hallucinations: Other (no AVH) Delusions: No Delusion Type: Other (no dc delusions) Suicidal: Ideation (no SI voiced) Homicidal: Ideation (no HI voiced) Insight/Judgement Very poor Vitals/IOs Vital Signs Date Time Temp Pulse Resp B/P Pulse Ox O2 Delivery O2 Flow Rate FiO2 11/02/16 06:32 98.4 91 16 155/73 97 Intake and Output 11/01/16 11/01/16 11/02/16 08:00 16:00 00:00 Intake Total 120 ml 360 ml 960 ml Balance 120 ml 360 ml 960 ml Assessment & Plan Problem List: (1) Dementia of Alzheimer's type with behavioral disturbance ICD Code: G30.8 Assessment & Plan Estimated LOS: days patient continues demented confused, with episodes of yelling screaming and resistance to care when approached by staff for care Justification for Cont. Inpt. At this time patient will decompensate if placed in a lower level of care Discharge Planning To be determined Request HC Surrog/Guard Advoc?: Yes Problem Qualifiers (1) Dementia of Alzheimer's type with behavioral disturbance: Qualified Code: G30.8 - Alzheimer's disease of other onset with behavioral disturbance Roddy Henson MD Nov 02, 2016 08:29
[2016-11-02] MEDS: MEMANTINE HCL 10 MG TAB PO SCH ×2 (08:57→20:29)
[2016-11-02] MEDS: MULTIVITAMINS/MINERALS THERAPEUTIC TAB PO SCH (08:57)
[2016-11-02] MEDS: LOSARTAN 50 MG TAB PO SCH (08:57)
[2016-11-02] MEDS: ASPIRIN 81 MG CHEW TAB CHEW SCH (08:57)
[2016-11-02] MEDS: THIAMINE HCL 100 MG TAB PO SCH (08:57)
[2016-11-02] MEDS: FOLIC ACID 1 MG TAB PO SCH (08:57)
[2016-11-02] MEDS: VALPROIC ACID SYRUP 250 MG/5 ML UDC PO SCH ×2 (08:57→20:28)
[2016-11-02 18:04] VITALS: BP 112/56; PULSE 101; RESP 16; TEMP 98; O2SAT 96
[2016-11-02] MEDS: OLANZapine 10 MG TAB PO SCH (20:00)
[2016-11-02] MEDS: DOCUSATE SODIUM 50 MG/SENNA 8.6 MG TAB PO SCH (20:29)
[2016-11-03 06:00] VITALS: BP 124/76; PULSE 92; RESP 16; TEMP 97.7; O2SAT 99
[2016-11-03] MEDS: FOLIC ACID 1 MG TAB PO SCH (09:34)
[2016-11-03] MEDS: LOSARTAN 50 MG TAB PO SCH (09:34)
[2016-11-03] MEDS: THIAMINE HCL 100 MG TAB PO SCH (09:34)
[2016-11-03] MEDS: MULTIVITAMINS/MINERALS THERAPEUTIC TAB PO SCH (09:34)
[2016-11-03] MEDS: MEMANTINE HCL 10 MG TAB PO SCH ×2 (09:34→20:15)
[2016-11-03] MEDS: VALPROIC ACID SYRUP 250 MG/5 ML UDC PO SCH ×2 (09:34→20:14)
--- NOTE | 2016-11-03 11:27 | HHI.PYPN ---
Subjective Remarks Patient was seen and case discussed with nursing. Patient is not cooperative with exam. Remains alert but oriented 1. Quiet in the unit today per nursing. Compliant with medications. Objective Alert: Yes [place]: Person Mood: Calm Affect: Flat Memory Intact: Comment (severe impairment) Hallucinations: Other (would not answer) Delusions: No Delusion Type: Other (no dc delusions) Suicidal: Ideation (would not answer) Homicidal: Ideation (not answer) Insight/Judgement Poor Vitals/IOs Vital Signs Date Time Temp Pulse Resp B/P Pulse Ox O2 Delivery O2 Flow Rate FiO2 11/03/16 06:00 97.7 92 16 124/76 99 Intake and Output 11/02/16 11/02/16 11/03/16 08:00 16:00 00:00 Intake Total 240 ml 1200 ml 720 ml Balance 240 ml 1200 ml 720 ml Assessment & Plan Problem List: (1) Dementia of Alzheimer's type with behavioral disturbance ICD Code: G30.8 Assessment & Plan Continue current treatment plan Justification for Cont. Inpt. Patient will decompensate in a less restrictive setting Request HC Surrog/Guard Advoc?: Yes Problem Qualifiers (1) Dementia of Alzheimer's type with behavioral disturbance: Qualified Code: G30.8 - Alzheimer's disease of other onset with behavioral disturbance Jarod Gibbons DO Nov 03, 2016 11:27
[2016-11-03 18:25] VITALS: BP 155/60; PULSE 108; RESP 21; TEMP 97.6; O2SAT 94
[2016-11-03] MEDS: DOCUSATE SODIUM 50 MG/SENNA 8.6 MG TAB PO SCH (20:14)
[2016-11-03] MEDS: OLANZapine 10 MG TAB PO SCH (20:15)
[2016-11-04] MEDS: diphenhydrAMINE HCL 50 MG CAP PO PRN (00:09)
[2016-11-04] MEDS: LORazepam 0.5 MG TAB PO PRN (00:09)
[2016-11-04 05:57] VITALS: BP 138/64; PULSE 100; RESP 17; TEMP 98.5; O2SAT 97
[2016-11-04] MEDS: LOSARTAN 50 MG TAB PO SCH (08:50)
[2016-11-04] MEDS: MULTIVITAMINS/MINERALS THERAPEUTIC TAB PO SCH (08:50)
[2016-11-04] MEDS: VALPROIC ACID SYRUP 250 MG/5 ML UDC PO SCH ×2 (08:50→20:58)
[2016-11-04] MEDS: MEMANTINE HCL 10 MG TAB PO SCH ×2 (08:51→20:58)
[2016-11-04] MEDS: FOLIC ACID 1 MG TAB PO SCH (08:51)
[2016-11-04] MEDS: ASPIRIN 81 MG CHEW TAB CHEW SCH (08:51)
[2016-11-04] MEDS: THIAMINE HCL 100 MG TAB PO SCH (08:51)
--- NOTE | 2016-11-04 11:41 | HHI.PYPN ---
Subjective Remarks Patient was seen and case discussed with nursing. Patient is sleeping throughout the day. She is total care. She has been quiet and behaving well. She is irritable when awoken. Alert and oriented 1. Compliant with medications Objective Alert: Yes [place]: Person Mood: Depressed Affect: Blunted Memory Intact: Comment (severe impairment) Hallucinations: Other (would not answer) Delusions: No Delusion Type: Other (no dc delusions) Suicidal: Ideation (would not answer) Homicidal: Ideation (not answer) Insight/Judgement Poor Vitals/IOs Vital Signs Date Time Temp Pulse Resp B/P Pulse Ox O2 Delivery O2 Flow Rate FiO2 11/04/16 05:57 98.5 100 17 138/64 97 Intake and Output 11/03/16 11/03/16 11/04/16 08:00 16:00 00:00 Intake Total 120 ml 960 ml Balance 120 ml 960 ml Assessment & Plan Problem List: (1) Dementia of Alzheimer's type with behavioral disturbance ICD Code: G30.8 Assessment & Plan Continue current treatment plan Justification for Cont. Inpt. Patient will decompensate in a less restrictive setting Request HC Surrog/Guard Advoc?: Yes Problem Qualifiers (1) Dementia of Alzheimer's type with behavioral disturbance: Qualified Code: G30.8 - Alzheimer's disease of other onset with behavioral disturbance Jarod Gibbons DO Nov 04, 2016 11:41
[2016-11-04 20:24] VITALS: BP 116/65; PULSE 99; RESP 20; TEMP 98.7; O2SAT 95
[2016-11-04] MEDS: DOCUSATE SODIUM 50 MG/SENNA 8.6 MG TAB PO SCH (20:58)
[2016-11-04] MEDS: OLANZapine 10 MG TAB PO SCH (20:58)
[2016-11-05 05:01] VITALS: BP 131/63; PULSE 103; RESP 17; TEMP 98.3; O2SAT 97
[2016-11-05] MEDS: MEMANTINE HCL 10 MG TAB PO SCH ×2 (08:31→20:34)
[2016-11-05] MEDS: VALPROIC ACID SYRUP 250 MG/5 ML UDC PO SCH ×2 (08:31→20:32)
[2016-11-05] MEDS: MULTIVITAMINS/MINERALS THERAPEUTIC TAB PO SCH (08:31)
[2016-11-05] MEDS: FOLIC ACID 1 MG TAB PO SCH (08:32)
[2016-11-05] MEDS: LOSARTAN 50 MG TAB PO SCH (08:32)
[2016-11-05] MEDS: THIAMINE HCL 100 MG TAB PO SCH (08:32)
--- NOTE | 2016-11-05 15:48 | HHI.PYPN ---
Subjective Remarks Patient discussed with treatment team and patient's , patient seen on unit, patient continues to have episodes of dyscontrol when approached by staff to aid with ADLs hygiene etc. Otherwise patient calm no behavioral problems that appear she spent much time with her head forward chin almost touching her sternum. Will have PT make suggestions as to how to perhaps separator inserter head up more vertically. Compliant medications Review of Systems Except as stated in HPI: all other systems reviewed are Neg Objective Alert: Yes [place]: Person Mood: Depressed Affect: Blunted Memory Intact: Comment (severe impairment) Hallucinations: Other (would not answer) Delusions: No Delusion Type: Other (no dc delusions) Suicidal: Ideation (would not answer) Homicidal: Ideation (not answer) Insight/Judgement Very poor Vitals/IOs Vital Signs Date Time Temp Pulse Resp B/P Pulse Ox O2 Delivery O2 Flow Rate FiO2 11/05/16 05:01 98.3 103 17 131/63 97 Intake and Output 11/04/16 11/04/16 11/05/16 08:00 16:00 00:00 Intake Total 0 ml 480 ml 240 ml Balance 0 ml 480 ml 240 ml Assessment & Plan Problem List: (1) Dementia of Alzheimer's type with behavioral disturbance ICD Code: G30.8 Assessment & Plan Estimated LOS: days patient continues demented confused with episodes of dyscontrol as mentioned above for now continue treatment placement remains problematic Justification for Cont. Inpt. At this time patient would decompensate and placed in a lower level of care Discharge Planning To be determined Request HC Surrog/Guard Advoc?: Yes Problem Qualifiers (1) Dementia of Alzheimer's type with behavioral disturbance: Qualified Code: G30.8 - Alzheimer's disease of other onset with behavioral disturbance Roddy Henson MD Nov 05, 2016 15:48
[2016-11-05 18:28] VITALS: BP 127/59; PULSE 87; RESP 16; TEMP 96.9; O2SAT 99
[2016-11-05] MEDS: DOCUSATE SODIUM 50 MG/SENNA 8.6 MG TAB PO SCH (20:34)
[2016-11-05] MEDS: OLANZapine 10 MG TAB PO SCH (20:34)
[2016-11-06 06:07] VITALS: BP 134/59; PULSE 88; RESP 18; TEMP 98.1; O2SAT 96
[2016-11-06] MEDS: LOSARTAN 50 MG TAB PO SCH (09:00)
[2016-11-06] MEDS: MULTIVITAMINS/MINERALS THERAPEUTIC TAB PO SCH (09:00)
[2016-11-06] MEDS: MEMANTINE HCL 10 MG TAB PO SCH ×2 (09:00→20:23)
[2016-11-06] MEDS: THIAMINE HCL 100 MG TAB PO SCH (09:00)
[2016-11-06] MEDS: FOLIC ACID 1 MG TAB PO SCH (09:00)
[2016-11-06] MEDS: ASPIRIN 81 MG CHEW TAB CHEW SCH (09:00)
[2016-11-06] MEDS: VALPROIC ACID SYRUP 250 MG/5 ML UDC PO SCH ×2 (09:00→20:22)
--- NOTE | 2016-11-06 10:04 | HHI.PYPN ---
Subjective Remarks Patient seen in day room with nurse Reagan and medical student Michelle, chart review. Patient is quite at this time though sitting slouched in a Patti chair with ejection down almost to her sternum. Attempts by me to have her lift up her head her met with resistance and irritability with some verbalizations. Will get [employer] to assess and perhaps attempt to place a [place] collar to help improve posture Review of Systems Except as stated in HPI: all other systems reviewed are Neg Objective Alert: Yes [place]: Person Mood: Depressed Affect: Blunted Memory Intact: Comment (severe impairment) Hallucinations: Other (would not answer) Delusions: No Delusion Type: Other (no dc delusions) Suicidal: Ideation (would not answer) Homicidal: Ideation (not answer) Insight/Judgement Very poor Vitals/IOs Vital Signs Date Time Temp Pulse Resp B/P Pulse Ox O2 Delivery O2 Flow Rate FiO2 11/06/16 06:07 98.1 88 18 134/59 96 Intake and Output 11/05/16 11/05/16 11/06/16 08:00 16:00 00:00 Intake Total 360 ml 240 ml 600 ml Balance 360 ml 240 ml 600 ml Assessment & Plan Problem List: (1) Dementia of Alzheimer's type with behavioral disturbance ICD Code: G30.8 Assessment & Plan Estimated LOS: days patient continues confused demented with episodes of irritability related to contact. However she also continues to show persistent postural issues with their chin down almost to her sternum will attempt to help relieve that with [employer] consulting for possible [place] collar placement Justification for Cont. Inpt. At this time patient will decompensate if placed in a lower level of care Discharge Planning To be determined Request HC Surrog/Guard Advoc?: Yes Problem Qualifiers (1) Dementia of Alzheimer's type with behavioral disturbance: Qualified Code: G30.8 - Alzheimer's disease of other onset with behavioral disturbance Roddy Henson MD Nov 06, 2016 10:04
[2016-11-06 18:00] VITALS: BP 103/59; PULSE 87; RESP 18; TEMP 97.8; O2SAT 100
[2016-11-06] MEDS: OLANZapine 10 MG TAB PO SCH (20:22)
[2016-11-06] MEDS: DOCUSATE SODIUM 50 MG/SENNA 8.6 MG TAB PO SCH (20:23)
[2016-11-07] MEDS: MULTIVITAMINS/MINERALS THERAPEUTIC TAB PO SCH (09:00)
[2016-11-07] MEDS: FOLIC ACID 1 MG TAB PO SCH (09:00)
[2016-11-07] MEDS: MEMANTINE HCL 10 MG TAB PO SCH ×2 (09:00→20:21)
[2016-11-07] MEDS: LOSARTAN 50 MG TAB PO SCH (09:00)
[2016-11-07] MEDS: VALPROIC ACID SYRUP 250 MG/5 ML UDC PO SCH ×2 (09:00→20:21)
[2016-11-07] MEDS: THIAMINE HCL 100 MG TAB PO SCH (09:00)
--- NOTE | 2016-11-07 12:29 | HHI.PYPN ---
Subjective Remarks Patient seen in the day room with nurse and family practice resident Gilbert. Patient's also with patient in day room. Patient wearing soft cervical collar though she is still somewhat leaning to her left and head flexed down towards her sternum. She is somewhat labile from calm to irritable if she is touched or aided with hygiene or other issues. Patient compliant medications. Review of Systems Except as stated in HPI: all other systems reviewed are Neg Objective Alert: Yes [place]: Person Mood: Depressed Affect: Labile Memory Intact: Comment (severe impairment) Hallucinations: Other (would not answer) Delusions: No Delusion Type: Other (no dc delusions) Suicidal: Ideation (would not answer) Homicidal: Ideation (not answer) Insight/Judgement Very poor Vitals/IOs Vital Signs Date Time Temp Pulse Resp B/P Pulse Ox O2 Delivery O2 Flow Rate FiO2 11/06/16 18:00 97.8 87 18 103/59 100 Intake and Output 11/06/16 11/06/16 11/07/16 08:00 16:00 00:00 Intake Total 480 ml 960 ml 360 ml Balance 480 ml 960 ml 360 ml Assessment & Plan Problem List: (1) Dementia of Alzheimer's type with behavioral disturbance ICD Code: G30.8 Assessment & Plan Estimated LOS: days patient continues demented, confused, labile behavior, appears to be tolerating the soft cervical collar at the present time Justification for Cont. Inpt. At this time patient was significantly deteriorate if placed in a lower level of care Discharge Planning To be determined Request HC Surrog/Guard Advoc?: Yes Problem Qualifiers (1) Dementia of Alzheimer's type with behavioral disturbance: Qualified Code: G30.8 - Alzheimer's disease of other onset with behavioral disturbance Roddy Henson MD Nov 07, 2016 12:28
[2016-11-07 18:58] VITALS: BP 120/57; PULSE 87; RESP 16; TEMP 96.9; O2SAT 94
[2016-11-07] MEDS: DOCUSATE SODIUM 50 MG/SENNA 8.6 MG TAB PO SCH (20:21)
[2016-11-07] MEDS: OLANZapine 10 MG TAB PO SCH (20:21)
[2016-11-08 06:15] VITALS: BP 123/60; PULSE 89; RESP 18; TEMP 97.9
[2016-11-08] MEDS: ASPIRIN 81 MG CHEW TAB CHEW SCH (09:00)
--- NOTE | 2016-11-08 09:43 | HHI.PYPN ---
Subjective Remarks Patient seen in dayroom with medical student Michelle. Patient now wearing a rigid cervical collar. She is tolerating it with minimal resistance. There had is up she appears to be much more aware of her surroundings she is wearing her glasses, it is noted that she is showing somewhat more independence with eating her breakfast also. Patient compliant medications. Continues markedly confused and disoriented. That appear she is responding somewhat better to visual clues in the environment with her head up Review of Systems Except as stated in HPI: all other systems reviewed are Neg Objective Alert: Yes [place]: Person Mood: Agitated, Calm, Depressed Affect: Labile Memory Intact: Comment (severe impairment) Hallucinations: Other (would not answer) Delusions: No Delusion Type: Other (no dc delusions) Suicidal: Ideation (would not answer) Homicidal: Ideation (not answer) Insight/Judgement Very poor Vitals/IOs Vital Signs Date Time Temp Pulse Resp B/P Pulse Ox O2 Delivery O2 Flow Rate FiO2 11/08/16 06:15 97.9 89 18 123/60 11/07/16 18:58 94 Intake and Output 11/07/16 11/07/16 11/08/16 08:00 16:00 00:00 Intake Total 480 ml 840 ml 360 ml Output Total 3 ml Balance 477 ml 840 ml 360 ml Assessment & Plan Problem List: (1) Dementia of Alzheimer's type with behavioral disturbance ICD Code: G30.8 Assessment & Plan Estimated LOS: days patient continues severely demented and confused, that appears to be somewhat more aware of her surroundings wearing the cervical collar allowing the head to be upright so she can visualize better with her glasses on. She still has labile behavior when being assisted with various ADL and hygiene functions Justification for Cont. Inpt. At this time patient would severely decompensate if placed in the lower level of care Discharge Planning To be determined Request HC Surrog/Guard Advoc?: Yes Problem Qualifiers (1) Dementia of Alzheimer's type with behavioral disturbance: Qualified Code: G30.8 - Alzheimer's disease of other onset with behavioral disturbance Roddy Henson MD Nov 08, 2016 09:43
[2016-11-08] MEDS: VALPROIC ACID SYRUP 250 MG/5 ML UDC PO SCH ×2 (09:56→20:16)
[2016-11-08] MEDS: FOLIC ACID 1 MG TAB PO SCH (09:57)
[2016-11-08] MEDS: MEMANTINE HCL 10 MG TAB PO SCH ×2 (09:57→20:16)
[2016-11-08] MEDS: OLANZapine 10 MG TAB PO SCH (09:57)
[2016-11-08] MEDS: MULTIVITAMINS/MINERALS THERAPEUTIC TAB PO SCH (09:57)
[2016-11-08] MEDS: THIAMINE HCL 100 MG TAB PO SCH (09:57)
[2016-11-08] MEDS: LOSARTAN 50 MG TAB PO SCH (09:57)
[2016-11-08 18:22] VITALS: BP 125/75; PULSE 71; RESP 18; TEMP 97.3; O2SAT 98
[2016-11-08] MEDS: ACETAMINOPHEN 325 MG TAB PO PRN (20:16)
[2016-11-08] MEDS: DOCUSATE SODIUM 50 MG/SENNA 8.6 MG TAB PO SCH (20:17)
[2016-11-09 05:14] VITALS: BP 197/86; PULSE 97; RESP 18; TEMP 98.1; O2SAT 95
[2016-11-09 06:07] VITALS: BP 143/89
[2016-11-09 08:00] VITALS: BP 131/63; PULSE 91; RESP 17
[2016-11-09] MEDS: MEMANTINE HCL 10 MG TAB PO SCH ×2 (09:11→20:03)
[2016-11-09] MEDS: VALPROIC ACID SYRUP 250 MG/5 ML UDC PO SCH ×2 (09:11→20:03)
[2016-11-09] MEDS: THIAMINE HCL 100 MG TAB PO SCH (09:11)
[2016-11-09] MEDS: MULTIVITAMINS/MINERALS THERAPEUTIC TAB PO SCH (09:11)
[2016-11-09] MEDS: FOLIC ACID 1 MG TAB PO SCH (09:11)
[2016-11-09] MEDS: LOSARTAN 50 MG TAB PO SCH (09:11)
--- NOTE | 2016-11-09 10:05 | HHI.PYPN ---
Subjective Remarks Patient seen in day room with nurse Castro. Of interest with the patient wearing the [place] collar it appears the patient showing more interest and awareness of her surroundings. Appears at times to make attempts to be more communicative. Though she essentially is showing the same cognitive deficits and dementia as prior. She tolerated the adjustment of the collar with minimal resistance. Patient compliant medications Review of Systems Except as stated in HPI: all other systems reviewed are Neg Objective Alert: Yes [place]: Person Mood: Agitated, Calm, Depressed Affect: Labile Memory Intact: Comment (severe impairment) Hallucinations: Other (would not answer) Delusions: No Delusion Type: Other (no dc delusions) Suicidal: Ideation (would not answer) Homicidal: Ideation (not answer) Insight/Judgement Very poor Vitals/IOs Vital Signs Date Time Temp Pulse Resp B/P Pulse Ox O2 Delivery O2 Flow Rate FiO2 11/09/16 08:00 91 17 131/63 11/09/16 05:14 98.1 95 Intake and Output 11/08/16 11/08/16 11/09/16 08:00 16:00 00:00 Intake Total 840 ml Balance 840 ml Assessment & Plan Problem List: (1) Dementia of Alzheimer's type with behavioral disturbance ICD Code: G30.8 Assessment & Plan Patient continues demented increased irritability at times and being approached for various staff interventions. Though she appears to be adjusting to the [place] collar and a positive manner with awareness of her environment Estimated LOS: days Justification for Cont. Inpt. At this time patient will decompensate the placed in the lower level of care Discharge Planning To be determined Request HC Surrog/Guard Advoc?: Yes Problem Qualifiers (1) Dementia of Alzheimer's type with behavioral disturbance: Qualified Code: G30.8 - Alzheimer's disease of other onset with behavioral disturbance Roddy Henson MD Nov 09, 2016 10:05
[2016-11-09 18:28] VITALS: BP 118/55; PULSE 100; RESP 17; TEMP 98.9; O2SAT 95
[2016-11-09] MEDS: DOCUSATE SODIUM 50 MG/SENNA 8.6 MG TAB PO SCH (20:03)
[2016-11-09] MEDS: OLANZapine 10 MG TAB PO SCH (20:03)
[2016-11-09] MEDS: ACETAMINOPHEN 325 MG TAB PO PRN (20:03)
[2016-11-10 05:50] VITALS: BP 141/67; PULSE 90; RESP 17; TEMP 98.2; O2SAT 93
[2016-11-10] MEDS: THIAMINE HCL 100 MG TAB PO SCH (09:00)
[2016-11-10] MEDS: ASPIRIN 81 MG CHEW TAB CHEW SCH (09:00)
[2016-11-10] MEDS: MEMANTINE HCL 10 MG TAB PO SCH ×2 (09:00→20:34)
[2016-11-10] MEDS: VALPROIC ACID SYRUP 250 MG/5 ML UDC PO SCH ×2 (09:00→20:34)
[2016-11-10] MEDS: LOSARTAN 50 MG TAB PO SCH (09:00)
[2016-11-10] MEDS: FOLIC ACID 1 MG TAB PO SCH (09:00)
[2016-11-10] MEDS: MULTIVITAMINS/MINERALS THERAPEUTIC TAB PO SCH (09:00)
--- NOTE | 2016-11-10 13:23 | HHI.PYPN ---
Subjective Remarks Pt seen and discussed with staff. She has been compliant with medications. She has been calm and pleasant. She still gets agitated with care (yelling and screaming) but otherwise is calm. Cognitive impairment remains. Pt interacts very minimally with MD. Review of Systems Psychiatric: COMPLAINS OF: Confusion Objective Alert: Yes [place]: Person Mood: Calm Affect: Flat Memory Intact: Comment (severe impairment) Hallucinations: Other (none elicited) Delusions: No Delusion Type: Other (none evident) Suicidal: Ideation (none elicited) Homicidal: Ideation (none elicited) Insight/Judgement poor Vitals/IOs Vital Signs Date Time Temp Pulse Resp B/P Pulse Ox O2 Delivery O2 Flow Rate FiO2 11/10/16 05:50 98.2 90 17 141/67 93 Intake and Output 11/09/16 11/09/16 11/10/16 08:00 16:00 00:00 Intake Total 120 ml 1880 ml Balance 120 ml 1880 ml Assessment & Plan Problem List: (1) Dementia of Alzheimer's type with behavioral disturbance ICD Code: G30.8 Assessment & Plan Continue current tx plan. Estimated LOS: days Justification for Cont. Inpt. risk of decompensation Request HC Surrog/Guard Advoc?: Yes Problem Qualifiers (1) Dementia of Alzheimer's type with behavioral disturbance: Qualified Code: G30.8 - Alzheimer's disease of other onset with behavioral disturbance Yadira Martino MD Nov 10, 2016 13:23
[2016-11-10 17:54] VITALS: BP 123/57; PULSE 100; RESP 18; TEMP 98.2; O2SAT 94
[2016-11-10] MEDS: OLANZapine 10 MG TAB PO SCH (20:00)
[2016-11-10] MEDS: DOCUSATE SODIUM 50 MG/SENNA 8.6 MG TAB PO SCH (20:34)
[2016-11-11 06:00] VITALS: BP 155/67; PULSE 94; RESP 16; TEMP 98; O2SAT 98
[2016-11-11] MEDS: MULTIVITAMINS/MINERALS THERAPEUTIC TAB PO SCH (08:07)
[2016-11-11] MEDS: VALPROIC ACID SYRUP 250 MG/5 ML UDC PO SCH ×2 (08:07→20:09)
[2016-11-11] MEDS: THIAMINE HCL 100 MG TAB PO SCH (08:07)
[2016-11-11] MEDS: MEMANTINE HCL 10 MG TAB PO SCH ×2 (08:07→20:09)
[2016-11-11] MEDS: LOSARTAN 50 MG TAB PO SCH (08:07)
[2016-11-11] MEDS: FOLIC ACID 1 MG TAB PO SCH (08:07)
--- NOTE | 2016-11-11 14:13 | HHI.PYPN ---
Subjective Remarks Pt seen and discussed with staff. She has been calm and cooperative. She took medications without difficulty and fed herself breakfast today. She has been napping off and on. Today she engages more in interview with MD. No agitation today. Objective Alert: Yes [place]: Person Mood: Calm Affect: Flat Memory Intact: Comment (severe impairment) Hallucinations: Other (none elicited) Delusions: No Delusion Type: Other (none evident) Suicidal: Ideation (none elicited) Homicidal: Ideation (none elicited) Insight/Judgement poor Vitals/IOs Vital Signs Date Time Temp Pulse Resp B/P Pulse Ox O2 Delivery O2 Flow Rate FiO2 11/11/16 06:00 98.0 94 16 155/67 98 Intake and Output 11/10/16 11/10/16 11/11/16 08:00 16:00 00:00 Intake Total 360 ml 1440 ml Balance 360 ml 1440 ml Assessment & Plan Problem List: (1) Dementia of Alzheimer's type with behavioral disturbance ICD Code: G30.8 Assessment & Plan Continue current tx plan. Justification for Cont. Inpt. risk of decompensation Request HC Surrog/Guard Advoc?: Yes Problem Qualifiers (1) Dementia of Alzheimer's type with behavioral disturbance: Qualified Code: G30.8 - Alzheimer's disease of other onset with behavioral disturbance Yadira Martino MD Nov 11, 2016 14:13
[2016-11-11 18:06] VITALS: BP 147/59; PULSE 96; RESP 17; TEMP 97.7; O2SAT 99
[2016-11-11] MEDS: OLANZapine 10 MG TAB PO SCH (20:00)
[2016-11-11] MEDS: DOCUSATE SODIUM 50 MG/SENNA 8.6 MG TAB PO SCH (20:09)
[2016-11-12 05:38] VITALS: BP 133/62; PULSE 92; RESP 18; TEMP 98.1; O2SAT 97
[2016-11-12] MEDS: MULTIVITAMINS/MINERALS THERAPEUTIC TAB PO SCH (09:35)
[2016-11-12] MEDS: FOLIC ACID 1 MG TAB PO SCH (09:35)
[2016-11-12] MEDS: MEMANTINE HCL 10 MG TAB PO SCH ×2 (09:35→20:24)
[2016-11-12] MEDS: THIAMINE HCL 100 MG TAB PO SCH (09:35)
[2016-11-12] MEDS: ASPIRIN 81 MG CHEW TAB CHEW SCH (09:35)
[2016-11-12] MEDS: VALPROIC ACID SYRUP 250 MG/5 ML UDC PO SCH ×2 (09:35→20:23)
[2016-11-12] MEDS: LOSARTAN 50 MG TAB PO SCH (09:35)
--- NOTE | 2016-11-12 14:42 | HHI.PYPN ---
Subjective Remarks Patient discussed with treatment team and patient's , patient seen on unit, patient continues to have irritability when approached by staff with various interventions. she appears also to be coping with the rigid cervical collar. Showing more alertness and awareness of her environment. also feels she is doing better with the collar on. For now continue treatment Review of Systems Except as stated in HPI: all other systems reviewed are Neg Objective Alert: Yes [place]: Person Mood: Calm Affect: Flat Memory Intact: Comment (severe impairment) Hallucinations: Other (none elicited) Delusions: No Delusion Type: Other (none evident) Suicidal: Ideation (none elicited) Homicidal: Ideation (none elicited) Insight/Judgement Poor Vitals/IOs Vital Signs Date Time Temp Pulse Resp B/P Pulse Ox O2 Delivery O2 Flow Rate FiO2 11/12/16 05:38 98.1 92 18 133/62 97 Intake and Output 11/11/16 11/11/16 11/12/16 08:00 16:00 00:00 Intake Total 880 ml 720 ml Balance 880 ml 720 ml Assessment & Plan Problem List: (1) Dementia of Alzheimer's type with behavioral disturbance ICD Code: G30.8 Assessment & Plan Estimated LOS: days patient continues confused and demented, appears to be showing some mild positive responses to the rigid cervical collar. For now continue treatment Justification for Cont. Inpt. At this time patient will decompensate with placed in a lower level of care Discharge Planning To be determined Request HC Surrog/Guard Advoc?: Yes Problem Qualifiers (1) Dementia of Alzheimer's type with behavioral disturbance: Qualified Code: G30.8 - Alzheimer's disease of other onset with behavioral disturbance Roddy Henson MD Nov 12, 2016 14:42
[2016-11-12 18:43] VITALS: BP 135/68; PULSE 94; RESP 18; TEMP 98.3; O2SAT 98
[2016-11-12] MEDS: DOCUSATE SODIUM 50 MG/SENNA 8.6 MG TAB PO SCH (20:23)
[2016-11-12] MEDS: OLANZapine 10 MG TAB PO SCH (20:24)
[2016-11-13 06:02] VITALS: BP 134/79; PULSE 101; RESP 18; TEMP 98; O2SAT 96
--- NOTE | 2016-11-13 08:38 | HHI.PYPN ---
Subjective Remarks Patient seen in day room with nurse Castro, chart review, patient compliant medications. Continues to wear her rigid cervical collar without significant problems. Patient did eat breakfast well this morning, the now is slumped over dosing. Though arousable with some irritability. Will decrease a.m. Zyprexa to 10 mg Review of Systems Except as stated in HPI: all other systems reviewed are Neg Objective Alert: Yes [place]: Person Mood: Agitated (at times when approached for care by staff), Calm Affect: Labile (at times), Flat Memory Intact: Comment (severe impairment) Hallucinations: Other (none elicited) Delusions: No Delusion Type: Other (none evident) Suicidal: Ideation (none elicited) Homicidal: Ideation (none elicited) Insight/Judgement Very poor Vitals/IOs Vital Signs Date Time Temp Pulse Resp B/P Pulse Ox O2 Delivery O2 Flow Rate FiO2 11/13/16 06:02 98.0 101 18 134/79 96 Intake and Output 11/12/16 11/12/16 11/13/16 08:00 16:00 00:00 Intake Total 600 ml Balance 600 ml Assessment & Plan Problem List: (1) Dementia of Alzheimer's type with behavioral disturbance ICD Code: G30.8 Assessment & Plan Estimated LOS: days patient continues confused and demented, continues with episodes of irritability when approached by staff for hygiene and other care issues. Is coping with rigid collar without problems Justification for Cont. Inpt. At this time patient will decompensate if placed in a lower level of care Discharge Planning To be determined Request HC Surrog/Guard Advoc?: Yes Problem Qualifiers (1) Dementia of Alzheimer's type with behavioral disturbance: Qualified Code: G30.8 - Alzheimer's disease of other onset with behavioral disturbance Roddy Henson MD Nov 13, 2016 08:38
[2016-11-13] MEDS: FOLIC ACID 1 MG TAB PO SCH (09:00)
[2016-11-13] MEDS: VALPROIC ACID SYRUP 250 MG/5 ML UDC PO SCH ×2 (09:23→20:22)
[2016-11-13] MEDS: LOSARTAN 50 MG TAB PO SCH (09:24)
[2016-11-13] MEDS: MULTIVITAMINS/MINERALS THERAPEUTIC TAB PO SCH (09:24)
[2016-11-13] MEDS: THIAMINE HCL 100 MG TAB PO SCH (09:24)
[2016-11-13] MEDS: MEMANTINE HCL 10 MG TAB PO SCH ×2 (09:24→20:22)
[2016-11-13 20:10] VITALS: BP 139/83; PULSE 105; RESP 16; TEMP 97.9; O2SAT 95
[2016-11-13] MEDS: OLANZapine 10 MG TAB PO SCH (20:21)
[2016-11-13] MEDS: DOCUSATE SODIUM 50 MG/SENNA 8.6 MG TAB PO SCH (20:21)
[2016-11-14 05:49] VITALS: BP 144/64; PULSE 88; RESP 17; TEMP 97.1; O2SAT 93
[2016-11-14] MEDS: VALPROIC ACID SYRUP 250 MG/5 ML UDC PO SCH ×2 (08:12→20:37)
[2016-11-14] MEDS: THIAMINE HCL 100 MG TAB PO SCH (08:12)
[2016-11-14] MEDS: MEMANTINE HCL 10 MG TAB PO SCH ×2 (08:13→20:38)
[2016-11-14] MEDS: ASPIRIN 81 MG CHEW TAB CHEW SCH (08:13)
[2016-11-14] MEDS: MULTIVITAMINS/MINERALS THERAPEUTIC TAB PO SCH (08:13)
[2016-11-14] MEDS: LOSARTAN 50 MG TAB PO SCH (08:13)
[2016-11-14] MEDS: FOLIC ACID 1 MG TAB PO SCH (09:00)
--- NOTE | 2016-11-14 11:36 | HHI.PYPN ---
Subjective Remarks Patient discussed patient's treatment medications placement issues discharge plans with treatment team, chart review, seen on unit. Patient continues to show irritability lability when approached by staff for hygiene ADLs etc. Patient's also here to assist with lunch. Patient compliant medications. For now continue treatment Review of Systems Except as stated in HPI: all other systems reviewed are Neg Objective Alert: Yes [place]: Person Mood: Agitated (at times when approached for care by staff), Calm Affect: Labile (at times), Flat Memory Intact: Comment (severe impairment) Hallucinations: Other (none elicited) Delusions: No Delusion Type: Other (none evident) Suicidal: Ideation (none elicited) Homicidal: Ideation (none elicited) Insight/Judgement Poor Vitals/IOs Vital Signs Date Time Temp Pulse Resp B/P Pulse Ox O2 Delivery O2 Flow Rate FiO2 11/14/16 05:49 97.1 88 17 144/64 93 Intake and Output 11/13/16 11/13/16 11/14/16 08:00 16:00 00:00 Intake Total 360 ml 630 ml Balance 360 ml 630 ml Assessment & Plan Problem List: (1) Dementia of Alzheimer's type with behavioral disturbance ICD Code: G30.8 Assessment & Plan Estimated LOS: days patient continues demented with episodes of irritability as mentioned above. Compliant medications. For now continue treatment Justification for Cont. Inpt. At this time patient will decompensate if place to the lower level of care Discharge Planning To be determined Request HC Surrog/Guard Advoc?: Yes Problem Qualifiers (1) Dementia of Alzheimer's type with behavioral disturbance: Qualified Code: G30.8 - Alzheimer's disease of other onset with behavioral disturbance Roddy Henson MD Nov 14, 2016 11:36
[2016-11-14 19:50] VITALS: BP 124/65; PULSE 95; RESP 18; TEMP 98.1; O2SAT 98
[2016-11-14] MEDS: OLANZapine 10 MG TAB PO SCH (20:38)
[2016-11-14] MEDS: DOCUSATE SODIUM 50 MG/SENNA 8.6 MG TAB PO SCH (20:38)
[2016-11-15 05:19] VITALS: BP 132/86; PULSE 94; RESP 18; TEMP 97.7; O2SAT 94
[2016-11-15] MEDS: THIAMINE HCL 100 MG TAB PO SCH (08:07)
[2016-11-15] MEDS: LOSARTAN 50 MG TAB PO SCH (08:07)
[2016-11-15] MEDS: MEMANTINE HCL 10 MG TAB PO SCH ×2 (08:08→20:23)
[2016-11-15] MEDS: MULTIVITAMINS/MINERALS THERAPEUTIC TAB PO SCH (08:08)
[2016-11-15] MEDS: VALPROIC ACID SYRUP 250 MG/5 ML UDC PO SCH ×2 (08:08→20:23)
[2016-11-15] MEDS: FOLIC ACID 1 MG TAB PO SCH (08:17)
--- NOTE | 2016-11-15 10:48 | HHI.PR ---
Subjective Remarks Reconsult for medical management Follow-up acute kidney injury. Patient is sitting in chair in chair in inpatient psychiatric center able to follow a few commands not able to provide any meaningful information. Patient is resting but able to awake to voice offers no specific complaints does not appear to be in distress. Discussed with RN reports patient appears to be at baseline offers no concerns. Left message with Dr. Hinton awaiting return call Objective Vitals Vital Signs Date Time Temp Pulse Resp B/P Pulse Ox O2 Delivery O2 Flow Rate FiO2 11/15/16 05:19 97.7 94 18 132/86 94 11/14/16 19:50 98.1 95 18 124/65 98 I/O 11/14/16 11/14/16 11/14/16 11/15/16 11/15/16 11/15/16 07:00 15:00 23:00 07:00 15:00 23:00 Intake Total 360 ml 0 ml Output Total 1 ml Balance 359 ml 0 ml Intake Oral 360 ml 0 ml Output Urine Total 1 ml # Voids 3 2 Imaging Last Impressions Chest X-Ray 10/09/16 0000 Signed Impressions: Service Date/Time: Sunday, October 09, 2016 12:24 - CONCLUSION: 1. No acute cardiopulmonary findings. Vince Salcido MD Shoulder X-Ray 08/01/16 0000 Signed Impressions: Service Date/Time: Monday, August 01, 2016 12:50 - CONCLUSION: Unremarkable limited examination of the right shoulder. Jigar Treviño MD Knee X-Ray 08/01/16 0000 Signed Impressions: Service Date/Time: Monday, August 01, 2016 12:52 - CONCLUSION: 1. No fracture or dislocation. 2. Advanced tricompartmental osteoarthritis. 3. Osteopenia. Alejandro Felder Jr., MD Hip and Pelvis X-Ray 08/01/16 0000 Signed Impressions: Service Date/Time: Monday, August 01, 2016 12:50 - CONCLUSION: Mild degenerative changes of the hip joint. Bursal calcification about the greater trochanter Jigar Treviño MD Brain MRI 08/01/16 0000 Signed Impressions: Service Date/Time: Monday, August 01, 2016 13:03 - CONCLUSION: 1. No acute intracranial abnormality. 2. Chronic small vessel ischemic change. Alejandro Felder Jr., MD Head CT 07/26/16 0000 Signed Impressions: Service Date/Time: July 23:45 - CONCLUSION: 1. No acute intracranial abnormality. 2. Atrophy. Roddy Huerta MD Objective Remarks GENERAL: This is thin appearing, elderly patient, in no apparent distress. CARDIOVASCULAR: Regular rate and rhythm without murmurs, gallops, or rubs. RESPIRATORY: Clear to auscultation. Breath sounds equal bilaterally. No wheezes , rales, or rhonchi. GASTROINTESTINAL: Abdomen soft, non-tender, nondistended. Normal active bowel sounds MUSCULOSKELETAL: Extremities without clubbing, cyanosis, or edema. NEURO: Drowsy able to awake with voice, confused. Does not follow commands. Procedures none A/P Problem List: (1) UNSPECIFIED DEMENTIA WITH BEHAVIORAL DISTURBANCE ICD Code: F03.91 Status: Acute (2) Psychosis ICD Code: F29 Status: Acute (3) HTN (hypertension) ICD Code: I10 Status: Chronic (4) UTI (urinary tract infection) ICD Code: N39.0 Status: Resolved Assessment and Plan This an 89-year-old female patient alert to person only currently [facility] we've been consulted for assistance with medical management of condition. 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 History of Acute kidney injury secondary to infection and medications. Discontinue thiazide and metformin. Encourage oral intake. Repeat BMP pending Dementia with behavior disturbance-management per primary team Diabetes mellitus A1c 5.2 -Discontinue metformin 500 mg daily secondary to acute kidney injury - Accu-Cheks before meals at bedtime with Sliding scale insulin coverage have been discontinued as patient was not requiring insulin coverage - Diabetic diet DVT prophylaxis early ambulation Discussed with patient, nursing Discussed with nursing staff and Dr. Jovel and Dr. Hinton Written by Magaly Cannon, acting as scribe for Dr. Garvin on 11/15/16 at 10:47. All or portions of this note were transcribed by scriblast Cannon. I, Dr. Yuri Garvin personally performed the history, physical exam, and medical decision making; and confirmed the accuracy of the information in the transcribed note. Authenticated by Dr. Yuri Garvin on 11/15/16 at 14:18. Discharge Planning If pending labs stable, we will sign off Problem Qualifiers (1) Psychosis: Qualified Code: F29 - Psychosis, unspecified psychosis type Magaly Cannon Nov 15, 2016 10:47 Yuri Garvin MD Nov 15, 2016 14:18
--- NOTE | 2016-11-15 10:57 | HHI.PYPN ---
Subjective Remarks Patient seen in dayroom with floor staff, patient wearing her rigid cervical collar. This is a long-acting be more upright. She is somewhat calmer though still irritable when approached. For now continue treatment Review of Systems Except as stated in HPI: all other systems reviewed are Neg Objective Alert: Yes [place]: Person Mood: Agitated (at times when approached for care by staff), Calm Affect: Labile (at times), Flat Memory Intact: Comment (severe impairment) Hallucinations: Other (none elicited) Delusions: No Delusion Type: Other (none evident) Suicidal: Ideation (none elicited) Homicidal: Ideation (none elicited) Insight/Judgement Very poor Vitals/IOs Vital Signs Date Time Temp Pulse Resp B/P Pulse Ox O2 Delivery O2 Flow Rate FiO2 11/15/16 05:19 97.7 94 18 132/86 94 Intake and Output 11/14/16 11/14/16 11/15/16 08:00 16:00 00:00 Intake Total 360 ml Output Total 1 ml Balance 359 ml Assessment & Plan Problem List: (1) Dementia of Alzheimer's type with behavioral disturbance ICD Code: G30.8 Assessment & Plan Estimated LOS: days patient continues demented with episodes of irritability and difficulty related to staff interventions and assistances. The rigid cervical collar appears to be helping her with her posture and her reaction to her environment Justification for Cont. Inpt. At this time patient will decompensate if placed in a lower level of care Discharge Planning To be determined Request HC Surrog/Guard Advoc?: Yes Problem Qualifiers (1) Dementia of Alzheimer's type with behavioral disturbance: Qualified Code: G30.8 - Alzheimer's disease of other onset with behavioral disturbance Roddy Henson MD Nov 15, 2016 10:57
[2016-11-15 18:33] VITALS: BP 118/57; PULSE 96; RESP 16; TEMP 98.3; O2SAT 95
[2016-11-15] MEDS: DOCUSATE SODIUM 50 MG/SENNA 8.6 MG TAB PO SCH (20:24)
[2016-11-15] MEDS: ACETAMINOPHEN 325 MG TAB PO PRN (20:24)
[2016-11-15] MEDS: OLANZapine 10 MG TAB PO SCH (20:24)
[2016-11-16 05:56] VITALS: BP 94/72; PULSE 91; RESP 18; TEMP 98.9
[2016-11-16] MEDS: MEMANTINE HCL 10 MG TAB PO SCH ×2 (08:45→20:39)
[2016-11-16] MEDS: THIAMINE HCL 100 MG TAB PO SCH (08:46)
[2016-11-16] MEDS: ASPIRIN 81 MG CHEW TAB CHEW SCH (08:46)
[2016-11-16] MEDS: VALPROIC ACID SYRUP 250 MG/5 ML UDC PO SCH ×2 (08:46→20:39)
[2016-11-16] MEDS: LOSARTAN 50 MG TAB PO SCH (08:46)
[2016-11-16] MEDS: MULTIVITAMINS/MINERALS THERAPEUTIC TAB PO SCH (08:46)
[2016-11-16] MEDS: FOLIC ACID 1 MG TAB PO SCH (08:46)
[2016-11-16 09:35] LABS: ALKALINE PHOSPHATASE 76 U/L (45-117); ALT (GPT) 19 U/L (10-53); ANION GAP 6 MEQ/L (5-15); AST (GOT) 20 U/L (15-37); BICARBONATE 33.4 MEQ/L (21.0-32.0); BLOOD UREA NITROGEN 25 MG/DL (7-18); CHLORIDE 101 MEQ/L (98-107); GLOMERULAR FILTRATION RATE 83 ML/MIN (>89); SODIUM (NA) 140 MEQ/L (136-145); TOTAL BILIRUBIN ADULT 0.3 MG/DL (0.2-1.0)
[2016-11-16 09:37] LABS: HDL CHOLESTEROL 39.7 MG/DL (40.0-60.0); LDL CHOLESTEROL 116 MG/DL (0-99)
[2016-11-16 13:39] LABS: HEMOGLOBIN A1a 0.9 %; HEMOGLOBIN A1b 1.4 %; HEMOGLOBIN Ao 86.8 %; HEMOGLOBIN LA1C 1.8 %; HEMOGLOBIN P3 3.6 %
--- NOTE | 2016-11-16 14:23 | HHI.PR ---
Blank section for building Patient appears medically stable will sign off. Recommend patient follow up with PCP after discharge The patient's condition changes or further assistance is needed please reconsult (Magaly Cannon) Magaly Cannon Nov 16, 2016 14:23 Manuel Bravo MD Nov 16, 2016 15:39
--- NOTE | 2016-11-16 14:32 | HHI.PYPN ---
Subjective Remarks Patient seen in the day room wearing her rigid collar, sitting more upright more alert attempted either ice cream Saturday independently. Though still irritable when confronted. Compliant medications Review of Systems Except as stated in HPI: all other systems reviewed are Neg Objective Alert: Yes [place]: Person Mood: Agitated (at times when approached for care by staff), Calm Affect: Labile (at times), Flat Memory Intact: Comment (severe impairment) Hallucinations: Other (none elicited) Delusions: No Delusion Type: Other (none evident) Suicidal: Ideation (none elicited) Homicidal: Ideation (none elicited) Insight/Judgement Very poor Labs Test 11/16/16 07:25 Sodium Level 140 MEQ/L Potassium Level 4.0 MEQ/L Chloride Level 101 MEQ/L Carbon Dioxide Level 33.4 MEQ/L Anion Gap 6 MEQ/L Blood Urea Nitrogen 25 MG/DL Creatinine 0.70 MG/DL Estimat Glomerular Filtration 83 ML/MIN Rate Random Glucose 91 MG/DL Hemoglobin A1c 5.1 % Calcium Level 9.5 MG/DL Total Bilirubin 0.3 MG/DL Aspartate Amino Transf 20 U/L (AST/SGOT) Alanine Aminotransferase 19 U/L (ALT/SGPT) Alkaline Phosphatase 76 U/L Total Protein 6.8 GM/DL Albumin 2.6 GM/DL Triglycerides Level 88 MG/DL Cholesterol Level 173 MG/DL LDL Cholesterol 116 MG/DL HDL Cholesterol 39.7 MG/DL Cholesterol/HDL Ratio 4.35 RATIO Vitals/IOs Vital Signs Date Time Temp Pulse Resp B/P Pulse Ox O2 Delivery O2 Flow Rate FiO2 11/16/16 05:56 98.9 91 18 94/72 11/15/16 18:33 95 Intake and Output 11/15/16 11/15/16 11/16/16 08:00 16:00 00:00 Intake Total 0 ml 480 ml 960 ml Balance 0 ml 480 ml 960 ml Assessment & Plan Problem List: (1) Dementia of Alzheimer's type with behavioral disturbance ICD Code: G30.8 Assessment & Plan Estimated LOS: days patient continues to mentate confused with intermittent episodes of irritability when approached for assistance with hygiene/ADLs etc. Continues to show some improved awareness and independence using the rigid cervical collar Justification for Cont. Inpt. At this time patient will decompensate placed in a lower level of care Discharge Planning To be determined Request HC Surrog/Guard Advoc?: Yes Problem Qualifiers (1) Dementia of Alzheimer's type with behavioral disturbance: Qualified Code: G30.8 - Alzheimer's disease of other onset with behavioral disturbance Roddy Henson MD Nov 16, 2016 14:32
[2016-11-16 18:00] VITALS: BP 125/75; PULSE 100; RESP 16; TEMP 98.5; O2SAT 98
[2016-11-16] MEDS: DOCUSATE SODIUM 50 MG/SENNA 8.6 MG TAB PO SCH (20:39)
[2016-11-16] MEDS: OLANZapine 10 MG TAB PO SCH (20:39)
[2016-11-17 04:41] VITALS: BP 127/60; PULSE 82; RESP 18; TEMP 97.1; O2SAT 95
[2016-11-17] MEDS: VALPROIC ACID SYRUP 250 MG/5 ML UDC PO SCH ×2 (09:35→20:37)
[2016-11-17] MEDS: THIAMINE HCL 100 MG TAB PO SCH (09:35)
[2016-11-17] MEDS: FOLIC ACID 1 MG TAB PO SCH (09:35)
[2016-11-17] MEDS: MEMANTINE HCL 10 MG TAB PO SCH ×2 (09:36→20:37)
[2016-11-17] MEDS: LOSARTAN 50 MG TAB PO SCH (09:36)
[2016-11-17] MEDS: MULTIVITAMINS/MINERALS THERAPEUTIC TAB PO SCH (09:36)
--- NOTE | 2016-11-17 12:23 | HHI.PYPN ---
Subjective Remarks Patient was seen and case discussed with nursing. Patient is alert and oriented 1. Seen eating her food without assistance. Remains with poor eye contact and is difficult to engage. Per nursing she has constipation. She's alert and oriented 1. Compliant with medications Objective Alert: Yes [place]: Person Mood: Calm Affect: Flat Memory Intact: Comment (severe impairment) Hallucinations: Other (none elicited) Delusions: No Delusion Type: Other (none evident) Suicidal: Ideation (none elicited) Homicidal: Ideation (none elicited) Insight/Judgement Poor Vitals/IOs Vital Signs Date Time Temp Pulse Resp B/P Pulse Ox O2 Delivery O2 Flow Rate FiO2 11/17/16 04:41 97.1 82 18 127/60 95 Intake and Output 11/16/16 11/16/16 11/17/16 08:00 16:00 00:00 Intake Total 480 ml 360 ml Balance 480 ml 360 ml Assessment & Plan Problem List: (1) Dementia of Alzheimer's type with behavioral disturbance ICD Code: G30.8 Assessment & Plan Continue current treatment plan Justification for Cont. Inpt. Patient will decompensate in a less restrictive setting Request HC Surrog/Guard Advoc?: Yes Problem Qualifiers (1) Dementia of Alzheimer's type with behavioral disturbance: Qualified Code: G30.8 - Alzheimer's disease of other onset with behavioral disturbance Jarod Gibbons DO Nov 17, 2016 12:23
[2016-11-17] MEDS: DOCUSATE SODIUM 50 MG/SENNA 8.6 MG TAB PO SCH (20:37)
[2016-11-17] MEDS: OLANZapine 10 MG TAB PO SCH (20:37)
[2016-11-18 06:24] VITALS: BP 141/68; PULSE 96; RESP 16; TEMP 97.5; O2SAT 95
[2016-11-18] MEDS: ASPIRIN 81 MG CHEW TAB CHEW SCH (09:27)
[2016-11-18] MEDS: THIAMINE HCL 100 MG TAB PO SCH (09:27)
[2016-11-18] MEDS: MULTIVITAMINS/MINERALS THERAPEUTIC TAB PO SCH (09:27)
[2016-11-18] MEDS: LOSARTAN 50 MG TAB PO SCH (09:27)
[2016-11-18] MEDS: VALPROIC ACID SYRUP 250 MG/5 ML UDC PO SCH ×2 (09:28→21:02)
[2016-11-18] MEDS: MEMANTINE HCL 10 MG TAB PO SCH ×2 (09:28→21:03)
[2016-11-18] MEDS: FOLIC ACID 1 MG TAB PO SCH (09:28)
--- NOTE | 2016-11-18 11:03 | HHI.PYPN ---
Subjective Remarks Patient was seen and case discussed with nursing. Continues to be constipated per nursing. She has been sleeping and behaving well. She remains uncooperative and internally preoccupied during the interview. Alert and oriented 1. Compliant with medications Objective Alert: Yes [place]: Person Mood: Anxious Affect: Blunted Memory Intact: Comment (severe impairment) Hallucinations: Other (none elicited) Delusions: No Delusion Type: Other (none evident) Suicidal: Ideation (none elicited) Homicidal: Ideation (none elicited) Insight/Judgement Poor Vitals/IOs Vital Signs Date Time Temp Pulse Resp B/P Pulse Ox O2 Delivery O2 Flow Rate FiO2 11/18/16 06:24 97.5 96 16 141/68 95 Intake and Output 11/17/16 11/17/16 11/18/16 08:00 16:00 00:00 Intake Total 240 ml 480 ml 360 ml Balance 240 ml 480 ml 360 ml Assessment & Plan Problem List: (1) Dementia of Alzheimer's type with behavioral disturbance ICD Code: G30.8 Assessment & Plan Milk of magnesia for constipation Justification for Cont. Inpt. Patient will decompensate in a less restrictive setting Request HC Surrog/Guard Advoc?: Yes Problem Qualifiers (1) Dementia of Alzheimer's type with behavioral disturbance: Qualified Code: G30.8 - Alzheimer's disease of other onset with behavioral disturbance Jarod Gibbons DO Nov 18, 2016 11:03
[2016-11-18] MEDS ORDERED: MAGNESIUM HYDROXIDE SUSP 30 ML CUP PO ONE (12:00)
[2016-11-18 18:51] VITALS: BP 139/80; PULSE 99; RESP 16; TEMP 97.8; O2SAT 96
[2016-11-18] MEDS: DOCUSATE SODIUM 50 MG/SENNA 8.6 MG TAB PO SCH (21:00)
[2016-11-18] MEDS: OLANZapine 10 MG TAB PO SCH (21:03)
[2016-11-19 05:35] VITALS: BP 115/69; PULSE 74; RESP 18; TEMP 97.5; O2SAT 97
[2016-11-19] MEDS: LOSARTAN 50 MG TAB PO SCH (09:00)
[2016-11-19] MEDS: VALPROIC ACID SYRUP 250 MG/5 ML UDC PO SCH ×2 (09:14→20:45)
[2016-11-19] MEDS: MEMANTINE HCL 10 MG TAB PO SCH ×2 (09:14→20:45)
[2016-11-19] MEDS: MULTIVITAMINS/MINERALS THERAPEUTIC TAB PO SCH (09:14)
[2016-11-19] MEDS: FOLIC ACID 1 MG TAB PO SCH (09:14)
[2016-11-19] MEDS: THIAMINE HCL 100 MG TAB PO SCH (09:14)
--- NOTE | 2016-11-19 15:44 | HHI.PYPN ---
Subjective Remarks Patient discussed with treatment team, and patient's , chart review, patient seen on unit, patient continues to wear a rigid collar with good success with awareness of her surroundings. She saw remains somewhat labile when approached for interventions by staff. Patient's also feels is doing about as good as she can Review of Systems Except as stated in HPI: all other systems reviewed are Neg Objective Alert: Yes [place]: Person Mood: Anxious Affect: Blunted Memory Intact: Comment (severe impairment) Hallucinations: Other (none elicited) Delusions: No Delusion Type: Other (none evident) Suicidal: Ideation (none elicited) Homicidal: Ideation (none elicited) Insight/Judgement Very poor Vitals/IOs Vital Signs Date Time Temp Pulse Resp B/P Pulse Ox O2 Delivery O2 Flow Rate FiO2 11/19/16 05:35 97.5 74 18 115/69 97 Intake and Output 11/18/16 11/18/16 11/19/16 08:00 16:00 00:00 Intake Total 220 ml 720 ml Balance 220 ml 720 ml Assessment & Plan Problem List: (1) Dementia of Alzheimer's type with behavioral disturbance ICD Code: G30.8 Assessment & Plan Estimated LOS: days patient remains confused and demented with occasional behavioral issues related to intervention by staff. Patient tolerating rigid cervical collar without problems Justification for Cont. Inpt. At this time patient will decompensate and placed in the lower level of care Discharge Planning To be determined Request HC Surrog/Guard Advoc?: Yes Problem Qualifiers (1) Dementia of Alzheimer's type with behavioral disturbance: Qualified Code: G30.8 - Alzheimer's disease of other onset with behavioral disturbance Roddy Henson MD Nov 19, 2016 15:44
[2016-11-19 18:00] VITALS: BP 116/56; PULSE 95; RESP 16; TEMP 97.1; O2SAT 94
[2016-11-19] MEDS: OLANZapine 10 MG TAB PO SCH (20:44)
[2016-11-19] MEDS: DOCUSATE SODIUM 50 MG/SENNA 8.6 MG TAB PO SCH (20:45)
[2016-11-20 06:00] VITALS: BP 140/65; PULSE 86; RESP 16; TEMP 97; O2SAT 95
--- NOTE | 2016-11-20 08:49 | HHI.PYPN ---
Subjective Remarks Patient seen in day room with nurse Reagan, chart review, patient sitting in day chair with rigid collar on patient showing more awareness and alertness to the environment will continued confused and disorganized was able to answer some questions with somewhat better focus. Patient compliant medications. Slept well last night for now continue treatment Review of Systems Except as stated in HPI: all other systems reviewed are Neg Objective Alert: Yes [place]: Person Mood: Anxious Affect: Blunted Memory Intact: Comment (severe impairment) Hallucinations: Other (none elicited) Delusions: No Delusion Type: Other (none evident) Suicidal: Ideation (none elicited) Homicidal: Ideation (none elicited) Insight/Judgement Very poor Vitals/IOs Vital Signs Date Time Temp Pulse Resp B/P Pulse Ox O2 Delivery O2 Flow Rate FiO2 11/20/16 06:00 97.0 86 16 140/65 95 Intake and Output 11/19/16 11/19/16 11/20/16 08:00 16:00 00:00 Intake Total 240 ml 600 ml 600 ml Balance 240 ml 600 ml 600 ml Assessment & Plan Problem List: (1) Dementia of Alzheimer's type with behavioral disturbance ICD Code: G30.8 Assessment & Plan Estimated LOS: days patient continues demented and confused. Still with episodes of irritability when approached for care ADLs and hygiene. Though showing some slight increased focus with use of a rigid collar allowing her to be more aware of her surroundings Justification for Cont. Inpt. At this time patient will decompensate if placed in a lower level of care Discharge Planning To be determined Request HC Surrog/Guard Advoc?: Yes Problem Qualifiers (1) Dementia of Alzheimer's type with behavioral disturbance: Qualified Code: G30.8 - Alzheimer's disease of other onset with behavioral disturbance Roddy Henson MD Nov 20, 2016 08:49
[2016-11-20] MEDS: VALPROIC ACID SYRUP 250 MG/5 ML UDC PO SCH ×2 (09:23→20:37)
[2016-11-20] MEDS: MEMANTINE HCL 10 MG TAB PO SCH ×2 (09:24→20:38)
[2016-11-20] MEDS: THIAMINE HCL 100 MG TAB PO SCH (09:24)
[2016-11-20] MEDS: ASPIRIN 81 MG CHEW TAB CHEW SCH (09:24)
[2016-11-20] MEDS: MULTIVITAMINS/MINERALS THERAPEUTIC TAB PO SCH (09:25)
[2016-11-20] MEDS: FOLIC ACID 1 MG TAB PO SCH (09:25)
[2016-11-20] MEDS: LOSARTAN 50 MG TAB PO SCH (09:26)
[2016-11-20 18:00] VITALS: BP 147/79; PULSE 96; RESP 18; TEMP 99; O2SAT 100
[2016-11-20] MEDS: OLANZapine 10 MG TAB PO SCH (20:37)
[2016-11-20] MEDS: DOCUSATE SODIUM 50 MG/SENNA 8.6 MG TAB PO SCH (20:41)
[2016-11-21 05:15] VITALS: BP 156/80; PULSE 78; RESP 17; TEMP 97.3; O2SAT 99
--- NOTE | 2016-11-21 09:25 | HHI.PYPN ---
Subjective Remarks Patient seen in day room with nurse Crystal, and family practice resident Pal. Chart reviewed. Patient showing no significant behavioral problems except when approached for interventions or assistance when she becomes somewhat agitated. Compliant medications. Patient continues to cope well also with rigid cervical collar. For now continue treatment Review of Systems Except as stated in HPI: all other systems reviewed are Neg Objective Alert: Yes [place]: Person Mood: Anxious (mainly when approached for hands on care) Affect: Blunted Memory Intact: Comment (severe impairment) Hallucinations: Other (none elicited) Delusions: No Delusion Type: Other (none evident) Suicidal: Ideation (none elicited) Homicidal: Ideation (none elicited) Insight/Judgement Very poor Vitals/IOs Vital Signs Date Time Temp Pulse Resp B/P Pulse Ox O2 Delivery O2 Flow Rate FiO2 11/21/16 05:15 97.3 78 17 156/80 99 Intake and Output 11/20/16 11/20/16 11/21/16 08:00 16:00 00:00 Intake Total 120 ml 600 ml Balance 120 ml 600 ml Assessment & Plan Problem List: (1) Dementia of Alzheimer's type with behavioral disturbance ICD Code: G30.8 Assessment & Plan Estimated LOS: days patient continues demented, compliant medications, and time showing increased irritability, anxiety when approached for assistance with hygiene ADLs etc. Justification for Cont. Inpt. At this time patient will decompensate if placed in a lower level of care Discharge Planning To be determined Request HC Surrog/Guard Advoc?: Yes Problem Qualifiers (1) Dementia of Alzheimer's type with behavioral disturbance: Qualified Code: G30.8 - Alzheimer's disease of other onset with behavioral disturbance Roddy Henson MD Nov 21, 2016 09:25
[2016-11-21] MEDS ORDERED: SENN1TAB PO (09:49)
[2016-11-21] MEDS ORDERED: HYDR50CA PO (09:49)
[2016-11-21] MEDS ORDERED: FOLI1TAB4 PO (09:49)
[2016-11-21] MEDS ORDERED: ZYPR20TA PO (09:49)
[2016-11-21] MEDS ORDERED: VALP250S18 PO (09:49)
[2016-11-21] MEDS ORDERED: LORA-392 PO (09:49)
[2016-11-21] MEDS ORDERED: VITA100T2 PO (09:49)
[2016-11-21] MEDS ORDERED: NAME10TA PO (09:49)
[2016-11-21] MEDS ORDERED: THERM PO (09:49)
[2016-11-21] MEDS ORDERED: Aspirin Chew CHEW (09:49)
[2016-11-21] MEDS ORDERED: COZA50TA PO (09:49)
[2016-11-21] MEDS ORDERED: OLAN15TA PO (09:49)
[2016-11-21] MEDS: VALPROIC ACID SYRUP 250 MG/5 ML UDC PO SCH (09:52)
[2016-11-21] MEDS: THIAMINE HCL 100 MG TAB PO SCH (09:53)
[2016-11-21] MEDS: MULTIVITAMINS/MINERALS THERAPEUTIC TAB PO SCH (09:53)
[2016-11-21] MEDS: LOSARTAN 50 MG TAB PO SCH (09:53)
[2016-11-21] MEDS: MEMANTINE HCL 10 MG TAB PO SCH (09:53)
[2016-11-21] MEDS: FOLIC ACID 1 MG TAB PO SCH (09:53)
--- NOTE | 2016-11-21 10:26 | HHI.DS ---
Psychiatry Discharge Summary Inpatient Psychiatric care?: Yes Advance Directive: No Reason Not Provided: PT DOES NOT HAVE ADV DIRECTIVE Mental Health AdvanceDirective: No Health Care Proxy: Yes Admission Admission Date Jul 27, 2016 at 08:09 Admission Diagnosis: (1) Dementia of Alzheimer's type with behavioral disturbance ICD Code: G30.8 Brief History Patient is a 71-year-old white female comes the ED under Becerra act, was seen screened in the initial H&P dictated by Dr. major. Dr. White dictation reviewed and agreed with. Patient seen on unit in dayroom with floor staff, she is a calm pleasant diffusely disorganized confused in all [address] major signed first opinion petition supporting Becerra act. I agree. Patient meets criteria for involuntary psychiatric hospitalization under the Becerra act. Thus I'll cosign second opinion petition supporting Becerra act Tobacco Use In Past 30 Days: No Tobacco Past 30 Days Alcohol Use: 4 or More Times Per Week Hospital Course Patient's hospital course showed her significant dementia confusion disorganization, or lability expressing himself more frequently during interventions by staff for ADLs hygiene things of that order. However as patient became more compliant with medications her behaviors stabilized to a certain extent. The [id number] behaviors localizing more to specific times when staff needed to assist patient. More recently the addition of the rigid cervical collar with the patient allowing her to keep her head upright to visualize environment better has shown her being more alert oriented to the situation. She is also somewhat more verbal and appropriate though still markedly disorganized. Also improved her ability to eat independently. Patient 's has been an incredible asset to her treatment team also his visiting and attention to his was wonderful to see. Patient compliant with her medications. At the present time I feel patient is Rony maximum benefit of this hospitalization. [facility] Patient to be discharged today to their facility with Rx 1 month follow-up mental health services through that facility Results Blood Pressure 156 / 80 Vital Signs Date Time Temp Pulse Resp B/P Pulse Ox O2 Delivery O2 Flow Rate FiO2 11/21/16 05:15 97.3 78 17 156/80 99 Depakote blood level is 75 Summary of Procedures None done Imaging Last Impressions Chest X-Ray 10/09/16 0000 Signed Impressions: Service Date/Time: Sunday, October 09, 2016 12:24 - CONCLUSION: 1. No acute cardiopulmonary findings. Vince Salcido MD Shoulder X-Ray 08/01/16 0000 Signed Impressions: Service Date/Time: Monday, August 01, 2016 12:50 - CONCLUSION: Unremarkable limited examination of the right shoulder. Jigar Treviño MD Knee X-Ray 08/01/16 0000 Signed Impressions: Service Date/Time: Monday, August 01, 2016 12:52 - CONCLUSION: 1. No fracture or dislocation. 2. Advanced tricompartmental osteoarthritis. 3. Osteopenia. Alejandro Felder Jr., MD Hip and Pelvis X-Ray 08/01/16 0000 Signed Impressions: Service Date/Time: Monday, August 01, 2016 12:50 - CONCLUSION: Mild degenerative changes of the hip joint. Bursal calcification about the greater trochanter Jigar Treviño MD Brain MRI 08/01/16 0000 Signed Impressions: Service Date/Time: Monday, August 01, 2016 13:03 - CONCLUSION: 1. No acute intracranial abnormality. 2. Chronic small vessel ischemic change. Alejandro Felder Jr., MD Head CT 07/26/16 0000 Signed Impressions: Service Date/Time: July 23:45 - CONCLUSION: 1. No acute intracranial abnormality. 2. Atrophy. Roddy Huerta MD Pending results at discharge: No Medications # of Antipsychotic meds at D/C: 1 Approp Antipsych med options 1 - Minimum of three failed multiple trials of monotherapy. 2 - Documented plan to taper to monotherapy due to previous use of multiple meds OR cross-taper in progress at D/C. 3 - Documentation of augmentation of Clozapine. 4 - Justification other than those listed in allowable values 1-3, document here : Discharge Discharge Date: Nov 21, 2016 Discharge Diagnosis: (1) Dementia of Alzheimer's type with behavioral disturbance Diagnosis: Principal ICD Code: G30.8 Mental Status Exam at Disch Alert diffusely disorganized white female, sitting in Patti chair, mood is somewhat restricted to intense and irritable, affect ranges from decreased range intensity to very labile, speech is disorganized brief markedly circumstantial tangential, no auditory or visual hallucinations noted no delusions noted insight and judgment is very poor cognition is markedly restricted Pt Condition on Discharge: Stable Discharge Disposition: Discharge to SNF Discharge Instructions Diet Instructions: Heart Healthy Diet Activities you can perform: Regular-No Restrictions Scheduled Appointment: [facility] Discharge Time > 30 minutes Discharge/Advance Care Plan Health Problems: (1) Dementia of Alzheimer's type with behavioral disturbance Goals to promote your health * To prevent worsening of your condition and complications * To maintain your health at the optimal level Directions to meet your goals Take your medications as prescribed Follow your dietary instruction Follow activity as directed Keep your appointments as scheduled Take your immunizations and boosters as scheduled If your symptoms worsen call your PCP, if no PCP go to Urgent Care Center or Emergency Room For 18/03 questions related to your inpatient stay or results of tests pending at discharge, please contact Dr. Roddy Henson at Smoking is Dangerous to Your Health. Avoid second hand smoking Problem Qualifiers (1) Dementia of Alzheimer's type with behavioral disturbance: Qualified Code: G30.8 - Alzheimer's disease of other onset with behavioral disturbance Roddy Henson MD Nov 21, 2016 10:26
== END 2016-11-21 13:25 | DRG 56 ==
LOC: NEPE 22:07 → NEDA 07-27 08:09 → H250 07-27 11:00
PROVIDERS: ADMIT Psychiatry & Neurology Psychiatry; ATTEND Psychiatry & Neurology Psychiatry
DX: G30.9 Alzheimer's disease, unspecified (principal); A41.9 Sepsis, unspecified organism; G92 Toxic encephalopathy; N17.9 Acute kidney failure, unspecified; N39.0 Urinary tract infection, site not specified; F02.81 Dementia in other diseases classified elsewhere, unspecified severity, with behavioral disturbance; E11.9 Type 2 diabetes mellitus without complications; B96.4 Proteus (mirabilis) (morganii) as the cause of diseases classified elsewhere; Z16.23 Resistance to quinolones and fluoroquinolones; I10 Essential (primary) hypertension; D64.9 Anemia, unspecified; F32.9 Major depressive disorder, single episode, unspecified; Z87.820 Personal history of traumatic brain injury; K29.70 Gastritis, unspecified, without bleeding; F10.20 Alcohol dependence, uncomplicated; R05 Cough; E87.6 Hypokalemia; Z79.84 Long term (current) use of oral hypoglycemic drugs
CPT/HCPCS: 70450; 70551; 71010; 73030; 73502; 73560; 80048; 80053; 80061; 80164; 80301; 81001; 82607; 82948; 83036; 83735; 84443; 85025; 87077; 87086; 87186; 96372; G0479; J1630; J1815; J2060; L0120; L0172; Q0163

== ENCOUNTER 2017-01-20 20:44 | Inpatient (IN) | payer MEDICARE, MEDICAID ==
[~2017-01-20] VITALS: Ht 165.1 cm; Wt 62.1 kg
[~2017-01-20 20:44] MED LIST: ACET325T PO; Aspirin Chew CHEW; BENA12.5 PO; BISMS PO; COZA50TA PO; DIPH25CA PO; DOCU100C PO; FOLI1TAB4 PO; GLUC1KIT IM; HALO5TAB PO; HYDR50CA PO; LORA-392 PO; MAALSUS18 PO; METF500T PO; MILKSUS PO; NAME10TA PO; OLAN15TA PO; OLAN5TAB PO; PNEU13P IM; SENN1TAB PO; THERM PO; VALP250C PO; VALP250S18 PO; VITA100T2 PO; ZYPR20TA PO
[2017-01-20] MEDS ORDERED: VANCOMYCIN INJ 1,000 MG in SODIUM CHLOR 0.9% 250 ML INJ 250 ML IV ONE (21:00)
[2017-01-20] MEDS ORDERED: SODIUM CHLOR 0.9% 1000 ML INJ 1,000 ML IV ONE ×2 (21:00)
[2017-01-20] MEDS ORDERED: PIPERACIL-TAZO 3.375 GM PREMIX 50 ML IV ONE (21:00)
--- NOTE | 2017-01-20 21:05 | PD ---
HPI Chief Complaint: febrile illness Time Seen by Provider: 20:54 Travel History International Travel<30 days: No Contact w/Intl Traveler<30days: No Traveled to known affect area: No History of Present Illness HPI The patient is a 71 year old female who presents to the [facility] emergency department with a history of reportedly currently residing at a intermediate with progressive decline over the last 2 months. The patient does have a history of dementia, psychosis, bipolar disorder, hypertension according to the record. The patient has been nonverbal recently. Patient over the last 2 days has been experiencing a fever. Her has been contacted regarding her decline and hospice consultation was placed. The patient is in the process of establishing hospice care, however the patient continues to be a full code. The patient prior to arrival was noted to have a temp of 101. The patient was given 300 mg of Tylenol as a suppository reportedly at 1800. Patient's blood pressure prior to arrival was noted to be 84 systolic. IV access was obtained by fire rescue and the patient was given normal saline a 500 mL bolus. The patient's blood sugar prior to arrival was noted to be 199. The patient's pulse was noted to be in the 120s to 130s. The patient has not been eating or drinking well for the last 2 weeks. The patient is unable to provide any history. The patient on arrival is noted to have a systolic blood pressure in the 70s. [facility] Past Medical History Narrative Medical The patient's past medical history is significant for hypertension, bipolar disorder, dementia, psychosis. The patient's primary care physician is Dr. Cox. Neurologic: Yes Past Surgical History Narrative Surgical The patient's past surgical history is unable to be obtained. Social History Alcohol Use: No Tobacco Use: No Substance Use: No Allergies-Medications (Allergen,Severity, Reaction): Coded Allergies: No Known Allergies (Unverified , 01/20/17) Reported Meds & Prescriptions Reported Meds & Active Scripts Active Senna Plus 8.6-50 mg (Sennosides-Docusate Sodium) 1 Tab Tab 2 Tab PO 2 PO HS Olanzapine 15 Mg Tab 15 Mg PO DAILY@08 Zyprexa (Olanzapine) 20 Mg Tab 20 Mg PO DAILY@20 Thera M Plus (Multivitamins/Minerals Therapeutic) 1 Tab 1 Tab PO DAILY Namenda (Memantine) 10 Mg Tab 10 Mg PO BID Cozaar (Losartan Potassium) 50 Mg Tab 50 Mg PO DAILY [Aspirin Chew] 81 MG Chew 81 Mg CHEW EVERY OTHER DAY Reported Folic Acid 400 Mcg Tab 1 Mg PO DAILY Valproic Acid Liq 250 Mg/5 Ml Syp 1,000 Mg PO DAILY Prevnar 13 Inj (Pneumoccal 13-Valent Conj Vacc) 0.5 Ml Inj 0.5 Ml IM .ONCE Valproic Acid 250 Mg Cap 500 Mg PO TID Review of Systems ROS Limitations: Poor Historian General / Constitutional: Positive: Fever Neurologic: Positive: Weakness (generalized weakness), Change in Mentation ( over the last 2 weeks) Physical Exam Narrative General: The patient is a well-developed thin appearing female, lying on her right side, eyes closed, in no acute distress Head and Neck exam: Head is normocephalic atraumatic. Eyes: Extraocular motion testing is unable to be accomplished in this patient who is not following commands. Pupils are equal round and reactive to light bilaterally at 4 mm. are equal round and reactive to light. Nose: Midline septum with pink mucous membranes Mouth: Dentition unremarkable. Dry mucus membranes. Posterior oropharynx is not erythematous. No tonsillar hypertrophy. Uvula midline. Airway patent. Neck: No palpable lymphadenopathy. No nuchal rigidity. No thyromegaly. Cardiovascular: Sinus tachycardia in the 120s without murmurs, gallops, or rubs. No pulse deficit to the extremities and simultaneous auscultation and palpation of her radial artery. Lungs: Clear to auscultation bilaterally. No wheezes, rhonchi, or rales. No accessory muscle use. No paroxysmal abdominal breathing. Abdomen: Soft, without tenderness to palpation in all 4 quadrants of the abdomen. No guarding, rebound, or rigidity. Normal bowel sounds are audible. No tenderness on palpation of McBurney's point. Extremities: No clubbing, cyanosis, or edema. 2+ pulses in all 4 extremities. No extremity pain or deformity on palpation. The patient has contracture of bilateral upper and lower extremities and appears to be bedbound. Back: No costovertebral angle tenderness to palpation. Neurologic Exam: The patient is nonverbal. The patient is not following commands. The patient on any type of movement will cry out briefly. Skin Exam: No rash noted. Intact skin that is warm and dry. The patient has poor skin turgor. Data Data Last Documented VS Vital Signs Date Time Temp Pulse Resp B/P Pulse Ox O2 Delivery O2 Flow Rate FiO2 01/20/17 23:30 98 36 100/56 98 Nasal Cannula 4 01/20/17 21:14 102.6 Orders Electrocardiogram (01/20/17 20:54) Complete Blood Count With Diff (01/20/17 20:54) Comprehensive Metabolic Panel (01/20/17 20:54) Creatine Kinase (Cpk) (01/20/17 20:54) Ckmb (Isoenzyme) Profile (01/20/17 20:54) Troponin I (01/20/17 20:54) B-Type Natriuretic Peptide (01/20/17 20:54) Prothrombin Time / Inr (Pt) (01/20/17 20:54) Act Partial Throm Time (Ptt) (01/20/17 20:54) Blood Culture (01/20/17 20:54) Lipase (01/20/17 20:54) Urinalysis - C+S If Indicated (01/20/17 20:54) Magnesium (Mg) (01/20/17 20:54) Valproic Acid (Depakene) (01/20/17 20:54) Chest, Single Ap (01/20/17 20:54) Iv Access Insert/Monitor (01/20/17 20:54) Ecg Monitoring (01/20/17 20:54) Oximetry (01/20/17 20:54) Urinary Catheter Insert/Apply (01/20/17 20:54) Sodium Chlor 0.9% 1000 Ml Inj (Ns 1000 M (01/20/17 21:00) Sodium Chlor 0.9% 1000 Ml Inj (Ns 1000 M (01/20/17 21:00) Piperacil-Tazo 3.375 Gm Premix (Zosyn 3. (01/20/17 21:00) Vancomycin Inj (Vancomycin Inj) (01/20/17 21:00) Lactic Acid Sepsis Protocol (01/20/17 20:54) Acetaminophen Supp (Tylenol Supp) (01/20/17 21:30) Admit Order (Ed Use Only) (01/20/17 23:30) CKMB (01/21/17 01:10) CKMB% (01/21/17 01:10) Labs Laboratory Tests Test 01/20/17 01/20/17 21:12 22:50 Prothrombin Time 15.6 SEC Prothromb Time International 1.4 RATIO Ratio Activated Partial 24.7 SEC Thromboplast Time Lactic Acid Level 3.6 mmol/L B-Type Natriuretic Peptide 1627 PG/ML White Blood Count 22.0 TH/MM3 Red Blood Count 2.76 MIL/MM3 Hemoglobin 8.1 GM/DL Hematocrit 25.6 % Mean Corpuscular Volume 92.8 FL Mean Corpuscular Hemoglobin 29.3 PG Mean Corpuscular Hemoglobin 31.6 % Concent Red Cell Distribution Width 14.0 % Platelet Count 323 TH/MM3 Mean Platelet Volume 9.0 FL Neutrophils (%) (Auto) % Lymphocytes (%) (Auto) % Monocytes (%) (Auto) % Eosinophils (%) (Auto) % Basophils (%) (Auto) % Neutrophils # (Auto) TH/MM3 Lymphocytes # (Auto) TH/MM3 Monocytes # (Auto) TH/MM3 Eosinophils # (Auto) TH/MM3 Basophils # (Auto) TH/MM3 CBC Comment AUTO DIFF Differential Total Cells 100 Counted Neutrophils % (Manual) 54 % Band Neutrophils % 34 % Lymphocytes % 9 % Monocytes % 2 % Basophils % 1 % Neutrophils # (Manual) 19.4 TH/MM3 Differential Comment FINAL DIFF MANUAL Toxic Granulation 2+ Platelet Estimate NORMAL Platelet Morphology Comment NORMAL Urine Color YELLOW Urine Turbidity CLEAR Urine pH 6.5 Urine Specific [place] 1.032 Urine Protein 30 mg/dL Urine Glucose (UA) NEG mg/dL Urine Ketones TRACE mg/dL Urine Occult Blood NEG Urine Nitrite NEG Urine Bilirubin NEG Urine Urobilinogen 8.0 MG/DL Urine Leukocyte Esterase NEG Urine RBC 6 /hpf Urine WBC 4 /hpf Urine Squamous Epithelial <1 /hpf Cells Urine Mucus FEW /lpf Microscopic Urinalysis Comment CULT NOT INDICATED MDM Medical Decision Making Medical Screen Exam Complete: Yes Emergency Medical Condition: Yes Medical Record Reviewed: Yes Interpretation(s) Last Impressions Chest X-Ray 01/20/172053 Signed Impressions: Service Date/Time: Friday, January 20, 2017 21:53 - CONCLUSION: Right perihilar patchiness consistent with possible developing pneumonia. Clinical correlation is recommended. Irineo Gonzalez MD Differential Diagnosis Dehydration, versus electrolyte derangements, versus Depakote toxicity, versus sepsis related encephalopathy, versus pneumonia, versus urinary tract infection Narrative Course During the course of the patients emergency department visit, the patients history, examination, and differential diagnosis were reviewed with the patient. The patient had IV access obtained and blood work sent for analysis. 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 The patient had an EKG done on arrival. The patient's EKG shows a sinus tachycardia, heart rate of 110, moderate T-wave abnormalities, downsloping ST segments in lead 2, 3, aVF, T-wave inversions noted in aVF, 2, 3. No acute ST segment elevation. The patient was initially provided normal saline 2 L wide open for dehydration and hypotension. The patient was given broad-spectrum coverage for suspected sepsis to include vancomycin 1 g IV, Zosyn 3.375 grams IV. The patients laboratory studies were reviewed and remarkable for a white count of 22, hemoglobin 8.1, platelets 323 with 54 neutrophils, bands 34, toxic granulation present. Lactic acid is 3.6. INR 1.4, PT 15.6, PTT 24.7. CMP is remarkable for sodium of 155, chloride 117, BUN 24, glucose 1:30, initial lactate acid on repeat evaluation was 2.5, CPK 380, troponin I 0.16, lipase 59, BNP is 1627, valproic acid level XXXVII, urinalysis shows trace ketones 8 urobilinogen, 6 RBCs, culture not indicated. Radiology studies were reviewed and remarkable for a chest x-ray that shows a right perihilar patchiness consistent with possible developing pneumonia, clinical correlation is recommended. The patient's family arrived at the bedside. Further discussion was had with them regarding the patient's recent care at the intermediate. They reported that they wanted to have the patient come home with hospice care, however the patient has had a progressive decline over the last 2 weeks and over the last 2 days has also been experiencing a febrile illness. They report that little has been done to treat the fever. They report that hospice has not been communicating well with them. They have elected to discontinue any hospice care at this point. I did explain to the patient's family that the patient is critically ill at this time. We did discuss resuscitation efforts. At this point they would want the patient intubated and resuscitated should the patient develop respiratory distress or cardiovascular collapse, however I did discuss with them the patient's low blood pressure. I explained that I would like to place a central line to start pressors and the patient, however they preferred to start the patient on IV fluids and IV antibiotic peripherally and then reassess overnight. The patient's case will be discussed with the public health analyst. The patients results were discussed with the patient, including the plan of care. I explained that further testing and/ or monitoring is indicated based on the patients history, examination, and/ or laboratory findings. Therefore, I recommended admission for additional evaluation. The patient expressed understanding and was agreeable with this plan. The patient was admitted to the hospital in guarded condition and sent to a bed under the care of the public health analyst. Critical Care Narrative Aggregate critical care time was 40 minutes. Time to perform other separately billable procedures was not included in the critical care time. My time did not include minutes spent treating any other patients simultaneously or on activities that did not directly contribute to the patient's treatment. The services I provided to this patient were to treat and/or prevent clinically significant deterioration that could result in: Respiratory failure, versus cardiovascular collapse I provided critical care services requiring my management, as noted below: Chart data review, documentation time, medication orders and management, vital sign assessments/reviewing monitor data, ordering and reviewing lab tests, ordering and interpreting/reviewing x-rays and diagnostic studies, care of the patient and discussion of the patient with the admitting physicians. Sepsis Criteria SIRS Criteria (2 or more): Temp > 100.9 or < 96.8, Heart rate over 90, RR > 20 or PaCO2 < 32, WBC > 66763, < 4000 or > 10% bands Sepsis Criteria (SIRS+source): Infect source susp/known Severe Sepsis (+one): Hypotension, Lactate >2 Physician Communication Physician Communication The patient's case was discussed with Dr. Chase who did agree to admit the patient for further evaluation and treatment at this time. Diagnosis Primary Impression: Severe sepsis Additional Impressions: Pneumonia Qualified Code: J18.1 - Pneumonia of right middle lobe due to infectious organism Dehydration Hypernatremia Admitting Information Admitting Physician Requests: Luz Duncan MD January 20, 2017 21:05
[2017-01-20 21:14] VITALS: BP 81/53; PULSE 112; RESP 33; TEMP 102.6; O2SAT 100
[2017-01-20] MEDS ORDERED: ACETAMINOPHEN 650 MG SUPP RECTAL ONE (21:30)
[2017-01-20] MEDS ORDERED: VALP250S2 PO (21:44)
[2017-01-20] MEDS ORDERED: FOLI400T PO (21:44)
[2017-01-20 21:47] LABS: HEMATOCRIT 25.6 % (35.0-46.0); MEAN CELL VOLUME 92.8 FL (80.0-100.0); MEAN CORPUSCULAR HEMOGLOBIN 29.3 PG (27.0-34.0); MEAN CORPUSCULAR HGB CONC 31.6 % (32.0-36.0); PLATELET COUNT 323 TH/MM3 (150-450); RED BLOOD COUNT 2.76 MIL/MM3 (4.00-5.30)
[2017-01-20 21:49] LABS: APTT (PATIENT) 24.7 SEC (24.3-30.1); INTERNATIONAL NORMALIZED RATIO 1.4 RATIO; PROTHROMBIN TIME - PATIENT 15.6 SEC (9.8-11.6)
--- NOTE | 2017-01-20 22:03 | RADRPT ---
EXAM DATE/TIME: 01/20/2017 21:53 [facility] COMPARISON: CHEST SINGLE AP, October 09, 2016, 12:24. INDICATIONS : Fever MEDICAL HISTORY : Unobtainable SURGICAL HISTORY : Unobtainable ENCOUNTER: Initial ACUITY: 1 day PAIN SCORE: Non-responsive. LOCATION: Bilateral chest FINDINGS: Right perihilar patchiness is noted consistent with possible infiltrate. Clinical correlation is rec ommended. The left lung is clear. The heart is stable. CONCLUSION: Right perihilar patchiness consistent with possible developing pneumonia. Clinical correlation is re commended. Irineo Gonzalez MD on January 20, 2017 at 21:59 Board Certified Radiologist. This report was verified electronically.
[2017-01-20 22:04] LABS: HEMO FLAGS AUTO DIFF
[2017-01-20 22:30] VITALS: BP 84/52; PULSE 107; RESP 32; O2SAT 98
[2017-01-20 23:00] VITALS: BP 73/47; PULSE 106; RESP 34; O2SAT 96
[2017-01-20 23:01] LABS: BANDS 34 % (0-6); BASOPHILS 1 % (0-2); NEUTROPHIL # MANUAL DIFF 19.4 TH/MM3 (1.8-7.7); POLYS (SEG NEUTROPHILS) 54 % (16-70); WBC DIFF SAMPLE 100
[2017-01-20 23:02] LABS: PLATELET ESTIMATE SMEAR NORMAL (NORMAL); PLATELET MORPHOLOGY NORMAL (NORMAL)
[2017-01-20 23:03] LABS: TOXIC GRANULATION 2+ (NORMAL)
[2017-01-20 23:07] LABS: BLOOD, URINE NEG (NEG); COMMENT (UR) CULT NOT INDICATED; CULTURE IF INDICATED CULT NOT INDICATED; GLUCOSE,URINE NEG (NEG); KETONE, URINE TRACE mg/dL (NEG); MUCUS URINE FEW /lpf (OCC); NITRITE,URINE NEG (NEG); PH, URINE 6.5 (5.0-8.5); SQUAMOUS EPITHELIAL CELL URINE <1 /hpf (0-5); URINE COLOR YELLOW (YELLW/STRAW)
[2017-01-20 23:20] LABS: LACTIC ACID GHOST NOT REPORTABLE
[2017-01-20 23:30] VITALS: BP 100/56; PULSE 98; RESP 36; O2SAT 98
[2017-01-20 23:34] LABS: SCAN/DIFF FINAL DIFF MANUAL
[2017-01-21] VITALS (15 sets, daily range): BP systolic 81–112; BP diastolic 50–61; PULSE 75–105; RESP 10–38; TEMP 96.8–101.3; O2SAT 96–100
[2017-01-21] MEDS ORDERED: SODIUM CHLOR 0.9% 1000 ML INJ 1,000 ML IV SCH (01:27)
[2017-01-21] MEDS ORDERED: LACTULOSE SYRUP 20 GM/30 ML CUP PO PRN (01:30)
[2017-01-21] MEDS ORDERED: SODIUM CHLORIDE 0.9% FLUSH 10 ML FLUSH PRN (01:30)
[2017-01-21] MEDS ORDERED: SENNOSIDES 8.6 MG TAB PO PRN (01:30)
[2017-01-21] MEDS ORDERED: RESP: ALBUTEROL 2.5 MG/3 ML NEB (PRN) INH (01:30)
[2017-01-21] MEDS ORDERED: MISCELLANEOUS NURSING INFORMATION XX SCH (01:30)
[2017-01-21] MEDS ORDERED: CHLORHEXIDINE GLUCONATE 2 % 1 PACK (2 CLOTHS) TOP PRN (01:30)
[2017-01-21] MEDS ORDERED: BISACODYL 10 MG SUPP RECTAL PRN (01:30)
[2017-01-21] MEDS ORDERED: ONDANSETRON HCL 4 MG/2 ML VIAL IV PRN (01:30)
[2017-01-21] MEDS ORDERED: MAGNESIUM HYDROXIDE SUSP 30 ML CUP PO PRN (01:30)
[2017-01-21 01:52] LABS: ALT (GPT) 42 U/L (10-53); ANION GAP 9 MEQ/L (5-15); AST (GOT) 34 U/L (15-37); BICARBONATE 29.4 MEQ/L (21.0-32.0); BLOOD UREA NITROGEN 24 MG/DL (7-18); CHLORIDE 117 MEQ/L (98-107); GLOMERULAR FILTRATION RATE 97 ML/MIN (>89); MAGNESIUM 2.1 MG/DL (1.5-2.5); POTASSIUM 3.8 MEQ/L (3.5-5.1); SODIUM (NA) 155 MEQ/L (136-145)
[2017-01-21 01:55] LABS: ALKALINE PHOSPHATASE 94 U/L (45-117); CREATINE KINASE 380 U/L (26-192); TOTAL BILIRUBIN ADULT 0.3 MG/DL (0.2-1.0)
[2017-01-21 02:08] LABS: CKMB 3.6 NG/ML (0.5-3.6)
[2017-01-21] MEDS ORDERED: PHENYLEPHRINE HCL 10 MG/ML VIAL ONE (03:11)
[2017-01-21] MEDS ORDERED: LACTATED RINGER'S 1000 ML INJ 1,000 ML IV ONE (03:30)
[2017-01-21] MEDS ORDERED: TERBUTALINE INJ 1 MG/ML AMP SQ PRN (03:45)
[2017-01-21] MEDS ORDERED: PHENYLEPHRINE 40 MG/D5W 496 ML ADMIX IV SCH ×2 (03:45)
[2017-01-21] MEDS: CHLORHEXIDINE GLUCONATE 2 % 1 PACK (2 CLOTHS) TOP SCH (03:58)
--- NOTE | 2017-01-21 03:58 | HHI.HP ---
[facility] Service Critical Care Medicine Primary Care Physician Zhang Cox MD Admission Diagnosis Sepsis, right perihilar infiltrate, end stage dementia Diagnosis: Travel History International Travel<30 Days: No Contact w/Intl Traveler <30 Da: No Traveled to Known Affected Are: No History of Present Illness 71-year-old female with past medical history of alcohol dependence and dementia who presents to [facility] emergency department from [facility] due to a 2 day history of fever up to 101. 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 She has been unable to eat or drink well for the last 2 weeks. Chest x-ray demonstrates right perihilar infiltrate consistent with pneumonia. White blood cell count is 22 with 34% bands.. Hemoglobin is 8.1. Her chemistry labs were pending for many hours after admission, requiring re-collect but demonstrated hypernatremia with sodium of 155, creatinine normal. Lactic acid 3.6. BNP 1600. Patient's indicates that she has had progressive decline in mental function that has been most severe over the last 10 months. She has had multiple hospitalizations at multiple facilities during that time. She suffered a fall in February 2016 and was hospitalized in [place] for TBI. She was hospitalized from 07/27/16 use 11/21/16 due to agitation and combative behavior that could no longer be managed by her [facility]. Her states that she has been bedridden for 3 months. Nonverbal 2 weeks. Received [address] Flores discussed with family in the emergency department regarding central line placement and they declined central line. Patient was hypotensive with blood pressure in the 80s over 50s which was initially volume responsive. When she arrived to [facility] from the emergency department systolic blood pressure was in the 60s/40s and patient had very shallow respirations. Discussed with patient' s that she has end-stage dementia and that would be appropriate to transition to comfort measures if that is consistent with patients previously expressed wishes. He states she does not have a living will but that "she would not want to suffer "and she "has already suffered enough the last 10 months". He agrees with changing codes status to DNR. He would like to transition to comfort measures but would like to be able to see her again. He has just returned home to [place] with his [id number] and they are exhausted and would like to rest and come back to the hospital. Will use vasopressor support with phenylephrine via PIV in effort to maintain until they can return to the hospital. Sister says "I feel selfish saying to do that just so I can see her, but I also want someone to be with her". She is aware that it is difficult to predict how long that she will live and that she may before they arrive and, on the other hand, she may live for several days after transition to comfort. Will change CODE STATUS to DNR per this discussion. Past Family Social History Allergies: Coded Allergies: No Known Allergies (Unverified , 01/20/17) Past Medical History History of alcohol dependence Dementia Hypertension Diabetes Gastritis Constipation Hospitalization for fall with TBI in February 2016 Past Surgical History Unable to obtain secondary to clinical condition. Reported Medications Losartan 50 mg by mouth daily Valproic acid 1500 mg by mouth 3 times a day Zyprexa 15 mg by mouth every morning, 20 mg by mouth q p.m Senna 2 tabs by mouth daily at bedtime Namenda 10 mg by mouth twice a day Multivitamin 1 tab by mouth daily Aspirin 81 mg by mouth daily Folic acid 1 mg by mouth daily Prevnar 5 IM daily Family History Unable to obtain secondary to clinical condition Social History History of alcohol dependence Bedbound for 3 months. Physical Exam Vital Signs Vital Signs Date Time Temp Pulse Resp B/P Pulse Ox O2 Delivery O2 Flow Rate FiO2 01/21/17 01:51 96 Nasal Cannula 4.00 01/21/17 01:30 90 38 91/61 100 Nasal Cannula 4 01/21/17 01:00 97 38 81/54 96 Nasal Cannula 4 01/21/17 00:00 101.3 01/21/17 00:00 97 38 93/54 100 Nasal Cannula 4 01/20/17 23:30 98 36 100/56 98 Nasal Cannula 4 01/20/17 23:00 106 34 73/47 96 Nasal Cannula 4 01/20/17 22:30 107 32 84/52 98 Nasal Cannula 4 01/20/17 21:20 34 90 Nasal Cannula 2 01/20/17 21:14 102.6 112 33 81/53 100 Physical Exam GENERAL: Malnourished, Chronically ill-appearing female who appears older than stated age with contractures of all extremities. SKIN: Warm and dry. HEAD: Atraumatic. Normocephalic. EYES: Pupils equal and round. No scleral icterus. No injection or drainage. ENT: No nasal bleeding or discharge. Mucous membranes dry NECK: Trachea midline. CARDIOVASCULAR: Regular rate and rhythm. No murmurs rubs or gallops. RESPIRATORY: Very shallow respirations with no appreciable wheezes Rales or rhonchi. GASTROINTESTINAL: Abdomen soft, grimaces to palpation, bowel sounds present. MUSCULOSKELETAL: Extremities without clubbing, cyanosis, or edema. Contractures of all extremities NEUROLOGICAL: Eyes open spontaneously, responds to visual threat, does not track. Moves upper extremities spontaneously. Contractures of all extremities. Laboratory Laboratory Tests Test 01/20/17 01/20/17 01/21/17 21:12 22:50 01:10 Prothrombin Time 15.6 Prothromb Time International 1.4 Ratio Activated Partial 24.7 Thromboplast Time Lactic Acid Level 3.6 2.5 B-Type Natriuretic Peptide 1627 White Blood Count 22.0 Red Blood Count 2.76 Hemoglobin 8.1 Hematocrit 25.6 Mean Corpuscular Volume 92.8 Mean Corpuscular Hemoglobin 29.3 Mean Corpuscular Hemoglobin 31.6 Concent Red Cell Distribution Width 14.0 Platelet Count 323 Mean Platelet Volume 9.0 Neutrophils (%) (Auto) Lymphocytes (%) (Auto) Monocytes (%) (Auto) Eosinophils (%) (Auto) Basophils (%) (Auto) Neutrophils # (Auto) Lymphocytes # (Auto) Monocytes # (Auto) Eosinophils # (Auto) Basophils # (Auto) CBC Comment AUTO DIFF Differential Total Cells 100 Counted Neutrophils % (Manual) 54 Band Neutrophils % 34 Lymphocytes % 9 Monocytes % 2 Basophils % 1 Neutrophils # (Manual) 19.4 Differential Comment FINAL DIFF MANUAL Toxic Granulation 2+ Platelet Estimate NORMAL Platelet Morphology Comment NORMAL Urine Color YELLOW Urine Turbidity CLEAR Urine pH 6.5 Urine Specific [place] 1.032 Urine Protein 30 Urine Glucose (UA) NEG Urine Ketones TRACE Urine Occult Blood NEG Urine Nitrite NEG Urine Bilirubin NEG Urine Urobilinogen 8.0 Urine Leukocyte Esterase NEG Urine RBC 6 Urine WBC 4 Urine Squamous Epithelial <1 Cells Urine Mucus FEW Microscopic Urinalysis Comment CULT NOT INDICATED Sodium Level 155 Potassium Level 3.8 Chloride Level 117 Carbon Dioxide Level 29.4 Anion Gap 9 Blood Urea Nitrogen 24 Creatinine 0.61 Estimat Glomerular Filtration 97 Rate Random Glucose 130 Calcium Level 7.8 Magnesium Level 2.1 Total Bilirubin 0.3 Aspartate Amino Transf 34 (AST/SGOT) Alanine Aminotransferase 42 (ALT/SGPT) Alkaline Phosphatase 94 Total Creatine Kinase 380 Creatine Kinase MB 3.6 Creatine Kinase MB % 0.9 Troponin I 0.16 Total Protein 5.6 Albumin 1.7 Lipase 59 Valproic Acid (Depakene) Level 37 Date/Time Procedure Status Source Growth 01/21/17 01:10 Aerobic Blood Culture Received Blood Peripheral Pending 01/21/17 01:10 Anaerobic Blood Culture Received Blood Peripheral Pending Result Diagram: 01/20/17 2112 01/21/17 0110 Assessment and Plan Assessment and Plan NEURO: End-stage dementia History of alcohol abuse Morphine 2-4 mg IV every 2 hours as needed for pain. Depakote level nontoxic. Continue Depakote 500 mg IV every 8 hours Namenda/zyprexa on hold. RESP: Acute healthcare associated pneumonia Nasal cannula wean as tolerated Antibiotics as per below Albuterol every 2 hours as needed CV: Septic shock History of hypertension D5 NaCl at 125 mL per hour. Benjamin-Synephrine drip to maintain mean arterial pressure greater than 65. Hold Cozaar 50 mg by mouth daily Serial lactic acid. BNP 1627 but appears clinically dry. GI: Chronic severe protein energy malnutrition Dysphagia GERD Chronic constipation Nothing by mouth. Family has indicated to Dr. Flores and Dr. Chase that they would not want feeding tube. Dulcolax 10 mg RI as needed for constipation. FEN/RENAL: Acute dehydration Hypernatremia Dawson in place. Monitor intake and output. Monitor electrolytes and replace as indicated. ID: Healthcare associated pneumonia Received Zosyn and vancomycin in the emergency department. Continue vancomycin with pharmacy consult for dosing. Will use cefepime in place and Zosyn due to hypernatremia. Follow-up blood cultures 01/21. UA negative HEME: Leukocytosis, bandemia Chronic anemia Monitor CBC ENDO: Euglycemic PROPH: Protonix 40 mg IV daily for stress ulcer prophylaxis. Initiate heparin 5000 units subcutaneous every 12 hours for DVT prophylaxis is not transitioning to comfort today. ACCESS: Patient has peripheral IV. Central venous line is indicated due to vasopressor requirements but family does not want her to endurance suffering from an additional procedure. They are aware that infiltration could result in harm. Using vasopressor short term so that family can arrive and then they have expressed desire to transition to comfort measures. Discussed that if they change their mind about comfort measures and if it appears that vasopressor requirement will be prolonged patient may need to proceed with central venous line. Of note, patient has been enrolled in hospice but family did not seem to be on -board with hospice philosophy initially, providing criticism that "hospice was not doing anything". They seem to be clear on desire to transition to comfort now --expressing gratitude for discussions about end-of-life care, appreciative of Dr. Flores. Palliative care consult Level 3 H and P Lluvia Chase MD January 21, 2017 03:58
[2017-01-21] MEDS ORDERED: MORPHINE SULFATE 4 MG/ML INJ IV PUSH PRN ×2 (04:15)
[2017-01-21] MEDS: DOCUSATE SODIUM 50 MG/SENNA 8.6 MG TAB PO SCH ×2 (08:00→20:39)
--- NOTE | 2017-01-21 08:10 | EKG ---
Date Performed: 01/21/2017 Time Performed: 07:34:50 PTAGE: 71 years EKG: Baseline artifact is present. Sinus rhythm . Possible anteroseptal infarct - age undetermined Nonspecific T-wave changes Abnormal ECG Compared t o prior electrocardiogram,Rate has slowed and T-wave changes are more prominent. PREVIOUS TRACING : 01/20/2017 21.22 DOCTOR: Saw Sahni Interpretating Date/Time 01/21/2017 08:09:08
--- NOTE | 2017-01-21 08:22 | EKG ---
Date Performed: 01/20/2017 Time Performed: 21:22:31 PTAGE: 71 years EKG: SINUS TACHYCARDIA LOW QRS VOLTAGE IN PRECORDIAL LEADS Nonspecific T-wave changes ABNORMAL E CG NO PREVIOUS TRACING DOCTOR: Saw Sahni Interpretating Date/Time 01/21/2017 08:21:18
[2017-01-21] MEDS: SODIUM CHLORIDE 0.9% FLUSH 10 ML FLUSH SCH ×2 (08:32→20:39)
[2017-01-21] MEDS: PANTOPRAZOLE SODIUM 40 MG VIAL IV SCH (08:39)
[2017-01-21] MEDS: DEXT 5%-NACL 0.45% 1000 ML INJ 1,000 ML IV SCH ×3 (08:39→20:38)
[2017-01-21] MEDS ORDERED: Vancomycin Consult Pharmacy 1 EA OTHER SCH (09:00)
[2017-01-21] MEDS: VALPROATE INJ 500 MG in SODIUM CHLORIDE 0.9% INJ 100 ML IV SCH ×2 (09:24→17:17)
[2017-01-21] MEDS: CEFEPIME INJ 2,000 MG in SODIUM CHLORIDE 0.9% INJ 100 ML IV SCH ×2 (09:24→17:12)
--- NOTE | 2017-01-21 10:22 | PD.CONS ---
Consult Service Palliative Care Consult Requested By Dr. Chase Primary Care Physician Zhang Cox MD Reason for Consultation a. To assist with evaluation and management of symptoms including:Pain b. To assist medical decision maker(s) with: better understanding of current medical conditions; weighing benefits/burdens of medical treatment options; making medical treatment decisions. HPI History of Present Illness Patient is a 71-year-old with past medical history of dementia, EtOH dependence , hypertension, diabetes, gastritis, psychosis, bipolar disorder. Patient resides in a fci facility and had a 2 day history of fevers of up to 101. It is reported that she has not been able to drink or eat well for the last 2 weeks. His reported that patient has been nonverbal recently. Due to patient's decline, has been contacted and a hospice consultation was placed. Patient was in the process of being extended shift hospice however and she remained a full code and was declining patient was transferred to the ER. In the ER patient was noted to be hypotensive: * Temperature is 102.6, pulse is 112, respirations 33, blood pressure is 81/53, pulse ox is 100 * WBC is 22, hemoglobin is 8.1 and hematocrit 25.6, platelets 323 * Sodium was 155, potassium is 3.8, chloride is 117, bicarbonate is 29.4, BUNs 24, creatinine 0.61 * Lactic acid is 3.6 * Troponin I 0.16, BNP is 1627, albumin is 1.7, total protein is 5.6, lipase is 59. * UA is negative for leukocyte esterase and nitrite * MRSA screen is negative * Valproic acid level was 37 * Blood cultures are pending * EKG shows tachycardia and nonspecific T-wave changes * Chest x-ray shows right perihilar patchiness consistent with possible developing pneumonia. * In the ER, ER physician discussed patient's critical condition. Family, report that little has been done to treat the fever, during that time they were with hospice. They elected to discontinue any hospice care. They maintain a full code, initially. Central lines was placed and pressure started. Critical medicine was consulted. Patient received fluid boluses. * Home Care Administrator Dr. Chase went and evaluated patient. When patient arrived to [facility] patient's blood pressure was a systolic of 60s over 40s. Patient had very shallow respiration. Intensivists discussed was patient's critical condition and that would be appropriate to transition to comfort measures, especially if patient has a living will. Patient endorse that she would not want to suffer, and that she has suffered enough the last 10 months. He agrees to change CODE STATUS to DNR. * endorse that he would like to come back to see patient again, but want to get rest. Patient is to continue on vasopressor support until they can return to the hospital, until they can come back to the hospital to be with her. They understand that patient may continue to decline despite vasopressor support. Palliative care was consulted to support family at this time of transition, and decline of the patient. On my visit pt remains of pressors with systloic running at 100's. Pt sleeping , stirs on exam and open eyes, would say "No" then goes back to sleep. Function/Cognitive Trajectory report that patient has been declining. There is decline in mental function that has been most severe over the last 10 months. She has had multiple hospitalizations at multiple facilities during that time. She suffered a fall in February 2016 and was hospitalized in [place] for TBI. Pt was never the same and has had a poor quality of life. She was hospitalized from use 11/21/16 due to agitation and combative behavior that could no longer be managed by her fci. Her states that she has been bedridden for 3 months. Nonverbal 2 weeks patient has had decrease in appetite. Has not been eating/drinking/ swallowing the last four days/ may have aspirated. Review of Systems ROS Limitations: Clinical Condition Past Family Social History Coded Allergies: No Known Allergies (Unverified , 01/20/17) Past Medical History History of alcohol dependence Dementia Hypertension Diabetes Gastritis Constipation Past Surgical History Unable to obtain Reported Medications Losartan 50 mg by mouth daily Valproic acid 1500 mg by mouth 3 times a day Zyprexa 15 mg by mouth every morning, 20 mg by mouth q p.m Senna 2 tabs by mouth daily at bedtime Namenda 10 mg by mouth twice a day Multivitamin 1 tab by mouth daily Aspirin 81 mg by mouth daily Folic acid 1 mg by mouth daily Prevnar 5 IM daily Current Medications Medications (Trade) Dose Ordered Sig/Ksenia Route Start Time Stop Time Status Last Admin (NS Flush) 2 ml UNSCH PRN .XX 01/21/17 01:30 (NS Flush) 2 ml BID .XX 01/21/17 09:00 01/21/17 08:32 (Protonix Inj) 40 mg DAILY IV 01/21/17 09:00 01/21/17 08:39 (Zofran Inj) 4 mg Q6H PRN IV 01/21/17 01:30 Miscellaneous Information 1 Q361D XX 01/21/17 01:30 01/21/17 01:30 (Chlorhexidine 2% Cloth) 3 pack Taper DAILY@04 TOP 01/21/17 04:00 01/17/18 03:59 01/21/17 03:58 (Chlorhexidine 2% Cloth) 3 pack UNSCH PRN TOP 01/21/17 01:30 (Rupa-Colace) 1 tab BID PO 01/21/17 09:00 (Milk Of Magnesia Liq) 30 ml Q12H PRN PO 01/21/17 01:30 (Senokot) 17.2 mg Q12H PRN PO 01/21/17 01:30 (Dulcolax Supp) 10 mg DAILY PRN RECTAL 01/21/17 01:30 Lactulose 30 ml 30 ml DAILY PRN PO 01/21/17 01:30 (Neosynephrine Inj/D5W 500 ml Inj) 500 ml @ 0 mls/hr TITRATE IV 01/21/17 03:45 (Brethine Inj) 1 mg UNSCH PRN SQ 01/21/17 03:45 (Morphine Inj) 2 mg Q2H PRN IV PUSH 01/21/17 04:15 Morphine Sulfate 4 mg 4 mg Q2H PRN IV PUSH 01/21/17 04:15 Dextrose/Sodium Chloride 1,000 ml @ 125 mls/hr Q8H IV 01/21/17 04:15 01/21/17 08:39 Cefepime HCl 2000 mg/Sodium Chloride 100 ml @ 200 mls/hr Q8H IV 01/21/17 10:00 01/21/17 09:24 Pharmacy Profile Note 0 ml @ 0 mls/hr UNSCH OTHER 01/21/17 09:00 (Depacon Inj/NS Inj) 105 ml @ 105 mls/hr Q8H IV 01/21/17 10:00 01/21/17 09:24 Family History Unable to elicit Substance Use Tobacco: No Alcohol: No Prescription med abuse: No Illicits: No Psychosocial History Patient is fci dependen since fall and TBI. She is . From [facility], but moved multiple times due to Father line of work. x 2 and divorce x 1. Has been to Irineo Waggoner for >30 years. Has 2 children, not local. Spiritual/Cultural Factors None listed Living Will: Completed, but not made available Documented care wishes: Advanced directive on file, that this patient is incapacitated. And that decision maker is healthcare proxy. Physical Exam Vital Signs Date Time Temp Pulse Resp B/P Pulse Ox O2 Delivery O2 Flow Rate FiO2 01/21/17 08:00 80 01/21/17 08:00 98.1 89 10 109/55 96 01/21/17 07:00 Nasal Cannula 2.00 01/21/17 06:00 75 01/21/17 04:00 96.8 82 12 112/57 96 01/21/17 04:00 96 Nasal Cannula 2.00 01/21/17 04:00 76 01/21/17 02:45 100 Nasal Cannula 4.00 01/21/17 01:51 96 Nasal Cannula 4.00 01/21/17 01:30 90 38 91/61 100 Nasal Cannula 4 01/21/17 01:00 97 38 81/54 96 Nasal Cannula 4 01/21/17 00:00 101.3 01/21/17 00:00 97 38 93/54 100 Nasal Cannula 4 01/20/17 23:30 98 36 100/56 98 Nasal Cannula 4 01/20/17 23:00 106 34 73/47 96 Nasal Cannula 4 01/20/17 22:30 107 32 84/52 98 Nasal Cannula 4 01/20/17 21:20 34 90 Nasal Cannula 2 01/20/17 21:14 102.6 112 33 81/53 100 01/20/17 01/21/17 19:00 07:00 Intake Total 3150 ml Output Total 475 ml Balance 2675 ml Intake Oral 0 ml IV Total 3150 ml Output Urine Total 475 ml # Bowel Movements 0 Exam CONSTITUTIONAL/GENERAL: Frail lady, sleeping. TUBES/LINES/DRAINS: PIV SKIN: No jaundice, rashes, or lesions. Ecchymoses on upper extremities. No wounds seen anteriorly. Skin temperature appropriate. HEAD: Atraumatic. Normocephalic. EYES: Pupils equal and round and reactive.No scleral icterus. No injection or drainage. ENT: Hearing grossly normal. Nose without bleeding or purulent drainage. Throat without visible erythema, exudates, masses, or lesions. NECK: Trachea midline. Supple, nontender. No palpable thyroid enlargement or nodularity. CARDIOVASCULAR: Regular rate and rhythm without murmurs, gallops, or rubs. No JVD. Peripheral pulses symmetric. RESPIRATORY/CHEST: Symmetric, unlabored respirations. Faint rhonchi right. GASTROINTESTINAL: Abdomen soft, non-tender, nondistended. Bowel sounds present. GENITOURINARY: Without palpable bladder distension. Dawson catheter in place. MUSCULOSKELETAL: Extremities without clubbing, cyanosis, or edema. No calf tenderness. No mottling or clubbing. LYMPHATICS: No palpable cervical or supraclavicular adenopathy. NEUROLOGICAL: Stirs during exam, would say "No" and goes back to sleep. PSYCHIATRIC: could not examine given level of conciousness. Diagnostic Tests Laboratory Laboratory Tests Test 01/20/17 01/20/17 01/21/17 01/21/17 21:12 22:50 01:10 02:50 Prothrombin Time 15.6 SEC (9.8-11.6) Prothromb Time International 1.4 RATIO Ratio Activated Partial 24.7 SEC Thromboplast Time (24.3-30.1) Lactic Acid Level 3.6 mmol/L 2.5 mmol/L (0.4-2.0) (0.4-2.0) B-Type Natriuretic Peptide 1627 PG/ML (0-100) White Blood Count 22.0 TH/MM3 (4.0-11.0) Red Blood Count 2.76 MIL/MM3 (4.00-5.30) Hemoglobin 8.1 GM/DL (11.6-15.3) Hematocrit 25.6 % (35.0-46.0) Mean Corpuscular Volume 92.8 FL (80.0-100.0) Mean Corpuscular Hemoglobin 29.3 PG (27.0-34.0) Mean Corpuscular Hemoglobin 31.6 % Concent (32.0-36.0) Red Cell Distribution Width 14.0 % (11.6-17.2) Platelet Count 323 TH/MM3 (150-450) Mean Platelet Volume 9.0 FL (7.0-11.0) Neutrophils (%) (Auto) % (16.0-70.0) Lymphocytes (%) (Auto) % (9.0-44.0) Monocytes (%) (Auto) % (0.0-8.0) Eosinophils (%) (Auto) % (0.0-4.0) Basophils (%) (Auto) % (0.0-2.0) Neutrophils # (Auto) TH/MM3 (1.8-7.7) Lymphocytes # (Auto) TH/MM3 (1.0-4.8) Monocytes # (Auto) TH/MM3 (0-0.9) Eosinophils # (Auto) TH/MM3 (0-0.4) Basophils # (Auto) TH/MM3 (0-0.2) CBC Comment AUTO DIFF Differential Total Cells 100 Counted Neutrophils % (Manual) 54 % (16-70) Band Neutrophils % 34 % (0-6) Lymphocytes % 9 % (9-44) Monocytes % 2 % (0-8) Basophils % 1 % (0-2) Neutrophils # (Manual) 19.4 TH/MM3 (1.8-7.7) Differential Comment FINAL DIFF MANUAL Toxic Granulation 2+ (NORMAL) Platelet Estimate NORMAL (NORMAL) Platelet Morphology Comment NORMAL (NORMAL) Urine Color YELLOW (YELLW/STRAW) Urine Turbidity CLEAR (CLEAR) Urine pH 6.5 (5.0-8.5) Urine Specific [place] 1.032 (1.002-1.035) Urine Protein 30 mg/dL (NEG-TRACE) Urine Glucose (UA) NEG mg/dL (NEG) Urine Ketones TRACE mg/dL (NEG) Urine Occult Blood NEG (NEG) Urine Nitrite NEG (NEG) Urine Bilirubin NEG (NEG) Urine Urobilinogen 8.0 MG/DL (LESS THAN 2.0) Urine Leukocyte Esterase NEG (NEG) Urine RBC 6 /hpf (0-3) Urine WBC 4 /hpf (0-5) Urine Squamous Epithelial <1 /hpf (0-5) Cells Urine Mucus FEW /lpf (OCC) Microscopic Urinalysis Comment CULT NOT INDICATED Sodium Level 155 MEQ/L (136-145) Potassium Level 3.8 MEQ/L (3.5-5.1) Chloride Level 117 MEQ/L (98-107) Carbon Dioxide Level 29.4 MEQ/L (21.0-32.0) Anion Gap 9 MEQ/L (5-15) Blood Urea Nitrogen 24 MG/DL (7-18) Creatinine 0.61 MG/DL (0.50-1.00) Estimat Glomerular Filtration 97 ML/MIN (>89) Rate Random Glucose 130 MG/DL (74-106) Calcium Level 7.8 MG/DL (8.5-10.1) Magnesium Level 2.1 MG/DL (1.5-2.5) Total Bilirubin 0.3 MG/DL (0.2-1.0) Aspartate Amino Transf 34 U/L (15-37) (AST/SGOT) Alanine Aminotransferase 42 U/L (10-53) (ALT/SGPT) Alkaline Phosphatase 94 U/L (45-117) Total Creatine Kinase 380 U/L (26-192) Creatine Kinase MB 3.6 NG/ML (0.5-3.6) Creatine Kinase MB % 0.9 % (0.0-4.0) Troponin I 0.16 NG/ML (0.02-0.05) Total Protein 5.6 GM/DL (6.4-8.2) Albumin 1.7 GM/DL (3.4-5.0) Lipase 59 U/L (73-393) Valproic Acid (Depakene) Level 37 MCG/ML (50-100) Nasal Screen MRSA (PCR) MRSA NOT DETECTED (NOT DETECT) Result Diagram: 01/20/17211101/21/17109 Microbiology Microbiology Date/Time Procedure Status Source Growth 01/21/17 01:00 Aerobic Blood Culture Received Blood Peripheral Pending 01/21/17 01:00 Anaerobic Blood Culture Received Blood Peripheral Pending 01/21/17 01:10 Aerobic Blood Culture Received Blood Peripheral Pending 01/21/17 01:10 Anaerobic Blood Culture Received Blood Peripheral Pending Imaging Last Impressions Chest X-Ray 01/20/172053 Signed Impressions: Service Date/Time: Friday, January 20, 2017 21:53 - CONCLUSION: Right perihilar patchiness consistent with possible developing pneumonia. Clinical correlation is recommended. Irineo Gonzalez MD Patient/Family Conference Issues Discussed: * Palliative care role, purpose, approach * Additional medical, psychosocial, and spiritual history * Patients general health, functional status, and cognitive changes in the months leading up to the current hospitalization * Patient/family understanding of the current medical problems * Patient/family understanding of prognosis * Patients goals of care as best understood from advance directives and/or conversations and/or values * Current medical treatment options and benefits/burdens of those options * Likely scenarios comparing ongoing aggressive care with a transition to comfort measures only * Questions answered to the best of my ability * Palliative care contact information provided Assessment and Plan Disease Oriented Problem List: (1) Severe sepsis Comment: Currently on pressors (2) Dementia of Alzheimer's type with behavioral disturbance Comment: Apical level nontoxic. (3) Pneumonia Comment: likely aspiration. (4) EtOH dependence (5) Failure to thrive (0-17) Comment: Albumin is 1.7 Symptom Scale: (1) Pain 0-10 Scale: Unable to quantify Comment: prn available (2) Dyspnea 0-10 Scale: Unable to quantify Comment: Pneumonia (3) Anxiety 0-10 Scale: Unable to quantify Comment: prn available Pertinent Non-Medical Issues Psychosocial: Spiritual: Legal: Ethical issues impacting care: Important Contacts Irineo Edilson [phone]. Madeleine Flores [phone] Prognosis 71-year-old with dementia, failure to thrive, severe sepsis, pneumonia (likely aspiration per hx). Patient is dying and is appropriate for hospice. Code Status: No Code Plan == Capacity-patient has dementia and does not have capacity to make medical decision. == Healthcare proxy. Patient's spouse Irineo Waggoner ==CODE STATUS DNR/DNI == Symptoms dyspnea, pain, anxiety- No new med rec. PRN morphine available. == goals of care: spoke with family. Review pt's current clinical condition. Revisit her worsening demenita, her general debility, her aspiration , and her quality of life. They know even if care is aggressive, and if she survive current hospitalization, she likley will be hospitalize again, have aspiration and sepsis risk. Both pt's and pt's sister concurred the poor quality of life, she has had since TBI. Review with them my recommendation with hospice, likely as inpatient in the hospital. They understand once pt is admitted to hospice, she will be weaned off abx, and pressors. likely will transition to comfort measures only, but would like some time to speak with their children. I will touch base again this afternoon on their decision to contact hospice and transition to comfort measures only. My contact information was given. Pt's spouse does not want central line to place today. == Palliative care will continue to follow. == Met with family again in the afternoon, pt's family want to reconvene in the morning. Pt pressors have decreased, although BP has fluctuate and low. Family say no central line, continue with pressors, and continue DNR. Time Spent Total Floor Time (mins): 60 Thank you for the opportunity to participate in the care of Ms. Waggoner. Attestation To help prompt me to consider important information that might be impacting today's encounter and assessment, information from prior notes written by myself or my colleagues may have been "brought forward" into today's note. My signature on this note, however, is an attestation that I personally performed the exam, history, and/or decision-making noted today, and, unless otherwise indicated, the interactions with patient, family, and staff as well as the review of records all occurred today. I also attest that the listed assessment and stated plan reflect my best clinical judgment today based on the combination of historical information, prior notes, and today's exam/ interactions. When time spent is documented, it refers only to time spent today by the signer, or if indicated, combined time spent today by collaborating physician/nurse practitioner. Danial Le MD January 21, 2017 10:22
[2017-01-21] MEDS ORDERED: VANCOMYCIN 1,000 MG/NS 250 ML IV SCH ×2 (23:00)
[2017-01-22] VITALS (10 sets, daily range): BP systolic 92–120; BP diastolic 50–65; PULSE 53–93; RESP 17–22; TEMP 98.1–100; O2SAT 97–100
[2017-01-22] MEDS: VALPROATE INJ 500 MG in SODIUM CHLORIDE 0.9% INJ 100 ML IV SCH ×3 (01:16→17:47)
[2017-01-22] MEDS: CEFEPIME INJ 2,000 MG in SODIUM CHLORIDE 0.9% INJ 100 ML IV SCH ×3 (02:09→17:47)
[2017-01-22] MEDS: CHLORHEXIDINE GLUCONATE 2 % 1 PACK (2 CLOTHS) TOP SCH (03:37)
[2017-01-22] MEDS: DEXT 5%-NACL 0.45% 1000 ML INJ 1,000 ML IV SCH ×3 (03:37→20:15)
[2017-01-22 04:46] LABS: AUTOMATED NEUTROPHIL # 19.5 TH/MM3 (1.8-7.7); BASOPHIL # 0.1 TH/MM3 (0-0.2); BASOPHIL % 0.2 % (0.0-2.0); EOSINOPHIL # 0.2 TH/MM3 (0-0.4); EOSINOPHIL % 0.9 % (0.0-4.0); HEMATOCRIT 27.4 % (35.0-46.0); HEMO FLAGS DIFF FINAL; LYMPH % 8.3 % (9.0-44.0); LYMPHOCYTE # 1.9 TH/MM3 (1.0-4.8); MEAN CELL VOLUME 91.7 FL (80.0-100.0); MEAN CORPUSCULAR HEMOGLOBIN 29.8 PG (27.0-34.0); MEAN CORPUSCULAR HGB CONC 32.5 % (32.0-36.0); MONO % 6.5 % (0.0-8.0); NEUT % 84.1 % (16.0-70.0); PLATELET COUNT 345 TH/MM3 (150-450); RED BLOOD COUNT 2.98 MIL/MM3 (4.00-5.30); RED CELL DISTRIBUTION WIDTH 13.8 % (11.6-17.2); WHITE BLOOD COUNT 23.2 TH/MM3 (4.0-11.0)
[2017-01-22 04:57] LABS: ALKALINE PHOSPHATASE 461 U/L (45-117); ALT (GPT) 29 U/L (10-53); ANION GAP 6 MEQ/L (5-15); AST (GOT) 21 U/L (15-37); BICARBONATE 26.8 MEQ/L (21.0-32.0); BLOOD UREA NITROGEN 10 MG/DL (7-18); CHLORIDE 112 MEQ/L (98-107); GLOMERULAR FILTRATION RATE 158 ML/MIN (>89); MAGNESIUM 1.7 MG/DL (1.5-2.5); POTASSIUM 3.2 MEQ/L (3.5-5.1); SODIUM (NA) 145 MEQ/L (136-145); TOTAL BILIRUBIN ADULT 0.3 MG/DL (0.2-1.0)
--- NOTE | 2017-01-22 07:57 | HHI.CCPN ---
Subjective Remarks/Hospital Course 71-year-old female with past medical history of alcohol dependence and dementia who presents to [facility] emergency department from longterm due to a 2 day history of fever up to 101. She was hypotensive in 80s and was given NS 500 [employer]. She has been unable to eat or drink well for the last 2 weeks. Chest x-ray demonstrates right perihilar infiltrate consistent with pneumonia. White blood cell count is 22 with 34% bands.. Hemoglobin is 8.1. Her chemistry labs were pending for many hours after admission, requiring re-collect but demonstrated hypernatremia with sodium of 155, creatinine normal. Lactic acid 3.6. BNP 1600. Patient's indicates that she has had progressive decline in mental function that has been most severe over the last 10 months. She has had multiple hospitalizations at multiple facilities during that time. She suffered a fall in February 2016 and was hospitalized in [place] for TBI. She was hospitalized from 07/27/16 use 11/21/16 due to agitation and combative behavior that could no longer be managed by her longterm. Her states that she has been bedridden for 3 months. Nonverbal 2 weeks. Received [address] Flores discussed with family in the emergency department regarding central line placement and they declined central line. Patient was hypotensive with blood pressure in the 80s over 50s which was initially volume responsive. When she arrived to [facility] from the emergency department systolic blood pressure was in the 60s/40s and patient had very shallow respirations. Discussed with patient' s that she has end-stage dementia and that would be appropriate to transition to comfort measures if that is consistent with patients previously expressed wishes. He states she does not have a living will but that "she would not want to suffer "and she "has already suffered enough the last 10 months". He agrees with changing codes status to DNR. He would like to transition to comfort measures but would like to be able to see her again. He has just returned home to [place] with his [id number] and they are exhausted and would like to rest and come back to the hospital. Will use vasopressor support with phenylephrine via PIV in effort to maintain until they can return to the hospital. Sister says "I feel selfish saying to do that just so I can see her, but I also want someone to be with her". She is aware that it is difficult to predict how long that she will live and that she may before they arrive and, on the other hand, she may live for several days after transition to comfort. Will change CODE STATUS to DNR per this discussion. 01/22: Code status officially DNR. Will transfer to floor. Protects airway well. Objective Vital Signs Date Time Temp Pulse Resp B/P Pulse Ox O2 Delivery O2 Flow Rate FiO2 01/22/17 06:00 80 01/22/17 05:00 99 Room Air 01/22/17 04:00 100.0 19 92/51 01/21/17 20:00 1.00 Intake and Output 01/21/17 01/21/17 01/22/17 08:00 16:00 00:00 Intake Total 1650 ml 650 ml 1300 ml Output Total 475 ml 200 ml 400 ml Balance 1175 ml 450 ml 900 ml Result Diagram: 01/22/17 0354 01/22/17 0354 Objective Remarks GENERAL: Malnourished, Chronically ill-appearing female who appears older than stated age with contractures of all extremities. SKIN: Warm and dry. HEAD: Atraumatic. Normocephalic. EYES: Pupils equal and round. No scleral icterus. ENT: No nasal bleeding or discharge. Mucous membranes dry NECK: Trachea midline. No obstruction, airway widely patent. CARDIOVASCULAR: Regular rate and rhythm. No murmurs rubs or gallops. RESPIRATORY: Very shallow respirations with no appreciable wheezes Rales or rhonchi. GASTROINTESTINAL: Abdomen soft, grimaces to palpation, bowel sounds present. MUSCULOSKELETAL: Extremities without clubbing, cyanosis, or edema. Contractures of all extremities NEUROLOGICAL: Eyes open spontaneously, responds to visual threat, does not track. Moves upper extremities spontaneously. Contractures of all extremities. A/P Assessment and Plan NEURO: End-stage dementia History of alcohol abuse Morphine 2-4 mg IV every 2 hours as needed for pain. Depakote level nontoxic. Continue Depakote 500 mg IV every 8 hours Namenda/zyprexa on hold. RESP: Acute healthcare associated pneumonia Nasal cannula wean as tolerated Antibiotics as per below Albuterol every 2 hours as needed CV: Septic shock History of hypertension D5 NaCl at 125 mL per hour. Benjamin-Synephrine drip to maintain mean arterial pressure greater than 65. Hold Cozaar 50 mg by mouth daily Serial lactic acid. BNP 1627 but appears clinically dry. GI: Chronic severe protein energy malnutrition Dysphagia GERD Chronic constipation Nothing by mouth. Family has indicated to Dr. Flores and Dr. Chase that they would not want feeding tube. Dulcolax 10 mg PA as needed for constipation. FEN/RENAL: Acute dehydration Hypernatremia Dawson in place. Monitor intake and output. Monitor electrolytes and replace as indicated. ID: Healthcare associated pneumonia Received Zosyn and vancomycin in the emergency department. Continue vancomycin with pharmacy consult for dosing. Will use cefepime in place and Zosyn due to hypernatremia. Follow-up blood cultures 01/21. UA negative HEME: Leukocytosis, bandemia Chronic anemia Monitor CBC ENDO: Euglycemic PROPH: Protonix 40 mg IV daily for stress ulcer prophylaxis. Initiate heparin 5000 units subcutaneous every 12 hours for DVT prophylaxis is not transitioning to comfort today. ACCESS: Patient has peripheral IV. Central venous line is indicated due to vasopressor requirements but family does not want her to endure suffering from an additional procedure. They are aware that infiltration could result in harm. Using vasopressor short term so that family can arrive and then they have expressed desire to transition to comfort measures. Discussed that if they change their mind about comfort measures and if it appears that vasopressor requirement will be prolonged patient may need to proceed with central venous line. Of note, patient has been enrolled in hospice but family did not seem to be on -board with hospice philosophy initially, providing criticism that "hospice was not doing anything". They seem to be clear on desire to transition to comfort now --expressing gratitude for discussions about end-of-life care, appreciative of Dr. Flores. Palliative care consult team has seen patient. Transfer to floor after low dose Benjamin off. Cesar Soto MD January 22, 2017 07:57
--- NOTE | 2017-01-22 08:19 | EKG ---
Date Performed: 01/21/2017 Time Performed: 19:30:12 PTAGE: 71 years EKG: Sinus rhythm ST/T-WAVE ABNORMALITY, CONSIDER ANTEROLATERAL ISCHEMIA NONSPECIFIC INFERIOR ST/T CHANGES ABNORMAL EC G PREVIOUS TRACING : 01/21/2017 13.26 No significant change from previous tracing noted. DOCTOR: Ivan Snow Interpretating Date/Time 01/22/2017 08:17:54
--- NOTE | 2017-01-22 08:25 | EKG ---
Date Performed: 01/21/2017 Time Performed: 13:26:46 PTAGE: 71 years EKG: Sinus rhythm POSSIBLE ANTERIOR MYOCARDIAL INFARCTION , OF INDETERMINATE AGE INFERIOR AND LATERAL T WAVE ABNORMALI TY, CONSIDER ISCHEMIA ABNORMAL ECG PREVIOUS TRACING : 01/21/2017 07.34 No significant change from previous tracing noted. DOCTOR: Ivan Snow Interpretating Date/Time 01/22/2017 08:25:00
[2017-01-22] MEDS: SODIUM CHLORIDE 0.9% FLUSH 10 ML FLUSH SCH (09:00)
[2017-01-22] MEDS: DOCUSATE SODIUM 50 MG/SENNA 8.6 MG TAB PO SCH ×2 (09:00→21:00)
[2017-01-22] MEDS: PANTOPRAZOLE SODIUM 40 MG VIAL IV SCH (10:42)
--- NOTE | 2017-01-22 10:59 | HHI.HCPN ---
Reason for visit a. To assist with evaluation and management of symptoms including:Pain b. To assist medical decision maker(s) with: better understanding of current medical conditions; weighing benefits/burdens of medical treatment options; making medical treatment decisions. Subjective/Interval History Pt remains very lethargic, and mostly sleeps, stirs to exam. Still on pressors , but possibly may be taken off. Cultures still pending. Family/friend interactions Family for now hopeful she can be taken off pressors. They want to continue antibiotics and pressors for now. Review with them that at some point she would need to enroll with hospice. For now they want to continue course of treatment, no central line. Pt's and Sister were present. Advance Directives Living Will: Completed, but not made available Advance Directive Specifics Documented care wishes: Advanced directive on file, that this patient is incapacitated. And that decision maker is healthcare proxy. Objective Vital Signs Date Time Temp Pulse Resp B/P Pulse Ox O2 Delivery O2 Flow Rate FiO2 01/22/17 09:55 98 21 01/22/17 06:00 80 01/22/17 05:00 99 Room Air 01/22/17 04:00 83 01/22/17 04:00 100 Nasal Cannula 01/22/17 04:00 100.0 83 19 92/51 98 01/22/17 02:00 85 01/22/17 00:00 92 01/22/17 00:00 98.1 92 17 96/50 99 01/21/17 22:00 97 01/21/17 20:00 98.8 102 18 95/55 98 01/21/17 20:00 105 01/21/17 20:00 100 Nasal Cannula 1.00 01/21/17 19:00 98 Nasal Cannula 2.00 01/21/17 18:00 95 01/21/17 16:19 96 Nasal Cannula 2.00 01/21/17 16:00 95 01/21/17 16:00 99.4 94 14 91/50 96 01/21/17 14:00 94 01/21/17 12:00 98.4 83 24 110/55 96 01/21/17 12:00 83 Intake & Output 01/22/17 01/22/17 07:00 19:00 Intake Total 3040 ml Output Total 650 ml Balance 2390 ml Intake Oral 0 ml IV Total 3040 ml Output Urine Total 650 ml # Bowel Movements 1 Physical Exam CONSTITUTIONAL/GENERAL: Frail lady, sleeping. TUBES/LINES/DRAINS: PIV SKIN: No jaundice, rashes, or lesions. Ecchymoses on upper extremities. No wounds seen anteriorly. Skin temperature appropriate. HEAD: Atraumatic. Normocephalic. EYES: Pupils equal and round and reactive.No scleral icterus. No injection or drainage. ENT: Hearing grossly normal. Nose without bleeding or purulent drainage. Throat without visible erythema, exudates, masses, or lesions. NECK: Trachea midline. Supple, nontender. No palpable thyroid enlargement or nodularity. CARDIOVASCULAR: Regular rate and rhythm without murmurs, gallops, or rubs. No JVD. Peripheral pulses symmetric. RESPIRATORY/CHEST: Symmetric, unlabored respirations. Faint rhonchi right. GASTROINTESTINAL: Abdomen soft, non-tender, nondistended. Bowel sounds present. GENITOURINARY: Without palpable bladder distension. Dawson catheter in place. MUSCULOSKELETAL: Extremities without clubbing, cyanosis, or edema. No calf tenderness. No mottling or clubbing. LYMPHATICS: No palpable cervical or supraclavicular adenopathy. NEUROLOGICAL: Stirs during exam, would say "No" and goes back to sleep. PSYCHIATRIC: could not examine given level of conciousness. Diagnostic Tests Laboratory Laboratory Tests Test 01/20/17 01/20/17 01/21/17 01/21/17 21:12 22:50 01:10 02:50 Prothrombin Time 15.6 SEC (9.8-11.6) Prothromb Time International 1.4 RATIO Ratio Activated Partial 24.7 SEC Thromboplast Time (24.3-30.1) Lactic Acid Level 3.6 mmol/L 2.5 mmol/L (0.4-2.0) (0.4-2.0) B-Type Natriuretic Peptide 1627 PG/ML (0-100) White Blood Count 22.0 TH/MM3 (4.0-11.0) Red Blood Count 2.76 MIL/MM3 (4.00-5.30) Hemoglobin 8.1 GM/DL (11.6-15.3) Hematocrit 25.6 % (35.0-46.0) Mean Corpuscular Volume 92.8 FL (80.0-100.0) Mean Corpuscular Hemoglobin 29.3 PG (27.0-34.0) Mean Corpuscular Hemoglobin 31.6 % Concent (32.0-36.0) Red Cell Distribution Width 14.0 % (11.6-17.2) Platelet Count 323 TH/MM3 (150-450) Mean Platelet Volume 9.0 FL (7.0-11.0) Neutrophils (%) (Auto) % (16.0-70.0) Lymphocytes (%) (Auto) % (9.0-44.0) Monocytes (%) (Auto) % (0.0-8.0) Eosinophils (%) (Auto) % (0.0-4.0) Basophils (%) (Auto) % (0.0-2.0) Neutrophils # (Auto) TH/MM3 (1.8-7.7) Lymphocytes # (Auto) TH/MM3 (1.0-4.8) Monocytes # (Auto) TH/MM3 (0-0.9) Eosinophils # (Auto) TH/MM3 (0-0.4) Basophils # (Auto) TH/MM3 (0-0.2) CBC Comment AUTO DIFF Differential Total Cells 100 Counted Neutrophils % (Manual) 54 % (16-70) Band Neutrophils % 34 % (0-6) Lymphocytes % 9 % (9-44) Monocytes % 2 % (0-8) Basophils % 1 % (0-2) Neutrophils # (Manual) 19.4 TH/MM3 (1.8-7.7) Differential Comment FINAL DIFF MANUAL Toxic Granulation 2+ (NORMAL) Platelet Estimate NORMAL (NORMAL) Platelet Morphology Comment NORMAL (NORMAL) Urine Color YELLOW (YELLW/STRAW) Urine Turbidity CLEAR (CLEAR) Urine pH 6.5 (5.0-8.5) Urine Specific [place] 1.032 (1.002-1.035) Urine Protein 30 mg/dL (NEG-TRACE) Urine Glucose (UA) NEG mg/dL (NEG) Urine Ketones TRACE mg/dL (NEG) Urine Occult Blood NEG (NEG) Urine Nitrite NEG (NEG) Urine Bilirubin NEG (NEG) Urine Urobilinogen 8.0 MG/DL (LESS THAN 2.0) Urine Leukocyte Esterase NEG (NEG) Urine RBC 6 /hpf (0-3) Urine WBC 4 /hpf (0-5) Urine Squamous Epithelial <1 /hpf (0-5) Cells Urine Mucus FEW /lpf (OCC) Microscopic Urinalysis Comment CULT NOT INDICATED Sodium Level 155 MEQ/L (136-145) Potassium Level 3.8 MEQ/L (3.5-5.1) Chloride Level 117 MEQ/L (98-107) Carbon Dioxide Level 29.4 MEQ/L (21.0-32.0) Anion Gap 9 MEQ/L (5-15) Blood Urea Nitrogen 24 MG/DL (7-18) Creatinine 0.61 MG/DL (0.50-1.00) Estimat Glomerular Filtration 97 ML/MIN (>89) Rate Random Glucose 130 MG/DL (74-106) Calcium Level 7.8 MG/DL (8.5-10.1) Magnesium Level 2.1 MG/DL (1.5-2.5) Total Bilirubin 0.3 MG/DL (0.2-1.0) Aspartate Amino Transf 34 U/L (15-37) (AST/SGOT) Alanine Aminotransferase 42 U/L (10-53) (ALT/SGPT) Alkaline Phosphatase 94 U/L (45-117) Total Creatine Kinase 380 U/L (26-192) Creatine Kinase MB 3.6 NG/ML (0.5-3.6) Creatine Kinase MB % 0.9 % (0.0-4.0) Troponin I 0.16 NG/ML (0.02-0.05) Total Protein 5.6 GM/DL (6.4-8.2) Albumin 1.7 GM/DL (3.4-5.0) Lipase 59 U/L (73-393) Valproic Acid (Depakene) Level 37 MCG/ML (50-100) Nasal Screen MRSA (PCR) MRSA NOT DETECTED (NOT DETECT) Test 01/22/17 03:54 White Blood Count 23.2 TH/MM3 (4.0-11.0) Red Blood Count 2.98 MIL/MM3 (4.00-5.30) Hemoglobin 8.9 GM/DL (11.6-15.3) Hematocrit 27.4 % (35.0-46.0) Mean Corpuscular Volume 91.7 FL (80.0-100.0) Mean Corpuscular Hemoglobin 29.8 PG (27.0-34.0) Mean Corpuscular Hemoglobin 32.5 % Concent (32.0-36.0) Red Cell Distribution Width 13.8 % (11.6-17.2) Platelet Count 345 TH/MM3 (150-450) Mean Platelet Volume 9.1 FL (7.0-11.0) Neutrophils (%) (Auto) 84.1 % (16.0-70.0) Lymphocytes (%) (Auto) 8.3 % (9.0-44.0) Monocytes (%) (Auto) 6.5 % (0.0-8.0) Eosinophils (%) (Auto) 0.9 % (0.0-4.0) Basophils (%) (Auto) 0.2 % (0.0-2.0) Neutrophils # (Auto) 19.5 TH/MM3 (1.8-7.7) Lymphocytes # (Auto) 1.9 TH/MM3 (1.0-4.8) Monocytes # (Auto) 1.5 TH/MM3 (0-0.9) Eosinophils # (Auto) 0.2 TH/MM3 (0-0.4) Basophils # (Auto) 0.1 TH/MM3 (0-0.2) CBC Comment DIFF FINAL Differential Comment Sodium Level 145 MEQ/L (136-145) Potassium Level 3.2 MEQ/L (3.5-5.1) Chloride Level 112 MEQ/L (98-107) Carbon Dioxide Level 26.8 MEQ/L (21.0-32.0) Anion Gap 6 MEQ/L (5-15) Blood Urea Nitrogen 10 MG/DL (7-18) Creatinine 0.40 MG/DL (0.50-1.00) Estimat Glomerular Filtration 158 ML/MIN Rate (>89) Random Glucose 194 MG/DL (74-106) Calcium Level 7.7 MG/DL (8.5-10.1) Phosphorus Level 1.1 MG/DL (2.5-4.9) Magnesium Level 1.7 MG/DL (1.5-2.5) Total Bilirubin 0.3 MG/DL (0.2-1.0) Aspartate Amino Transf 21 U/L (15-37) (AST/SGOT) Alanine Aminotransferase 29 U/L (10-53) (ALT/SGPT) Alkaline Phosphatase 461 U/L (45-117) Total Protein 5.4 GM/DL (6.4-8.2) Albumin 1.5 GM/DL (3.4-5.0) Result Diagram: 01/22/17 0354 01/22/17 0354 Microbiology Microbiology Date/Time Procedure Status Source Growth 01/21/17 01:00 Aerobic Blood Culture Received Blood Peripheral Pending 01/21/17 01:00 Anaerobic Blood Culture Received Blood Peripheral Pending 01/21/17 01:10 Aerobic Blood Culture Received Blood Peripheral Pending 01/21/17 01:10 Anaerobic Blood Culture Received Blood Peripheral Pending Assessment and Plan Disease Oriented Problem List: (1) Severe sepsis Comment: Currently on pressors (2) Dementia of Alzheimer's type with behavioral disturbance Comment: Apical level nontoxic. (3) Pneumonia Comment: likely aspiration. (4) EtOH dependence (5) Failure to thrive (0-17) Comment: Albumin is 1.7 Symptom Scale: (1) Pain 0-10 Scale: Unable to quantify Comment: prn available (2) Dyspnea 0-10 Scale: Unable to quantify Comment: Pneumonia (3) Anxiety 0-10 Scale: Unable to quantify Comment: prn available Pertinent Non-Medical Issues Psychosocial: Spiritual: Legal: Ethical issues impacting care: Important Contacts Irineo Waggoner [phone]. Madeleine Flores [phone] Prognosis 71-year-old with dementia, failure to thrive, severe sepsis, pneumonia (likely aspiration per hx). Patient is dying and is appropriate for hospice. Code Status: No Code Plan == Capacity-patient has dementia and does not have capacity to make medical decision. == Healthcare proxy. Patient's spouse Irineo Waggoner ==CODE STATUS DNR/DNI == Symptoms dyspnea, pain, anxiety- No new med rec. PRN morphine available. == goals of care: Family for now hopeful she can be taken off pressors. They want to continue antibiotics and pressors for now. Review with them that at some point she would need to enroll with hospice. For now they want to continue course of treatment, no central line. Pt's and Sister were present. == Palliative care will continue to follow. Danial Le MD January 22, 2017 10:59
[2017-01-22] MEDS: VANCOMYCIN INJ 750 MG in SODIUM CHLOR 0.9% 250 ML INJ 250 ML IV SCH (12:39)
[2017-01-22] MEDS ORDERED: POTASSIUM PHOSPHATE MONOBASIC 500 MG TAB PO PRN (16:00)
[2017-01-22] MEDS ORDERED: MAGNESIUM SULFATE INJ 4 GM in SODIUM CHLORIDE 0.9% INJ 92 ML IV PRN (16:00)
[2017-01-22] MEDS ORDERED: POTASSIUM CHLOR 20 MEQ PREMIX 100 ML IV PRN (16:00)
[2017-01-22] MEDS ORDERED: MAGNESIUM OXIDE 400 MG TAB PO PRN (16:00)
[2017-01-22] MEDS ORDERED: POTASSIUM PHOSPHATE MONOBASIC 500 MG TAB PO/TUBE PRN (16:00)
[2017-01-22] MEDS ORDERED: POTASSIUM CHLOR 40 MEQ PREMIX 100 ML IV PRN ×2 (16:00)
[2017-01-22] MEDS ORDERED: SODIUM PHOSPHATE INJ 30 MMOL in SODIUM CHLOR 0.9% 250 ML INJ 240 ML IV PRN (16:00)
[2017-01-22] MEDS ORDERED: MAGNESIUM SULFATE INJ 2 GM in SODIUM CHLORIDE 0.9% INJ 96 ML IV PRN (16:00)
[2017-01-22] MEDS: POTASSIUM CHLOR 20 MEQ PREMIX 100 ML IV PRN (16:32)
[2017-01-22] MEDS ORDERED: [UNRECOGNIZED DRUG - MIXTURE] IV ONE (16:45)
[2017-01-22] MEDS: HYDROCORTISONE SOD SUCCINATE 100 MG VIAL IV PUSH SCH (17:09)
[2017-01-23] VITALS (13 sets, daily range): BP systolic 76–160; BP diastolic 46–73; PULSE 7–104; RESP 21–27; TEMP 97.7–98.9; O2SAT 94–100
[2017-01-23] MEDS: HYDROCORTISONE SOD SUCCINATE 100 MG VIAL IV PUSH SCH ×5 (00:59→23:09)
[2017-01-23] MEDS: VANCOMYCIN INJ 750 MG in SODIUM CHLOR 0.9% 250 ML INJ 250 ML IV SCH ×2 (00:59→15:08)
[2017-01-23] MEDS: SODIUM CHLORIDE 0.9% FLUSH 10 ML FLUSH SCH ×3 (00:59→21:00)
[2017-01-23] MEDS: VALPROATE INJ 500 MG in SODIUM CHLORIDE 0.9% INJ 100 ML IV SCH ×3 (02:20→17:52)
[2017-01-23] MEDS: CEFEPIME INJ 2,000 MG in SODIUM CHLORIDE 0.9% INJ 100 ML IV SCH ×3 (02:20→17:53)
[2017-01-23] MEDS: CHLORHEXIDINE GLUCONATE 2 % 1 PACK (2 CLOTHS) TOP SCH (04:00)
[2017-01-23] MEDS: DEXT 5%-NACL 0.45% 1000 ML INJ 1,000 ML IV SCH ×3 (04:15→17:53)
[2017-01-23] MEDS ORDERED: SODIUM CHLOR 0.9% 1000 ML INJ 1,000 ML IV ONE (08:30)
[2017-01-23] MEDS: DOCUSATE SODIUM 50 MG/SENNA 8.6 MG TAB PO SCH ×2 (08:48→21:00)
[2017-01-23] MEDS: PANTOPRAZOLE SODIUM 40 MG VIAL IV SCH (09:19)
--- NOTE | 2017-01-23 12:26 | HHI.HCPN ---
Reason for visit a. To assist with evaluation and management of symptoms including:Pain b. To assist medical decision maker(s) with: better understanding of current medical conditions; weighing benefits/burdens of medical treatment options; making medical treatment decisions. Subjective/Interval History Pt open eyes, not follow commmands. Per , she did smile some today. BP appears to be stable. Family/friend interactions Spoke with pt's , and sister. They continue to endorse to try to maximize medical therapy while she is in the hospital. They want to continue antibiotics and IV fluids. They did say they are concern about the depakote. Per [facility] depakote is ordered for control of mood and behavior. Reemphasize again that pt will benefit from hospice, and they seem to be amenable to that. They did say "I just want to see how far she can rebound, while she is here." signed community DNR. Advance Directives Living Will: Completed, but not made available Advance Directive Specifics Documented care wishes: Advanced directive on file, that this patient is incapacitated. And that decision maker is healthcare proxy. Objective Vital Signs Date Time Temp Pulse Resp B/P Pulse Ox O2 Delivery O2 Flow Rate FiO2 01/23/17 06:00 74 01/23/17 04:00 98.4 76 26 116/61 95 01/23/17 04:00 76 01/23/17 02:00 97 01/23/17 01:57 94 01/23/17 00:00 53 01/23/17 00:00 98.4 104 22 134/73 100 01/22/17 22:00 63 01/22/17 20:00 98.5 88 22 106/56 100 01/22/17 20:00 53 01/22/17 19:00 100 Room Air 01/22/17 16:00 99.1 91 18 100/56 100 01/22/17 16:00 91 Physical Exam CONSTITUTIONAL/GENERAL: Frail lady, sleeping. TUBES/LINES/DRAINS: PIV SKIN: No jaundice, rashes, or lesions. Ecchymoses on upper extremities. No wounds seen anteriorly. Skin temperature appropriate. HEAD: Atraumatic. Normocephalic. EYES: Pupils equal and round and reactive.No scleral icterus. No injection or drainage. ENT: Hearing grossly normal. Nose without bleeding or purulent drainage. Throat without visible erythema, exudates, masses, or lesions. NECK: Trachea midline. Supple, nontender. No palpable thyroid enlargement or nodularity. CARDIOVASCULAR: Regular rate and rhythm without murmurs, gallops, or rubs. No JVD. Peripheral pulses symmetric. RESPIRATORY/CHEST: Symmetric, unlabored respirations. Faint rhonchi right. GASTROINTESTINAL: Abdomen soft, non-tender, nondistended. Bowel sounds present. GENITOURINARY: Without palpable bladder distension. Dawson catheter in place. MUSCULOSKELETAL: Extremities without clubbing, cyanosis, or edema. No calf tenderness. No mottling or clubbing. LYMPHATICS: No palpable cervical or supraclavicular adenopathy. NEUROLOGICAL: Stirs during exam, open eyes, not intreactive.. PSYCHIATRIC: could not examine given level of conciousness. Diagnostic Tests Laboratory Laboratory Tests Test 01/20/17 01/20/17 01/21/17 01/21/17 21:12 22:50 01:10 02:50 Prothrombin Time 15.6 SEC (9.8-11.6) Prothromb Time International 1.4 RATIO Ratio Activated Partial 24.7 SEC Thromboplast Time (24.3-30.1) Lactic Acid Level 3.6 mmol/L 2.5 mmol/L (0.4-2.0) (0.4-2.0) B-Type Natriuretic Peptide 1627 PG/ML (0-100) White Blood Count 22.0 TH/MM3 (4.0-11.0) Red Blood Count 2.76 MIL/MM3 (4.00-5.30) Hemoglobin 8.1 GM/DL (11.6-15.3) Hematocrit 25.6 % (35.0-46.0) Mean Corpuscular Volume 92.8 FL (80.0-100.0) Mean Corpuscular Hemoglobin 29.3 PG (27.0-34.0) Mean Corpuscular Hemoglobin 31.6 % Concent (32.0-36.0) Red Cell Distribution Width 14.0 % (11.6-17.2) Platelet Count 323 TH/MM3 (150-450) Mean Platelet Volume 9.0 FL (7.0-11.0) Neutrophils (%) (Auto) % (16.0-70.0) Lymphocytes (%) (Auto) % (9.0-44.0) Monocytes (%) (Auto) % (0.0-8.0) Eosinophils (%) (Auto) % (0.0-4.0) Basophils (%) (Auto) % (0.0-2.0) Neutrophils # (Auto) TH/MM3 (1.8-7.7) Lymphocytes # (Auto) TH/MM3 (1.0-4.8) Monocytes # (Auto) TH/MM3 (0-0.9) Eosinophils # (Auto) TH/MM3 (0-0.4) Basophils # (Auto) TH/MM3 (0-0.2) CBC Comment AUTO DIFF Differential Total Cells 100 Counted Neutrophils % (Manual) 54 % (16-70) Band Neutrophils % 34 % (0-6) Lymphocytes % 9 % (9-44) Monocytes % 2 % (0-8) Basophils % 1 % (0-2) Neutrophils # (Manual) 19.4 TH/MM3 (1.8-7.7) Differential Comment FINAL DIFF MANUAL Toxic Granulation 2+ (NORMAL) Platelet Estimate NORMAL (NORMAL) Platelet Morphology Comment NORMAL (NORMAL) Urine Color YELLOW (YELLW/STRAW) Urine Turbidity CLEAR (CLEAR) Urine pH 6.5 (5.0-8.5) Urine Specific [place] 1.032 (1.002-1.035) Urine Protein 30 mg/dL (NEG-TRACE) Urine Glucose (UA) NEG mg/dL (NEG) Urine Ketones TRACE mg/dL (NEG) Urine Occult Blood NEG (NEG) Urine Nitrite NEG (NEG) Urine Bilirubin NEG (NEG) Urine Urobilinogen 8.0 MG/DL (LESS THAN 2.0) Urine Leukocyte Esterase NEG (NEG) Urine RBC 6 /hpf (0-3) Urine WBC 4 /hpf (0-5) Urine Squamous Epithelial <1 /hpf (0-5) Cells Urine Mucus FEW /lpf (OCC) Microscopic Urinalysis Comment CULT NOT INDICATED Sodium Level 155 MEQ/L (136-145) Potassium Level 3.8 MEQ/L (3.5-5.1) Chloride Level 117 MEQ/L (98-107) Carbon Dioxide Level 29.4 MEQ/L (21.0-32.0) Anion Gap 9 MEQ/L (5-15) Blood Urea Nitrogen 24 MG/DL (7-18) Creatinine 0.61 MG/DL (0.50-1.00) Estimat Glomerular Filtration 97 ML/MIN (>89) Rate Random Glucose 130 MG/DL (74-106) Calcium Level 7.8 MG/DL (8.5-10.1) Magnesium Level 2.1 MG/DL (1.5-2.5) Total Bilirubin 0.3 MG/DL (0.2-1.0) Aspartate Amino Transf 34 U/L (15-37) (AST/SGOT) Alanine Aminotransferase 42 U/L (10-53) (ALT/SGPT) Alkaline Phosphatase 94 U/L (45-117) Total Creatine Kinase 380 U/L (26-192) Creatine Kinase MB 3.6 NG/ML (0.5-3.6) Creatine Kinase MB % 0.9 % (0.0-4.0) Troponin I 0.16 NG/ML (0.02-0.05) Total Protein 5.6 GM/DL (6.4-8.2) Albumin 1.7 GM/DL (3.4-5.0) Lipase 59 U/L (73-393) Valproic Acid (Depakene) Level 37 MCG/ML (50-100) Nasal Screen MRSA (PCR) MRSA NOT DETECTED (NOT DETECT) Test 01/22/17 03:54 White Blood Count 23.2 TH/MM3 (4.0-11.0) Red Blood Count 2.98 MIL/MM3 (4.00-5.30) Hemoglobin 8.9 GM/DL (11.6-15.3) Hematocrit 27.4 % (35.0-46.0) Mean Corpuscular Volume 91.7 FL (80.0-100.0) Mean Corpuscular Hemoglobin 29.8 PG (27.0-34.0) Mean Corpuscular Hemoglobin 32.5 % Concent (32.0-36.0) Red Cell Distribution Width 13.8 % (11.6-17.2) Platelet Count 345 TH/MM3 (150-450) Mean Platelet Volume 9.1 FL (7.0-11.0) Neutrophils (%) (Auto) 84.1 % (16.0-70.0) Lymphocytes (%) (Auto) 8.3 % (9.0-44.0) Monocytes (%) (Auto) 6.5 % (0.0-8.0) Eosinophils (%) (Auto) 0.9 % (0.0-4.0) Basophils (%) (Auto) 0.2 % (0.0-2.0) Neutrophils # (Auto) 19.5 TH/MM3 (1.8-7.7) Lymphocytes # (Auto) 1.9 TH/MM3 (1.0-4.8) Monocytes # (Auto) 1.5 TH/MM3 (0-0.9) Eosinophils # (Auto) 0.2 TH/MM3 (0-0.4) Basophils # (Auto) 0.1 TH/MM3 (0-0.2) CBC Comment DIFF FINAL Differential Comment Sodium Level 145 MEQ/L (136-145) Potassium Level 3.2 MEQ/L (3.5-5.1) Chloride Level 112 MEQ/L (98-107) Carbon Dioxide Level 26.8 MEQ/L (21.0-32.0) Anion Gap 6 MEQ/L (5-15) Blood Urea Nitrogen 10 MG/DL (7-18) Creatinine 0.40 MG/DL (0.50-1.00) Estimat Glomerular Filtration 158 ML/MIN Rate (>89) Random Glucose 194 MG/DL (74-106) Calcium Level 7.7 MG/DL (8.5-10.1) Phosphorus Level 1.1 MG/DL (2.5-4.9) Magnesium Level 1.7 MG/DL (1.5-2.5) Total Bilirubin 0.3 MG/DL (0.2-1.0) Aspartate Amino Transf 21 U/L (15-37) (AST/SGOT) Alanine Aminotransferase 29 U/L (10-53) (ALT/SGPT) Alkaline Phosphatase 461 U/L (45-117) Total Protein 5.4 GM/DL (6.4-8.2) Albumin 1.5 GM/DL (3.4-5.0) Result Diagram: 01/22/17 0354 01/22/17 0354 Microbiology Microbiology Date/Time Procedure Status Source Growth 01/21/17 01:00 Aerobic Blood Culture - Preliminary Resulted Blood Peripheral NO GROWTH IN 2 DAYS 01/21/17 01:00 Anaerobic Blood Culture - Preliminary Resulted Blood Peripheral NO GROWTH IN 2 DAYS 01/21/17 01:10 Aerobic Blood Culture - Preliminary Resulted Blood Peripheral NO GROWTH IN 2 DAYS 01/21/17 01:10 Anaerobic Blood Culture - Preliminary Resulted Blood Peripheral NO GROWTH IN 2 DAYS Imaging Last Impressions Chest X-Ray 01/20/172053 Signed Impressions: Service Date/Time: Friday, January 20, 2017 21:53 - CONCLUSION: Right perihilar patchiness consistent with possible developing pneumonia. Clinical correlation is recommended. Irineo Gonzalez MD Assessment and Plan Disease Oriented Problem List: (1) Severe sepsis Comment: Currently on pressors (2) Dementia of Alzheimer's type with behavioral disturbance Comment: Apical level nontoxic. (3) Pneumonia Comment: likely aspiration. (4) EtOH dependence (5) Failure to thrive (0-17) Comment: Albumin is 1.7 Symptom Scale: (1) Pain 0-10 Scale: Unable to quantify Comment: prn available (2) Dyspnea 0-10 Scale: Unable to quantify Comment: Pneumonia (3) Anxiety 0-10 Scale: Unable to quantify Comment: prn available Pertinent Non-Medical Issues Psychosocial: Spiritual: Legal: Ethical issues impacting care: Important Contacts Irineo Waggoner [phone]. Madeleine Mark [phone] Prognosis 71-year-old with dementia, failure to thrive, severe sepsis, pneumonia (likely aspiration per hx). Patient is dying and is appropriate for hospice. Code Status: No Code Plan == Capacity-patient has dementia and does not have capacity to make medical decision. == Healthcare proxy. Patient's spouse Irineo Waggoner ==CODE STATUS DNR/DNI - community DNR signed today. == Symptoms dyspnea, pain, anxiety- No new med rec. PRN morphine available. == goals of care: Spoke with pt's , and sister. They continue to endorse to try to maximize medical therapy while she is in the hospital. They want to continue IV antibiotics and IV fluids for a few more days, knowing that hospice could not provide that. They did say they are concern about the depakote. Per spouse depakote is ordered for control of mood and behavior. Reemphasize again that pt will benefit from hospice, and they seem to be amenable to that. They did say "I just want to see how far she can rebound, while she is here." Want IV abx and fludis for a few more days. signed community DNR. == behavior- pt is taking depakote outpatient for behavior per and not necessary for seizures. Med team to address. == Palliative care will continue to follow. Time Spent Total Floor Time (mins): 35 Face to Face Time (mins): 20 Attestation To help prompt me to consider important information that might be impacting today's encounter and assessment, information from prior notes written by myself or my colleagues may have been "brought forward" into today's note. My signature on this note, however, is an attestation that I personally performed the exam, history, and/or decision-making noted today, and, unless otherwise indicated, the interactions with patient, family, and staff as well as the review of records all occurred today. I also attest that the listed assessment and stated plan reflect my best clinical judgment today based on the combination of historical information, prior notes, and today's exam/ interactions. When time spent is documented, it refers only to time spent today by the signer, or if indicated, combined time spent today by collaborating physician/nurse practitioner. Danial Le MD January 23, 2017 12:26
[2017-01-23] MEDS ORDERED: PHARMACY ORDERED LAB ONE (12:45)
--- NOTE | 2017-01-23 15:47 | HHI.CCPN ---
Subjective Remarks/Hospital Course 71-year-old female with past medical history of alcohol dependence and dementia who presents to [facility] emergency department from residential due to a 2 day history of fever up to 101. 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 She has been unable to eat or drink well for the last 2 weeks. Chest x-ray demonstrates right perihilar infiltrate consistent with pneumonia. White blood cell count is 22 with 34% bands.. Hemoglobin is 8.1. Her chemistry labs were pending for many hours after admission, requiring re-collect but demonstrated hypernatremia with sodium of 155, creatinine normal. Lactic acid 3.6. BNP 1600. Patient's indicates that she has had progressive decline in mental function that has been most severe over the last 10 months. She has had multiple hospitalizations at multiple facilities during that time. She suffered a fall in February 2016 and was hospitalized in [place] for TBI. She was hospitalized from 07/27/16 use 11/21/16 due to agitation and combative behavior that could no longer be managed by her residential. Her states that she has been bedridden for 3 months. Nonverbal 2 weeks. Received [address] Flores discussed with family in the emergency department regarding central line placement and they declined central line. Patient was hypotensive with blood pressure in the 80s over 50s which was initially volume responsive. When she arrived to [facility] from the emergency department systolic blood pressure was in the 60s/40s and patient had very shallow respirations. Discussed with patient' s that she has end-stage dementia and that would be appropriate to transition to comfort measures if that is consistent with patients previously expressed wishes. He states she does not have a living will but that "she would not want to suffer "and she "has already suffered enough the last 10 months". He agrees with changing codes status to DNR. He would like to transition to comfort measures but would like to be able to see her again. He has just returned home to [place] with his [id number] and they are exhausted and would like to rest and come back to the hospital. Will use vasopressor support with phenylephrine via PIV in effort to maintain until they can return to the hospital. Sister says "I feel selfish saying to do that just so I can see her, but I also want someone to be with her". She is aware that it is difficult to predict how long that she will live and that she may before they arrive and, on the other hand, she may live for several days after transition to comfort. Will change CODE STATUS to DNR per this discussion. 01/22: Code status officially DNR. Will transfer to floor. Protects airway well. 01/23: Protects airway, comfortable. Objective Vital Signs Date Time Temp Pulse Resp B/P Pulse Ox O2 Delivery O2 Flow Rate FiO2 01/23/17 06:00 74 01/23/17 04:00 98.4 26 116/61 95 01/22/17 19:00 Room Air 01/22/17 09:55 21 01/21/17 20:00 1.00 Intake and Output 01/22/17 01/22/17 01/23/17 08:00 16:00 00:00 Intake Total 1740 ml 1438 ml 1423 ml Output Total 250 ml 700 ml 850 ml Balance 1490 ml 738 ml 573 ml Result Diagram: 01/22/17 0354 01/22/17 0354 Objective Remarks GENERAL: Malnourished, Chronically ill-appearing female. SKIN: Warm and dry. HEAD: Atraumatic. Normocephalic. NECK: Trachea midline. No obstruction, airway widely patent. CARDIOVASCULAR: Regular rate and rhythm. No murmurs rubs or gallops. RESPIRATORY: Very shallow respirations with no wheezes, rales or rhonchi. GASTROINTESTINAL: Abdomen soft, grimaces to palpation, bowel sounds present. MUSCULOSKELETAL: Extremities without clubbing, cyanosis, or edema. Contractures of all extremities NEUROLOGICAL: Eyes open spontaneously, responds to visual threat, does not track. Moves upper extremities spontaneously. A/P Assessment and Plan NEURO: End-stage dementia History of alcohol abuse Morphine 2-4 mg IV every 2 hours as needed for pain. Depakote level nontoxic. Continue Depakote 500 mg IV every 8 hours Namenda/zyprexa on hold. RESP: Acute healthcare associated pneumonia Nasal cannula wean as tolerated Antibiotics as per below Albuterol every 2 hours as needed CV: Septic shock History of hypertension D5 NaCl at 125 mL per hour. Benjamin-Synephrine drip to maintain mean arterial pressure greater than 65. Hold Cozaar 50 mg by mouth daily Serial lactic acid. BNP 1627 but appears clinically dry. GI: Chronic severe protein energy malnutrition Dysphagia GERD Chronic constipation Nothing by mouth. Family has indicated to Dr. Flores and Dr. Chase that they would not want feeding tube. Dulcolax 10 mg [place] as needed for constipation. FEN/RENAL: Acute dehydration Hypernatremia Dawson in place. Monitor intake and output. Monitor electrolytes and replace as indicated. ID: Healthcare associated pneumonia Received Zosyn and vancomycin in the emergency department. Continue vancomycin with pharmacy consult for dosing. Will use cefepime in place and Zosyn due to hypernatremia. Follow-up blood cultures 01/21. UA negative HEME: Leukocytosis, bandemia Chronic anemia Monitor CBC ENDO: Euglycemic PROPH: Protonix 40 mg IV daily for stress ulcer prophylaxis. Initiate heparin 5000 units subcutaneous every 12 hours for DVT prophylaxis is not transitioning to comfort today. ACCESS: Patient has peripheral IV. Central venous line is indicated due to vasopressor requirements but family does not want her to endure suffering from an additional procedure. They are aware that infiltration could result in harm. Using vasopressor short term so that family can arrive and then they have expressed desire to transition to comfort measures. Discussed that if they change their mind about comfort measures and if it appears that vasopressor requirement will be prolonged patient may need to proceed with central venous line. Of note, patient has been enrolled in hospice but family did not seem to be on -board with hospice philosophy initially, providing criticism that "hospice was not doing anything". They seem to be clear on desire to transition to comfort now --expressing gratitude for discussions about end-of-life care, appreciative of Dr. Flores. Palliative care consult team has seen patient. Transfer to floor after low dose Benjamin off. Family deciding about Hospice. Cesar Soto MD January 23, 2017 15:47
[2017-01-23] MEDS: VANCOMYCIN 1,000 MG/NS 250 ML IV SCH ×2 (23:09)
[2017-01-24] VITALS (10 sets, daily range): BP systolic 92–118; BP diastolic 57–69; PULSE 56–87; RESP 12–21; TEMP 96.3–97.9; O2SAT 98–100
[2017-01-24] MEDS: CEFEPIME INJ 2,000 MG in SODIUM CHLORIDE 0.9% INJ 100 ML IV SCH ×3 (01:16→18:00)
[2017-01-24] MEDS: VALPROATE INJ 500 MG in SODIUM CHLORIDE 0.9% INJ 100 ML IV SCH ×3 (02:29→18:00)
[2017-01-24] MEDS: CHLORHEXIDINE GLUCONATE 2 % 1 PACK (2 CLOTHS) TOP SCH (04:00)
[2017-01-24] MEDS: DEXT 5%-NACL 0.45% 1000 ML INJ 1,000 ML IV SCH ×3 (04:15→22:11)
[2017-01-24] MEDS: HYDROCORTISONE SOD SUCCINATE 100 MG VIAL IV PUSH SCH ×3 (05:12→18:00)
[2017-01-24 05:28] LABS: BICARBONATE 24.6 MEQ/L (21.0-32.0)
[2017-01-24] MEDS: DOCUSATE SODIUM 50 MG/SENNA 8.6 MG TAB PO SCH ×2 (07:33→21:00)
[2017-01-24] MEDS: SODIUM CHLORIDE 0.9% FLUSH 10 ML FLUSH SCH ×2 (08:54→22:11)
[2017-01-24] MEDS: PANTOPRAZOLE SODIUM 40 MG VIAL IV SCH (08:54)
[2017-01-24] MEDS: POTASSIUM CHLOR 20 MEQ PREMIX 100 ML IV PRN ×2 (08:55→08:57)
--- NOTE | 2017-01-24 12:02 | HHI.HCPN ---
Reason for visit a. To assist with evaluation and management of symptoms including:Pain b. To assist medical decision maker(s) with: better understanding of current medical conditions; weighing benefits/burdens of medical treatment options; making medical treatment decisions. Subjective/Interval History Pt open eyes, said something not comprehensible 1-2 words. Lay back in bed. and sister at bedside. Spoke with them, that likely in terms of improvement, this may be the best we are going to get. I spoke with them and they are aware of continue aspiration risk. Spoke with them about peg tube, and the implication of that with es- dementia and still the poor prognosis. They decided on no peg tube. Family/friend interactions Goals: will speak with hospice today. If does sign with hospice, they would like to be place in [facility] if available. She remains an aspiration risk. They would want to attempt to get oral/ crush antibiotics for 3 more days, but they understand if pt, may have difficulty, hospice will cause further aspiration. They are amenable to stopping if that is the case. Should pt remains stable, would consider placement at a facility closer to his home ([place]). They understand pt is very frail and may decline again. Review the use of comfort meds if/when she get symptomatic, such as morphine, ativan, dialudid should she becomes symptomatic. Advance Directives Living Will: Completed, but not made available Advance Directive Specifics Documented care wishes: Advanced directive on file, that this patient is incapacitated. And that decision maker is healthcare proxy. Objective Vital Signs Date Time Temp Pulse Resp B/P Pulse Ox O2 Delivery O2 Flow Rate FiO2 01/24/17 11:00 100 Room Air 01/24/17 11:00 87 01/24/17 06:00 56 01/24/17 04:00 97.6 82 21 118/66 100 01/24/17 04:00 81 01/24/17 02:00 72 01/24/17 00:00 67 01/24/17 00:00 97.9 65 18 100/64 100 01/23/17 22:00 65 01/23/17 20:00 98.9 66 21 76/46 98 01/23/17 20:00 65 01/23/17 19:00 100 Room Air 01/23/17 18:00 74 01/23/17 16:00 97.7 74 23 100/59 100 01/23/17 16:00 74 01/23/17 14:00 73 01/23/17 12:00 98.1 78 27 160/57 97 01/23/17 12:00 71 Intake & Output 01/24/17 01/24/17 07:00 19:00 Intake Total 2029 ml Output Total 400 ml Balance 1629 ml IV Total 2029 ml Output Urine Total 400 ml # Bowel Movements 2 Physical Exam CONSTITUTIONAL/GENERAL: Frail lady, open eyes, spoke a few words. TUBES/LINES/DRAINS: PIV SKIN: No jaundice, rashes, or lesions. Ecchymoses on upper extremities. No wounds seen anteriorly. Skin temperature appropriate. HEAD: Atraumatic. Normocephalic. EYES: Pupils equal and round and reactive.No scleral icterus. No injection or drainage. ENT: Hearing grossly normal. Nose without bleeding or purulent drainage. Throat without visible erythema, exudates, masses, or lesions. NECK: Trachea midline. Supple, nontender. No palpable thyroid enlargement or nodularity. CARDIOVASCULAR: Regular rate and rhythm without murmurs, gallops, or rubs. No JVD. Peripheral pulses symmetric. RESPIRATORY/CHEST: Symmetric, unlabored respirations. Faint rhonchi right. GASTROINTESTINAL: Abdomen soft, non-tender, nondistended. Bowel sounds present. GENITOURINARY: Without palpable bladder distension. Dawson catheter in place. MUSCULOSKELETAL: Extremities without clubbing, cyanosis, or edema. No calf tenderness. No mottling or clubbing. LYMPHATICS: No palpable cervical or supraclavicular adenopathy. NEUROLOGICAL: Stirs during exam, open eyes, Diagnostic Tests Laboratory Laboratory Tests Test 01/22/17 01/23/17 01/24/17 03:54 14:45 03:13 White Blood Count 23.2 TH/MM3 (4.0-11.0) Red Blood Count 2.98 MIL/MM3 (4.00-5.30) Hemoglobin 8.9 GM/DL (11.6-15.3) Hematocrit 27.4 % (35.0-46.0) Mean Corpuscular Volume 91.7 FL (80.0-100.0) Mean Corpuscular Hemoglobin 29.8 PG (27.0-34.0) Mean Corpuscular Hemoglobin 32.5 % Concent (32.0-36.0) Red Cell Distribution Width 13.8 % (11.6-17.2) Platelet Count 345 TH/MM3 (150-450) Mean Platelet Volume 9.1 FL (7.0-11.0) Neutrophils (%) (Auto) 84.1 % (16.0-70.0) Lymphocytes (%) (Auto) 8.3 % (9.0-44.0) Monocytes (%) (Auto) 6.5 % (0.0-8.0) Eosinophils (%) (Auto) 0.9 % (0.0-4.0) Basophils (%) (Auto) 0.2 % (0.0-2.0) Neutrophils # (Auto) 19.5 TH/MM3 (1.8-7.7) Lymphocytes # (Auto) 1.9 TH/MM3 (1.0-4.8) Monocytes # (Auto) 1.5 TH/MM3 (0-0.9) Eosinophils # (Auto) 0.2 TH/MM3 (0-0.4) Basophils # (Auto) 0.1 TH/MM3 (0-0.2) CBC Comment DIFF FINAL Differential Comment Sodium Level 145 MEQ/L 142 MEQ/L (136-145) (136-145) Potassium Level 3.2 MEQ/L 3.0 MEQ/L (3.5-5.1) (3.5-5.1) Chloride Level 112 MEQ/L 108 MEQ/L (98-107) (98-107) Carbon Dioxide Level 26.8 MEQ/L 24.6 MEQ/L (21.0-32.0) (21.0-32.0) Anion Gap 6 MEQ/L (5-15) 9 MEQ/L (5-15) Blood Urea Nitrogen 10 MG/DL (7-18) 6 MG/DL (7-18) Creatinine 0.40 MG/DL 0.32 MG/DL (0.50-1.00) (0.50-1.00) Estimat Glomerular Filtration 158 ML/MIN 205 ML/MIN Rate (>89) (>89) Random Glucose 194 MG/DL 154 MG/DL (74-106) (74-106) Calcium Level 7.7 MG/DL 7.8 MG/DL (8.5-10.1) (8.5-10.1) Phosphorus Level 1.1 MG/DL (2.5-4.9) Magnesium Level 1.7 MG/DL (1.5-2.5) Total Bilirubin 0.3 MG/DL (0.2-1.0) Aspartate Amino Transf 21 U/L (15-37) (AST/SGOT) Alanine Aminotransferase 29 U/L (10-53) (ALT/SGPT) Alkaline Phosphatase 461 U/L (45-117) Total Protein 5.4 GM/DL (6.4-8.2) Albumin 1.5 GM/DL (3.4-5.0) Vancomycin Level Trough 6.1 MCG/ML (5.0-10.0) Result Diagram: 01/22/17 0354 01/24/17312 Assessment and Plan Disease Oriented Problem List: (1) Severe sepsis Comment: Currently on pressors (2) Dementia of Alzheimer's type with behavioral disturbance Comment: Apical level nontoxic. (3) Pneumonia Comment: likely aspiration. (4) EtOH dependence (5) Failure to thrive (0-17) Comment: Albumin is 1.7 Symptom Scale: (1) Pain 0-10 Scale: Unable to quantify Comment: prn available (2) Dyspnea 0-10 Scale: Unable to quantify Comment: Pneumonia (3) Anxiety 0-10 Scale: Unable to quantify Comment: prn available Pertinent Non-Medical Issues Psychosocial: Spiritual: Legal: Ethical issues impacting care: Important Contacts Irineo Waggoner [phone]. Madeleine Flores [phone] Prognosis 71-year-old with dementia, failure to thrive, severe sepsis, pneumonia (likely aspiration per hx). Patient is dying and is appropriate for hospice. Code Status: No Code Plan == Capacity-patient has dementia and does not have capacity to make medical decision. == Healthcare proxy. Patient's spouse Irineo Waggoner ==CODE STATUS DNR/DNI - community DNR signed today. == Symptoms dyspnea, pain, anxiety- No new med rec. PRN morphine available. == goals of care: will speak with hospice today. Hospice consult will be placed. If does sign with hospice, they would like to be place in [facility] if available. She remains an aspiration risk/ dyspnea / fragile/ just got off pressors. They would want to attempt to get oral/ crush antibiotics for 3 more days, but they understand if pt, may have difficulty, hospice will cause further aspiration. They are amenable to stopping if that is the case. Should pt remains stable, would consider placement at a facility closer to his home ([place]). They understand pt is very frail and may decline again. Review the use of comfort meds if/when she get symptomatic, such as morphine, ativan, dialudid should she becomes symptomatic. == behavior- pt is taking depakote outpatient for behavior per and not necessary for seizures. Med team to address. == Palliative care will continue to follow. Time Spent Total Floor Time (mins): 45 Face to Face Time (mins): 30 >50% Counseling/Coord of Care: Yes Attestation To help prompt me to consider important information that might be impacting today's encounter and assessment, information from prior notes written by myself or my colleagues may have been "brought forward" into today's note. My signature on this note, however, is an attestation that I personally performed the exam, history, and/or decision-making noted today, and, unless otherwise indicated, the interactions with patient, family, and staff as well as the review of records all occurred today. I also attest that the listed assessment and stated plan reflect my best clinical judgment today based on the combination of historical information, prior notes, and today's exam/ interactions. When time spent is documented, it refers only to time spent today by the signer, or if indicated, combined time spent today by collaborating physician/nurse practitioner. Danial Le MD Jan 24, 2017 12:02
[2017-01-24] MEDS: VANCOMYCIN 1,000 MG/NS 250 ML IV SCH ×2 (12:32)
--- NOTE | 2017-01-24 13:53 | HHI.PR ---
Subjective Remarks appears calm and comfortable can be very agitated when care is performed Objective Vitals Vital Signs Date Time Temp Pulse Resp B/P Pulse Ox O2 Delivery O2 Flow Rate FiO2 01/24/17 12:00 96.9 65 18 92/57 100 01/24/17 12:00 65 01/24/17 11:00 100 Room Air 01/24/17 11:00 87 01/24/17 06:00 56 01/24/17 04:00 97.6 82 21 118/66 100 01/24/17 04:00 81 01/24/17 02:00 72 01/24/17 00:00 67 01/24/17 00:00 97.9 65 18 100/64 100 01/23/17 22:00 65 01/23/17 20:00 98.9 66 21 76/46 98 01/23/17 20:00 65 01/23/17 19:00 100 Room Air 01/23/17 18:00 74 01/23/17 16:00 97.7 74 23 100/59 100 01/23/17 16:00 74 01/23/17 14:00 73 I/O 01/23/17 01/23/17 01/23/17 01/24/17 01/24/17 01/24/17 07:00 15:00 23:00 07:00 15:00 23:00 Intake Total 564 ml 2166 ml 1168 ml 861 ml Output Total 800 ml 1000 ml 200 ml 200 ml Balance -236 ml 1166 ml 968 ml 661 ml Intake Oral 0 ml IV Total 564 ml 2166 ml 1168 ml 861 ml Output Urine Total 800 ml 1000 ml 200 ml 200 ml # Bowel Movements 0 0 1 1 Result Diagram: 01/22/17 0354 01/24/17 0313 Imaging Last Impressions Chest X-Ray 01/20/172053 Signed Impressions: Service Date/Time: Friday, January 20, 2017 21:53 - CONCLUSION: Right perihilar patchiness consistent with possible developing pneumonia. Clinical correlation is recommended. Irineo Gonzalez MD Objective Remarks calm, not in acute distress, alert, sats 100% at room air anicteric lungs decreased breath sounds, no rales, no wheezes regular rhythm abdomen soft, nontender, good bowel sounds extremities no edema Urinary Catheter: Yes Assessment to: Continue Dawson insert reason: Stage III/IV Press Ulcer Date of Insertion: January 20, 2017 A/P Assessment and Plan NEURO: End-stage dementia History of alcohol abuse Morphine 2-4 mg IV every 2 hours as needed for pain. Depakote level nontoxic. Continue Depakote 500 mg IV every 8 hours Namenda/zyprexa on hold. RESP: Acute healthcare associated pneumonia Nasal cannula wean as tolerated Antibiotics as per below Albuterol every 2 hours as needed CV: Septic shock History of hypertension D5 NaCl at 125 mL per hour. Benjamin-Synephrine drip to maintain mean arterial pressure greater than 65. Hold Cozaar 50 mg by mouth daily Serial lactic acid. BNP 1627 but appears clinically dry. GI: Chronic severe protein energy malnutrition Dysphagia GERD Chronic constipation Nothing by mouth. Family has indicated to Dr. Flores and Dr. Chase that they would not want feeding tube. Dulcolax 10 mg [place] as needed for constipation. FEN/RENAL: Acute dehydration Hypernatremia HYpokalemia Dawson in place. Monitor intake and output. Monitor electrolytes and replace as indicated.on protocol ID: Healthcare associated pneumonia Received Zosyn and vancomycin in the emergency department. Continue vancomycin with pharmacy consult for dosing. Will use cefepime in place and Zosyn due to hypernatremia. Follow-up blood cultures 01/21. UA negative HEME: Leukocytosis, bandemia Chronic anemia Monitor CBC ENDO: Euglycemic PROPH: Protonix 40 mg IV daily for stress ulcer prophylaxis. Initiate heparin 5000 units subcutaneous every 12 hours for DVT prophylaxis is not transitioning to comfort today. ACCESS: Patient has peripheral IV. Central venous line is indicated due to vasopressor requirements but family does not want her to endure suffering from an additional procedure. They are aware that infiltration could result in harm. Using vasopressor short term so that family can arrive and then they have expressed desire to transition to comfort measures. Discussed that if they change their mind about comfort measures and if it appears that vasopressor requirement will be prolonged patient may need to proceed with central venous line. Of note, patient has been enrolled in hospice but family did not seem to be on -board with hospice philosophy initially, providing criticism that "hospice was not doing anything". They seem to be clear on desire to transition to comfort now --expressing gratitude for discussions about end-of-life care, appreciative of Dr. Flores. Palliative care consult team has seen patient. Family deciding about Hospice.- will meet hospice tomorrow refused NGT or any feeding tube Elizabeth Rodriguez MD Jan 24, 2017 13:53
[2017-01-25] VITALS (8 sets, daily range): BP systolic 114–139; BP diastolic 58–76; PULSE 57–83; RESP 10–18; TEMP 96.4–97; O2SAT 98–100
[2017-01-25] MEDS: VANCOMYCIN 1,000 MG/NS 250 ML IV SCH ×4 (00:06→12:00)
[2017-01-25] MEDS: HYDROCORTISONE SOD SUCCINATE 100 MG VIAL IV PUSH SCH ×3 (00:07→12:00)
[2017-01-25] MEDS: CEFEPIME INJ 2,000 MG in SODIUM CHLORIDE 0.9% INJ 100 ML IV SCH ×2 (02:42→09:55)
[2017-01-25] MEDS: VALPROATE INJ 500 MG in SODIUM CHLORIDE 0.9% INJ 100 ML IV SCH ×2 (03:00→10:10)
[2017-01-25] MEDS: DEXT 5%-NACL 0.45% 1000 ML INJ 1,000 ML IV SCH (04:00)
[2017-01-25] MEDS: CHLORHEXIDINE GLUCONATE 2 % 1 PACK (2 CLOTHS) TOP SCH (04:00)
[2017-01-25] MEDS: DOCUSATE SODIUM 50 MG/SENNA 8.6 MG TAB PO SCH (09:00)
[2017-01-25] MEDS: PANTOPRAZOLE SODIUM 40 MG VIAL IV SCH (09:55)
[2017-01-25] MEDS: SODIUM CHLORIDE 0.9% FLUSH 10 ML FLUSH SCH (09:55)
[2017-01-25] MEDS ORDERED: PHARMACY ORDERED LAB ONE (11:45)
--- NOTE | 2017-01-25 11:56 | HHI.PR ---
Subjective Remarks awake and alert, appears comfortable, pleasantly confused "come here, come here" Objective Vitals Vital Signs Date Time Temp Pulse Resp B/P Pulse Ox O2 Delivery O2 Flow Rate FiO2 01/25/17 08:45 100 21 01/25/17 06:00 57 01/25/17 04:00 96.4 72 18 126/58 100 01/25/17 04:00 62 01/25/17 02:00 57 01/25/17 00:00 67 01/25/17 00:00 97.0 67 15 114/64 98 01/24/17 22:00 69 01/24/17 20:00 68 01/24/17 20:00 97.0 70 12 103/69 98 01/24/17 19:00 100 Room Air 01/24/17 19:00 71 01/24/17 16:00 96.3 60 16 105/67 100 01/24/17 16:00 60 01/24/17 12:00 96.9 65 18 92/57 100 01/24/17 12:00 65 I/O 01/24/17 01/24/17 01/24/17 01/25/17 01/25/17 01/25/17 07:00 15:00 23:00 07:00 15:00 23:00 Intake Total 861 ml 1215 ml 1363 ml 1048 ml Output Total 200 ml 125 ml 200 ml 450 ml Balance 661 ml 1090 ml 1163 ml 598 ml IV Total 861 ml 1215 ml 1363 ml 1048 ml Output Urine Total 200 ml 125 ml 200 ml 450 ml # Bowel Movements 1 1 0 0 Result Diagram: 01/22/17 0354 01/24/17312 Imaging Last Impressions Chest X-Ray 01/20/172053 Signed Impressions: Service Date/Time: Friday, January 20, 2017 21:53 - CONCLUSION: Right perihilar patchiness consistent with possible developing pneumonia. Clinical correlation is recommended. Irineo Gonzalez MD Objective Remarks not in acute distress, alert, sats 100% at room air ff some commands, oriented only to persone anicteric lungs decreased breath sounds, no rales, no wheezes regular rhythm abdomen soft, nontender, good bowel sounds extremities no edema Date of Insertion: January 20, 2017 A/P Assessment and Plan NEURO: End-stage dementia History of alcohol abuse Morphine 2-4 mg IV every 2 hours as needed for pain. Depakote level nontoxic. Continue Depakote 500 mg IV every 8 hours Namenda/zyprexa on hold. RESP: Acute healthcare associated pneumonia Nasal cannula wean as tolerated Antibiotics as per below Albuterol every 2 hours as needed CV: Septic shock History of hypertension D5 NaCl at 125 mL per hour. Benjamin-Synephrine drip to maintain mean arterial pressure greater than 65. Hold Cozaar 50 mg by mouth daily Serial lactic acid. BNP 1627 but appears clinically dry. GI: Chronic severe protein energy malnutrition Dysphagia GERD Chronic constipation Nothing by mouth. Family has indicated to Dr. Flores and Dr. Chase that they would not want feeding tube. Dulcolax 10 mg [place] as needed for constipation. FEN/RENAL: Acute dehydration Hypernatremia HYpokalemia Dawson in place. Monitor intake and output. Monitor electrolytes and replace as indicated.on protocol ID: Healthcare associated pneumonia Received Zosyn and vancomycin in the emergency department. Continue vancomycin with pharmacy consult for dosing. Will use cefepime in place and Zosyn due to hypernatremia. Follow-up blood cultures 01/21. UA negative HEME: Leukocytosis, bandemia Chronic anemia Monitor CBC ENDO: Euglycemic PROPH: Protonix 40 mg IV daily for stress ulcer prophylaxis. Initiate heparin 5000 units subcutaneous every 12 hours for DVT prophylaxis is not transitioning to comfort today. ACCESS: Patient has peripheral IV. Central venous line is indicated due to vasopressor requirements but family does not want her to endure suffering from an additional procedure. They are aware that infiltration could result in harm. Using vasopressor short term so that family can arrive and then they have expressed desire to transition to comfort measures. Discussed that if they change their mind about comfort measures and if it appears that vasopressor requirement will be prolonged patient may need to proceed with central venous line. Of note, patient has been enrolled in hospice but family did not seem to be on -board with hospice philosophy initially, providing criticism that "hospice was not doing anything". They seem to be clear on desire to transition to comfort now --expressing gratitude for discussions about end-of-life care, appreciative of Dr. Flores. Palliative care consult team has seen patient. Family deciding about Hospice.-seen by Hospice care NurseJose Luis Silverio today- [place] [facility] refused [facility] or any feeding tube Elizabeth Rodriguez MD Jan 25, 2017 11:55
[2017-01-25] MEDS ORDERED: TYLE325T PO (11:58)
--- NOTE | 2017-01-25 12:01 | HHI.DS ---
Discharge Summary Admission Date January 20, 2017 at 23:32 Discharge Date: Jan 25, 2017 Admitting Diagnosis Sepsis, right perihilar infiltrate, end stage dementia (1) Severe sepsis ICD Code: A41.9 Diagnosis: Principal (2) Pneumonia ICD Code: J18.9 Diagnosis: Principal (3) Dementia of Alzheimer's type with behavioral disturbance ICD Code: G30.8 Diagnosis: Secondary Procedures none Brief History - From Admission 71-year-old female with past medical history of alcohol dependence and dementia who presents to [facility] emergency department from snf due to a 2 day history of fever up to 101. She was hypotensive in 80s and was given NS [employer]. She has been unable to eat or drink well for the last 2 weeks. Chest x-ray demonstrates right perihilar infiltrate consistent with pneumonia. White blood cell count is 22 with 34% bands.. Hemoglobin is 8.1. Her chemistry labs were pending for many hours after admission, requiring re-collect but demonstrated hypernatremia with sodium of 155, creatinine normal. Lactic acid 3.6. BNP 1600. Patient's indicates that she has had progressive decline in mental function that has been most severe over the last 10 months. She has had multiple hospitalizations at multiple facilities during that time. She suffered a fall in February 2016 and was hospitalized in [place] for TBI. She was hospitalized from 07/27/16 use 11/21/16 due to agitation and combative behavior that could no longer be managed by her snf. Her states that she has been bedridden for 3 months. Nonverbal 2 weeks. Received [address] Flores discussed with family in the emergency department regarding central line placement and they declined central line. Patient was hypotensive with blood pressure in the 80s over 50s which was initially volume responsive. When she arrived to [facility] from the emergency department systolic blood pressure was in the 60s/40s and patient had very shallow respirations. Discussed with patient' s that she has end-stage dementia and that would be appropriate to transition to comfort measures if that is consistent with patients previously expressed wishes. He states she does not have a living will but that "she would not want to suffer "and she "has already suffered enough the last 10 months". He agrees with changing codes status to DNR. He would like to transition to comfort measures but would like to be able to see her again. He has just returned home to [place] with his [id number] and they are exhausted and would like to rest and come back to the hospital. Will use vasopressor support with phenylephrine via PIV in effort to maintain until they can return to the hospital. Sister says "I feel selfish saying to do that just so I can see her, but I also want someone to be with her". She is aware that it is difficult to predict how long that she will live and that she may before they arrive and, on the other hand, she may live for several days after transition to comfort. Will change CODE STATUS to DNR per this discussion. CBC/BMP: 01/22/17 0354 01/24/17 0313 Significant Findings Laboratory Tests Test 01/24/17 03:13 Potassium Level 3.0 MEQ/L (3.5-5.1) Chloride Level 108 MEQ/L (98-107) Blood Urea Nitrogen 6 MG/DL (7-18) Creatinine 0.32 MG/DL (0.50-1.00) Random Glucose 154 MG/DL (74-106) Calcium Level 7.8 MG/DL (8.5-10.1) Imaging Last Impressions Chest X-Ray 01/20/172053 Signed Impressions: Service Date/Time: Friday, January 20, 2017 21:53 - CONCLUSION: Right perihilar patchiness consistent with possible developing pneumonia. Clinical correlation is recommended. Irineo Gonzalez MD PE at Discharge not in acute distress, alert, sats 100% at room air ff some commands, oriented only to person anicteric lungs decreased breath sounds, no rales, no wheezes regular rhythm abdomen soft, nontender, good bowel sounds extremities no edema Pt update on day of discharge awake and alert, appears comfortable, good sats,, pleasantly confused Hospital Course End-stage dementia History of alcohol abuse Morphine 2-4 mg IV every 2 hours as needed for pain. Depakote level nontoxic. Continue Depakote 500 mg IV every 8 hours Namenda/zyprexa on hold. CV: Septic shock History of hypertension D5 NaCl at 125 mL per hour. Benjamin-Synephrine drip to maintain mean arterial pressure greater than 65. Hold Cozaar 50 mg by mouth daily Serial lactic acid. BNP 1627 but appears clinically dry. GI: Chronic severe protein energy malnutrition Dysphagia GERD Chronic constipation Nothing by mouth. Family has indicated to Dr. Flores and Dr. Chase that they would not want feeding tube. Dulcolax 10 mg [place] as needed for constipation. FEN/RENAL: Acute dehydration Hypernatremia HYpokalemia Dawson in place. Monitor intake and output. Monitor electrolytes and replace as indicated.on protocol ID: Healthcare associated pneumonia Received Zosyn and vancomycin in the emergency department. Continue vancomycin with pharmacy consult for dosing. Will use cefepime in place and Zosyn due to hypernatremia. Follow-up blood cultures 01/21. UA negative HEME: Leukocytosis, bandemia Chronic anemia Monitor CBC ENDO: Euglycemic PROPH: Protonix 40 mg IV daily for stress ulcer prophylaxis. Initiate heparin 5000 units subcutaneous every 12 hours for DVT prophylaxis is not transitioning to comfort today. ACCESS: Patient has peripheral IV. Central venous line is indicated due to vasopressor requirements but family does not want her to endure suffering from an additional procedure. They are aware that infiltration could result in harm. Using vasopressor short term so that family can arrive and then they have expressed desire to transition to comfort measures. Discussed that if they change their mind about comfort measures and if it appears that vasopressor requirement will be prolonged patient may need to proceed with central venous line. Of note, patient has been enrolled in hospice but family did not seem to be on -board with hospice philosophy initially, providing criticism that "hospice was not doing anything". They seem to be clear on desire to transition to comfort now --expressing gratitude for discussions about end-of-life care, appreciative of Dr. Flores. Palliative care consult team has seen patient. Family deciding about Hospice.-seen by Hospice care Nurse- Nusrat today- DC to [facility] today refused NGT or any feeding tube comfort meds per Hospice Pt Condition on Discharge: Stable Discharge Disposition: Hospice/Med Facility Discharge Time: <= 30 minutes Discharge Instructions DIET: Follow Instructions for: As Tolerated, No Restrictions Speech Therapy-Diet Recommends: Regular Activities you can perform: Weight Bearing as Terrance New Medications: Acetaminophen (Tylenol) 325 Mg Tab 650 MG PO Q6H PRN pain or discomfort #10 Ref 0 TAB Elizabeth Rodriguez MD Jan 25, 2017 12:00
== END 2017-01-25 14:30 | disposition hospice, inpatient (51) | DRG 871 ==
LOC: NEPE 20:44 → NEDA 23:32 → N03A 01-21 02:24
PROVIDERS: ADMIT Internal Medicine; ATTEND Internal Medicine
DX: A41.9 Sepsis, unspecified organism (principal); R65.21 Severe sepsis with septic shock; E43 Unspecified severe protein-calorie malnutrition; E87.0 Hyperosmolality and hypernatremia; J18.9 Pneumonia, unspecified organism; R13.10 Dysphagia, unspecified; R62.7 Adult failure to thrive; F02.81 Dementia in other diseases classified elsewhere, unspecified severity, with behavioral disturbance; G30.9 Alzheimer's disease, unspecified; Z68.1 Body mass index [BMI] 19.9 or less, adult; E86.0 Dehydration; R65.20 Severe sepsis without septic shock; E11.9 Type 2 diabetes mellitus without complications; I10 Essential (primary) hypertension; K59.09 Other constipation; Y95 Nosocomial condition; F31.9 Bipolar disorder, unspecified; F41.9 Anxiety disorder, unspecified; F10.20 Alcohol dependence, uncomplicated; D64.9 Anemia, unspecified; Z51.5 Encounter for palliative care; Z66 Do not resuscitate
CPT/HCPCS: 51702; 71010; 80048; 80053; 80164; 80202; 81001; 82550; 82552; 83605; 83690; 83735; 83880; 84100; 84484; 85007; 85025; 85027; 85610; 85730; 87040; 87641; 93005; 96365; 96368; C9113; J0692; J1720; J2370; J2543; J3370; J3480; J7030; J7050; J7060; J7120